=== PATIENT | female | born 1935 | race Caucasian/White ===

== ENCOUNTER → 2016-07-20 | Outpatient (CLI) | payer MEDICARE, OTHER ==
[~2016-07-20] MED LIST: ALLO100T PO; AMLO10 PO; CARV12.52 PO; CARV25TA PO; CHOL100028 PO; CYAN100016 PO; GLYB2.5T3 PO; HYDR-3516 PO; ISOS30TA15; LEVO200T4 PO; LEXA10TA PO; NEPHRO PO; OXYGEN; PRIL20CA9 PO; VITA100064 PO; Z.0.OXYGENDME NC
[2016-07-20 13:35] LABS: ALKALINE PHOSPHATASE 142 U/L (45-117); ALT (GPT) 17 U/L (10-53); ANION GAP 7 MEQ/L (5-15); AST (GOT) 15 U/L (15-37); BICARBONATE 27.6 MEQ/L (21.0-32.0); BLOOD UREA NITROGEN 64 MG/DL (7-18); CHLORIDE 103 MEQ/L (98-107); FREE T4 1.21 NG/DL (0.76-1.46); GLOMERULAR FILTRATION RATE 9 ML/MIN (>89); GLUCOSE,FASTING 141 MG/DL (74-99); HDL CHOLESTEROL 39.9 MG/DL (40.0-60.0); LDL CHOLESTEROL 49 MG/DL (0-99); POTASSIUM 5.3 MEQ/L (3.5-5.1); SODIUM (NA) 138 MEQ/L (136-145); TOTAL BILIRUBIN ADULT 0.4 MG/DL (0.2-1.0)
[2016-07-20 13:39] LABS: CREATINE KINASE 28 U/L (26-192)
== END ==
LOC: PLAB 08:33
PROVIDERS: ATTEND Internal Medicine Interventional Cardiology
DX: R94.39 Abnormal result of other cardiovascular function study (principal); I77.9 Disorder of arteries and arterioles, unspecified; I25.10 Atherosclerotic heart disease of native coronary artery without angina pectoris; I10 Essential (primary) hypertension; E78.2 Mixed hyperlipidemia; I31.9 Disease of pericardium, unspecified; I49.3 Ventricular premature depolarization; Z68.27 Body mass index [BMI] 27.0-27.9, adult
CPT/HCPCS: 36415; 80053; 80061; 82550; 83735; 84439; 84443

== ENCOUNTER → 2016-10-10 | Outpatient (CLI) | payer MEDICARE, OTHER ==
[2016-10-10 12:56] LABS: HEMATOCRIT 32.3 % (35.0-46.0); MEAN CELL VOLUME 105.6 FL (80.0-100.0); MEAN CORPUSCULAR HEMOGLOBIN 35.7 PG (27.0-34.0); MEAN CORPUSCULAR HGB CONC 33.9 % (32.0-36.0); PLATELET COUNT 196 TH/MM3 (150-450); RED BLOOD COUNT 3.06 MIL/MM3 (4.00-5.30); RED CELL DISTRIBUTION WIDTH 12.9 % (11.6-17.2); REVIEW FLAG FINAL; WHITE BLOOD COUNT 8.6 TH/MM3 (4.0-11.0)
[2016-10-10 13:20] LABS: WESTERGREN SEDIMENTATION RATE 48 mm/hr (0-30)
[2016-10-10 13:23] LABS: ANION GAP 12 MEQ/L (5-15); AST (GOT) 9 U/L (15-37); BICARBONATE 25.5 MEQ/L (21.0-32.0); BLOOD UREA NITROGEN 73 MG/DL (7-18); CHLORIDE 100 MEQ/L (98-107); GLOMERULAR FILTRATION RATE 9 ML/MIN (>89); POTASSIUM 4.4 MEQ/L (3.5-5.1); SODIUM (NA) 137 MEQ/L (136-145)
[2016-10-10 13:36] LABS: ALKALINE PHOSPHATASE 131 U/L (45-117); ALT (GPT) 15 U/L (10-53); TOTAL BILIRUBIN ADULT 0.4 MG/DL (0.2-1.0)
== END ==
LOC: PLAB 11:02
PROVIDERS: ATTEND Internal Medicine Rheumatology
DX: M06.09 Rheumatoid arthritis without rheumatoid factor, multiple sites (principal)
CPT/HCPCS: 36415; 80053; 85027; 85652; 86140; 86200; 86430

== ENCOUNTER → 2016-12-19 | Day surgery (SDC) | payer MEDICARE, OTHER ==
[~2016-12-19] MED LIST changes: +ASPI-110 PO; +BUPIVACAINE/EPINEPHRINE 0.25% 50 ML VIAL ONE; +MIDAZOLAM HCL 2 MG/2 ML VIAL ONE; +ONDANSETRON HCL 4 MG/2 ML VIAL IV PUSH ONE; +PRAV10TA PO; +PRIL10PO PO; +PROPOFOL 200 MG/20 ML AMP IV ONE; +RENATAB6 PO; +SODIUM CHLOR 0.9% 1000 ML BAG IV ONE; +VITA10002 PO; +VITA100036 PO; +ceFAZolin 2 GM PREMIX 50 ML ONE
--- NOTE | 2016-12-19 15:48 | TN ---
cc: TARIK MCGARRY M.D. DATE OF SURGERY: 12/19/2016 PREOPERATIVE DIAGNOSIS Right breast ductal carcinoma in situ. POSTOPERATIVE DIAGNOSIS Right breast ductal carcinoma in situ, acquired breast deformity right breast with asymmetry. PROCEDURE Right breast needle-localized lumpectomy, attempted intraoperative radiation therapy aborted due to machine malfunction, right breast Biozorb implantation with right breast reconstruction with local tissue flaps. SURGEON Dr. Tarik Mcgarry. LEGAL EXECUTIVE ASSISTANT CELSA Escalante SECOND LEGAL EXECUTIVE ASSISTANT Bella Horan, MS III ANESTHESIA General. INDICATIONS This is a very pleasant 81-year-old woman who is identified to have microcalcifications on the right breast. She underwent stereotactic biopsy and ductal carcinoma in situ was diagnosed. She was seen preoperatively by Dr. Dunne of radiation oncology. She is felt to be a candidate for lumpectomy with intraoperative radiation therapy. She has multiple medical comorbidities and plans were made to forego sentinel lymph node biopsy. INTRAOPERATIVE FINDINGS Successful removal of area of concern as seen on specimen mammography per Dr. Mayberry. Specimen was sent with short stitch superior anterior and a long stitch lateral posterior. A second specimen was removed, the posterior margin marked with a new suture in the new posterior margin. Estimated blood loss was minimal. The intraoperative radiation therapy machine was unable to be used due to error signal and therefore, intraoperative radiation therapy could not be performed. A size 3 x 3 Biozorb implant was placed in the lumpectomy cavity. DESCRIPTION OF PROCEDURE IN DETAIL The patient was identified as Deedee Faust, taken to the operating room and placed in the supine position, following needle localization of the right breast. Sequential compression devices were placed on bilateral lower extremities. Following induction of adequate general anesthesia with a laryngeal mask the right breast was prepped and draped in usual sterile fashion with Betadine. Time-out procedure was performed. Following completion of time-out procedure to everyone's satisfaction within the room, proposed periareolar incision lateral right nipple-areolar complex was made with a marking pen. It was infiltrated with local anesthetic and the incision carried out in the skin with a scalpel. Electrocautery was used for hemostasis and dissection down to the localization needle within the breast tissue about a centimeter from the skin edge. The localization needle was divided at the level of the skin, brought into the surgical wound and a generous portion of breast tissue was from surrounding tissues including localization needle tip and specimen was removed. It was marked with suture as stated above and sent to imaging with the above-mentioned findings. Palpation within the wound demonstrated some residual thickened tissue in the posterior lateral portion of the wound and this corresponded with the localization needle being closest to the posterior aspect of the original specimen. The posterior margin was then taken using electrocautery and marked with a suture on the new posterior margin. The palpation within the wound demonstrated no residual abnormal tissue. Small bleeding points were controlled with electrocautery. Dr. Dunne of Radiation Oncology then scrubbed in and it was determined we would attempt a 4 centimeter diameter application for the intraoperative radiation therapy. It was brought onto the surgical field and placed within the wound and appeared to conform and fit to the lumpectomy cavity very nicely. Superficial to this a 0 Prolene suture was used to place a pursestring suture in the superficial breast tissue and to the lumpectomy cavity. Ultrasound intraoperatively was used to identify the margins from the intraoperative radiation therapy applicator to the skin. The closest margin was 8.6 mm. The patient was felt to be an excellent candidate to proceed with intraoperative radiation therapy. Unfortunately, the intraoperative radiation therapy machine could not be used due to a machine malfunction. The applicator was removed from the lumpectomy cavity as was the pursestring suture. A 3 x 3 cm Biozorb marker was determined to be most suitable for implantation. The cavity was hemostatic. The 3-0 PDS stay sutures were placed into the margins of the surgical lumpectomy cavity and held into place and the tissue flaps used to reconstruct the defect created by the lumpectomy were then created and sutures were placed medially and laterally, superiorly and inferiorly. The implant being secured into the lumpectomy cavity with 3-0 PDS was completely covered with more superficial breast tissue. The device was completely covered with overlying breast tissue. Complex layered closure was then performed using interrupted 3-0 PDS and 4-0 Monocryl in the subcuticular space. Dressings were applied with Mastisol, half inch brown Steri-Strips, gauze and Tegaderm. The cosmetic result appeared excellent. The patient tolerated the procedure without apparent complication. Sponge, needle and instrument counts were correct at the end of the case. ADDENDUM This operation was assisted by my nurse practitioner. The skill set of an RESIN SHAVER was medically necessary to provide improvement in safety and efficiency in the operation as well as appropriate visualization of the area of concern. The surgical assistant certified was at the back table providing appropriate instrumentation while the nurse practitioner was directly assisting me through the entirety of the procedure. MD YENNIFER Ramachandran/YULISSA /3:09 PM /11:30 AM
--- NOTE | 2017-01-05 15:00 | HHI.HP ---
HPI Service General Surgery Primary Care Physician No Primary Care Physician Admission Diagnosis Right intraductal carcinoma in situ of breast Chief Complaint: 81-year-old female with right breast cancer intraductal carcinoma in situ History of Present Illness Patient seen in the office by Dr. Stafford and will plan for outpatient needle localized lumpectomy and intraoperative radiation. Review of Systems Constitutional: DENIES: Change in appetite Endocrine: DENIES: Polydipsia, Polyuria, Polyphagia Eyes: DENIES: Diplopia Ears, nose, mouth, throat: DENIES: Hearing loss Respiratory: DENIES: Cough Cardiovascular: DENIES: Chest pain Gastrointestinal: DENIES: Abdominal pain, Constipation, Diarrhea, Nausea, Vomiting Genitourinary: DENIES: Urinary frequency Musculoskeletal: DENIES: Joint pain Integumentary: DENIES: Abnormal pigmentation Hematologic/lymphatic: DENIES: Bruising Immunologic/allergic: DENIES: Eczema Neurologic: DENIES: Abnormal gait, Headache Psychiatric: DENIES: Mood changes, Depression, Hallucinations Past Family Social History Past Medical History Hypothyroidism Diabetes type 2 End-stage renal disease on dialysis Intraductal carcinoma in situ of right breast Past Surgical History Left upper extremity AV fistula Cholecystectomy Reported Medications Allopurinol Amlodipine Coreg escitalopram folic acid Lortab Isosorbide Synthroid Meclizine Pravastatin Prednisone Methotrexate Allergies: Coded Allergies: *MDRO Multi-Drug Resistant Organism (Verified Adverse Reaction, Unknown, ) 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 reported) MRSA PCR negative 12/09/2014 and 12/11/2014 Cleared per infection Control for MRSA VRE screen negative 12/09/2014 and 12/11/14. Cleared per Infection Control for VRE. Family History Mother with breast cancer--diagnosed in her 40s Social History Former smoker Denies EtOH use Denies illicit drug use Physical Exam Physical Exam GENERAL: Pleasant 81-year-old female in no acute distress. SKIN: Warm and dry. HEAD: Atraumatic. Normocephalic. EYES: Pupils equal and round. No scleral icterus. No injection or drainage. ENT: No nasal bleeding or discharge. Mucous membranes pink and moist. BREAST: RIGHT---post-biopsy bruising, redness and tenderness NECK: Trachea midline. CARDIOVASCULAR: Regular rate and rhythm. RESPIRATORY: No accessory muscle use. Clear to auscultation. Breath sounds equal bilaterally. GASTROINTESTINAL: Abdomen soft, non-tender, nondistended. Open cholecystectomy scar well-healed. MUSCULOSKELETAL: Extremities without clubbing, cyanosis, or edema. No obvious deformities. NEUROLOGICAL: Awake and alert. No obvious cranial nerve deficits. Motor grossly within normal limits. Five out of 5 muscle strength in the arms and legs. Normal speech. PSYCHIATRIC: Appropriate mood and affect; insight and judgment normal. Caprini VTE Risk Assessment Caprini VTE Risk Assessment: No/Low Risk (score <= 1) Caprini Risk Assessment Model Point Value = 1 Point Value = 2 Point Value = 3 Point Value = 5 Age 41-60 Minor surgery BMI > 25 kg/m2 Swollen legs Varicose veins or History of unexplained or recurrent spontaneous Oral contraceptives or hormone replacement Sepsis (< 1 month) Serious lung disease, including pneumonia (< 1 month) Abnormal pulmonary function Acute myocardial infarction Congestive heart failure (< 1 month) History of inflammatory bowel disease Medical patient at bed rest Age 61-74 Arthroscopic surgery Major open surgery (> 45 min) Laparoscopic surgery (> 45 min) Malignancy Confined to bed (> 72 hours) Immobilizing plaster cast Central venous access Age >= 75 History of VTE Family history of VTE Factor V Leiden Prothrombin [id number] Lupus anticoagulant Anticardiolipin antibodies Elevated serum homocysteine Heparin-induced thrombocytopenia Other congenital or acquired thrombophilia Stroke (< 1 month) Elective arthroplasty Hip, pelvis, or leg fracture Acute spinal cord injury (< 1 month) Prophylaxis Regimen Total Risk Factor Score Risk Level Prophylaxis Regimen 0-1 Low Early ambulation 2 Moderate Order ONE of the following: *Sequential Compression Device (SCD) *Heparin 5000 units SQ BID 3-4 Higher Order ONE of the following medications: *Heparin 5000 units SQ TID *Enoxaparin/Lovenox 40 mg SQ daily (WT < 150 kg, CrCl > 30 mL/min) *Enoxaparin/Lovenox 30 mg SQ daily (WT < 150 kg, CrCl > 10-29 mL/min) *Enoxaparin/Lovenox 30 mg SQ BID (WT < 150 kg, CrCl > 30 mL/min) AND/OR *Sequential Compression Device (SCD) 5 or more Highest Order ONE of the following medications: *Heparin 5000 units SQ TID (Preferred with Epidurals) *Enoxaparin/Lovenox 40 mg SQ daily (WT < 150 kg, CrCl > 30 mL/min) *Enoxaparin/Lovenox 30 mg SQ daily (WT < 150 kg, CrCl > 10-29 mL/min) *Enoxaparin/Lovenox 30 mg SQ BID (WT < 150 kg, CrCl > 30 mL/min) AND *Sequential Compression Device (SCD) Assessment and Plan Assessment and Plan 81-year-old female with right breast and ductal carcinoma in situ -Plan for outpatient needle localized lumpectomy without sentinel lymph node biopsy; plan for intraoperative radiation -Obtain consents -Patient surgery scheduled at [facility] [place] Azucena Castrejon Jan 05, 2017 15:00
== END | disposition home or self-care (01) ==
LOC: ESDC 10:03
PROVIDERS: ATTEND Surgery Trauma Surgery
DX: D05.11 Intraductal carcinoma in situ of right breast (principal); N64.89 Other specified disorders of breast
CPT/HCPCS: 00400; 19125; 19298; 88307; A4648; J0690; J2250; J2405; J3010; J7030; 88361

== ENCOUNTER → 2017-02-24 | Outpatient (CLI) | payer MEDICARE, OTHER ==
[~2017-02-24] MED LIST changes: -ASPI-110 PO; +ASPI1TAB57 PO; -BUPIVACAINE/EPINEPHRINE 0.25% 50 ML VIAL ONE; -CHOL100028 PO; +CHOL10008 PO; -GLYB2.5T3 PO; -HYDR-3516 PO; -ISOS30TA15; +ISOS30TA17; -MIDAZOLAM HCL 2 MG/2 ML VIAL ONE; +OMEP10SU PO; -ONDANSETRON HCL 4 MG/2 ML VIAL IV PUSH ONE; -PRIL10PO PO; -PRIL20CA9 PO; -PROPOFOL 200 MG/20 ML AMP IV ONE; -SODIUM CHLOR 0.9% 1000 ML BAG IV ONE; -VITA100036 PO; -VITA100064 PO; -Z.0.OXYGENDME NC; -ceFAZolin 2 GM PREMIX 50 ML ONE
[2017-02-24 13:53] LABS: AUTOMATED NEUTROPHIL # 6.8 TH/MM3 (1.8-7.7); BASOPHIL # 0.1 TH/MM3 (0-0.2); BASOPHIL % 1.1 % (0.0-2.0); EOSINOPHIL # 0.3 TH/MM3 (0-0.4); EOSINOPHIL % 3.3 % (0.0-4.0); HEMATOCRIT 29.6 % (35.0-46.0); HEMO FLAGS DIFF FINAL; LYMPH % 15.8 % (9.0-44.0); LYMPHOCYTE # 1.4 TH/MM3 (1.0-4.8); MEAN CELL VOLUME 109.5 FL (80.0-100.0); MEAN CORPUSCULAR HGB CONC 33.8 % (32.0-36.0); MONO % 1.6 % (0.0-8.0); NEUT % 78.2 % (16.0-70.0); PLATELET COUNT 189 TH/MM3 (150-450); RED CELL DISTRIBUTION WIDTH 17.5 % (11.6-17.2); WHITE BLOOD COUNT 8.6 TH/MM3 (4.0-11.0)
[2017-02-24 14:12] LABS: ANION GAP 8 MEQ/L (5-15); AST (GOT) 13 U/L (15-37); BICARBONATE 28.2 MEQ/L (21.0-32.0); BLOOD UREA NITROGEN 36 MG/DL (7-18); CHLORIDE 103 MEQ/L (98-107); GLOMERULAR FILTRATION RATE 12 ML/MIN (>89); GLUCOSE,FASTING 162 MG/DL (74-99); POTASSIUM 4.8 MEQ/L (3.5-5.1); SODIUM (NA) 139 MEQ/L (136-145)
[2017-02-24 14:24] LABS: ALKALINE PHOSPHATASE 110 U/L (45-117); ALT (GPT) 14 U/L (10-53); HDL CHOLESTEROL 48.4 MG/DL (40.0-60.0); LDL CHOLESTEROL 35 MG/DL (0-99); TOTAL BILIRUBIN ADULT 0.7 MG/DL (0.2-1.0)
[2017-02-24 14:53] LABS: HEMOGLOBIN A1a 1.7 %; HEMOGLOBIN A1b 0.9 %; HEMOGLOBIN Ao 80.8 %; HEMOGLOBIN F 2.7 %; HEMOGLOBIN LA1C 2.8 %; HEMOGLOBIN P3 5.7 %
== END ==
LOC: PLAB 08:46
PROVIDERS: ATTEND Family Medicine
DX: I25.10 Atherosclerotic heart disease of native coronary artery without angina pectoris (principal); N18.5 Chronic kidney disease, stage 5; E11.22 Type 2 diabetes mellitus with diabetic chronic kidney disease; E04.1 Nontoxic single thyroid nodule; E03.8 Other specified hypothyroidism; I77.9 Disorder of arteries and arterioles, unspecified; E78.2 Mixed hyperlipidemia
CPT/HCPCS: 36415; 80053; 80061; 83036; 84443; 85025

== ENCOUNTER 2017-05-11 12:04 | Observation (INO) | payer MEDICARE, OTHER ==
[~2017-05-11] VITALS: Ht 171.4 cm; Wt 82.0 kg
[2017-05-11] VITALS (10 sets, daily range): BP systolic 119–146; BP diastolic 47–75; PULSE 80–86; RESP 17–20; TEMP 97.9–98.8; O2SAT 96–99
--- NOTE | 2017-05-11 12:28 | PD ---
HPI Chief Complaint: General Weakness Time Seen by Provider: 12:27 Travel History International Travel<30 days: No Contact w/Intl Traveler<30days: No Traveled to known affect area: No History of Present Illness HPI 82-year-old female came to the emergency room for generalized weakness. Patient says she's been feeling like this for past 1 week. She is end-stage renal disease and hemodialysis dependent. Her burn crew member is Dr. Bautista. She was supposed to go for dialysis today but because of her symptoms she called her burn crew member last to come to the emergency room. Vital signs are stable. Her friend is here with her who is giving additional history. Patient is also complaining of left sided abdominal pain. No history of fever or chills. She says for past 2 days she has been having some vomiting and diarrhea. This morning she took some Imodium because she was tired of going to the bathroom. The left-sided abdominal pain is nonradiating. No aggravating or relieving factors identified. [facility] Past Medical History Narrative Medical List of her past medical, surgical, social and family history is reviewed from the nursing note. Arthritis: Yes Asthma: No Autoimmune Disease: No Blood Disorders: No Anxiety: Yes Depression: Yes Heart Rhythm Problems: No Cancer: Yes (BREAST) Cardiovascular Problems: Yes High Cholesterol: No Chemotherapy: No Chest Pain: No Congestive Heart Failure: No COPD: No Cerebrovascular Accident: No Diabetes: Yes Diminished Hearing: No Endocrine: Yes Gastrointestinal Disorders: Yes GERD: No Glaucoma: No Genitourinary: Yes (HEMODIALYSIS) Headaches: No Hepatitis: No Hiatal Hernia: No Hypertension: Yes Immune Disorder: No Kidney Stones: No Musculoskeletal: No Neurologic: No Psychiatric: No Reproductive: No Respiratory: Yes Migraines: No Myocardial Infarction: No Radiation Therapy: No Renal Failure: Yes Seizures: No Sickle Cell Disease: No Sleep Apnea: No Thyroid Disease: Yes Ulcer: No Menopausal: Yes Past Surgical History Abdominal Surgery: Yes (GALLBLADDER) AICD: No Appendectomy: No Arteriovenous Shunt: Yes Cardiac Surgery: Yes (angiogram) Cholecystectomy: Yes (AGE 52) Ear Surgery: No Endocrine Surgery: No Eye Surgery: Yes (right cataract) Genitourinary Surgery: No Gynecologic Surgery: No Insulin Pump: No Joint Replacement: No Oral Surgery: No Pacemaker: No Thoracic Surgery: No Tonsillectomy: Yes Other Surgery: Yes Social History Alcohol Use: No Tobacco Use: No (QUIT 15 YEARS AGO) Substance Use: No Allergies-Medications (Allergen,Severity, Reaction): Coded Allergies: *MDRO Multi-Drug Resistant Organism (Verified Adverse Reaction, Unknown, 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 reported) MRSA PCR negative 12/09/2014 and 12/11/2014 Cleared per infection Control for MRSA VRE screen negative 12/09/2014 and 12/11/14. Cleared per Infection Control for VRE. Comments List of her allergies reviewed from the nursing note. Reported Meds & Prescriptions Reported Meds & Active Scripts Active Reported Folic Acid 0.8 Mg Tab 1,000 Mcg PO DAILY Escitalopram (Escitalopram Oxalate) 10 Mg Tab 10 Mg PO DAILY Methotrexate 2.5 Mg Tab 10 Mg PO Q7D Pita-[facility]osal[facility] Rx (B-Complex W/ C & Folic Acid) 1 Tab 1 Tab PO DAILY Pravastatin 10 Mg Tab 10 Mg PO DAILY Aspirin 81 (Aspirin) 81 Mg Tabdr 81 Mg PO DAILY Prilosec (Omeprazole Magnesium) 10 Mg Pow 1 Tab PO MON-SAT Vitamin B-12 (Cyanocobalamin) 1,000 Mcg Tab 1,000 Mcg PO DAILY Vitamin D3 (Cholecalciferol) 1,000 Unit Cap 1,000 Units PO DAILY [Oxygen] Allopurinol 100 Mg Tab 100 Mg PO DAILY Norvasc (Amlodipine Besylate) 10 Mg Tab 10 Mg PO DAILY Carvedilol 12.5 Mg Tab 12.5 Mg PO HS Carvedilol 25 Mg Tab 25 Mg PO DAILY Isosorbide Dinitrate 30 Mg Tab Levothyroxine (Levothyroxine Sodium) 200 Mcg Tab 200 Mcg PO DAILY Nephro-Rosalinda Rx (Vitamin B Cmplx/Vit C/Folic AC) 1 Tab 1 Tab PO Narrative Medication List of her home medications reviewed from the nursing note. Review of Systems Except as stated in HPI: all other systems reviewed are Neg Gastrointestinal: Positive: Abdominal Pain Physical Exam Narrative GENERAL: Awake, alert, moderate distress SKIN: Focused skin assessment warm/dry. HEAD: Atraumatic. Normocephalic. EYES: Pupils equal and round. No scleral icterus. No injection or drainage. ENT: No nasal bleeding or discharge. Mucous membranes pink and moist. NECK: Trachea midline. No JVD. CARDIOVASCULAR: Regular rate and rhythm. No murmur appreciated. RESPIRATORY: No accessory muscle use. Clear to auscultation. Breath sounds equal bilaterally. GASTROINTESTINAL: Abdomen soft, left-sided abdominal tenderness on palpation, nondistended. Hepatic and splenic margins not palpable. MUSCULOSKELETAL: No obvious deformities. No clubbing. No cyanosis. No edema. NEUROLOGICAL: Awake and alert. No obvious cranial nerve deficits. Motor grossly within normal limits. Normal speech. PSYCHIATRIC: Appropriate mood and affect; insight and judgment normal. Data Data Last Documented VS Vital Signs Date Time Temp Pulse Resp B/P (MAP) Pulse Ox O2 Delivery O2 Flow Rate FiO2 05/11/17 13:50 83 17 142/47 (78) 96 Nasal Cannula 2.00 05/11/17 12:14 98.8 Orders Orders Complete Blood Count With Diff (05/11/17 12:34) Comprehensive Metabolic Panel (05/11/17 12:34) Lactic Acid (05/11/17 12:34) Urinalysis - C+S If Indicated (05/11/17 12:34) Ct Abd/Pel W/O Iv Contrast (05/11/17 12:34) Iv Access Insert/Monitor (05/11/17 12:34) Ecg Monitoring (05/11/17 12:34) Oximetry (05/11/17 12:34) Sodium Chloride 0.9% Flush (Ns Flush) (05/11/17 12:45) Chest, Single Ap (05/11/17 ) Troponin I (05/11/17 12:34) Electrocardiogram (05/11/17 ) Consult Nephrology (05/11/17 ) C Diff Toxin Pcr (05/11/17 14:37) Place In Observation (05/11/17 ) Vital Signs (Adult) SHAY.Q4H (05/11/17 14:37) Activity Oob With Assistance (05/11/17 14:37) Early Childhood Coordinator / Telemetry SHAY.Q8H (05/11/17 14:37) Complete Blood Count With Diff (05/12/17 06:00) Basic Metabolic Panel (Bmp) (05/12/17 06:00) Admit Order (Ed Use Only) (05/11/17 14:39) Labs Laboratory Tests Test 05/11/17 12:50 05/11/17 13:20 White Blood Count 6.2 TH/MM3 Red Blood Count 2.51 MIL/MM3 Hemoglobin 8.8 GM/DL Hematocrit 27.4 % Mean Corpuscular Volume 109.1 FL Mean Corpuscular Hemoglobin 35.2 PG Mean Corpuscular Hemoglobin Concent 32.3 % Red Cell Distribution Width 14.2 % Platelet Count 316 TH/MM3 Mean Platelet Volume 7.4 FL Neutrophils (%) (Auto) 84.4 % Lymphocytes (%) (Auto) 11.7 % Monocytes (%) (Auto) 0.5 % Eosinophils (%) (Auto) 2.1 % Basophils (%) (Auto) 1.3 % Neutrophils # (Auto) 5.3 TH/MM3 Lymphocytes # (Auto) 0.7 TH/MM3 Monocytes # (Auto) 0.0 TH/MM3 Eosinophils # (Auto) 0.1 TH/MM3 Basophils # (Auto) 0.1 TH/MM3 CBC Comment DIFF FINAL Differential Comment Blood Urea Nitrogen 63 MG/DL Creatinine 5.00 MG/DL Random Glucose 199 MG/DL Total Protein 7.1 GM/DL Albumin 3.1 GM/DL Calcium Level 8.3 MG/DL Alkaline Phosphatase 89 U/L Aspartate Amino Transf (AST/SGOT) 22 U/L Alanine Aminotransferase (ALT/SGPT) 26 U/L Total Bilirubin 0.5 MG/DL Sodium Level 135 MEQ/L Potassium Level 4.2 MEQ/L Chloride Level 101 MEQ/L Carbon Dioxide Level 25.5 MEQ/L Anion Gap 9 MEQ/L Estimat Glomerular Filtration Rate 8 ML/MIN Troponin I LESS THAN 0.02 NG/ML Lactic Acid Level 0.6 mmol/L MDM Medical Decision Making Medical Screen Exam Complete: Yes Emergency Medical Condition: Yes Medical Record Reviewed: Yes Differential Diagnosis Electrolyte abnormalities, dehydration, diverticulitis Narrative Course 1:56 PM blood test results are back and overall does not appear to be significantly different from her past. Waiting for the CT scan of her abdomen and pelvis to be reported. I'll call her burn crew member and discussed the case with him after that. 2:24 PM blood test results were discussed with her burn crew member along with the CAT scan result. At this point the joint decision is to admit her to the hospital. Seems like patient has been unable to get up or walk and given her condition she may not be able to make it to the dialysis unit tomorrow. Dr. Bautista will dialyze her while she is in the hospital may be tomorrow. He recommended a 23 hour observation admission. Awaiting for the hospitalist to call back. Procedures EKG Prior to Arrival: No Physician Communication Physician Communication Dr. Bautista Diagnosis Primary Impression: Generalized weakness Additional Impressions: Colitis Dehydration End stage renal disease Dependent on hemodialysis Admitting Information Admitting Physician Requests: Observation Scripts Metronidazole (Metronidazole) 500 Mg Tab 500 MG PO TID for Infection, #15 TAB 0 Refills Prov: Lindsay Dhillon MD 05/13/17 Ciprofloxacin (Cipro) 500 Mg Tab 500 MG PO BID for Infection, #10 TAB 0 Refills Prov: Lindsay Dhillon MD 05/13/17 Ashish Patel MD May 11, 2017 12:28
[2017-05-11] MEDS ORDERED: SODIUM CHLORIDE 0.9% FLUSH 10 ML FLUSH IV FLUSH PRN ×3 (12:45→17:15)
--- NOTE | 2017-05-11 12:58 | RADRPT ---
EXAM DATE/TIME: 05/11/2017 12:40 [facility] COMPARISON: CHEST SINGLE AP, October 16, 2014, 17:01. INDICATIONS : Short of breath and cough for 3 days. MEDICAL HISTORY : Hypertension. Carcinoma, breast. Hypothyroidism. Diabetes. Dialysis. Renal failure. SURGICAL HISTORY : Cholecystectomy. Left breast lumpectomy. ENCOUNTER: Initial ACUITY: 3 days PAIN SCORE: 0/10 LOCATION: Bilateral chest FINDINGS: Portable AP view of the chest demonstrates a normal-sized cardiac silhouette. Patient is slightly rot ated and EKG lines overlie the patient. No effusion, consolidation, or pneumothorax is identified. Th e bones and soft tissues demonstrate no acute finding. CONCLUSION: No acute cardiopulmonary abnormality is identified. Paul Donato MD on May 11, 2017 at 12:54 Board Certified Radiologist. This report was verified electronically.
[2017-05-11 13:00] LABS: AUTOMATED NEUTROPHIL # 5.3 TH/MM3 (1.8-7.7); BASOPHIL # 0.1 TH/MM3 (0-0.2); BASOPHIL % 1.3 % (0.0-2.0); EOSINOPHIL # 0.1 TH/MM3 (0-0.4); EOSINOPHIL % 2.1 % (0.0-4.0); HEMATOCRIT 27.4 % (35.0-46.0); HEMOGLOBIN 8.8 GM/DL (11.6-15.3); LYMPH % 11.7 % (9.0-44.0); LYMPHOCYTE # 0.7 TH/MM3 (1.0-4.8); MEAN CELL VOLUME 109.1 FL (80.0-100.0); MEAN CORPUSCULAR HEMOGLOBIN 35.2 PG (27.0-34.0); MEAN CORPUSCULAR HGB CONC 32.3 % (32.0-36.0); MEAN PLATELET VOLUME 7.4 FL (7.0-11.0); MONO % 0.5 % (0.0-8.0); NEUT % 84.4 % (16.0-70.0); PLATELET COUNT 316 TH/MM3 (150-450); RED BLOOD COUNT 2.51 MIL/MM3 (4.00-5.30); RED CELL DISTRIBUTION WIDTH 14.2 % (11.6-17.2); WHITE BLOOD COUNT 6.2 TH/MM3 (4.0-11.0)
[2017-05-11 13:08] LABS: CHLORIDE 101 MEQ/L (98-107); SODIUM (NA) 135 MEQ/L (136-145)
[2017-05-11 13:11] LABS: ALBUMIN 3.1 GM/DL (3.4-5.0); BICARBONATE 25.5 MEQ/L (21.0-32.0); CALCIUM 8.3 MG/DL (8.5-10.1); GLUCOSE,RANDOM 199 MG/DL (74-106)
[2017-05-11 13:12] LABS: BLOOD UREA NITROGEN 63 MG/DL (7-18)
[2017-05-11 13:14] LABS: ALT (GPT) 26 U/L (10-53); AST (GOT) 22 U/L (15-37)
[2017-05-11 13:15] LABS: GLOMERULAR FILTRATION RATE 8 ML/MIN (>89)
[2017-05-11 13:16] LABS: TOTAL BILIRUBIN ADULT 0.5 MG/DL (0.2-1.0); TOTAL PROTEIN 7.1 GM/DL (6.4-8.2)
[2017-05-11 13:17] LABS: ALKALINE PHOSPHATASE 89 U/L (45-117)
[2017-05-11 13:19] LABS: TROPONIN I LESS THAN 0.02 NG/ML (0.02-0.05)
[2017-05-11] MEDS ORDERED: RENATAB6 PO (13:42)
--- NOTE | 2017-05-11 14:06 | RADRPT ---
EXAM DATE/TIME: 05/11/2017 13:07 [facility] COMPARISON: No previous studies available for comparison. INDICATIONS : Left abdominal pain. ORAL CONTRAST: No oral contrast ingested. RADIATION DOSE: 22.63 CTDIvol (mGy) MEDICAL HISTORY : Carcinoma, breast. Renal failure, chronic. Cardiovascular diseaseDiabetes. SURGICAL HISTORY : Cholecystectomy. AV shunt. ENCOUNTER: Initial ACUITY: 1 week PAIN SCALE: 8/10 LOCATION: Left abdomen. TECHNIQUE: Volumetric scanning of the abdomen and pelvis was performed. Using automated exposure control and ad justment of the mA and/or kV according to patient size, radiation dose was kept as low as reasonably achievable to obtain optimal diagnostic quality images. DICOM format image data is available electro nically for review and comparison. FINDINGS: LOWER LUNGS: The visualized lower lungs are clear. LIVER: Homogeneous density without lesion. There is no dilation of the biliary tree. No calcified gallston es. SPLEEN: Normal size without lesion. PANCREAS: Within normal limits. KIDNEYS: Small with generalized cortical thinning. A 2.2 cm cyst is noted off the lower pole of the right kidn ey. ADRENAL GLANDS: Within normal limits. VASCULAR: There is no aortic aneurysm. BOWEL/MESENTERY: Significant pericolonic stranding and inflammation is seen along the distal transverse colon extendin g into the splenic flexure and proximal descending colon. Small scattered diverticula present through out the descending and sigmoid colon. Small intestinal tract is unremarkable. There are no abnormal f luid collections or evidence of free air. ABDOMINAL WALL: Within normal limits. RETROPERITONEUM: There is no lymphadenopathy. BLADDER: No wall thickening or mass. REPRODUCTIVE: Within normal limits. INGUINAL: There is no lymphadenopathy or hernia. MUSCULOSKELETAL: Within normal limits for patient age. CONCLUSION: 1. Segmental inflammation of the distal transverse and proximal descending colon characteristic of co litis. There are several adjacent diverticula however there no significant diverticular findings desirae g the inflamed segment. 2. Bilateral renal cortical atrophy. 3. Status post cholecystectomy. 4. Colonic diverticulosis. Raudel Zamora MD on May 11, 2017 at 13:55 Board Certified Radiologist. This report was verified electronically.
[2017-05-11] MEDS ORDERED: METH2.5T PO (14:30)
[2017-05-11] MEDS ORDERED: ESCI10TA PO (14:30)
[2017-05-11] MEDS ORDERED: FOLI800T PO (14:32)
--- NOTE | 2017-05-11 16:36 | HHI.HP ---
[facility] Cleo Shannon MD Admission Diagnosis denies weakness, dehydration, end-stage renal disease, hemodialysis Diagnoses: (1) Colitis Diagnosis: Principal (2) Gastroenteritis Diagnosis: Principal (3) Diarrhea in adult patient Diagnosis: Principal (4) Generalized weakness Diagnosis: Principal Chief Complaint: Nausea, vomiting, diarrhea, abdominal pain Travel History International Travel<30 Days: No Contact w/Intl Traveler <30 Da: No Traveled to Known Affected Are: No History of Present Illness 82-year-old female with known history of end-stage renal disease on dialysis, diabetes, hypothyroidism, breast cancer, hypertension, hyperlipidemia , rheumatoid arthritis, who presented to hospital because of abdominal pain, nausea, vomiting, diarrhea, generalized weakness. Patient states that she was in normal state of health until after Monday night. She went out and had chicken pot pie from [employer] fried chicken and then the next morning she started developing a pain in her left lower abdomen which was colicky in nature and then started developing nausea with vomiting. Patient does not eat much over the next couple days, because every time she ate she would vomit. Then this morning she had severe diarrhea in which was soft consistency. There was no watery diarrhea. She states that she would get off the toilet and walk out to the kitchen/living room and after turn around and go back to the restroom again. She did take some Imodium. She is scheduled for dialysis today and she called Dr. Bautista and notified him that she was very weak and had diarrhea and he notified her to go to the emergency department. Patient had workup done emergency department and CT scan does show findings consistent with colitis. It was recommended by the ER physician the patient be observed in the hospital for further recommendations and management. Patient denies any melena, hematochezia, hematemesis, fever, chills. Review of Systems Constitutional: COMPLAINS OF: Fatigue Gastrointestinal: COMPLAINS OF: Abdominal pain, Diarrhea, Nausea, Vomiting Except as stated in HPI: all other systems reviewed are Neg Past Family Social History Past Medical History Hypertension Hyperlipidemia Diabetes End-stage renal disease on dialysis Hypothyroidism Gouty arthritis Rheumatoid arthritis Past Surgical History Cholecystectomy Tonsillectomy AV fistula Pericardial fluid drainage Cataract surgery Carpal tunnel surgery Reported Medications Reported Meds & Active Scripts Active Reported Folic Acid 0.8 Mg Tab 1,000 Mcg PO DAILY Escitalopram (Escitalopram Oxalate) 10 Mg Tab 10 Mg PO DAILY Methotrexate 2.5 Mg Tab 10 Mg PO Q7D Pita-Rosalinda Rx (B-Complex W/ C & Folic Acid) 1 Tab 1 Tab PO DAILY Pravastatin 10 Mg Tab 10 Mg PO DAILY Aspirin 81 (Aspirin) 81 Mg Tabdr 81 Mg PO DAILY Prilosec (Omeprazole Magnesium) 10 Mg Pow 1 Tab PO MON-SAT Vitamin B-12 (Cyanocobalamin) 1,000 Mcg Tab 1,000 Mcg PO DAILY Vitamin D3 (Cholecalciferol) 1,000 Unit Cap 1,000 Units PO DAILY [Oxygen] Allopurinol 100 Mg Tab 100 Mg PO DAILY Norvasc (Amlodipine Besylate) 10 Mg Tab 10 Mg PO DAILY Carvedilol 12.5 Mg Tab 12.5 Mg PO HS Carvedilol 25 Mg Tab 25 Mg PO DAILY Isosorbide Dinitrate 30 Mg Tab Levothyroxine (Levothyroxine Sodium) 200 Mcg Tab 200 Mcg PO DAILY Nephro-Rosalinda Rx (Vitamin B Cmplx/Vit C/Folic AC) 1 Tab 1 Tab PO Allergies: Coded Allergies: *MDRO Multi-Drug Resistant Organism (Verified Adverse Reaction, Unknown, 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 reported) MRSA PCR negative 12/09/2014 and 12/11/2014 Cleared per infection Control for MRSA VRE screen negative 12/09/2014 and 12/11/14. Cleared per Infection Control for VRE. Family History Reviewed is significant for mother having breast cancer with recurrence Social History Patient quit smoking 18 years ago, prior to that she smoked a pack a cigarettes a day since she was 20 years old. Denies any alcohol or illicit drugs Physical Exam Vital Signs Vital Signs Date Time Temp Pulse Resp B/P (MAP) Pulse Ox O2 Delivery O2 Flow Rate FiO2 05/11/17 15:45 80 18 136/59 (84) 95 Nasal Cannula 2.00 05/11/17 15:00 80 18 138/75 (96) 96 Nasal Cannula 2.00 05/11/17 13:50 83 17 142/47 (78) 96 Nasal Cannula 2.00 05/11/17 12:53 96 Room Air 05/11/17 12:31 Room Air 05/11/17 12:14 98.8 86 17 119/56 (77) 96 Physical Exam GENERAL: Well-developed, well-nourished, in no acute distress. alert and orientated HEENT: Head is normocephalic without any lesions or masses noted. Facial features are symmetric. Eyes: Pupils equal round reactive to light. Extraocular muscles are intact. Conjunctivae were clear. Oropharyngeal: Pharynx without any erythema edema. Tongue is midline without deviation. Buccal mucosa is moist without any masses or lesions NECK: Supple without any masses. Trachea midline no deviation. No JVD, no bruits are appreciated CARDIAC: Regular rhythm, regular rate. S1/S2 are heard. No murmurs gallops or rubs. LUNGS: Clear to auscultation bilaterally. No wheeze, rhonchi or rales. No use of accessory muscles on inspiration or expiration. ABDOMEN: Soft, mild tenderness noted in the left lower quadrant. Nondistended. Bowel sounds heard in all 4 quadrants. No organomegaly or masses. Negative rebound, negative guarding EXTREMITIES: No edema, pulses are equal bilaterally. No cyanosis or clubbing NEUROLOGY: Mood and affect appear appropriate. Cranial nerves II through XII grossly intact. Muscle strength 5/5 in upper and lower extremities bilaterally. Deep tendon reflexes are 2+ in upper and lower extremities bilaterally. Laboratory Laboratory Tests Test 05/11/17 12:50 05/11/17 13:20 White Blood Count 6.2 Red Blood Count 2.51 Hemoglobin 8.8 Hematocrit 27.4 Mean Corpuscular Volume 109.1 Mean Corpuscular Hemoglobin 35.2 Mean Corpuscular Hemoglobin Concent 32.3 Red Cell Distribution Width 14.2 Platelet Count 316 Mean Platelet Volume 7.4 Neutrophils (%) (Auto) 84.4 Lymphocytes (%) (Auto) 11.7 Monocytes (%) (Auto) 0.5 Eosinophils (%) (Auto) 2.1 Basophils (%) (Auto) 1.3 Neutrophils # (Auto) 5.3 Lymphocytes # (Auto) 0.7 Monocytes # (Auto) 0.0 Eosinophils # (Auto) 0.1 Basophils # (Auto) 0.1 CBC Comment DIFF FINAL Differential Comment Blood Urea Nitrogen 63 Creatinine 5.00 Random Glucose 199 Total Protein 7.1 Albumin 3.1 Calcium Level 8.3 Alkaline Phosphatase 89 Aspartate Amino Transf (AST/SGOT) 22 Alanine Aminotransferase (ALT/SGPT) 26 Total Bilirubin 0.5 Sodium Level 135 Potassium Level 4.2 Chloride Level 101 Carbon Dioxide Level 25.5 Anion Gap 9 Estimat Glomerular Filtration Rate 8 Troponin I LESS THAN 0.02 Lactic Acid Level 0.6 Result Diagram: 05/11/17 1250 05/11/17 1250 Imaging Last Impressions Abdomen/Pelvis CT 05/11/17 1234 Signed Impressions: Service Date/Time: April 13:07 - CONCLUSION: 1. Segmental inflammation of the distal transverse and proximal descending colon characteristic of colitis. There are several adjacent diverticula however there no significant diverticular findings along the inflamed segment. 2. Bilateral renal cortical atrophy. 3. Status post cholecystectomy. 4. Colonic diverticulosis. Raudel Zamora MD Chest X-Ray 05/11/17 0000 Signed Impressions: Service Date/Time: April 12:40 - CONCLUSION: No acute cardiopulmonary abnormality is identified. Paul Donato MD Capmelchori VTE Risk Assessment Caprini VTE Risk Assessment: Mod/High Risk (score >= 2) Caprini Risk Assessment Model Point Value = 1 Point Value = 2 Point Value = 3 Point Value = 5 Age 41-60 Minor surgery BMI > 25 kg/m2 Swollen legs Varicose veins or History of unexplained or recurrent spontaneous Oral contraceptives or hormone replacement Sepsis (< 1 month) Serious lung disease, including pneumonia (< 1 month) Abnormal pulmonary function Acute myocardial infarction Congestive heart failure (< 1 month) History of inflammatory bowel disease Medical patient at bed rest Age 61-74 Arthroscopic surgery Major open surgery (> 45 min) Laparoscopic surgery (> 45 min) Malignancy Confined to bed (> 72 hours) Immobilizing plaster cast Central venous access Age >= 75 History of VTE Family history of VTE Factor V Leiden Prothrombin [id number] Lupus anticoagulant Anticardiolipin antibodies Elevated serum homocysteine Heparin-induced thrombocytopenia Other congenital or acquired thrombophilia Stroke (< 1 month) Elective arthroplasty Hip, pelvis, or leg fracture Acute spinal cord injury (< 1 month) Prophylaxis Regimen Total Risk Factor Score Risk Level Prophylaxis Regimen 0-1 Low Early ambulation 2 Moderate Order ONE of the following: *Sequential Compression Device (SCD) *Heparin 5000 units SQ BID 3-4 Higher Order ONE of the following medications: *Heparin 5000 units SQ TID *Enoxaparin/Lovenox 40 mg SQ daily (WT < 150 kg, CrCl > 30 mL/min) *Enoxaparin/Lovenox 30 mg SQ daily (WT < 150 kg, CrCl > 10-29 mL/min) *Enoxaparin/Lovenox 30 mg SQ BID (WT < 150 kg, CrCl > 30 mL/min) AND/OR *Sequential Compression Device (SCD) 5 or more Highest Order ONE of the following medications: *Heparin 5000 units SQ TID (Preferred with Epidurals) *Enoxaparin/Lovenox 40 mg SQ daily (WT < 150 kg, CrCl > 30 mL/min) *Enoxaparin/Lovenox 30 mg SQ daily (WT < 150 kg, CrCl > 10-29 mL/min) *Enoxaparin/Lovenox 30 mg SQ BID (WT < 150 kg, CrCl > 30 mL/min) AND *Sequential Compression Device (SCD) Assessment and Plan Assessment and Plan 82-year-old female who presented to hospital with three-day history of nausea, vomiting and eventually diarrhea Colitis CT scan does indicate distal transverse and proximal descending colon characteristics of colitis. No findings of diverticulitis Stool studies have been requested C. difficile, rotavirus, enteric pathogen We'll start Cipro and Flagyl End-stage renal disease on dialysis Assistant Media Buyer has been consulted Patient does get dialysis on Tuesdays, , Saturdays Diabetes Accu-Cheks with sliding scale insulin Hypertension, hyperlipidemia, hypothyroidism continue home medications DVT prevention Sequential compression devices Sean Rodriguez May 11, 2017 16:36
[2017-05-11] MEDS ORDERED: DEXTROSE 50% IN WATER 50 ML VIAL(D50) IV PUSH PRN (16:45)
[2017-05-11] MEDS ORDERED: ONDANSETRON HCL 4 MG/2 ML VIAL IV PUSH PRN ×2 (16:45→17:15)
[2017-05-11] MEDS ORDERED: GLUCAGON 1 MG/ML VIAL OTHER PRN (16:45)
[2017-05-11] MEDS ORDERED: ACETAMINOPHEN/HYDROcodone 325 MG/7.5 MG TAB PO PRN (17:00)
[2017-05-11] MEDS ORDERED: ACETAMINOPHEN/HYDROcodone 325 MG/5 MG TAB PO PRN (17:00)
[2017-05-11] MEDS: INSULIN ASPART SUPPLEMENTAL SCALE SQ SCH ×3 (17:00→21:54)
[2017-05-11] MEDS ORDERED: ACETAMINOPHEN 325 MG TAB PO PRN ×2 (17:00→17:15)
[2017-05-11] MEDS ORDERED: SODIUM CHLOR 0.9% 1000 ML INJ 1,000 ML OTHER PRN ×2 (17:14)
[2017-05-11] MEDS ORDERED: diphenhydrAMINE HCL 25 MG CAP PO PRN (17:15)
[2017-05-11] MEDS ORDERED: cloNIDine HCL 0.1 MG TAB PO PRN (17:15)
[2017-05-11] MEDS ORDERED: NITROGLYCERIN 0.4 MG SL 25 TABS/BTL SL PRN (17:15)
[2017-05-11] MEDS ORDERED: ALBUMIN 25% INJ 100 ML IV PRN (17:15)
[2017-05-11] MEDS ORDERED: HEPARIN SODIUM - IV 10,000 UNITS/10 ML VIAL PRN (17:15)
[2017-05-11] MEDS ORDERED: GELATIN 12 MM/7 MM FOAM TOP PRN (17:15)
[2017-05-11] MEDS ORDERED: HEPARIN SODIUM - IV 10,000 UNITS/10 ML VIAL IV FLUSH PRN (17:15)
[2017-05-11] MEDS ORDERED: EPOETIN ALFA 10,000 UNITS/ML VIAL IV PUSH PRN (17:15)
[2017-05-11] MEDS ORDERED: GENTAMICIN SULFATE 20 MG/2 ML VIAL OTHER PRN (17:15)
[2017-05-11] MEDS ORDERED: MANNITOL 12.5 GM/50 ML VIAL IV PRN (17:15)
--- NOTE | 2017-05-11 17:33 | PD.CONS ---
[facility] Service Nephrology Consult Requested By Dr. Brito Reason for Consult ESRD on HD Primary Care Physician Cleo Shannon MD History of Present Illness Patient is a 82-year-old female with known history of end-stage renal disease on dialysis, diabetes, hypothyroidism, breast cancer, hypertension, hyperlipidemia, and rheumatoid arthritis. Presented to ER with abdominal pain, nausea, vomiting, diarrhea, generalized weakness since Monday. Patient is ESRD on HD on /Mon at [facility]. Her last dialysis was on Monday. Patient had CT scan does show findings consistent with colitis. Has been started on Flagyl and ciprofloxacin. 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 reported) MRSA PCR negative 12/09/2014 and 12/11/2014 Cleared per infection Control for MRSA VRE screen negative 12/09/2014 and 12/11/14. Cleared per Infection Control for VRE. Past Medical History Hypertension Hyperlipidemia Diabetes End-stage renal disease on dialysis Hypothyroidism Gouty arthritis Rheumatoid arthritis Past Surgical History Cholecystectomy Tonsillectomy AV fistula Pericardial fluid drainage Cataract surgery Carpal tunnel surgery Active Ordered Medications Current Medications Medications (Trade) Dose Ordered Sig/Woodrow Route Start Time Stop Time Status Last Admin (NS Flush) 2 ml UNSCH PRN IV FLUSH 05/11/17 12:45 (NS Flush) 2 ml UNSCH PRN IV FLUSH 05/11/17 16:45 (NS Flush) 2 ml BID IV FLUSH 05/11/17 21:00 Ciprofloxacin/ Dextrose 200 ml @ 200 mls/hr Q12H IV 05/11/17 16:45 UNV Metronidazole 100 ml @ 100 mls/hr Q8H IV 05/11/17 16:45 UNV (Tylenol) 650 mg Q4H PRN PO 05/11/17 17:00 (Solano 5-325 Mg) 1 tab Q6HR PRN PO 05/11/17 17:00 (Zofran Inj) 4 mg Q6H PRN IV PUSH 05/11/17 16:45 (Solano 7.5-325 Mg) 1 tab Q6H PRN PO 05/11/17 17:00 (Zyloprim) 100 mg DAILY PO 05/12/17 09:00 (Norvasc) 10 mg DAILY PO 05/12/17 09:00 (Ecotrin Ec) 81 mg DAILY PO 05/12/17 09:00 (Coreg) 12.5 mg HS PO 05/11/17 21:00 (Coreg) 25 mg DAILY PO 05/12/17 09:00 (Lexapro) 10 mg DAILY PO 05/12/17 09:00 (Synthroid) 200 mcg DAILY@0600 PO 05/12/17 06:00 (Pravachol) 10 mg DAILY PO 05/12/17 09:00 Non-Formulary Medication 1 tab MON-SAT PO 05/11/17 16:45 UNV (D50w (Vial) Inj) 50 ml UNSCH PRN IV PUSH 05/11/17 16:45 (Glucagon Inj) 1 mg UNSCH PRN OTHER 05/11/17 16:45 (NovoLOG SUPPLEMENTAL SCALE) 1 ACHS SLIDING SCALE SQ 05/11/17 17:00 UNV Family History Mother with history of breast cancer Social History Denies any ETOH or smoking Lives alone (Cassidy Becker) Physical Exam Vital Signs Vital Signs Date Time Temp Pulse Resp B/P (MAP) Pulse Ox O2 Delivery O2 Flow Rate FiO2 05/11/17 16:00 97.9 83 18 146/63 (90) 99 05/11/17 15:45 80 18 136/59 (84) 95 Nasal Cannula 2.00 05/11/17 15:00 80 18 138/75 (96) 96 Nasal Cannula 2.00 05/11/17 13:50 83 17 142/47 (78) 96 Nasal Cannula 2.00 05/11/17 12:53 96 Room Air 05/11/17 12:31 Room Air 05/11/17 12:14 98.8 86 17 119/56 (77) 96 Physical Exam GENERAL: Alert and oriented SKIN: Warm and dry. HEAD: Normocephalic. EYES: No scleral icterus. No injection or drainage. NECK: Supple, trachea midline. No JVD or lymphadenopathy. CARDIOVASCULAR: Regular rate and rhythm without murmurs, gallops, or rubs. RESPIRATORY: Breath sounds equal bilaterally. No accessory muscle use. GASTROINTESTINAL: Abdomen soft and nondistended. Tenderness noted on left upper abdomen MUSCULOSKELETAL: No cyanosis, or edema. BACK: Nontender without obvious deformity. No CVA tenderness. Laboratory Laboratory Tests Test 05/11/17 12:50 05/11/17 13:20 White Blood Count 6.2 Red Blood Count 2.51 Hemoglobin 8.8 Hematocrit 27.4 Mean Corpuscular Volume 109.1 Mean Corpuscular Hemoglobin 35.2 Mean Corpuscular Hemoglobin Concent 32.3 Red Cell Distribution Width 14.2 Platelet Count 316 Mean Platelet Volume 7.4 Neutrophils (%) (Auto) 84.4 Lymphocytes (%) (Auto) 11.7 Monocytes (%) (Auto) 0.5 Eosinophils (%) (Auto) 2.1 Basophils (%) (Auto) 1.3 Neutrophils # (Auto) 5.3 Lymphocytes # (Auto) 0.7 Monocytes # (Auto) 0.0 Eosinophils # (Auto) 0.1 Basophils # (Auto) 0.1 CBC Comment DIFF FINAL Differential Comment Blood Urea Nitrogen 63 Creatinine 5.00 Random Glucose 199 Total Protein 7.1 Albumin 3.1 Calcium Level 8.3 Alkaline Phosphatase 89 Aspartate Amino Transf (AST/SGOT) 22 Alanine Aminotransferase (ALT/SGPT) 26 Total Bilirubin 0.5 Sodium Level 135 Potassium Level 4.2 Chloride Level 101 Carbon Dioxide Level 25.5 Anion Gap 9 Estimat Glomerular Filtration Rate 8 Troponin I LESS THAN 0.02 Lactic Acid Level 0.6 (Cassidy Becker) Result Diagram: 05/11/17 1250 05/11/17 1250 Imaging Last Impressions Abdomen/Pelvis CT 05/11/17 1234 Signed Impressions: Service Date/Time: April 13:07 - CONCLUSION: 1. Segmental inflammation of the distal transverse and proximal descending colon characteristic of colitis. There are several adjacent diverticula however there no significant diverticular findings along the inflamed segment. 2. Bilateral renal cortical atrophy. 3. Status post cholecystectomy. 4. Colonic diverticulosis. Raudel Zamora MD Chest X-Ray 05/11/17 0000 Signed Impressions: Service Date/Time: April 12:40 - CONCLUSION: No acute cardiopulmonary abnormality is identified. Paul Donato MD (Cassidy Becker) Assessment and Plan Problem List: (1) ESRD (end stage renal disease) on dialysis ICD Codes: N18.6 - End stage renal disease; Z99.2 - Dependence on renal dialysis Plan: Dialysis T/TH/Sat last dialysis on Monday Potassium WNL Anemia with HGB of 8.8 will receive Epogen with dialysis Plan for HD today Colitis - continue antibiotics (2) HTN (hypertension) ICD Codes: I10 - Essential (primary) hypertension Plan: Continue home meds (3) Colitis ICD Codes: K52.9 - Noninfective gastroenteritis and colitis, unspecified Status: Acute (4) Generalized weakness ICD Codes: R53.1 - Weakness Status: Acute (5) Diarrhea in adult patient ICD Codes: R19.7 - Diarrhea, unspecified Plan: Cultures are pending (Cassidy Becker) Problem List: (1) ESRD (end stage renal disease) on dialysis ICD Codes: N18.6 - End stage renal disease; Z99.2 - Dependence on renal dialysis Plan: Dialysis T/TH/Sat last dialysis on Monday Potassium WNL Anemia with HGB of 8.8 will receive Epogen with dialysis Plan for HD today Colitis - continue antibiotics. Patient seen and examined, possibly has colitis. HD will be in AM and then Sat. To continue TTS. (2) HTN (hypertension) ICD Codes: I10 - Essential (primary) hypertension Plan: Continue home meds (3) Colitis ICD Codes: K52.9 - Noninfective gastroenteritis and colitis, unspecified Status: Acute (4) Generalized weakness ICD Codes: R53.1 - Weakness Status: Acute (5) Diarrhea in adult patient ICD Codes: R19.7 - Diarrhea, unspecified Plan: Cultures are pending (Priti Bautista MD) Problem Qualifiers (1) HTN (hypertension): Qualified Codes: I10 - Essential (primary) hypertension Cassidy Becker May 11, 2017 17:33 Priti Bautista MD May 12, 2017 16:03
[2017-05-11] MEDS: CIPROFLOXACIN 400 MG PREMIX 200 ML IV SCH (17:50)
[2017-05-11] MEDS ORDERED: SODIUM CHLOR 0.9% 1000 ML INJ 1,000 ML IV PRN (18:00)
[2017-05-11] MEDS: SODIUM CHLORIDE 0.9% FLUSH 10 ML FLUSH IV FLUSH SCH (21:49)
[2017-05-11] MEDS: CARVEDILOL 12.5 MG TAB PO SCH (21:49)
[2017-05-11] MEDS: metroNIDAZOLE 500 MG INJ 100 ML IV SCH (21:49)
[2017-05-12] VITALS (8 sets, daily range): BP systolic 111–129; BP diastolic 49–66; PULSE 76–90; RESP 14–20; TEMP 97–98.6; O2SAT 86–100
[2017-05-12] MEDS: metroNIDAZOLE 500 MG INJ 100 ML IV SCH ×3 (04:45→22:26)
[2017-05-12 05:18] LABS: BILIRUBIN, URINE NEG (NEG); BLOOD, URINE NEG (NEG); GLUCOSE,URINE NEG (NEG); KETONE, URINE NEG (NEG); NITRITE,URINE NEG (NEG); PH, URINE 5.5 (5.0-8.5); URINE LEUKOCYTE ESTERASE NEG (NEG)
[2017-05-12 05:45] LABS: URINE COLOR YELLOW (YELLW/STRAW)
[2017-05-12 05:46] LABS: AMORPHOUS SEDIMENT, URINE FEW; BACTERIA, URINE RARE /hpf; RBC, URINE 0-2 /hpf (0-3); SQUAMOUS EPITHELIAL CELL URINE > 8 /hpf (0-5)
[2017-05-12] MEDS: CIPROFLOXACIN 400 MG PREMIX 200 ML IV SCH (05:49)
[2017-05-12] MEDS: LEVOTHYROXINE SODIUM 200 MCG TAB PO SCH (05:49)
[2017-05-12 06:34] LABS: AUTOMATED NEUTROPHIL # 4.7 TH/MM3 (1.8-7.7); BASOPHIL % 0.3 % (0.0-2.0); EOSINOPHIL # 0.1 TH/MM3 (0-0.4); EOSINOPHIL % 2.4 % (0.0-4.0); HEMATOCRIT 26.1 % (35.0-46.0); HEMOGLOBIN 8.3 GM/DL (11.6-15.3); LYMPH % 13.9 % (9.0-44.0); LYMPHOCYTE # 0.8 TH/MM3 (1.0-4.8); MEAN CORPUSCULAR HEMOGLOBIN 34.5 PG (27.0-34.0); MEAN CORPUSCULAR HGB CONC 31.6 % (32.0-36.0); MEAN PLATELET VOLUME 7.5 FL (7.0-11.0); MONO % 0.8 % (0.0-8.0); NEUT % 82.6 % (16.0-70.0); PLATELET COUNT 297 TH/MM3 (150-450); RED CELL DISTRIBUTION WIDTH 14.6 % (11.6-17.2); WHITE BLOOD COUNT 5.6 TH/MM3 (4.0-11.0)
[2017-05-12 06:44] LABS: CALCIUM 8.4 MG/DL (8.5-10.1)
[2017-05-12 06:45] LABS: BICARBONATE 23.9 MEQ/L (21.0-32.0)
[2017-05-12 06:48] LABS: CREATININE 5.2 MG/DL (0.50-1.00)
[2017-05-12] MEDS ORDERED: PANTOPRAZOLE SOD 20 MG DELAYED RELEASE TAB PO SCH (09:00)
[2017-05-12] MEDS: INSULIN ASPART SUPPLEMENTAL SCALE SQ SCH ×4 (09:00→22:32)
[2017-05-12] MEDS: PRAVASTATIN SOD 10 MG TAB PO SCH (12:58)
[2017-05-12] MEDS: CARVEDILOL 12.5 MG TAB PO SCH ×2 (13:00→22:26)
[2017-05-12] MEDS: SODIUM CHLORIDE 0.9% FLUSH 10 ML FLUSH IV FLUSH SCH ×2 (13:01→22:26)
[2017-05-12] MEDS: ALLOPURINOL 100 MG TAB PO SCH (13:01)
[2017-05-12] MEDS: ESCITALOPRAM OXALATE 10 MG TAB PO SCH (13:02)
[2017-05-12] MEDS: ASPIRIN EC 81 MG TABEC PO SCH (13:04)
--- NOTE | 2017-05-12 14:34 | HHI.PR ---
Subjective Remarks Patient seen in follow up for weakness and dehydration In hemodialysis today. Objective Vitals Vital Signs Date Time Temp Pulse Resp B/P (MAP) Pulse Ox O2 Delivery O2 Flow Rate FiO2 05/12/17 12:00 97.0 90 14 119/51 (73) 99 05/12/17 04:00 97.2 80 20 129/61 (83) 97 05/12/17 00:00 97.4 85 20 118/66 (83) 98 05/11/17 21:00 80 05/11/17 20:07 99 Nasal Cannula 2.00 05/11/17 20:00 98.6 83 20 126/58 (80) 97 05/11/17 17:20 96 Nasal Cannula 2.00 05/11/17 16:00 97.9 83 18 146/63 (90) 99 05/11/17 15:45 80 18 136/59 (84) 95 Nasal Cannula 2.00 05/11/17 15:00 80 18 138/75 (96) 96 Nasal Cannula 2.00 I/O 05/11/17 05/11/17 05/11/17 05/12/17 05/12/17 05/12/17 07:00 15:00 23:00 07:00 15:00 23:00 Intake Total 300 ml 220 ml 200 ml Output Total 100 ml 2500 ml Balance 300 ml 120 ml -2300 ml Intake Oral 120 ml IV Total 300 ml 100 ml 200 ml Output Urine Total 100 ml Hemodialysis 2500 ml # Bowel Movements 1 Result Diagram: 05/12/17 0525 05/12/17 0525 Imaging Last Impressions Abdomen/Pelvis CT 05/11/17 1234 Signed Impressions: Service Date/Time: April 13:07 - CONCLUSION: 1. Segmental inflammation of the distal transverse and proximal descending colon characteristic of colitis. There are several adjacent diverticula however there no significant diverticular findings along the inflamed segment. 2. Bilateral renal cortical atrophy. 3. Status post cholecystectomy. 4. Colonic diverticulosis. Raudel Zamora MD Chest X-Ray 05/11/17 0000 Signed Impressions: Service Date/Time: April 12:40 - CONCLUSION: No acute cardiopulmonary abnormality is identified. Paul Donato MD Objective Remarks GENERAL: This is a well-nourished, well-developed patient, in no apparent distress. CARDIOVASCULAR: Regular rate and rhythm without murmurs, gallops, or rubs. RESPIRATORY: Clear to auscultation. Breath sounds equal bilaterally. No wheezes , rales, or rhonchi. GASTROINTESTINAL: Abdomen soft, non-tender, nondistended. Normal active bowel sounds MUSCULOSKELETAL: Extremities without clubbing, cyanosis, or edema. NEURO: Alert & Oriented x4 to person, place, time, situation. Moves all ext x4 A/P Problem List: (1) Colitis ICD Code: K52.9 - Noninfective gastroenteritis and colitis, unspecified Status: Acute Plan: Continue empiric Cipro and flagyl Cdiff neg (2) ESRD (end stage renal disease) on dialysis ICD Code: N18.6 - End stage renal disease; Z99.2 - Dependence on renal dialysis Plan: HD per renal (3) DM2 (diabetes mellitus, type 2) ICD Code: E11.9 - Type 2 diabetes mellitus without complications Plan: controlled on current regimen Lindsay Dhillon MD May 12, 2017 14:34
--- NOTE | 2017-05-12 16:05 | HHI.NPPN ---
Subjective Additional Remarks Patient is alert, has mild lower abd. pain and generalized weakness, seen after the HD. Review of Systems General Constitutional: Fatigue Cardiovascular Cardiac: ANDRADE Gastrointestinal Gastrointestinal: Abdominal Pain Objective Data Data 05/12/17 05/13/17 19:00 07:00 Intake Total 200 ml Output Total 2500 ml Balance -2300 ml IV Total 200 ml Hemodialysis 2500 ml Vital Signs Date Time Temp Pulse Resp B/P (MAP) Pulse Ox O2 Delivery O2 Flow Rate FiO2 05/12/17 15:16 94 Nasal Cannula 2.00 05/12/17 15:16 86 21 05/12/17 12:00 97.0 90 14 119/51 (73) 99 05/12/17 04:00 97.2 80 20 129/61 (83) 97 05/12/17 00:00 97.4 85 20 118/66 (83) 98 05/11/17 21:00 80 05/11/17 20:07 99 Nasal Cannula 2.00 05/11/17 20:00 98.6 83 20 126/58 (80) 97 05/11/17 17:20 96 Nasal Cannula 2.00 -: 05/12/17 0525 05/12/17 0525 Microbiology 05/11/17 Influenza Types A,B Antigen (TOBY) - Final, Complete NEGATIVE FOR FLU A AND B ANTIGEN.... Physical Exam General Appearance: No Acute Distress, Comfortable Eyes Eye Exam: Pupils Equal Throat Throat Exam: Oral Mucosa Bear & Moist Pulmonary Resp Exam: Breath Sounds Equal, No Distress, Rhonchi, Decreased Bases Cardiology CV Exam: Regular, Normal Sinus Rhythm Gastrointestinal/Abdomen GI Exam: Soft, Bowel Sounds Present (mild left lower abd. tenderness.), Non- Distended Extremeties Extremities Exam: Trace Edema Neurologic Neuro Exam: Alert, Awake, Oriented Psychiatric Psych Exam: Appropriate Responses Assessment/Plan Problem List: (1) ESRD (end stage renal disease) on dialysis ICD Codes: N18.6 - End stage renal disease; Z99.2 - Dependence on renal dialysis Plan: Dialysis T//Mon last dialysis on Monday Potassium WNL Anemia with HGB of 8.8 will receive Epogen with dialysis Plan for HD today Colitis - continue antibiotics. Patient seen and examined, possibly has colitis. HD done and 2.5 liters removed. Continue Cipro and Metronidazole. BP is stable, and afebrile. WBC normal, has anemia, on Epogen. Check Stool OB. (2) HTN (hypertension) ICD Codes: I10 - Essential (primary) hypertension Plan: Continue home meds (3) Colitis ICD Codes: K52.9 - Noninfective gastroenteritis and colitis, unspecified Status: Acute (4) Generalized weakness ICD Codes: R53.1 - Weakness Status: Acute (5) Diarrhea in adult patient ICD Codes: R19.7 - Diarrhea, unspecified Plan: Cultures are pending Problem Qualifiers (1) HTN (hypertension): Qualified Codes: I10 - Essential (primary) hypertension Priti Bautista MD May 12, 2017 16:05
[2017-05-13] VITALS: BP 110/54; PULSE 80; RESP 18; TEMP 97.4; O2SAT 98
--- NOTE | 2017-05-13 01:38 | EKG ---
Date Performed: 05/11/2017 Time Performed: 12:52:32 PTAGE: 82 years EKG: Sinus rhythm NORMAL ECG PREVIOUS TRACING : 04/14/2015 17.58 Since the prior tracing, there has been no significant marmolejo padmini DOCTOR: Juanita Parnell Interpretating Date/Time 05/13/2017 01:37:20
[2017-05-13] MEDS: metroNIDAZOLE 500 MG INJ 100 ML IV SCH ×3 (05:20→22:09)
[2017-05-13] MEDS: LEVOTHYROXINE SODIUM 200 MCG TAB PO SCH (05:20)
--- NOTE | 2017-05-13 07:32 | HHI.FF ---
Face to Face Verification Diagnosis: (1) Colitis (2) Generalized weakness (3) End stage renal disease Physical Therapy Order: Evaluate and Treat, Improve ambulation, Strength and gait training Home Health Nursing Order: Medical education Signs/symptoms of disease process Nursing assessment with vital signs I have seen patient Deedee Faust on 05/13/17. My clinical findings support the need for the requested home health care services because: Deconditioned w/ increased weakness I certify that my clinical findings support that this patient is homebound because: Unsteady gait/balance Unsafe to leave home unassisted Sean Rodriguez May 13, 2017 07:32
[2017-05-13 08:00] VITALS: O2SAT 97
[2017-05-13] MEDS: INSULIN ASPART SUPPLEMENTAL SCALE SQ SCH ×4 (08:00→21:00)
[2017-05-13 08:56] VITALS: BP 145/63; PULSE 83; RESP 16; TEMP 97.6; O2SAT 98
[2017-05-13] MEDS ORDERED: METR1TAB76 PO (11:12)
[2017-05-13] MEDS ORDERED: CIPR-9 PO (11:12)
--- NOTE | 2017-05-13 11:15 | HHI.DS ---
Discharge Summary Admission Date May 11, 2017 at 14:40 Discharge Date: May 13, 2017 Admitting Diagnosis denies weakness, dehydration, end-stage renal disease, hemodialysis (1) Colitis ICD Code: K52.9 - Noninfective gastroenteritis and colitis, unspecified Status: Acute (2) ESRD (end stage renal disease) on dialysis ICD Code: N18.6 - End stage renal disease; Z99.2 - Dependence on renal dialysis (3) DM2 (diabetes mellitus, type 2) ICD Code: E11.9 - Type 2 diabetes mellitus without complications Procedures HD Brief History - From Admission 82-year-old female with known history of end-stage renal disease on dialysis, diabetes, hypothyroidism, breast cancer, hypertension, hyperlipidemia , rheumatoid arthritis, who presented to hospital because of abdominal pain, nausea, vomiting, diarrhea, generalized weakness. Patient states that she was in normal state of health until after Monday night. She went out and had chicken pot pie from [employer] and then the next morning she started developing a pain in her left lower abdomen which was colicky in nature and then started developing nausea with vomiting. Patient does not eat much over the next couple days, because every time she ate she would vomit. Then this morning she had severe diarrhea in which was soft consistency. There was no watery diarrhea. She states that she would get off the toilet and walk out to the kitchen/living room and after turn around and go back to the restroom again. She did take some Imodium. She is scheduled for dialysis today and she called Dr. Bautista and notified him that she was very weak and had diarrhea and he notified her to go to the emergency department. Patient had workup done emergency department and CT scan does show findings consistent with colitis. It was recommended by the ER physician the patient be observed in the hospital for further recommendations and management. Patient denies any melena, hematochezia, hematemesis, fever, chills. CBC/BMP: 05/12/17 0525 05/12/17 0525 Significant Findings Laboratory Tests Test 05/11/17 12:50 05/11/17 13:20 05/11/17 21:16 05/12/17 05:05 Red Blood Count 2.51 MIL/MM3 (4.00-5.30) Hemoglobin 8.8 GM/DL (11.6-15.3) Hematocrit 27.4 % (35.0-46.0) Mean Corpuscular Volume 109.1 FL (80.0-100.0) Mean Corpuscular Hemoglobin 35.2 PG (27.0-34.0) Neutrophils (%) (Auto) 84.4 % (16.0-70.0) Lymphocytes # (Auto) 0.7 TH/MM3 (1.0-4.8) Blood Urea Nitrogen 63 MG/DL (7-18) Creatinine 5.00 MG/DL (0.50-1.00) Random Glucose 199 MG/DL (74-106) Albumin 3.1 GM/DL (3.4-5.0) Calcium Level 8.3 MG/DL (8.5-10.1) Sodium Level 135 MEQ/L (136-145) Estimat Glomerular Filtration Rate 8 ML/MIN (>89) Troponin I LESS THAN 0.02 NG/ML Urine Protein 30 mg/dL (NEG-TRACE) Urine Squamous Epithelial Cells > 8 /hpf (0-5) Urine Bacteria RARE /hpf (NONE) Test 05/12/17 05:25 Red Blood Count 2.40 MIL/MM3 (4.00-5.30) Hemoglobin 8.3 GM/DL (11.6-15.3) Hematocrit 26.1 % (35.0-46.0) Mean Corpuscular Volume 109.0 FL (80.0-100.0) Mean Corpuscular Hemoglobin 34.5 PG (27.0-34.0) Mean Corpuscular Hemoglobin Concent 31.6 % (32.0-36.0) Neutrophils (%) (Auto) 82.6 % (16.0-70.0) Lymphocytes # (Auto) 0.8 TH/MM3 (1.0-4.8) Blood Urea Nitrogen 69 MG/DL (7-18) Creatinine 5.20 MG/DL (0.50-1.00) Random Glucose 147 MG/DL (74-106) Calcium Level 8.4 MG/DL (8.5-10.1) Estimat Glomerular Filtration Rate 8 ML/MIN (>89) Imaging Last Impressions Abdomen/Pelvis CT 05/11/17 1234 Signed Impressions: Service Date/Time: April 13:07 - CONCLUSION: 1. Segmental inflammation of the distal transverse and proximal descending colon characteristic of colitis. There are several adjacent diverticula however there no significant diverticular findings along the inflamed segment. 2. Bilateral renal cortical atrophy. 3. Status post cholecystectomy. 4. Colonic diverticulosis. Raudel Zamora MD Chest X-Ray 05/11/17 0000 Signed Impressions: Service Date/Time: April 12:40 - CONCLUSION: No acute cardiopulmonary abnormality is identified. Paul Donato MD PE at Discharge GENERAL: This is a well-nourished, well-developed patient, in no apparent distress. CARDIOVASCULAR: Regular rate and rhythm without murmurs, gallops, or rubs. RESPIRATORY: Clear to auscultation. Breath sounds equal bilaterally. No wheezes , rales, or rhonchi. GASTROINTESTINAL: Abdomen soft, non-tender, nondistended. Normal active bowel sounds MUSCULOSKELETAL: Extremities without clubbing, cyanosis, or edema. NEURO: Alert & Oriented x4 to person, place, time, situation. Moves all ext x4 Pt update on day of discharge Recent seen today in hemodialysis. No new events. Diarrhea is improved. Patient would like to go home Hospital Course This patient is an 82-year-old female came in with some diarrhea which appeared to be due to colitis. She was quite weak. She required some hydration along with her hemodialysis management. Diabetes was controlled and the patient was discharged home with empiric antibiotics. She would like follow-up as an outpatient with her gastroenterology team Pt Condition on Discharge: Good Discharge Disposition: Disch w/ Home Health Serv Discharge Time: > 30 minutes Discharge Instructions Follow up Referrals: PCP Follow-up - 1 Week with [facility] New Medications: Ciprofloxacin (Cipro) 500 Mg Tab 500 MG PO BID for Infection, #10 TAB 0 Refills Metronidazole (Metronidazole) 500 Mg Tab 500 MG PO TID for Infection, #15 TAB 0 Refills Continued Medications: Allopurinol (Allopurinol) 100 Mg Tab 100 MG PO DAILY for Gout, #30 TAB 0 Refills Amlodipine (Norvasc) 10 Mg Tab 10 MG PO DAILY for Blood Pressure Management, #30 TAB [address] (Aspirin 81) 81 Mg Tabdr 81 MG PO DAILY, TAB 0 Refills B-Complex W/ C & Folic Acid (Pita-Rosalinda Rx) 1 Tab 1 TAB PO DAILY for Nutritional Supplement, #30 TAB 0 Refills Carvedilol (Carvedilol) 25 Mg Tab 25 MG PO DAILY, #60 TAB 0 Refills Carvedilol (Carvedilol) 12.5 Mg Tab 12.5 MG PO HS, #60 TAB 0 Refills Cholecalciferol (Vitamin D3) 1,000 Unit Cap 1000 UNITS PO DAILY for Nutritional Supplement, #1 BOTTLE 0 Refills Cyanocobalamin (Vitamin B-12) 1,000 Mcg Tab 1000 MCG PO DAILY for Nutritional Supplement, #1 BOTTLE 0 Refills Escitalopram (Escitalopram) 10 Mg Tab 10 MG PO DAILY, #30 TAB 0 Refills Folic Acid (Folic Acid) 0.8 Mg Tab 1000 MCG PO DAILY for Nutritional Supplement, TAB 0 Refills Isosorbide Dinitrate (Isosorbide Dinitrate) 30 Mg Tab Levothyroxine (Levothyroxine) 200 Mcg Tab 200 MCG PO DAILY for Thyroid, #30 TAB 0 Refills Methotrexate (Methotrexate) 2.5 Mg Tab 10 MG PO Q7D, TAB 0 Refills Omeprazole Magnesium (Prilosec) 10 Mg Pow 1 TAB PO MON-SAT Pravastatin (Pravastatin) 10 Mg Tab 10 MG PO DAILY for Cholesterol Management, #30 TAB 0 Refills Vitamin B Cmplx/Vit C/Folic AC (Nephro-Rosalinda Rx) 1 Tab 1 TAB PO, TAB [Oxygen] () Lindsay Dhillon MD May 13, 2017 11:15
[2017-05-13] MEDS: PRAVASTATIN SOD 10 MG TAB PO SCH (13:13)
[2017-05-13] MEDS: ALLOPURINOL 100 MG TAB PO SCH (13:14)
[2017-05-13] MEDS: CARVEDILOL 12.5 MG TAB PO SCH ×2 (13:14→21:00)
[2017-05-13] MEDS: ESCITALOPRAM OXALATE 10 MG TAB PO SCH (13:14)
[2017-05-13] MEDS: ASPIRIN EC 81 MG TABEC PO SCH (13:15)
[2017-05-13] MEDS: SODIUM CHLORIDE 0.9% FLUSH 10 ML FLUSH IV FLUSH SCH ×2 (13:18→22:09)
[2017-05-13] MEDS ORDERED: CIPROFLOXACIN 400 MG PREMIX 200 ML IV SCH (18:00)
[2017-05-13 18:52] VITALS: BP 104/50; PULSE 75; RESP 16; TEMP 98.2; O2SAT 99
[2017-05-13 20:00] VITALS: BP 103/52; PULSE 78; RESP 18; TEMP 97.5; O2SAT 98
[2017-05-13 20:08] VITALS: O2SAT 97
[2017-05-14] VITALS: BP 107/51; PULSE 78; RESP 16; TEMP 98.1; O2SAT 98
[2017-05-14] MEDS: metroNIDAZOLE 500 MG INJ 100 ML IV SCH (04:00)
[2017-05-14] MEDS: LEVOTHYROXINE SODIUM 200 MCG TAB PO SCH (06:00)
[2017-05-14 08:00] VITALS: BP 116/56; PULSE 79; RESP 14; TEMP 97.8; O2SAT 93; O2SAT 94
[2017-05-14] MEDS: SODIUM CHLORIDE 0.9% FLUSH 10 ML FLUSH IV FLUSH SCH (08:03)
[2017-05-14] MEDS: PRAVASTATIN SOD 10 MG TAB PO SCH (08:04)
[2017-05-14] MEDS: ESCITALOPRAM OXALATE 10 MG TAB PO SCH (08:04)
[2017-05-14] MEDS: ALLOPURINOL 100 MG TAB PO SCH (08:04)
[2017-05-14] MEDS: CARVEDILOL 12.5 MG TAB PO SCH (08:04)
[2017-05-14] MEDS: INSULIN ASPART SUPPLEMENTAL SCALE SQ SCH (08:05)
[2017-05-14] MEDS: ASPIRIN EC 81 MG TABEC PO SCH (08:05)
--- NOTE | 2017-05-14 09:08 | HHI.PR ---
Subjective Remarks Seen and evaluated today again for continued discharge planning. Overall improved Diarrhea improved No new issues overnight Objective Vitals Vital Signs Date Time Temp Pulse Resp B/P (MAP) Pulse Ox O2 Delivery O2 Flow Rate FiO2 05/14/17 00:00 98.1 78 16 107/51 (69) 98 05/13/17 20:08 97 Nasal Cannula 2.00 05/13/17 20:00 97.5 78 18 103/52 (69) 98 05/13/17 18:52 98.2 75 16 104/50 (68) 99 I/O 05/13/17 05/13/17 05/13/17 05/14/17 05/14/17 05/14/17 07:00 15:00 23:00 07:00 15:00 23:00 Intake Total 520 ml 100 ml 900 ml 380 ml Output Total 2500 ml Balance 520 ml -2400 ml 900 ml 380 ml Intake Oral 120 ml 900 ml 380 ml IV Total 400 ml 100 ml Hemodialysis 2500 ml # Voids 1 1 1 # Bowel Movements 0 Result Diagram: 05/12/17 0525 05/12/17 0525 Objective Remarks GENERAL: This is a well-nourished, well-developed patient, in no apparent distress. CARDIOVASCULAR: Regular rate and rhythm without murmurs, gallops, or rubs. RESPIRATORY: Clear to auscultation. Breath sounds equal bilaterally. No wheezes , rales, or rhonchi. GASTROINTESTINAL: Abdomen soft, non-tender, nondistended. Normal active bowel sounds MUSCULOSKELETAL: Extremities without clubbing, cyanosis, or edema. NEURO: Alert & Oriented x4 to person, place, time, situation. Moves all ext x4 Procedures HD A/P Problem List: (1) Colitis ICD Code: K52.9 - Noninfective gastroenteritis and colitis, unspecified Status: Acute Plan: Continue empiric Cipro and flagyl Cdiff neg (2) ESRD (end stage renal disease) on dialysis ICD Code: N18.6 - End stage renal disease; Z99.2 - Dependence on renal dialysis Plan: HD per renal (3) DM2 (diabetes mellitus, type 2) ICD Code: E11.9 - Type 2 diabetes mellitus without complications Plan: controlled on current regimen Discharge Planning discharge home today with home healthcare Lindsay Dhillon MD May 14, 2017 09:08
[2017-05-14 09:52] VITALS: O2SAT 98
== END 2017-05-14 10:31 | disposition home health service (06) ==
LOC: PHED 12:04 → PHEDA 14:40 → PH3A 15:40
PROVIDERS: ADMIT Hospitalist; ATTEND Hospitalist
DX: K52.9 Noninfective gastroenteritis and colitis, unspecified (principal); I12.0 Hypertensive chronic kidney disease with stage 5 chronic kidney disease or end stage renal disease; E11.22 Type 2 diabetes mellitus with diabetic chronic kidney disease; N18.6 End stage renal disease; R06.02 Shortness of breath; D63.1 Anemia in chronic kidney disease; E86.0 Dehydration; E78.5 Hyperlipidemia, unspecified; E03.9 Hypothyroidism, unspecified; K57.90 Diverticulosis of intestine, part unspecified, without perforation or abscess without bleeding; M06.9 Rheumatoid arthritis, unspecified; F41.9 Anxiety disorder, unspecified; F32.9 Major depressive disorder, single episode, unspecified; M19.90 Unspecified osteoarthritis, unspecified site; Z99.2 Dependence on renal dialysis; Z79.899 Other long term (current) drug therapy; Z79.82 Long term (current) use of aspirin; Z87.891 Personal history of nicotine dependence; Z90.49 Acquired absence of other specified parts of digestive tract; Z85.3 Personal history of malignant neoplasm of breast
CPT/HCPCS: 71045; 74176; 80048; 80053; 81001; 82948; 83605; 84484; 85025; 87493; 87804; 93005; 96365; 96366; 96372; 97163; 99285; G0257; G0378; G8987; G8988; J0744; J1815; Q4081; 90935

== ENCOUNTER 2017-05-24 09:32 | Inpatient (IN) | payer MEDICARE, OTHER ==
[~2017-05-24] VITALS: Ht 171.4 cm; Wt 87.5 kg
[~2017-05-24 09:32] MED LIST changes: +CIPR-9 PO; -CYAN100016 PO; +ESCI10TA PO; +FOLI800T PO; -ISOS30TA17; +ISOS30TA17 PO; -LEXA10TA PO; +METH2.5T PO; +METR1TAB76 PO
[2017-05-24 09:42] VITALS: BP 133/54; PULSE 86; RESP 16; TEMP 98.4; O2SAT 99
--- NOTE | 2017-05-24 10:01 | PD ---
HPI Chief Complaint: Musculoskeletal Complaint Time Seen by Provider: 09:45 Travel History International Travel<30 days: No Contact w/Intl Traveler<30days: No Traveled to known affect area: No History of Present Illness HPI This 82-year-old female is complaining of swelling and pain in her face. She says this started Monday. It involves both cheeks. It is been a little asymmetrical at times. She has noted swelling and tenderness. It is painful for her to chew she was taken off the Cipro a couple of days ago. she has been on dialysis for 2-1/2 years. She is not sure what the cause of her renal failure is. She does have a history of diabetes which is diet controlled. She was recently admitted to the hospital with colitis and was on Cipro and Flagyl. She has not been able to eat because of the pain in her face. PFSH Past Medical History Arthritis: Yes Asthma: No Autoimmune Disease: No Blood Disorders: No Anxiety: Yes Depression: Yes Heart Rhythm Problems: No Cancer: Yes (BREAST) Cardiovascular Problems: Yes High Cholesterol: Yes Chemotherapy: No Chest Pain: No Congestive Heart Failure: No COPD: No Cerebrovascular Accident: No Diabetes: Yes Dialysis: Yes (on mon, , mon) Diminished Hearing: No Endocrine: Yes Gastrointestinal Disorders: No GERD: Yes Glaucoma: No Genitourinary: Yes (HEMODIALYSIS) Headaches: No Hepatitis: No Hiatal Hernia: No Hypertension: Yes Immune Disorder: No Implanted Vascular Access Dvce: Yes Kidney Stones: No Medical other: No Musculoskeletal: No Neurologic: No Psychiatric: No Reproductive: No Respiratory: Yes (oxygen use at home) Migraines: No Myocardial Infarction: No Radiation Therapy: No Renal Failure: Yes Seizures: No Sickle Cell Disease: No Sleep Apnea: No Thyroid Disease: Yes Ulcer: No Tetanus Vaccination: Unknown Influenza Vaccination: Yes ?: Not Menopausal: Yes Past Surgical History Abdominal Surgery: Yes (GALLBLADDER) AICD: No Appendectomy: No Arteriovenous Shunt: Yes Cardiac Surgery: Yes (angiogram) Cholecystectomy: Yes (AGE 52) Ear Surgery: No Endocrine Surgery: No Eye Surgery: Yes (right cataract) Genitourinary Surgery: No Gynecologic Surgery: No Insulin Pump: No Joint Replacement: No Oral Surgery: No Pacemaker: No Thoracic Surgery: No Tonsillectomy: Yes Other Surgery: Yes Social History Alcohol Use: No Tobacco Use: No (QUIT 15 YEARS AGO) Substance Use: No Allergies-Medications (Allergen,Severity, Reaction): Coded Allergies: *MDRO Multi-Drug Resistant Organism (Verified Adverse Reaction, Unknown, 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 reported) MRSA PCR negative 12/09/2014 and 12/11/2014 Cleared per infection Control for MRSA VRE screen negative 12/09/2014 and 12/11/14. Cleared per Infection Control for VRE. Reported Meds & Prescriptions Reported Meds & Active Scripts Active Reported Folic Acid 0.8 Mg Tab 1,000 Mcg PO DAILY Escitalopram (Escitalopram Oxalate) 10 Mg Tab 10 Mg PO DAILY Methotrexate 2.5 Mg Tab 10 Mg PO Q7D Pita-Rosalinda Rx (B-Complex W/ C & Folic Acid) 1 Tab 1 Tab PO DAILY Pravastatin 10 Mg Tab 10 Mg PO DAILY Aspirin 81 (Aspirin) 81 Mg Tabdr 81 Mg PO DAILY Prilosec (Omeprazole Magnesium) 10 Mg Pow 1 Tab PO MON-SAT Vitamin B-12 (Cyanocobalamin) 1,000 Mcg Tab 1,000 Mcg PO DAILY Vitamin D3 (Cholecalciferol) 1,000 Unit Cap 1,000 Units PO DAILY [Oxygen] Allopurinol 100 Mg Tab 100 Mg PO DAILY Norvasc (Amlodipine Besylate) 10 Mg Tab 10 Mg PO DAILY Carvedilol 12.5 Mg Tab 12.5 Mg PO HS Carvedilol 25 Mg Tab 25 Mg PO DAILY Isosorbide Dinitrate 30 Mg Tab Levothyroxine (Levothyroxine Sodium) 200 Mcg Tab 200 Mcg PO DAILY Nephro-Rosalinda Rx (Vitamin B Cmplx/Vit C/Folic AC) 1 Tab 1 Tab PO Review of Systems General / Constitutional: No: Fever, Chills Eyes: No: Diploplia, Blurred Vision HENT: No: Headaches, Sore Throat Cardiovascular: No: Chest Pain or Discomfort, Palpitations Respiratory: No: Cough, Shortness of Breath Gastrointestinal: No: Vomiting, Diarrhea Genitourinary: No: Urgency, Frequency Musculoskeletal: No: Myalgias, Arthralgias Skin: Positive Lumps, No Rash Neurologic: No: Weakness, Dizziness Hematologic/Lymphatic: No: Easy Bruising Physical Exam Narrative GENERAL: Chronically ill-appearing female SKIN: Focused skin assessment warm/dry. There is an area of erythema on the right wrist on the volar radial aspect apparently from an IV while hospitalized. There is no fluctuance. There is also an excuse area of excoriation with some drainage in the groin area HEAD: Atraumatic. Normocephalic. EYES: Pupils equal and round. No scleral icterus. No injection or drainage. ENT: No nasal bleeding or discharge. Mucous membranes pink and moist. There is swelling of the right cheek which is quite tender. The left side is also somewhat tender but the swelling is not noted on the side NECK: Trachea midline. No JVD. CARDIOVASCULAR: Regular rate and rhythm. No murmur appreciated. RESPIRATORY: No accessory muscle use. Clear to auscultation. Breath sounds equal bilaterally. GASTROINTESTINAL: Abdomen soft, non-tender, nondistended. Hepatic and splenic margins not palpable. MUSCULOSKELETAL: No obvious deformities. No clubbing. No cyanosis. No edema. NEUROLOGICAL: Awake and alert. No obvious cranial nerve deficits. Motor grossly within normal limits. Normal speech. PSYCHIATRIC: Appropriate mood and affect; insight and judgment normal. Data Data Last Documented VS Vital Signs Date Time Temp Pulse Resp B/P (MAP) Pulse Ox O2 Delivery O2 Flow Rate FiO2 05/24/17 09:46 83 16 05/24/17 09:42 98.4 133/54 (80) 99 Orders Orders Complete Blood Count With Diff (05/24/17 09:57) Basic Metabolic Panel (Bmp) (05/24/17 09:57) Ct Soft Tiss Neck W Iv Cont (05/24/17 10:03) Blood Culture (05/24/17 10:13) Ondansetron Inj (Zofran Inj) (05/24/17 10:45) Morphine Inj (Morphine Inj) (05/24/17 10:45) Iohexol 350 Inj (Omnipaque 350 Inj) (05/24/17 10:53) Piperacil-Tazo 2.25 Gm Premix (Zosyn 2.2 (05/24/17 11:30) Vancomycin Inj (Vancomycin Inj) (05/24/17 11:30) Admit To Inpatient (05/24/17 ) Vital Signs (Adult) SHAY.Q4H (05/24/17 11:34) Activity Oob With Assistance (05/24/17 11:34) Inpatient Certification (05/24/17 ) Admit Order (Ed Use Only) (05/24/17 11:34) Labs Laboratory Tests Test 05/24/17 10:15 White Blood Count 4.7 TH/MM3 Red Blood Count 2.05 MIL/MM3 Hemoglobin 7.7 GM/DL Hematocrit 22.3 % Mean Corpuscular Volume 108.5 FL Mean Corpuscular Hemoglobin 37.3 PG Mean Corpuscular Hemoglobin Concent 34.4 % Red Cell Distribution Width 14.8 % Platelet Count 110 TH/MM3 Mean Platelet Volume 6.9 FL Neutrophils (%) (Auto) 81.6 % Lymphocytes (%) (Auto) 11.2 % Monocytes (%) (Auto) 0.8 % Eosinophils (%) (Auto) 6.3 % Basophils (%) (Auto) 0.1 % Neutrophils # (Auto) 3.9 TH/MM3 Lymphocytes # (Auto) 0.5 TH/MM3 Monocytes # (Auto) 0.0 TH/MM3 Eosinophils # (Auto) 0.3 TH/MM3 Basophils # (Auto) 0.0 TH/MM3 CBC Comment DIFF FINAL Differential Comment Blood Urea Nitrogen 63 MG/DL Creatinine 4.90 MG/DL Random Glucose 137 MG/DL Calcium Level 8.3 MG/DL Sodium Level 137 MEQ/L Potassium Level 5.4 MEQ/L Chloride Level 102 MEQ/L Carbon Dioxide Level 26.1 MEQ/L Anion Gap 9 MEQ/L Estimat Glomerular Filtration Rate 9 ML/MIN [facility] Medical Decision Making Medical Screen Exam Complete: Yes Emergency Medical Condition: Yes Medical Record Reviewed: Yes Differential Diagnosis Differential includes abscess, soft tissue infection Narrative Course He is negative for abscess. There is induration at the site. Patient says she is not able to eat due to the pain. She will be started on intravenous antibiotics Diagnosis Primary Impression: Soft tissue infection Admitting Information Admitting Physician Requests: it Florentino Sanchez MD May 24, 2017 10:01
[2017-05-24 10:27] LABS: AUTOMATED NEUTROPHIL # 3.9 TH/MM3 (1.8-7.7); BASOPHIL % 0.1 % (0.0-2.0); EOSINOPHIL # 0.3 TH/MM3 (0-0.4); EOSINOPHIL % 6.3 % (0.0-4.0); HEMATOCRIT 22.3 % (35.0-46.0); HEMOGLOBIN 7.7 GM/DL (11.6-15.3); LYMPH % 11.2 % (9.0-44.0); LYMPHOCYTE # 0.5 TH/MM3 (1.0-4.8); MEAN CELL VOLUME 108.5 FL (80.0-100.0); MEAN CORPUSCULAR HEMOGLOBIN 37.3 PG (27.0-34.0); MEAN CORPUSCULAR HGB CONC 34.4 % (32.0-36.0); MEAN PLATELET VOLUME 6.9 FL (7.0-11.0); MONO % 0.8 % (0.0-8.0); NEUT % 81.6 % (16.0-70.0); PLATELET COUNT 110 TH/MM3 (150-450); RED BLOOD COUNT 2.05 MIL/MM3 (4.00-5.30); RED CELL DISTRIBUTION WIDTH 14.8 % (11.6-17.2); WHITE BLOOD COUNT 4.7 TH/MM3 (4.0-11.0)
[2017-05-24 10:41] LABS: BICARBONATE 26.1 MEQ/L (21.0-32.0); CALCIUM 8.3 MG/DL (8.5-10.1)
[2017-05-24 10:45] LABS: CREATININE 4.9 MG/DL (0.50-1.00)
[2017-05-24] MEDS ORDERED: ONDANSETRON HCL 4 MG/2 ML VIAL IV PUSH ONE (10:45)
[2017-05-24] MEDS ORDERED: MORPHINE SULFATE 4 MG/ML INJ IV PUSH ONE (10:45)
[2017-05-24] MEDS ORDERED: IOHEXOL 350 MG/ML 10 ML VIAL (for RAD DIAG) IVCONTRAST ONE (10:53)
--- NOTE | 2017-05-24 11:03 | RADRPT ---
EXAM DATE/TIME: 05/24/2017 10:39 CORRECTION Corrected on: May 24, 2017; [facility] COMPARISON: No previous studies available for comparison. INDICATIONS : Swelling and pain both cheeks and into neck. IV CONTRAST: 60 cc Omnipaque 350 (iohexol) IV RADIATION DOSE: 13.23 CTDIvol (mGy) MEDICAL HISTORY : Renal failure, chronic. Carcinoma, breast. Gastroesophageal reflux disease.Diabetes. Hypertension. SURGICAL HISTORY : Cholecystectomy. AV shunt. ENCOUNTER: Initial ACUITY: 2 days PAIN SCALE: 10/10 LOCATION: Bilateral facial TECHNIQUE: Volumetric scanning of the neck was performed. Using automated exposure control and adjustment of th e mA and/or kV according to patient size, radiation dose was kept as low as reasonably achievable to obtain optimal diagnostic quality images. DICOM format image data is available electronically for r eview and comparison. FINDINGS: Generalized subcutaneous edema worse on the right than the left without mass or adenopathy. Nasopharynx oropharynx unremarkable The submandibular glands appear normal The left jugular vein is widely patent. The right jugular vein is not visualized. Large inhomogeneous thyroid suspicious on border the substernal component The superior vena cava appears patent. Minimal incidental maxillary sinus disease is present worse on the left than the right. Mild degenerative changes in the cervical spine. CONCLUSION: . 1. Nonvisualization right jugular vein with edema worse on the right side of face than the left. 2. Patent left jugular vein and superior vena cava 3. Large inhomogeneous thyroid suggesting goiter 4. Degenerative changes cervical spine. 5. Inflammatory process cannot be entirely excluded. I do not centered in space abscess 6. Patient is edentulous Edvin Wang MD FACR on May 24, 2017 at 10:57 Board Certified Radiologist. This report was verified electronically. Edvin Wang MD FACR on May 24, 2017 at 11:29 Board Certified Radiologist. This report was verified electronically.
[2017-05-24] MEDS ORDERED: PIPERACIL-TAZO 2.25 GM PREMIX 50 ML IV ONE (11:30)
[2017-05-24] MEDS ORDERED: VANCOMYCIN INJ 1,250 MG in SODIUM CHLOR 0.9% 250 ML INJ 250 ML IV ONE (11:30)
[2017-05-24] MEDS ORDERED: SODIUM CHLORID 0.9% 500 ML INJ 500 ML IV ONE (12:15)
[2017-05-24 12:52] VITALS: BP 105/40; PULSE 83; RESP 16; O2SAT 100
[2017-05-24] MEDS ORDERED: MISCELLANEOUS PHARMACY INFORMATION OTHER ONE (14:15)
--- NOTE | 2017-05-24 14:22 | HHI.HP ---
[facility] Cleo Shannon MD Admission Diagnosis SOFT TISSUE INFECTION OF FACE Diagnoses: Chief Complaint: Severe cheek pain Travel History International Travel<30 Days: No Contact w/Intl Traveler <30 Da: No Traveled to Known Affected Are: No History of Present Illness 82-year-old white female being admitted for suspected buccal cellulitis. Patient was in her usual state of health until about 2 nights ago when she began experiencing some gradual onset of bilateral facial edema and pain. She says the pain was initially fluctuating but last night it hit a 10 thus prompting her to come to emergency department. She says the pain is so strong that she does not feel like eating but she denies any jada painful chewing; thus has had decreased p.o. intake. She reports having some nausea and dry heaving. Denies any diarrhea. She denies any fevers or chills. She denies feeling any worsening shortness of breath or any choking sensation. Reports having a headache, sister reports that she has had a stuffy nose. Patient took some Tylenol at home with minimal relief. Says that the morphine given to her in the ER has provided better relief. Patient does report having a little drooling. Patient reports having had dental work done well over a year ago, namely dentures but no ENT or facial surgery or trial reconstruction otherwise. Review of Systems Except as stated in HPI: all other systems reviewed are Neg Past Family Social History Past Medical History Past Medical History RAA Cancer: Yes (BREAST) Cardiovascular Problems: Yes High Cholesterol: Diabetes: Dialysis: (on mon, , mon) GERD: Hypertension Implanted Vascular Access Dvce: Yes Respiratory: Yes (oxygen use at home) Renal Failure: Yes Past Surgical History Past Surgical History Abdominal Surgery: Yes (GALLBLADDER) AICD: No Appendectomy: No Arteriovenous Shunt: Yes Cardiac Surgery: Yes (angiogram) Cholecystectomy: Yes (AGE 52) Ear Surgery: No Endocrine Surgery: No Eye Surgery: Yes (right cataract) Genitourinary Surgery: No Gynecologic Surgery: No Insulin Pump: No Joint Replacement: No Oral Surgery: No Pacemaker: No Thoracic Surgery: No Tonsillectomy: Yes Other Surgery: Yes Allergies: Coded Allergies: *MDRO Multi-Drug Resistant Organism (Verified Adverse Reaction, Unknown, 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 reported) MRSA PCR negative 12/09/2014 and 12/11/2014 Cleared per infection Control for MRSA VRE screen negative 12/09/2014 and 12/11/14. Cleared per Infection Control for VRE. Family History htn Social History smoking up until 15 yrs ago Physical Exam Vital Signs Vital Signs Date Time Temp Pulse Resp B/P (MAP) Pulse Ox O2 Delivery O2 Flow Rate FiO2 05/24/17 12:52 83 16 105/40 (61) 100 Nasal Cannula 2.00 05/24/17 09:46 83 16 05/24/17 09:42 98.4 86 16 133/54 (80) 99 Physical Exam VS: afebrile GENERAL: Lying in bed, in mild distress secondary to pain SKIN: Warm and dry. EYES: No scleral icterus. No injection or drainage. Extraocular motion intact ENT: Substantial cerumen occlusion bilateral ear canals. Has exquisite tenderness to palpation over the right masseter muscle, hard to pinpoint the right mandibular joint. Less tenderness over the left counterparts. No mastoid tenderness to palpation bilaterally. No submental tenderness. Has obvious buccal edema, more on the right than the left, may have what appears to be whitish lesions may be suggestive of some mild noni at best. No jada trismus CARDIOVASCULAR: Regular rate and rhythm. no murmurs RESPIRATORY: No accessory muscle use. Clear to auscultation. Breath sounds equal bilaterally. GASTROINTESTINAL: Abdomen soft, non-tender, nondistended. Extremities: No clubbing, cyanosis, or edema. No obvious deformities. MUSCULOSKELETAL: adequate muscle bulk and tone for age and habitus NEUROLOGICAL: Awake and alert. No obvious cranial nerve deficits. No facial droop nor slurred speech noted. PSYCHIATRIC: Appropriate mood and affect; insight and judgment normal. Laboratory Laboratory Tests Test 05/24/17 10:15 White Blood Count 4.7 Red Blood Count 2.05 Hemoglobin 7.7 Hematocrit 22.3 Mean Corpuscular Volume 108.5 Mean Corpuscular Hemoglobin 37.3 Mean Corpuscular Hemoglobin Concent 34.4 Red Cell Distribution Width 14.8 Platelet Count 110 Mean Platelet Volume 6.9 Neutrophils (%) (Auto) 81.6 Lymphocytes (%) (Auto) 11.2 Monocytes (%) (Auto) 0.8 Eosinophils (%) (Auto) 6.3 Basophils (%) (Auto) 0.1 Neutrophils # (Auto) 3.9 Lymphocytes # (Auto) 0.5 Monocytes # (Auto) 0.0 Eosinophils # (Auto) 0.3 Basophils # (Auto) 0.0 CBC Comment DIFF FINAL Differential Comment Blood Urea Nitrogen 63 Creatinine 4.90 Random Glucose 137 Calcium Level 8.3 Sodium Level 137 Potassium Level 5.4 Chloride Level 102 Carbon Dioxide Level 26.1 Anion Gap 9 Estimat Glomerular Filtration Rate 9 Date/Time Source Procedure Growth Status 05/24/17 10:20 Blood Peripheral Aerobic Blood Culture Pending Received 05/24/17 10:20 Blood Peripheral Anaerobic Blood Culture Pending Received Result Diagram: 05/24/17 1015 05/24/17 1015 Imaging Last Impressions Neck CT 05/24/17 1003 Signed Impressions: Service Date/Time: Wednesday, May 24, 2017 10:39 - CONCLUSION: . 1. Nonvisualization right jugular vein with edema worse on the right side of face than the left. 2. Patent left jugular vein and superior vena cava 3. Large inhomogeneous thyroid suggesting goiter 4. Degenerative changes cervical spine. 5. Inflammatory process cannot be entirely excluded. I do not centered in space abscess 6. Patient is edentulous Edvin Wang MD FACR Capmelchori VTE Risk Assessment Caprini VTE Risk Assessment: Mod/High Risk (score >= 2) Caprini Risk Assessment Model Point Value = 1 Point Value = 2 Point Value = 3 Point Value = 5 Age 41-60 Minor surgery BMI > 25 kg/m2 Swollen legs Varicose veins or History of unexplained or recurrent spontaneous Oral contraceptives or hormone replacement Sepsis (< 1 month) Serious lung disease, including pneumonia (< 1 month) Abnormal pulmonary function Acute myocardial infarction Congestive heart failure (< 1 month) History of inflammatory bowel disease Medical patient at bed rest Age 61-74 Arthroscopic surgery Major open surgery (> 45 min) Laparoscopic surgery (> 45 min) Malignancy Confined to bed (> 72 hours) Immobilizing plaster cast Central venous access Age >= 75 History of VTE Family history of VTE Factor V Leiden Prothrombin [id number] Lupus anticoagulant Anticardiolipin antibodies Elevated serum homocysteine Heparin-induced thrombocytopenia Other congenital or acquired thrombophilia Stroke (< 1 month) Elective arthroplasty Hip, pelvis, or leg fracture Acute spinal cord injury (< 1 month) Prophylaxis Regimen Total Risk Factor Score Risk Level Prophylaxis Regimen 0-1 Low Early ambulation 2 Moderate Order ONE of the following: *Sequential Compression Device (SCD) *Heparin 5000 units SQ BID 3-4 Higher Order ONE of the following medications: *Heparin 5000 units SQ TID *Enoxaparin/Lovenox 40 mg SQ daily (WT < 150 kg, CrCl > 30 mL/min) *Enoxaparin/Lovenox 30 mg SQ daily (WT < 150 kg, CrCl > 10-29 mL/min) *Enoxaparin/Lovenox 30 mg SQ BID (WT < 150 kg, CrCl > 30 mL/min) AND/OR *Sequential Compression Device (SCD) 5 or more Highest Order ONE of the following medications: *Heparin 5000 units SQ TID (Preferred with Epidurals) *Enoxaparin/Lovenox 40 mg SQ daily (WT < 150 kg, CrCl > 30 mL/min) *Enoxaparin/Lovenox 30 mg SQ daily (WT < 150 kg, CrCl > 10-29 mL/min) *Enoxaparin/Lovenox 30 mg SQ BID (WT < 150 kg, CrCl > 30 mL/min) AND *Sequential Compression Device (SCD) Assessment and Plan Assessment and Plan buccal edema/cellulitis -right worse than left - Given vancomycin and Zosyn in ED, will continue adjust Zosyn for now - Consult ENT. Independently reviewed the CT scan and see no jada airway compromise. f/u blood cultures. - Bedside nursing swallow and speech evaluation for safe p.o. intake - minimal IVFs given dialysis patient if any ESRD - consulting nephro; dialysis patient - continue home anti-HTNs RA - hold home mtx for now Continue home Synthroid and pravastatin Physician Certification 2 Midnight Certification Type: Admission for Inpatient Services Order for Inpatient Services The services are ordered in accordance with Medicare regulations or non- Medicare payer requirements, as applicable. In the case of services not specified as inpatient-only, they are appropriately provided as inpatient services in accordance with the 2-midnight benchmark. Estimated LOS (days): 2 2 days is the estimated time the patient will need to remain in the hospital, assuming treatment plan goals are met and no additional complications. Post-Hospital Plan: Not yet determined Celestine Lemus MD May 24, 2017 14:22
[2017-05-24] MEDS: PANTOPRAZOLE SOD 20 MG DELAYED RELEASE TAB PO SCH ×2 (14:45→16:45)
[2017-05-24] MEDS: ASPIRIN EC 81 MG TABEC PO SCH (15:00)
[2017-05-24] MEDS: FOLIC ACID 1 MG TAB PO SCH ×2 (15:00→16:45)
[2017-05-24 15:30] VITALS: BP 118/53; PULSE 81; RESP 20; TEMP 97.8; O2SAT 99
[2017-05-24] MEDS ORDERED: SODIUM CHLOR 0.9% 1000 ML INJ 1,000 ML IV PRN (15:53)
[2017-05-24] MEDS ORDERED: SODIUM CHLOR 0.9% 1000 ML INJ 1,000 ML OTHER PRN ×2 (15:53)
[2017-05-24] MEDS ORDERED: GENTAMICIN SULFATE 20 MG/2 ML VIAL OTHER PRN (16:00)
[2017-05-24] MEDS ORDERED: MANNITOL 12.5 GM/50 ML VIAL IV PRN (16:00)
[2017-05-24] MEDS ORDERED: NITROGLYCERIN 0.4 MG SL 25 TABS/BTL SL PRN (16:00)
[2017-05-24] MEDS ORDERED: diphenhydrAMINE HCL 25 MG CAP PO PRN (16:00)
[2017-05-24] MEDS ORDERED: HEPARIN SODIUM - IV 10,000 UNITS/10 ML VIAL PRN (16:00)
[2017-05-24] MEDS ORDERED: HEPARIN SODIUM - IV 10,000 UNITS/10 ML VIAL IV FLUSH PRN (16:00)
[2017-05-24] MEDS ORDERED: cloNIDine HCL 0.1 MG TAB PO PRN (16:00)
[2017-05-24] MEDS ORDERED: ONDANSETRON HCL 4 MG/2 ML VIAL IV PUSH PRN (16:00)
--- NOTE | 2017-05-24 16:10 | PD.CONS ---
HPI Service Nephrology Consult Requested By Dr. Fernandez Reason for Consult ESRD on HD Primary Care Physician Cleo Shannon MD History of Present Illness Patient is a 82-year-old female with known history of end-stage renal disease on dialysis, diabetes, hypothyroidism, breast cancer, hypertension, hyperlipidemia, and rheumatoid arthritis.Patient presented to ED for suspected buccal cellulitis. Patient was in her usual state of health until about Monday nights when she began experiencing some gradual onset of bilateral facial edema and pain. She says the pain was initially fluctuating but last night it hit a 10 thus prompting her to come to emergency department. She says the pain is so strong that she does not feel like eating but she denies any jada painful chewing; thus has had decreased p.o. intake. She reports having some nausea and dry heaving. Denies any diarrhea. She denies any fevers or chills. She denies feeling any worsening shortness of breath or any choking sensation. 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 reported) MRSA PCR negative 12/09/2014 and 12/11/2014 Cleared per infection Control for MRSA VRE screen negative 12/09/2014 and 12/11/14. Cleared per Infection Control for VRE. Past Medical History Hypertension Hyperlipidemia Diabetes End-stage renal disease on dialysis Hypothyroidism Gouty arthritis Rheumatoid arthritis Past Surgical History Cholecystectomy Tonsillectomy AV fistula Pericardial fluid drainage Cataract surgery Carpal tunnel surgery Active Ordered Medications Current Medications Medications (Trade) Dose Ordered Sig/Woodrow Route Start Time Stop Time Status Last Admin Sodium Chloride 500 ml @ 100 mls/hr Q5H ONCE IV 05/24/17 12:15 05/24/17 17:14 05/24/17 12:14 (Zyloprim) 100 mg DAILY PO 05/24/17 16:00 (Norvasc) 10 mg DAILY PO 05/24/17 16:00 (Ecotrin Ec) 81 mg DAILY PO 05/24/17 15:00 (Coreg) 12.5 mg HS PO 05/24/17 21:00 (Coreg) 25 mg DAILY PO 05/25/17 09:00 (Vitamin B12) 1,000 mcg DAILY PO 05/24/17 16:00 (Lexapro) 10 mg DAILY PO 05/24/17 16:00 (Folate) 1 mg DAILY PO 05/24/17 15:00 (Synthroid) 200 mcg DAILY@0600 PO 05/25/17 06:00 (Pravachol) 10 mg DAILY PO 05/24/17 16:00 (Protonix) 20 mg MoTuWeThFr PO 05/24/17 14:45 (Mycostatin Liq) 5 ml QID SWISH-SWAL 05/24/17 18:00 Piperacillin Sod/ Tazobactam Sod 50 ml @ 100 mls/hr Q8H IV 05/24/17 20:00 Family History Mother with history of breast cancer Social History Denies any ETOH or smoking Lives alone (Cassidy Becker) Physical Exam Vital Signs Vital Signs Date Time Temp Pulse Resp B/P (MAP) Pulse Ox O2 Delivery O2 Flow Rate FiO2 05/24/17 14:35 05/24/17 12:52 83 16 105/40 (61) 100 Nasal Cannula 2.00 05/24/17 09:46 83 16 05/24/17 09:42 98.4 86 16 133/54 (80) 99 Physical Exam GENERAL: alert and oriented SKIN: Warm and dry. Redness on right arm. HEAD/ENT: Normocephalic. Buccal edema noted EYES: No scleral icterus. No injection or drainage. NECK: Supple, trachea midline. No JVD or lymphadenopathy. CARDIOVASCULAR: Regular rate and rhythm without murmurs, gallops, or rubs. RESPIRATORY: Breath sounds equal bilaterally. No accessory muscle use. GASTROINTESTINAL: Abdomen soft and nondistended. Abdominal tenderness noted on palpation MUSCULOSKELETAL: No cyanosis, or edema. BACK: Nontender without obvious deformity. No CVA tenderness. Laboratory Laboratory Tests Test 05/24/17 10:15 White Blood Count 4.7 Red Blood Count 2.05 Hemoglobin 7.7 Hematocrit 22.3 Mean Corpuscular Volume 108.5 Mean Corpuscular Hemoglobin 37.3 Mean Corpuscular Hemoglobin Concent 34.4 Red Cell Distribution Width 14.8 Platelet Count 110 Mean Platelet Volume 6.9 Neutrophils (%) (Auto) 81.6 Lymphocytes (%) (Auto) 11.2 Monocytes (%) (Auto) 0.8 Eosinophils (%) (Auto) 6.3 Basophils (%) (Auto) 0.1 Neutrophils # (Auto) 3.9 Lymphocytes # (Auto) 0.5 Monocytes # (Auto) 0.0 Eosinophils # (Auto) 0.3 Basophils # (Auto) 0.0 CBC Comment DIFF FINAL Differential Comment Blood Urea Nitrogen 63 Creatinine 4.90 Random Glucose 137 Calcium Level 8.3 Sodium Level 137 Potassium Level 5.4 Chloride Level 102 Carbon Dioxide Level 26.1 Anion Gap 9 Estimat Glomerular Filtration Rate 9 Date/Time Source Procedure Growth Status 05/24/17 10:20 Blood Peripheral Aerobic Blood Culture Pending Received 05/24/17 10:20 Blood Peripheral Anaerobic Blood Culture Pending Received (Cassidy Becker) Result Diagram: 05/24/17 1015 05/24/17 1015 Imaging Last Impressions Neck CT 05/24/17 1003 Signed Impressions: Service Date/Time: Wednesday, May 24, 2017 10:39 - CONCLUSION: . 1. Nonvisualization right jugular vein with edema worse on the right side of face than the left. 2. Patent left jugular vein and superior vena cava 3. Large inhomogeneous thyroid suggesting goiter 4. Degenerative changes cervical spine. 5. Inflammatory process cannot be entirely excluded. I do not centered in space abscess 6. Patient is edentulous Edvin Wang MD FACR (Cassidy Becker) Assessment and Plan Problem List: (1) ESRD (end stage renal disease) on dialysis ICD Codes: N18.6 - End stage renal disease; Z99.2 - Dependence on renal dialysis Plan: ESRD with HD on Last dialysis done on Monday. Anemia of chronic disease Epogen with dialysis CT of neck noted Dialysis planned for tomorrow. (2) HTN (hypertension) ICD Codes: I10 - Essential (primary) hypertension Plan: Home medications continued (3) Soft tissue infection ICD Codes: L08.9 - Local infection of the skin and subcutaneous tissue, unspecified Status: Acute Plan: Continue antibiotics Renal dosing (Cassidy Becker) Problem List: (1) ESRD (end stage renal disease) on dialysis ICD Codes: N18.6 - End stage renal disease; Z99.2 - Dependence on renal dialysis Plan: ESRD with HD on Last dialysis done on Monday. Anemia of chronic disease Epogen with dialysis CT of neck noted Dialysis planned for tomorrow. Patient seen and examined, agree with above. Continue antibiotics, remain afebrile. (2) HTN (hypertension) ICD Codes: I10 - Essential (primary) hypertension Plan: Home medications continued (3) Soft tissue infection ICD Codes: L08.9 - Local infection of the skin and subcutaneous tissue, unspecified Status: Acute Plan: Continue antibiotics Renal dosing (Priti Bautista MD) Cassidy Becker May 24, 2017 16:10 Priti Bautista MD May 24, 2017 19:31
[2017-05-24] MEDS: CYANOCOBALAMIN 1,000 MCG TAB PO SCH (16:44)
[2017-05-24] MEDS: ALLOPURINOL 100 MG TAB PO SCH (16:45)
[2017-05-24] MEDS: PRAVASTATIN SOD 10 MG TAB PO SCH (16:45)
[2017-05-24] MEDS: NYSTATIN SUSP 500,000 U/5 ML CUP SWISH-SWAL SCH ×2 (16:45→22:32)
[2017-05-24] MEDS: ESCITALOPRAM OXALATE 10 MG TAB PO SCH (16:45)
[2017-05-24 20:00] VITALS: BP 130/60; PULSE 88; RESP 20; TEMP 97.3; O2SAT 98
[2017-05-24] MEDS ORDERED: PIPERACIL-TAZO 2.25 GM PREMIX 50 ML IV SCH (20:00)
[2017-05-24] MEDS: CARVEDILOL 12.5 MG TAB PO SCH (22:33)
[2017-05-24] MEDS: ACETAMINOPHEN 325 MG TAB PO PRN (22:43)
[2017-05-24] MEDS: PIPERACIL-TAZO 2.25 GM PREMIX 50 ML IV SCH (23:48)
[2017-05-24] MEDS: SODIUM CHLORIDE 0.9% FLUSH 10 ML FLUSH IV FLUSH PRN (23:50)
[2017-05-24] MEDS: NYSTATIN 100,000 U/GM PWD 15 GM BTL TOPICAL SCH (23:51)
[2017-05-25] VITALS (9 sets, daily range): BP systolic 90–141; BP diastolic 26–62; PULSE 73–85; RESP 17–22; TEMP 96.6–98.6; O2SAT 86–99
[2017-05-25] MEDS ORDERED: ACETAMINOPHEN/HYDROcodone 325 MG/5 MG TAB PO ONE (01:30)
[2017-05-25] MEDS: LEVOTHYROXINE SODIUM 200 MCG TAB PO SCH (05:46)
[2017-05-25 06:11] LABS: AUTOMATED NEUTROPHIL # 2.3 TH/MM3 (1.8-7.7); BASOPHIL % 0.2 % (0.0-2.0); EOSINOPHIL # 0.1 TH/MM3 (0-0.4); EOSINOPHIL % 4.3 % (0.0-4.0); LYMPHOCYTE # 0.6 TH/MM3 (1.0-4.8); MEAN CELL VOLUME 109.5 FL (80.0-100.0); MEAN CORPUSCULAR HEMOGLOBIN 38.2 PG (27.0-34.0); MEAN CORPUSCULAR HGB CONC 34.9 % (32.0-36.0); MEAN PLATELET VOLUME 7.4 FL (7.0-11.0); MONO % 0.7 % (0.0-8.0); NEUT % 74.8 % (16.0-70.0); PLATELET COUNT 78 TH/MM3 (150-450); RED CELL DISTRIBUTION WIDTH 15.5 % (11.6-17.2)
[2017-05-25 06:13] LABS: CALCIUM 8.1 MG/DL (8.5-10.1)
[2017-05-25 06:25] LABS: HEMATOCRIT 19.7 % (35.0-46.0); HEMOGLOBIN 6.9 GM/DL (11.6-15.3)
[2017-05-25 06:32] LABS: CREATININE 5.9 MG/DL (0.50-1.00); PHOSPHORUS 8.8 MG/DL (2.5-4.9)
[2017-05-25] MEDS: FOLIC ACID 1 MG TAB PO SCH (08:24)
[2017-05-25] MEDS: PRAVASTATIN SOD 10 MG TAB PO SCH (08:24)
[2017-05-25] MEDS: ALLOPURINOL 100 MG TAB PO SCH (08:24)
[2017-05-25] MEDS: ASPIRIN EC 81 MG TABEC PO SCH (08:24)
[2017-05-25] MEDS: NYSTATIN SUSP 500,000 U/5 ML CUP SWISH-SWAL SCH ×4 (08:24→21:21)
[2017-05-25] MEDS: ESCITALOPRAM OXALATE 10 MG TAB PO SCH (08:24)
[2017-05-25] MEDS: CYANOCOBALAMIN 1,000 MCG TAB PO SCH (08:24)
[2017-05-25] MEDS: PIPERACIL-TAZO 2.25 GM PREMIX 50 ML IV SCH ×2 (08:26→17:45)
--- NOTE | 2017-05-25 08:56 | MB ---
cc: Alfred Augustin MD DATE OF CONSULT: 05/25/2017 CHIEF COMPLAINT: Facial pain. HISTORY OF PRESENT ILLNESS: This is an 82-year-old female with end-stage renal disease, maintained on dialysis. The patient came in Monday night to the Emergency Room complaining of some facial pain and buccal pain. It originally started on Monday night and then she felt like it started increasing to a 10/10 pain and any kind of kind of chewing really hurt, as well as any palpation. The patient reports it continues to hurt. She has not noticed that it is any more painful when is eating or has food in her mouth, it just hurts all of the time now. PAST MEDICAL HISTORY: Reviewed in the chart as end-stage renal disease, diabetes, hypothyroidism, breast cancer, hypertension, hyperlipidemia and rheumatoid arthritis. PAST SURGICAL HISTORY: Significant for tonsillectomy, AV fistula, cholecystectomy, as well as cataract and carpal tunnel surgeries. CURRENT MEDICATIONS: Please see the MAR, all reviewed. SOCIAL HISTORY: She denies ethanol or alcohol. PHYSICAL EXAMINATION: GENERAL: The patient is alert and oriented x 3, in no acute distress. She is afebrile, vital signs are stable. The patient was resting comfortably in bed. HEAD AND NECK: On exam, it is difficult to tell whether she has edema of the face or it is just her normal jowl line and mandibular and buccal area. However, there is some definite wincing in pain on palpation of the buccinator muscle specifically and the cheeks specifically. The parotid gland itself into the preauricular area is not tender; however, onto the neck it is tender with more wincing. On exam of the oral cavity, there is no purulence draining from the parotid gland and there is normal appearing saliva. Flexible laryngoscopy at beside shows a normal looking oral cavity. The oropharynx is without masses or lesions and the endolarynx seemed to be without masses or lesions. Neck exam reveals no palpable adenopathy. HEART: Regular rate and rhythm. LUNGS: Clear to auscultation. DIAGNOSTIC STUDIES: CT scan reviewed did not show any significant edema of the buccinator muscle or the parotid glands and no obvious masses and no abscesses noted. ASSESSMENT AND PLAN: This is a patient that could possibly have a very mild parotitis; however, her exam is a little more concerning for inflammation of the buccinator muscle more consistent with bruxism. At this time would recommend treating it as such, unless she begins to develop some more jada parotid parotitis symptoms. Recommendations currently would be warm compresses, as well as whatever antiinflammatory medication she can tolerate with her end-stage renal disease. Buccinator inflammation is generally related to bruxism related to teeth grinding or poor fitting dentures. The patient may benefit from an evaluation by oral maxillofacial surgery as well. At this time recommend warm compresses, as well as antiinflammatories. Thank you for the consultation. Alfred Augustin MD ATT/DELORES , 08:29 AM , 08:54 AM
[2017-05-25] MEDS ORDERED: SODIUM CHLOR 0.9% 250 ML INJ 250 ML IV ONE ×2 (09:00)
[2017-05-25] MEDS ORDERED: MISCELLANEOUS PHARMACY INFORMATION OTHER ONE (10:15)
--- NOTE | 2017-05-25 10:24 | HHI.PR ---
Subjective Remarks RN reports a drop in the patient's hemoglobin down to 6.9 this morning. Patient thinks that the swelling is slightly improved with slightly improved pain. Has not had any further nausea from her intense pain like she did yesterday. Objective Vital Signs Date Time Temp Pulse Resp B/P (MAP) Pulse Ox O2 Delivery O2 Flow Rate FiO2 05/25/17 08:35 86 21 05/25/17 08:19 99 Nasal Cannula 2.00 05/25/17 07:50 98.6 84 20 105/50 (68) 99 05/25/17 01:15 Nasal Cannula 2.00 05/25/17 00:00 96.6 73 20 90/42 (58) 99 05/24/17 20:00 97.3 88 20 130/60 (83) 98 05/24/17 15:30 97.8 81 20 118/53 (74) 99 05/24/17 14:35 05/24/17 12:52 83 16 105/40 (61) 100 Nasal Cannula 2.00 I/O 05/24/17 05/24/17 05/24/17 05/25/17 05/25/17 05/25/17 07:00 15:00 23:00 07:00 15:00 23:00 Intake Total 310 ml 500 ml 290 ml Balance 310 ml 500 ml 290 ml Intake Oral 240 ml IV Total 310 ml 500 ml 50 ml # Voids 2 # Bowel Movements 0 Result Diagram: 05/25/17 0425 05/25/17 0425 Objective Remarks minimally improved pain over BL buccinator region w/ slightly improved swelling appears to be in less pain today A/P Assessment and Plan buccal edema/cellulitis - right worse than left - mildly improved since yesterday - continue adjust Zosyn for now, f/u blood cultures - Appreciate ENT consult inputs, suspect buccinator edema from possible bruxism , will start scheduled NSAIDs with coordination from pharmacy and dialysis - ST cleared for mechanical soft for now, proceed w/ ST - minimal IVFs given dialysis patient if any ESRD - consulting nephro; dialysis patient - continue home anti-HTNs Anemia -Likely of chronic disease origin, ordering 2 transfusing units per nephro, obtaining stool Hemoccult RA - hold home mtx for now Continue home Synthroid and pravastatin Celestine Lemus MD May 25, 2017 10:24
[2017-05-25] MEDS: NYSTATIN 100,000 U/GM PWD 15 GM BTL TOPICAL SCH ×2 (12:01→21:00)
[2017-05-25] MEDS: NAPROXEN 500 MG TAB PO SCH ×2 (12:02→21:22)
[2017-05-25] MEDS: CARVEDILOL 12.5 MG TAB PO SCH ×2 (12:14→21:21)
--- NOTE | 2017-05-25 12:16 | HHI.NPPN ---
Subjective History of Present Illness 82-year-old female with known history of end-stage renal disease on dialysis, diabetes, hypothyroidism, breast cancer, hypertension, hyperlipidemia , and rheumatoid arthritis.Patient presented to ED for suspected buccal cellulitis. Patient was in her usual state of health until about Monday nights when she began experiencing some gradual onset of bilateral facial edema and pain. Patient found to have anemia and Hgb. drop further. Additional Remarks Patient is alert, no SOB, has pain in cheek and jaw area. Review of Systems General Constitutional: Fatigue Ears, Nose, & Throat Ears, Nose & Throat: Sore Throat Respiratory Lungs: SOB, Cough Cardiovascular Cardiac: ANDRADE Objective Data Data Vital Signs Date Time Temp Pulse Resp B/P (MAP) Pulse Ox O2 Delivery O2 Flow Rate FiO2 05/25/17 08:35 86 21 05/25/17 08:19 99 Nasal Cannula 2.00 05/25/17 07:50 98.6 84 20 105/50 (68) 99 05/25/17 01:15 Nasal Cannula 2.00 05/25/17 00:00 96.6 73 20 90/42 (58) 99 05/24/17 20:00 97.3 88 20 130/60 (83) 98 05/24/17 15:30 97.8 81 20 118/53 (74) 99 05/24/17 14:35 05/24/17 12:52 83 16 105/40 (61) 100 Nasal Cannula 2.00 -: 05/25/17 0425 05/25/17 0425 Physical Exam General Appearance: No Acute Distress, Comfortable Eyes Eye Exam: Pupils Equal Throat Throat Remarks Painful opening of mouth, with tenderness over TM joint and some swelling. Neck Neck Exam: Neck Supple Pulmonary Resp Exam: Breath Sounds Equal, No Distress, Decreased Bases Cardiology CV Exam: Regular, Normal Sinus Rhythm Gastrointestinal/Abdomen GI Exam: Soft, Non-Tender, Bowel Sounds Present Extremeties Extremities Exam: Trace Edema Neurologic Neuro Exam: Alert, Awake, Oriented Psychiatric Psych Exam: Appropriate Responses Assessment/Plan Problem List: (1) ESRD (end stage renal disease) on dialysis ICD Codes: N18.6 - End stage renal disease; Z99.2 - Dependence on renal dialysis Plan: ESRD with HD on /MON Last dialysis done on Monday. Anemia of chronic disease Epogen with dialysis CT of neck noted Continue antibiotics, remain afebrile. Hgb. dropped for transfusion. Denies apparent bleeding. HD today. (2) HTN (hypertension) ICD Codes: I10 - Essential (primary) hypertension Plan: Home medications continued (3) Soft tissue infection ICD Codes: L08.9 - Local infection of the skin and subcutaneous tissue, unspecified Status: Acute Plan: Continue antibiotics Renal dosing Priti Bautista MD May 25, 2017 12:16
[2017-05-25] MEDS: EPOETIN ALFA 10,000 UNITS/ML VIAL IV PUSH PRN (14:58)
[2017-05-26] VITALS (8 sets, daily range): BP systolic 89–116; BP diastolic 43–59; PULSE 71–93; RESP 16–22; TEMP 96.5–98.4; O2SAT 90–99
[2017-05-26] MEDS: PIPERACIL-TAZO 2.25 GM PREMIX 50 ML IV SCH ×2 (02:01→08:38)
[2017-05-26] MEDS: LEVOTHYROXINE SODIUM 200 MCG TAB PO SCH (05:34)
[2017-05-26] MEDS: ACETAMINOPHEN 325 MG TAB PO PRN (08:38)
[2017-05-26] MEDS: ESCITALOPRAM OXALATE 10 MG TAB PO SCH (08:42)
[2017-05-26] MEDS: ALLOPURINOL 100 MG TAB PO SCH (08:42)
[2017-05-26] MEDS: CYANOCOBALAMIN 1,000 MCG TAB PO SCH (08:42)
[2017-05-26] MEDS: FOLIC ACID 1 MG TAB PO SCH (08:42)
[2017-05-26] MEDS: PRAVASTATIN SOD 10 MG TAB PO SCH (08:43)
[2017-05-26] MEDS: NYSTATIN SUSP 500,000 U/5 ML CUP SWISH-SWAL SCH (08:43)
[2017-05-26] MEDS: CARVEDILOL 12.5 MG TAB PO SCH ×2 (08:43→20:44)
[2017-05-26] MEDS: ASPIRIN EC 81 MG TABEC PO SCH (09:00)
--- NOTE | 2017-05-26 10:02 | RADRPT ---
EXAM DATE/TIME: 05/26/2017 09:51 [facility] COMPARISON: CHEST SINGLE AP, May 11, 2017, 12:40. INDICATIONS : Short of breath, Dyspnea MEDICAL HISTORY : Hypertension. Renal failure, chronic. Carcinoma, breast. Gastroesophageal reflux SURGICAL HISTORY : Cholecystectomy. AV shunt. ENCOUNTER: Subsequent ACUITY: 1 day PAIN SCORE: 0/10 LOCATION: Bilateral chest FINDINGS: Cardiomegaly and mild diffuse interstitial prominence identified. There is linear scarring in no cons olidation or effusion is calcification. Degenerative changes of the spine are noted. CONCLUSION: Linear scarring at the right base. Interstitial prominence stable. Deepak Bui MD on May 26, 2017 at 10:00 Board Certified Radiologist. This report was verified electronically.
[2017-05-26 10:55] LABS: HEMATOCRIT 24.9 % (35.0-46.0); HEMOGLOBIN 8.6 GM/DL (11.6-15.3); MEAN CELL VOLUME 103.7 FL (80.0-100.0); MEAN CORPUSCULAR HEMOGLOBIN 35.7 PG (27.0-34.0); MEAN CORPUSCULAR HGB CONC 34.4 % (32.0-36.0); MEAN PLATELET VOLUME 7.3 FL (7.0-11.0); PLATELET COUNT 44 TH/MM3 (150-450); RED CELL DISTRIBUTION WIDTH 19.5 % (11.6-17.2)
[2017-05-26 11:06] LABS: INTERNATIONAL NORMALIZED RATIO 1.1 RATIO; PROTHROMBIN TIME - PATIENT 10.8 SEC (9.8-11.6)
[2017-05-26 11:31] LABS: LYMPHOCYTES 25 % (9-44); NEUTROPHIL # MANUAL DIFF 0.7 TH/MM3 (1.8-7.7); POLYS (SEG NEUTROPHILS) 73 % (16-70); ROULEAUX PRESENT (NORMAL)
--- NOTE | 2017-05-26 11:48 | HHI.NPPN ---
Subjective History of Present Illness 82-year-old female with known history of end-stage renal disease on dialysis, diabetes, hypothyroidism, breast cancer, hypertension, hyperlipidemia , and rheumatoid arthritis.Patient presented to ED for suspected buccal cellulitis. Patient was in her usual state of health until about Monday nights when she began experiencing some gradual onset of bilateral facial edema and pain. Patient found to have anemia and Hgb. drop further. Additional Remarks Patient is alert, no SOB, pain in cheek and jaw area is better and swelling decreasing. Review of Systems General Constitutional: Fatigue Ears, Nose, & Throat Ears, Nose & Throat: Sore Throat Respiratory Lungs: SOB, Cough Cardiovascular Cardiac: ANDRADE Objective Data Data 05/26/17 05/27/17 19:00 07:00 Intake Total 180 ml Balance 180 ml Intake Oral 180 ml Vital Signs Date Time Temp Pulse Resp B/P (MAP) Pulse Ox O2 Delivery O2 Flow Rate FiO2 05/26/17 09:38 17 05/26/17 08:00 96.5 86 16 114/51 (72) 91 05/26/17 00:00 98.4 93 22 112/53 (72) 90 05/25/17 21:00 93 Nasal Cannula 3.00 05/25/17 20:00 98.2 85 22 141/62 (88) 93 05/25/17 18:49 80 18 112/53 (72) 96 05/25/17 15:15 98.0 74 17 91/26 05/25/17 11:50 98.2 81 20 129/58 (81) 98 -: 05/26/17 1015 05/25/17 0425 Microbiology 05/26/17 Stool Occult Blood (TOBY), Received Pending Physical Exam General Appearance: No Acute Distress, Comfortable Eyes Eye Exam: Pupils Equal Throat Throat Remarks Painful opening of mouth, with tenderness over TM joint and some swelling. Neck Neck Exam: Neck Supple Pulmonary Resp Exam: Breath Sounds Equal, No Distress, Decreased Bases Cardiology CV Exam: Regular, Normal Sinus Rhythm Gastrointestinal/Abdomen GI Exam: Soft, Non-Tender, Bowel Sounds Present Extremeties Extremities Exam: Trace Edema Neurologic Neuro Exam: Alert, Awake, Oriented Psychiatric Psych Exam: Appropriate Responses Assessment/Plan Problem List: (1) ESRD (end stage renal disease) on dialysis ICD Codes: N18.6 - End stage renal disease; Z99.2 - Dependence on renal dialysis Plan: ESRD with HD on Last dialysis done on Monday. Anemia of chronic disease Epogen with dialysis CT of neck noted Continue antibiotics, remain afebrile. Hgb. dropped and transfused 05/25/17 with HD. Denies apparent bleeding. Continue antibiotics, HD will be in AM. (2) HTN (hypertension) ICD Codes: I10 - Essential (primary) hypertension Plan: Home medications continued (3) Soft tissue infection ICD Codes: L08.9 - Local infection of the skin and subcutaneous tissue, unspecified Status: Acute Plan: Continue antibiotics Renal dosing Priti Bautista MD May 26, 2017 11:48
[2017-05-26] MEDS: NAPROXEN 500 MG TAB PO SCH (12:15)
[2017-05-26] MEDS: NYSTATIN 100,000 U/GM OINT 15 GM TUBE TOPICAL SCH ×2 (12:15→20:44)
[2017-05-26] MEDS: NYSTATIN 100,000 U/GM PWD 15 GM BTL TOPICAL SCH ×2 (12:15→20:44)
--- NOTE | 2017-05-26 12:15 | HHI.PR ---
Subjective Remarks Patient seen and evaluated today in follow-up for difficulty with swallowing secondary to facial pain which appears to be some sort of inflammatory process versus infectious in nature. ENT consult appreciated. Hemoglobin, white cell count and platelet count continued to drop and the patient has had some hypotension. She also is complaining of vague pain in her left abdomen which is at the site of a large ulcerated lesion as well as her right forearm and left elbow. Patient was recently in the hospital for treatment for diarrhea which has resolved. Patient's blood pressure is marginal. She has poor oral intake due to her oral pain and has developed new lip ulcerations Objective Vitals Vital Signs Date Time Temp Pulse Resp B/P (MAP) Pulse Ox O2 Delivery O2 Flow Rate FiO2 05/26/17 09:38 17 05/26/17 08:00 96.5 86 16 114/51 (72) 91 05/26/17 00:00 98.4 93 22 112/53 (72) 90 05/25/17 21:00 93 Nasal Cannula 3.00 05/25/17 20:00 98.2 85 22 141/62 (88) 93 05/25/17 18:49 80 18 112/53 (72) 96 05/25/17 15:15 98.0 74 17 91/26 I/O 05/25/17 05/25/17 05/25/17 05/26/17 05/26/17 05/26/17 06:59 14:59 22:59 06:59 14:59 22:59 Intake Total 290 ml 700 ml 180 ml Output Total 1500 ml Balance 290 ml -800 ml 180 ml Intake Oral 240 ml 240 ml 180 ml IV Total 50 ml 50 ml Packed Cells 400 ml Blood Product IV Normal Saline Flush 10 ml Output Hemodialysis 1500 ml # Voids 2 2 # Bowel Movements 0 0 Result Diagram: 05/26/17 1015 05/25/17 0425 Imaging Last Impressions Chest X-Ray 05/26/17 0000 Signed Impressions: Service Date/Time: Friday, May 26, 2017 09:51 - CONCLUSION: Linear scarring at the right base. Interstitial prominence stable. Deepak Bui MD Neck CT 05/24/17 1003 Signed Impressions: Service Date/Time: Wednesday, May 24, 2017 10:39 - CONCLUSION: . 1. Nonvisualization right jugular vein with edema worse on the right side of face than the left. 2. Patent left jugular vein and superior vena cava 3. Large inhomogeneous thyroid suggesting goiter 4. Degenerative changes cervical spine. 5. Inflammatory process cannot be entirely excluded. I do not centered in space abscess 6. Patient is edentulous Edvin Wang MD FACR Objective Remarks Left pannicular large ulcerated lesion concerning for systemic process versus yeast infection (atypical), left elbow sloughing, right forearm erythema and tenderness, and oral ulcerations GENERAL: This is a well-nourished, well-developed patient, who appears ill with shortness of breath CARDIOVASCULAR: Regular rate and rhythm without murmurs, gallops, or rubs. RESPIRATORY: Clear to auscultation. Breath sounds equal bilaterally. No wheezes , rales, or rhonchi. GASTROINTESTINAL: Abdomen soft, non-tender, nondistended. Normal active bowel sounds MUSCULOSKELETAL: Extremities without clubbing, cyanosis, or edema. NEURO: Alert & Oriented x4 to person, place, time, situation. Moves all ext x4 A/P Problem List: (1) Pancytopenia ICD Code: D61.818 - Other pancytopenia Plan: Etiology unclear but concerning in this patient with rheumatoid arthritis on methotrexate with infection concomitant May be drug eruption, will repeat blood cultures ID and hematology to follow up ENT has recommended orofacial to follow due to oral buccinator and or parotid infection We will DC penicillin and use Rocephin and clindamycin Treat skin infections We will check serotonin release assay, HI T antibodies (2) ESRD (end stage renal disease) on dialysis ICD Code: N18.6 - End stage renal disease; Z99.2 - Dependence on renal dialysis Plan: Continue hemodialysis, Monday, and Monday Nephrology following Avoid nephrotoxins as much as possible (3) HTN (hypertension) ICD Code: I10 - Essential (primary) hypertension Plan: Currently controlled on current regimen (4) DM2 (diabetes mellitus, type 2) ICD Code: E11.9 - Type 2 diabetes mellitus without complications Plan: Continue current regimen, currently controlled (5) Soft tissue infection ICD Code: L08.9 - Local infection of the skin and subcutaneous tissue, unspecified Status: Acute Plan: Concerning for an autoimmune process versus infection Continue with IV Rocephin and clindamycin, and ENT consult appreciated Oral facial surgery consult recommended and we will follow-up on this Follow with ID Patient has new left elbow, right forearm and oral labial ulcerations, also with left pannicular ulceration Wound care consult pending, continue with nystatin and follow closely Lindsay Dhillon MD May 26, 2017 12:15
[2017-05-26] MEDS: RESP: ALBUTEROL 2.5 MG/IPRATROPIUM 0.5 MG NEB (SCH) NEB ×2 (13:37→19:59)
[2017-05-26] MEDS: cefTRIAXone INJ 1,000 MG in SODIUM CHLORIDE 0.9% INJ 100 ML IV SCH (14:48)
[2017-05-26] MEDS: PANTOPRAZOLE SOD 20 MG DELAYED RELEASE TAB PO SCH (15:31)
[2017-05-26] MEDS: CLINDAMYCIN 300 MG/NS PREMIX 50 ML IV SCH ×2 (15:31→21:33)
--- NOTE | 2017-05-26 18:08 | PD.WCN.NOT ---
Wound Consult Description: wound consult ordered by for multiple wounds Communicated with: Shawnee HINES 3rd floor [facility], Recommendation: 1) Encourage patient to reposition in bed every 2 hours for comfort and offloading. 2) Cleanse Left groin inner thigh with warm soap and water rinse and pat dry do not wipe. 3) Apply Nystatin powder to open area on Groin and inner thigh BID 4) Versatel is to remain on Right wrist and Left elbow x7 days 5) Please Change secondary dressing to R wrist and L elbow if strike threw visible. Additional Information: Patient was seen today on 3rd floor [facility] by life insurance underwriter and Shawnee HINES.Patient alert and oriented x3 in bed upon writers arrival.Skin assessment findings patient has 2 unroofed bulla (blisters) to Right wrist proximal bulla measures ~2cm x 1cm x <1.0cm distal measures 3.0cm x 2.0cm x <1.0cm erythema noted to both periwound no odor or drainage noted.Cool to touch Patient states injuries were caused by infiltrated IV.Left elbow has superficial partial skin tear with erythema noted to periwound.No drainage or odor noted.Wounds cleansed with normal saline pat dry skin prep applied to periwound Versatel contact layer applied to R wrist and L elbow secured with rolled gauze and tape.signed and dated.Left groin and L inner thigh have mixed etiology of moisture/fungal/ friction denuded skin.L groin measures ~4cm x ~12cm wound base is beefy red non granulated tissue wound edges that are well defined and even with wound base.Patient states very tender to touch.Instructed patient to thoroughly dry skin folds apply soft pillow case folded in skin fold to reduce moisture and friction.Groin cleansed with normal saline pat dry nystatin powder order wash clothe left in skin fold till nystatin available for Verenice HINES to apply BID Hemlaatha Collins [facility] May 26, 2017 18:08
[2017-05-26] MEDS ORDERED: FOLIC ACID 1 MG/0.2 ML INJ IV SCH (19:45)
[2017-05-26] MEDS: WATER IV SCH ×2 (20:44)
[2017-05-26] MEDS: DEXTROSE 5% IV SCH ×2 (20:44)
[2017-05-26] MEDS: FOLIC ACID IV SCH ×2 (20:44)
[2017-05-27] VITALS (8 sets, daily range): BP systolic 105–133; BP diastolic 55–61; PULSE 72–98; RESP 16–20; TEMP 97.7–99.4; O2SAT 94–96
[2017-05-27] MEDS: NAPROXEN 500 MG TAB PO SCH (00:03)
--- NOTE | 2017-05-27 00:59 | MB ---
cc: Kai Campos MD,Cleo Melendez,Lex Garcia MD DATE OF CONSULT: 05/26/2017 TIME OF CONSULTATION: 7:00 p.m. CONSULT REQUESTED BY: The hospitalist service. PRIMARY CARE PHYSICIAN: Dr. Cleo Shannon. REASON FOR CONSULTATION: Pancytopenia. CHIEF COMPLAINT: Ms. Faust reports swelling of the face, pain along her cheeks bilaterally, and progressive weakness. HISTORY OF PRESENT ILLNESS: Ms. Faust is an 82-year-old female with multiple medical comorbid conditions including end-stage renal failure, rheumatoid arthritis for which she has been on 10 mg methotrexate once a week; she has a history of diabetes, hypertension and hyperlipidemia. Ms. Faust's sister was at bedside; her sister assisted in this interview. Ms. Faust reports having been on hemodialysis for about 2 year. She had, prior that, been on systemic therapy for management of her rheumatoid arthritis with methotrexate. She came off of methotrexate for about a year and a half and was restarted on methotrexate about 3, maybe 4 months ago by her rn clinical appeals. She was started back on this medication for management of progressive symptoms of joint pain and tightness. Ms. Faust reports being told of her hemoglobin continuously declining over the past several months. The patient had been feeling increasingly weak and tired with minimal exertion. In the week prior to this hospitalization, she reports her face began to swell up "like a chipmunk." It became increasingly hard for her to chew and swallow her food. She felt feverish and was brought into the Emergency Department. Upon presentation she was noted to be cytopenic, but has, over the course of this hospitalization, developed increasing pancytopenia. Earlier today her WBC count was 1, her absolute neutrophil count was 0.7, and her hemoglobin, hematocrit, and platelet counts have all been down-trending. She does have macrocytosis. The Hematology service has been asked to see her for further workup and management of the pancytopenia. PAST MEDICAL HISTORY: 1. End-stage renal failure. 2. Diabetes. 3. Rheumatoid arthritis. 4. History of a breast lesion which was resected in 12/2016. 5. Hypertension. 6. Hyperlipidemia. PAST SURGICAL HISTORY: 1. Cholecystectomy. 2. AV graft formation in left arm. 3. Lumpectomy of the right breast. FAMILY HISTORY: Mother of breast cancer, father in a motor vehicle collision, son in a motor vehicle collision. SOCIAL HISTORY: The patient is . She lives at home alone. She has a sister and 2 brothers that live close by. The patient reports having been a smoker; she quit smoking about 18 years ago and smoked for about 45 years before that. She smoked between a pack and 1-1/2 packs a day. 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 ALLERGIES: NO KNOWN DRUG ALLERGIES. GYNECOLOGIC HISTORY: 4, para 4. CURRENT INPATIENT MEDICATIONS: 1. Folic acid 0.8 mg IV once daily, folic acid 1 mg p.o. daily. 2. Oral multivitamin daily. 3. Oral vitamin B12 at 1000 mcg once daily. 4. Ceftriaxone 1000 mg IV q. 24 hours. 5. Clindamycin 300 mg IV q. 8 hours. 6. Normal saline with dialysis. 7. Allopurinol 100 mg p.o. daily. 8. Amlodipine 10 mg once a day (this has been stopped due to hypotension). 9. Diphenhydramine 25 mg p.o. as needed for hives and itching. 10. Epogen with dialysis. 11. Lexapro 100 mg p.o. daily. 12. Levothyroxine 200 mcg p.o. daily. 13. Zofran 4 mg IV with dialysis. 14. Pantoprazole 20 mg p.o. 15. Pravastatin 10 mg p.o. daily. REVIEW OF SYSTEMS: A 13-point review of systems is obtained. The patient reports the following pertinent positives and negatives: CONSTITUTIONAL: She reports weakness, fatigue, loss of appetite, feverish feeling, generalized weakness. HEENT: Denies headaches, blurry vision, difficulty swallowing, soreness in the throat. RESPIRATORY: Reports difficulty breathing with minimal exertion. Denies cough or hemoptysis. Denies pleuritic chest pain. CARDIOVASCULAR: Denies angina-like chest pain, PND, orthopnea. GENITOURINARY: Denies dysuria, hematuria, or urinary incontinence. She does report decreased urine output. GASTROINTESTINAL: Reports nausea, reports diarrhea, reports abdominal distention. CENTRAL NERVOUS SYSTEM: Reports generally feeling weak and tired but denies any focal sensorimotor deficits. PHYSICAL EXAMINATION: VITAL SIGNS: Temperature 97 degrees Fahrenheit, heart rate 72 beats per minute, blood pressure is 100/46, O2 sats are 99% on 3 liters nasal cannula. GENERAL APPEARANCE: Ms. Faust is an elderly lady. She appears to be pale, tired, and ill. She is lying in bed. She does not appear comfortable. HEENT: Head is atraumatic and normocephalic. Conjunctivae are pale, sclerae anicteric. EOMI, PERRLA. Oral exam: The patient is unable to open her mouth fully. Her tongue does not appear to be swollen; her tongue does not have blisters on it. NECK: No cervical lymphadenopathy. She has tenderness along her neck and along her cheeks. RESPIRATORY: Poor inspiratory effort, decreased bibasilar breath sounds. CARDIOVASCULAR: Regular rate and rhythm, S1 and S2, no obvious murmurs, rubs or gallops. ABDOMEN: Protuberant belly, tender to light palpation, tympanic to percussion. No definite organ enlargement noted. LOWER EXTREMITIES: No pretibial edema, no calf tenderness. CENTRAL NERVOUS SYSTEM: No focal sensory or motor deficits, but she is generally weak. MUSCULOSKELETAL: She has generally atrophic muscle mass. LABORATORY FINDINGS: Blood work dated 05/26/2017: WBC count 1, hemoglobin 8.6 g/dL, hematocrit 24.9%, MCV 103.7, platelet count 44,000. Chemistries: Sodium 135, potassium 5.3, chloride 101, bicarb 25, BUN 76, creatinine 5.9, eGFR 7, calcium 8.1, phosphorus 8.8. Heparin-induced platelet antibodies are pending. Review of peripheral smear (independent review from blood drawn on 05/26/2017): 1. RBCs: Normocytic, normochromic. No fragmentation of the RBCs noted. There is rouleaux formation noted, but I suspect this is likely related to artifact. 2. Platelets: Decreased in number, no clumping. 3. WBCs: Rare lymphocytes noted with normal morphology. These appear to be mature. 4. Neutrophils: Most of the WBCs noted are neutrophils; these are mostly with significant toxic granulation, indicating inflammatory response. Nuclear segmentation appears to be appropriate. IMAGING STUDIES: CT of the neck dated 05/24/2017 indicates no visualization of the right jugular vein secondary to edema on the right side of the face. Patent left jugular vein and superior vena cava. Large inhomogeneous thyroid goiter. Degenerative changes in the cervical spine. Inflammatory process cannot be entirely excluded. The patient is edentulous. ASSESSMENT: Ms. Faust is an 82-year-old female with a history of end-stage renal failure, type 2 diabetes, rheumatoid arthritis. She has been on therapy for rheumatoid arthritis with 10 mg of methotrexate once a week. Per the patient's sister, she was previously on 15 mg once a week but had this cut down some years ago by Dr. Melendez, her rn clinical appeals. At any rate, per the patient's sister, the patient has been noted to be increasingly anemic over the past several months on blood work done at dialysis. Over the past week and a half, the patient has been increasingly fatigued to the point where walking across the room was tedious and difficult for her. The patient also began to notice swelling of her face; she likens her appearance to a chipmunk. This was associated with pain and tenderness along her cheeks and difficulty swallowing. The patient had felt feverish leading up to her hospitalization on 05/24/2017. Upon presentation to the hospital for management of the above-noted issues, she was noted to be pancytopenic, critically anemic, and was found to have soft tissue swelling along her face. She was assessed to have inflammation of her buccinator muscles. RECOMMENDATIONS: 1. Pancytopenia: At this point, I would primarily suspect this individual has methotrexate-toxicity associated myelosuppression. Methotrexate is poorly cleared in individuals with end-stage renal failure. I would recommend treating her with folic acid and vitamin B12. I have changed her folic acid to IV. 2. Supportive transfusions have been recommended. 3. Await heparin/platelet factor IV antibodies. 4. After reviewing her peripheral smear, I did not find evidence of any dysmorphic or dysplastic cells to indicate a primary bone marrow disorder such as acute leukemia or myelodysplasia. I would like to mention that there was a significant element of toxic granulation of her neutrophils, indicating a severe systemic response to inflammation. I agree with her being on broad-spectrum antibiotics and would recommend monitoring her blood cultures very closely for some sort of infectious etiology. MD CARMEN Deshpande/NEHA , 07:58 PM , 12:57 AM MITRA
[2017-05-27 02:53] LABS: FOLATE GREATER THAN 20.0 NG/ML (3.1-17.5)
[2017-05-27] MEDS: ACETAMINOPHEN 325 MG TAB PO PRN (03:29)
[2017-05-27] MEDS: CLINDAMYCIN 300 MG/NS PREMIX 50 ML IV SCH ×3 (06:15→22:46)
[2017-05-27] MEDS: LEVOTHYROXINE SODIUM 200 MCG TAB PO SCH (06:22)
[2017-05-27] MEDS: RESP: ALBUTEROL 2.5 MG/IPRATROPIUM 0.5 MG NEB (SCH) NEB ×3 (07:31→21:08)
[2017-05-27 07:32] LABS: HEMATOCRIT 23.1 % (35.0-46.0); MEAN CELL VOLUME 103.7 FL (80.0-100.0); MEAN CORPUSCULAR HEMOGLOBIN 35.8 PG (27.0-34.0); MEAN CORPUSCULAR HGB CONC 34.6 % (32.0-36.0); MEAN PLATELET VOLUME 7.3 FL (7.0-11.0); PLATELET COUNT 28 TH/MM3 (150-450); RED BLOOD COUNT 2.23 MIL/MM3 (4.00-5.30); RED CELL DISTRIBUTION WIDTH 18.6 % (11.6-17.2); WHITE BLOOD COUNT 1.1 TH/MM3 (4.0-11.0)
[2017-05-27 07:57] LABS: CHLORIDE 100 MEQ/L (98-107); SODIUM (NA) 137 MEQ/L (136-145)
[2017-05-27 08:03] LABS: ALBUMIN 2.2 GM/DL (3.4-5.0); BICARBONATE 27.3 MEQ/L (21.0-32.0); CALCIUM 8.3 MG/DL (8.5-10.1); GLUCOSE,RANDOM 202 MG/DL (74-106)
[2017-05-27 08:12] LABS: ALKALINE PHOSPHATASE 87 U/L (45-117); ALT (GPT) 46 U/L (10-53); AST (GOT) 32 U/L (15-37); BLOOD UREA NITROGEN 59 MG/DL (7-18); GLOMERULAR FILTRATION RATE 8 ML/MIN (>89); TOTAL BILIRUBIN ADULT 0.7 MG/DL (0.2-1.0)
[2017-05-27 08:51] LABS: BANDS 4 % (0-6); BASOPHILS 2 % (0-2); LYMPHOCYTES 38 % (9-44); NEUTROPHIL # MANUAL DIFF 0.5 TH/MM3 (1.8-7.7); POLYS (SEG NEUTROPHILS) 44 % (16-70)
[2017-05-27 08:52] LABS: OVALOCYTES 1+ (NORMAL)
[2017-05-27] MEDS: ALBUMIN 25% INJ 100 ML IV PRN (09:18)
[2017-05-27] MEDS: EPOETIN ALFA 10,000 UNITS/ML VIAL IV PUSH PRN (11:08)
--- NOTE | 2017-05-27 11:20 | HHI.PR ---
Subjective Remarks Patient seen and evaluated today in hemodialysis. A little better. Hematology consult is appreciated. Objective Vitals Vital Signs Date Time Temp Pulse Resp B/P (MAP) Pulse Ox O2 Delivery O2 Flow Rate FiO2 05/27/17 08:00 97.8 91 20 116/58 (77) 96 05/27/17 07:30 95 Nasal Cannula 3.00 05/27/17 03:57 98.4 91 20 133/61 (85) 95 05/27/17 00:03 98.0 72 16 105/58 (74) 96 05/26/17 19:59 97 Nasal Cannula 3.00 05/26/17 19:08 100/46 (64) 05/26/17 17:24 72 92/43 (59) 05/26/17 16:00 96.9 71 16 89/50 (63) 99 05/26/17 13:37 96 Nasal Cannula 3.00 05/26/17 13:15 17 05/26/17 12:00 96.6 78 16 104/51 (68) 91 I/O 05/26/17 05/26/17 05/26/17 05/27/17 05/27/17 05/27/17 07:00 15:00 23:00 07:00 15:00 23:00 Intake Total 290 ml 200 ml 50 ml Output Total 1500 ml Balance 290 ml 200 ml 50 ml -1500 ml Intake Oral 240 ml IV Total 50 ml 200 ml 50 ml Hemodialysis 1500 ml # Voids 4 2 # Bowel Movements 5 0 Result Diagram: 05/27/17 0545 05/27/17 0545 Imaging Last Impressions Chest X-Ray 05/26/17 0000 Signed Impressions: Service Date/Time: Friday, May 26, 2017 09:51 - CONCLUSION: Linear scarring at the right base. Interstitial prominence stable. Deepak Bui MD Neck CT 05/24/17 1003 Signed Impressions: Service Date/Time: Wednesday, May 24, 2017 10:39 - CONCLUSION: . 1. Nonvisualization right jugular vein with edema worse on the right side of face than the left. 2. Patent left jugular vein and superior vena cava 3. Large inhomogeneous thyroid suggesting goiter 4. Degenerative changes cervical spine. 5. Inflammatory process cannot be entirely excluded. I do not centered in space abscess 6. Patient is edentulous Edvin Wang MD FACR Objective Remarks Left pannicular large ulcerated lesion concerning for systemic process versus yeast infection (atypical), left elbow sloughing, right forearm erythema and tenderness, and oral ulcerations GENERAL: This is a well-nourished, well-developed patient, who appears ill with shortness of breath CARDIOVASCULAR: Regular rate and rhythm without murmurs, gallops, or rubs. RESPIRATORY: Clear to auscultation. Breath sounds equal bilaterally. No wheezes , rales, or rhonchi. GASTROINTESTINAL: Abdomen soft, non-tender, nondistended. Normal active bowel sounds MUSCULOSKELETAL: Extremities without clubbing, cyanosis, or edema. NEURO: Alert & Oriented x4 to person, place, time, situation. Moves all ext x4 A/P Problem List: (1) Pancytopenia ICD Code: D61.818 - Other pancytopenia Plan: Etiology unclear but concerning in this patient with rheumatoid arthritis on methotrexate with infection concomitantly May be drug eruption, will repeat blood cultures hematology consult appreciated ENT consult appreciated, gluconate or edema is improved today, omf recommends follow-up as an outpatient Continue Rocephin and clindamycin Treat skin lesions with wound care We will check serotonin release assay, HI T antibodies (2) ESRD (end stage renal disease) on dialysis ICD Code: N18.6 - End stage renal disease; Z99.2 - Dependence on renal dialysis Plan: Continue hemodialysis, Monday, and Monday Nephrology following Avoid nephrotoxins as much as possible (3) HTN (hypertension) ICD Code: I10 - Essential (primary) hypertension Plan: Currently controlled on current regimen (4) DM2 (diabetes mellitus, type 2) ICD Code: E11.9 - Type 2 diabetes mellitus without complications Plan: Continue current regimen, currently controlled (5) Soft tissue infection ICD Code: L08.9 - Local infection of the skin and subcutaneous tissue, unspecified Status: Acute Plan: Concerning for an autoimmune process versus infection Continue with IV Rocephin and clindamycin, and ENT consult appreciated Oral facial surgery consult recommended and recommended outpatient follow-up Patient has new left elbow, right forearm and oral labial ulcerations, also with left pannicular ulceration Wound care consult pending, continue with nystatin and follow closely Lindsay Dhillon MD May 27, 2017 11:20
[2017-05-27 13:50] LABS: HEPARIN INDUCED PLATELET AB NEGATIVE (NEGATIVE)
--- NOTE | 2017-05-27 13:52 | HHI.NPPN ---
Subjective History of Present Illness 82-year-old female with known history of end-stage renal disease on dialysis, diabetes, hypothyroidism, breast cancer, hypertension, hyperlipidemia , and rheumatoid arthritis.Patient presented to ED for suspected buccal cellulitis. Patient was in her usual state of health until about Monday nights when she began experiencing some gradual onset of bilateral facial edema and pain. Patient found to have anemia and Hgb. drop further. Additional Remarks She was seen during dialysis. UF is about 1800 ml. BP dropped during dialysis. On 3K. AVF is cannulated. Review of Systems General Constitutional: Fatigue Ears, Nose, & Throat Ears, Nose & Throat: Sore Throat Respiratory Lungs: SOB, Cough Cardiovascular Cardiac: ANDRADE Objective Data Data 05/27/17 05/28/17 19:00 07:00 Output Total 1500 ml Balance -1500 ml Hemodialysis 1500 ml Vital Signs Date Time Temp Pulse Resp B/P (MAP) Pulse Ox O2 Delivery O2 Flow Rate FiO2 05/27/17 12:00 98.5 98 20 125/60 (81) 94 05/27/17 08:00 97.8 91 20 116/58 (77) 96 05/27/17 07:30 95 Nasal Cannula 3.00 05/27/17 03:57 98.4 91 20 133/61 (85) 95 05/27/17 00:03 98.0 72 16 105/58 (74) 96 05/26/17 19:59 97 Nasal Cannula 3.00 05/26/17 19:08 100/46 (64) 05/26/17 17:24 72 92/43 (59) 05/26/17 16:00 96.9 71 16 89/50 (63) 99 -: 05/27/17 0545 05/27/17 0545 Microbiology 05/26/17 Aerobic Blood Culture - Preliminary, Resulted NO GROWTH IN 1 DAY 05/26/17 Anaerobic Blood Culture - Preliminary, Resulted NO GROWTH IN 1 DAY 05/26/17 Aerobic Blood Culture - Preliminary, Resulted NO GROWTH IN 1 DAY 05/26/17 Anaerobic Blood Culture - Preliminary, Resulted NO GROWTH IN 1 DAY Physical Exam General Appearance: No Acute Distress, Comfortable Eyes Eye Exam: Pupils Equal Neck Neck Exam: Neck Supple Pulmonary Resp Exam: Breath Sounds Equal, No Distress, Decreased Bases Cardiology CV Exam: Regular, Normal Sinus Rhythm Gastrointestinal/Abdomen GI Exam: Soft, Non-Tender, Bowel Sounds Present Extremeties Extremities Exam: Trace Edema Neurologic Neuro Exam: Alert, Awake, Oriented Psychiatric Psych Exam: Appropriate Responses Assessment/Plan Problem List: (1) ESRD (end stage renal disease) on dialysis ICD Codes: N18.6 - End stage renal disease; Z99.2 - Dependence on renal dialysis Plan: HD TTS, seen during dialysis today. Anemia of chronic disease Epogen with dialysis Continue antibiotics, remain afebrile. Hgb. dropped and transfused 05/25/17 with HD. Denies apparent bleeding. (2) HTN (hypertension) ICD Codes: I10 - Essential (primary) hypertension Plan: Home medications continued (3) Soft tissue infection ICD Codes: L08.9 - Local infection of the skin and subcutaneous tissue, unspecified Status: Acute Plan: Continue antibiotics Renal dosing Roberto Sarmiento MD May 27, 2017 13:52
[2017-05-27] MEDS: CARVEDILOL 12.5 MG TAB PO SCH ×2 (14:53→23:53)
[2017-05-27] MEDS: MULTIVITAMIN TAB PO SCH (14:54)
[2017-05-27] MEDS: CYANOCOBALAMIN 1,000 MCG TAB PO SCH (14:54)
[2017-05-27] MEDS: PRAVASTATIN SOD 10 MG TAB PO SCH (14:54)
[2017-05-27] MEDS: FOLIC ACID 1 MG TAB PO SCH (14:54)
[2017-05-27] MEDS: ESCITALOPRAM OXALATE 10 MG TAB PO SCH (14:55)
[2017-05-27] MEDS: ASPIRIN EC 81 MG TABEC PO SCH (14:55)
[2017-05-27] MEDS: ALLOPURINOL 100 MG TAB PO SCH (14:56)
[2017-05-27] MEDS: NYSTATIN 100,000 U/GM OINT 15 GM TUBE TOPICAL SCH ×2 (14:58→22:15)
[2017-05-27] MEDS: NYSTATIN 100,000 U/GM PWD 15 GM BTL TOPICAL SCH ×2 (14:58→22:15)
[2017-05-27] MEDS: cefTRIAXone INJ 1,000 MG in SODIUM CHLORIDE 0.9% INJ 100 ML IV SCH (15:16)
[2017-05-27] MEDS: FOLIC ACID IV SCH ×2 (21:39)
[2017-05-27] MEDS: DEXTROSE 5% IV SCH ×2 (21:39)
[2017-05-27] MEDS: WATER IV SCH ×2 (21:39)
[2017-05-28] VITALS (18 sets, daily range): BP systolic 108–141; BP diastolic 50–74; PULSE 80–100; RESP 14–27; TEMP 98.1–99; O2SAT 88–96
[2017-05-28] MEDS: LEVOTHYROXINE SODIUM 100 MCG TAB PO SCH (05:20)
[2017-05-28] MEDS: CLINDAMYCIN 300 MG/NS PREMIX 50 ML IV SCH ×3 (05:20→23:28)
[2017-05-28] MEDS: RESP: ALBUTEROL 2.5 MG/IPRATROPIUM 0.5 MG NEB (SCH) NEB ×3 (07:21→20:38)
[2017-05-28 07:39] LABS: HEMATOCRIT 23.3 % (35.0-46.0); MEAN CORPUSCULAR HEMOGLOBIN 35.4 PG (27.0-34.0); MEAN CORPUSCULAR HGB CONC 34.4 % (32.0-36.0); MEAN PLATELET VOLUME 6.6 FL (7.0-11.0); RED BLOOD COUNT 2.27 MIL/MM3 (4.00-5.30); RED CELL DISTRIBUTION WIDTH 17.6 % (11.6-17.2); WHITE BLOOD COUNT 0.8 TH/MM3 (4.0-11.0)
[2017-05-28 07:48] LABS: PLATELET COUNT 18 TH/MM3 (150-450)
--- NOTE | 2017-05-28 08:12 | HHI.PR ---
Subjective Remarks Patient seen in follow up for pancytopenia and SOB. Epistaxis this am, and patient more SOB with phlegm. Discussed with RN and RT Patient will not tolerate mask platelets dropped to 18 Objective Vitals Vital Signs Date Time Temp Pulse Resp B/P (MAP) Pulse Ox O2 Delivery O2 Flow Rate FiO2 05/28/17 06:05 22 93 05/28/17 00:00 98.9 92 18 110/56 (74) 94 05/27/17 21:11 94 Nasal Cannula 3.00 05/27/17 20:00 99.4 95 18 116/55 (75) 94 05/27/17 16:00 97.7 78 20 116/58 (77) 94 05/27/17 12:00 98.5 98 20 125/60 (81) 94 I/O 05/27/17 05/27/17 05/27/17 05/28/17 05/28/17 05/28/17 07:00 15:00 23:00 07:00 15:00 23:00 Intake Total 50 ml 427 ml 150 ml 980 ml Output Total 1500 ml Balance 50 ml -1073 ml 150 ml 980 ml Intake Oral 425 ml 280 ml IV Total 50 ml 2 ml 150 ml 700 ml Hemodialysis 1500 ml # Voids 2 1 0 # Bowel Movements 0 1 1 3 Result Diagram: 05/28/17 0733 05/27/17 0545 Imaging Last Impressions Chest X-Ray 05/26/17 0000 Signed Impressions: Service Date/Time: Friday, May 26, 2017 09:51 - CONCLUSION: Linear scarring at the right base. Interstitial prominence stable. Deepak Bui MD Neck CT 05/24/17 1003 Signed Impressions: Service Date/Time: Wednesday, May 24, 2017 10:39 - CONCLUSION: . 1. Nonvisualization right jugular vein with edema worse on the right side of face than the left. 2. Patent left jugular vein and superior vena cava 3. Large inhomogeneous thyroid suggesting goiter 4. Degenerative changes cervical spine. 5. Inflammatory process cannot be entirely excluded. I do not centered in space abscess 6. Patient is edentulous Edvin Wang MD FACR Objective Remarks left ear scab, Left pannicular large ulcerated lesion concerning for systemic process versus yeast infection (atypical), left elbow sloughing, right forearm erythema and tenderness, and oral ulcerations GENERAL: This is a well-nourished, well-developed patient, who appears ill with shortness of breath CARDIOVASCULAR: Regular rate and rhythm without murmurs, gallops, or rubs. RESPIRATORY: Clear to auscultation. Breath sounds equal bilaterally. No wheezes , rales, or rhonchi. GASTROINTESTINAL: Abdomen soft, non-tender, nondistended. Normal active bowel sounds MUSCULOSKELETAL: Extremities without clubbing, cyanosis, or edema. NEURO: Alert & Oriented x4 to person, place, time, situation. Moves all ext x4 A/P Problem List: (1) Pancytopenia ICD Code: D61.818 - Other pancytopenia Plan: Etiology unclear but concerning in this patient with rheumatoid arthritis on methotrexate with infection concomitantly May be drug eruption, will repeat blood cultures hematology consult appreciated ENT consult appreciated, gluconate or edema is improved today, omf recommends follow-up as an outpatient Continue Rocephin and clindamycin Treat skin lesions with wound care We will check serotonin release assay pending, HIT antibodies negative dc aspirin (2) ESRD (end stage renal disease) on dialysis ICD Code: N18.6 - End stage renal disease; Z99.2 - Dependence on renal dialysis Plan: Continue hemodialysis, Monday, and Monday Nephrology following Avoid nephrotoxins as much as possible (3) HTN (hypertension) ICD Code: I10 - Essential (primary) hypertension Plan: Currently controlled on current regimen (4) DM2 (diabetes mellitus, type 2) ICD Code: E11.9 - Type 2 diabetes mellitus without complications Plan: Continue current regimen, currently controlled (5) Soft tissue infection ICD Code: L08.9 - Local infection of the skin and subcutaneous tissue, unspecified Status: Acute Plan: Concerning for an autoimmune process versus infection Continue with IV Rocephin and clindamycin, and ENT consult appreciated Patient has new left elbow, right forearm and oral labial ulcerations, also with left pannicular ulceration Wound care consult appreciated, continue with nystatin and follow closely repeat ct Assessment and Plan transfer to [facility] care due to sob, epistaxis and worse counts Lindsay Dhillon MD May 28, 2017 08:12
[2017-05-28 08:52] LABS: LYMPHOCYTES 38 % (9-44); MONOCYTES 3 % (0-8); NEUTROPHIL # MANUAL DIFF 0.4 TH/MM3 (1.8-7.7); POLYS (SEG NEUTROPHILS) 46 % (16-70)
[2017-05-28] MEDS: NYSTATIN 100,000 U/GM OINT 15 GM TUBE TOPICAL SCH ×2 (09:34→20:31)
[2017-05-28] MEDS: NYSTATIN 100,000 U/GM PWD 15 GM BTL TOPICAL SCH ×2 (09:34→20:31)
[2017-05-28] MEDS: FOLIC ACID 1 MG TAB PO SCH (09:35)
[2017-05-28] MEDS: MULTIVITAMIN TAB PO SCH (09:35)
[2017-05-28] MEDS: ESCITALOPRAM OXALATE 10 MG TAB PO SCH (09:35)
[2017-05-28] MEDS: ALLOPURINOL 100 MG TAB PO SCH (09:35)
[2017-05-28] MEDS: PRAVASTATIN SOD 10 MG TAB PO SCH (09:35)
[2017-05-28] MEDS: CYANOCOBALAMIN 1,000 MCG TAB PO SCH (09:35)
[2017-05-28] MEDS: CARVEDILOL 12.5 MG TAB PO SCH ×2 (09:36→21:50)
--- NOTE | 2017-05-28 12:53 | RADRPT ---
EXAM DATE/TIME: 05/28/2017 12:04 [place] COMPARISON: No previous studies available for comparison. INDICATIONS : Swelling and congestion with headache. RADIATION DOSE: 25.63 CTDIvol (mGy) MEDICAL HISTORY : Hypertension. Renal failure. SURGICAL HISTORY : AV shunt. Dialysis. ENCOUNTER: Initial ACUITY: 1 day PAIN SCORE: 4/10 LOCATION: facial TECHNIQUE: Volumetric scanning of the paranasal sinuses was performed. Using automated exposure control and adj ustment of the mA and/or kV according to patient size, radiation dose was kept as low as reasonably a chievable to obtain optimal diagnostic quality images. DICOM format image data is available electro nically for review and comparison. FINDINGS: MAXILLARY SINUSES: Minimal mucoperiosteal thickening air-fluid levels. ETHMOID SINUSES: Moderate mucoperiosteal thickening extending into the left sphenoid SPHENOID SINUSES: Minimal mucoperiosteal thickening FRONTAL SINUSES: Minimal mucoperiosteal thickening NASAL FOSSA: S shaped nasal septal deviation with prominent turbinates. Bony spur projected towards the right. Chan llar air cells encroach upon maxillary ostia bilaterally. OTHER: Normal. Limited views of the skull base and orbits are unremarkable. CONCLUSION: Evidence for chronic sinus disease with minimal anatomic obstruction as above. Edvin Wang MD FACR on May 28, 2017 at 12:49 Board Certified Radiologist. This report was verified electronically.
--- NOTE | 2017-05-28 13:01 | PD.ONC.PN ---
Subjective Subjective Remarks The patient was examined, vital signs, labs, medications and furniture sales consultant notes reviewed. She was transferred to the ICU yesterday for closer observation and we will defer platelet count decline. Subjectively; the patient reports feeling very weak and tired, she tells me she did not sleep at night at all and is therefore sleepy this morning. She denies overt bleeding, she continues to report pain in her mouth, she is unable to chew and by mouth intake has been minimal. Objective Data Date Time Temp Pulse Resp B/P (MAP) Pulse Ox O2 Delivery O2 Flow Rate FiO2 05/28/17 12:00 80 05/28/17 12:00 98.5 80 14 111/54 (73) 94 05/28/17 09:00 97 05/28/17 08:00 98.1 97 22 136/65 (88) 91 05/28/17 07:30 92 Nasal Cannula 2.00 05/28/17 06:05 22 93 05/28/17 00:00 98.9 92 18 110/56 (74) 94 05/27/17 21:11 94 Nasal Cannula 3.00 05/27/17 20:00 99.4 95 18 116/55 (75) 94 05/27/17 16:00 97.7 78 20 116/58 (77) 94 05/28/17 05/28/17 05/28/17 07:00 15:00 23:00 Intake Total 980 ml Balance 980 ml Result Diagram: 05/28/17 0733 05/27/17 0545 Laboratory Results Laboratory Tests Test 05/28/17 07:33 White Blood Count 0.8 TH/MM3 Red Blood Count 2.27 MIL/MM3 Hemoglobin 8.0 GM/DL Hematocrit 23.3 % Mean Corpuscular Volume 103.0 FL Mean Corpuscular Hemoglobin 35.4 PG Mean Corpuscular Hemoglobin Concent 34.4 % Red Cell Distribution Width 17.6 % Platelet Count 18 TH/MM3 Mean Platelet Volume 6.6 FL CBC Comment AUTO DIFF Differential Total Cells Counted 100 Neutrophils % (Manual) 46 % Lymphocytes % 38 % Monocytes % 3 % Eosinophils % 13 % Neutrophils # (Manual) 0.4 TH/MM3 Differential Comment FINAL DIFF MANUAL Platelet Estimate RARE Platelet Morphology Comment NORMAL Red Cell Morphology Comment NORMAL Culture Results Microbiology Date/Time Source Procedure Growth Status 05/26/17 17:02 Blood Peripheral Aerobic Blood Culture - Preliminary NO GROWTH IN 2 DAYS Resulted 05/26/17 17:02 Blood Peripheral Anaerobic Blood Culture - Preliminary NO GROWTH IN 2 DAYS Resulted 05/26/17 16:55 Blood Peripheral Aerobic Blood Culture - Preliminary NO GROWTH IN 2 DAYS Resulted 05/26/17 16:55 Blood Peripheral Anaerobic Blood Culture - Preliminary NO GROWTH IN 2 DAYS Resulted 05/26/17 09:03 Stool Stool Stool Occult Blood (TOBY) - Final HEMOCCULT NEGATIVE Complete Administered Medications Medications (Trade) Dose Ordered Sig/[place] Route PRN Reason Start Time Stop Time Status Last Admin Dose Admin Allopurinol (Zyloprim) 100 mg DAILY PO 05/24/17 16:00 05/28/17 09:35 Carvedilol (Coreg) 12.5 mg HS PO 05/24/17 21:00 05/27/17 23:53 Carvedilol (Coreg) 25 mg DAILY PO 05/25/17 09:00 05/28/17 09:36 Cyanocobalamin (Vitamin B12) 1,000 mcg DAILY PO 05/24/17 16:00 05/28/17 09:35 Escitalopram Oxalate (Lexapro) 10 mg DAILY PO 05/24/17 16:00 05/28/17 09:35 Folic Acid (Folate) 1 mg DAILY PO 05/24/17 15:00 05/28/17 09:35 Pravastatin Sodium (Pravachol) 10 mg DAILY PO 05/24/17 16:00 05/28/17 09:35 Pantoprazole Sodium (Protonix) 20 mg MoTuWeThFr PO 05/24/17 14:45 05/26/17 15:31 Albumin Human 100 ml @ 60 mls/hr UNSCH PRN IV WITH DIALYSIS 05/24/17 16:00 05/27/17 09:18 Ondansetron HCl (Zofran Inj) 4 mg UNSCH PRN IV PUSH WITH DIALYSIS 05/24/17 16:00 05/28/17 06:09 Acetaminophen (Tylenol) 650 mg UNSCH PRN PO for headach, pain, temp > 101F 05/24/17 16:00 05/27/17 03:29 Diphenhydramine HCl (Benadryl) 25 mg UNSCH PRN PO for hives/itching/anaphylaxis 05/24/17 16:00 05/27/17 23:53 Epoetin Cesar (Epogen Inj) 10,000 units UNSCH PRN IV PUSH WITH DIALYSIS 05/24/17 16:00 05/27/17 11:08 Nystatin (Mycostatin Powder) 1 applic Q12HR TOPICAL 05/24/17 21:00 05/28/17 09:34 Albuterol/ Ipratropium (Duoneb Neb) 1 ampule Q6HR WHILE AWAKE NEB NEB 05/26/17 14:00 05/28/17 07:21 Nystatin (Mycostatin Oint) 1 applic Q12HR TOPICAL 05/26/17 11:00 05/28/17 09:34 Ceftriaxone Sodium 1000 mg/ Sodium Chloride 100 ml @ 200 mls/hr Q24H IV 05/26/17 13:00 05/27/17 15:16 Clindamycin/ Sodium Chloride 50 ml @ 100 mls/hr Q8H IV 05/26/17 14:00 05/28/17 05:20 Multivitamins (Theragran) 1 tab DAILY PO 05/27/17 09:00 05/28/17 09:35 Folic Acid 0.8 mg/ Dextrose 50.16 ml @ 100 mls/hr Q24H IV 05/26/17 21:00 05/27/17 21:39 Levothyroxine Sodium (Synthroid) 200 mcg DAILY@0600 PO 05/28/17 06:00 05/28/17 05:20 Objective Remarks GENERAL APPEARANCE: Ms. Faust is an elderly lady. She appears to be pale, tired, and ill. She is lying in bed. She does not appear comfortable. HEENT: Head is atraumatic and normocephalic. Conjunctivae are pale, sclerae anicteric. EOMI, PERRLA. Oral exam: The patient is unable to open her mouth fully. Her tongue does not appear to be swollen; her tongue does not have blisters on it. Buccal mucosa with what appears to be mucositis. I've asked her to remove her dentures and to keep them out. NECK: No cervical lymphadenopathy. She has tenderness along her neck and along her cheeks. RESPIRATORY: Poor inspiratory effort, decreased bibasilar breath sounds. CARDIOVASCULAR: Regular rate and rhythm, S1 and S2, no obvious murmurs, rubs or gallops. ABDOMEN: Protuberant belly, tender to light palpation, tympanic to percussion. No definite organ enlargement noted. LOWER EXTREMITIES: No pretibial edema, no calf tenderness. CENTRAL NERVOUS SYSTEM: No focal sensory or motor deficits, but she is generally weak. MUSCULOSKELETAL: She has generally atrophic muscle mass. Assessment/Plan Assessment Ms. Faust is an 82-year-old female with a history of end-stage renal failure, type 2 diabetes, rheumatoid arthritis. She has been on therapy for rheumatoid arthritis with 10 mg of methotrexate once a week. Per the patient's sister, she was previously on 15 mg once a week but had this cut down some years ago by Dr. Melendez, her case managers. At any rate, per the patient's sister, the patient has been noted to be increasingly anemic over the past several months on blood work done at dialysis. Over the past week and a half, the patient has been increasingly fatigued to the point where walking across the room was tedious and difficult for her. The patient also began to notice swelling of her face; she likens her appearance to a chipmunk. This was associated with pain and tenderness along her cheeks and difficulty swallowing. The patient had felt feverish leading up to her hospitalization on 05/24/2017. Upon presentation to the hospital for management of the above-noted issues, she was noted to be pancytopenic, critically anemic, and was found to have soft tissue swelling along her face. She was assessed to have inflammation of her buccinator muscles. Plan 1. Pancytopenia: Initially suspected methotrexate toxicity, she had been on methotrexate for management of rheumatoid arthritis. She is on hemodialysis therefore methotrexate clearance is diminished and risk of myelosuppression and toxicity such as mucositis and diarrhea are increased. Her Folic acid and vitamin B12 levels are within normal limits, which makes methotrexate related myelosuppression little more unlikely. I therefore would recommend obtaining a bone marrow biopsy to rule out a primary bone marrow disorder such as myelodysplastic syndrome or acute myeloid leukemia. 2. Transfuse platelets today. 3. Request IR guided bone marrow biopsy and aspiration. Kai Campos MD May 28, 2017 13:01
[2017-05-28] MEDS ORDERED: diphenhydrAMINE HCL 25 MG CAP PO PRN (13:15)
[2017-05-28] MEDS ORDERED: SODIUM CHLOR 0.9% 250 ML INJ 250 ML IV ONE (13:15)
[2017-05-28] MEDS ORDERED: ACETAMINOPHEN 325 MG TAB PO PRN (13:15)
[2017-05-28] MEDS: cefTRIAXone INJ 1,000 MG in SODIUM CHLORIDE 0.9% INJ 100 ML IV SCH (20:30)
[2017-05-28] MEDS: DEXTROSE 5% IV SCH ×2 (21:51)
[2017-05-28] MEDS: FOLIC ACID IV SCH ×2 (21:51)
[2017-05-28] MEDS: WATER IV SCH ×2 (21:51)
[2017-05-29] VITALS (24 sets, daily range): BP systolic 109–146; BP diastolic 49–67; PULSE 72–98; RESP 15–24; TEMP 98.1–100.8; O2SAT 86–99
[2017-05-29] MEDS: LEVOTHYROXINE SODIUM 100 MCG TAB PO SCH (05:18)
[2017-05-29] MEDS: CLINDAMYCIN 300 MG/NS PREMIX 50 ML IV SCH ×3 (05:18→21:06)
[2017-05-29] MEDS: RESP: ALBUTEROL 2.5 MG/IPRATROPIUM 0.5 MG NEB (SCH) NEB ×3 (07:11→20:28)
[2017-05-29] MEDS: NYSTATIN 100,000 U/GM PWD 15 GM BTL TOPICAL SCH ×2 (09:00→19:45)
[2017-05-29] MEDS: CYANOCOBALAMIN 1,000 MCG TAB PO SCH (09:00)
[2017-05-29] MEDS: NYSTATIN 100,000 U/GM OINT 15 GM TUBE TOPICAL SCH ×2 (09:00→21:10)
[2017-05-29] MEDS: ESCITALOPRAM OXALATE 10 MG TAB PO SCH (10:26)
[2017-05-29] MEDS: CARVEDILOL 12.5 MG TAB PO SCH ×2 (10:27→19:44)
[2017-05-29] MEDS: FOLIC ACID 1 MG TAB PO SCH (10:27)
[2017-05-29] MEDS: MULTIVITAMIN TAB PO SCH (10:27)
[2017-05-29] MEDS: PRAVASTATIN SOD 10 MG TAB PO SCH (10:27)
[2017-05-29] MEDS: ALLOPURINOL 100 MG TAB PO SCH (10:27)
[2017-05-29 11:20] LABS: BASOPHIL % 0.6 % (0.0-2.0); EOSINOPHIL # 0.1 TH/MM3 (0-0.4); HEMATOCRIT 23.1 % (35.0-46.0); HEMOGLOBIN 7.5 GM/DL (11.6-15.3); LYMPHOCYTE # 0.2 TH/MM3 (1.0-4.8); MEAN CELL VOLUME 102.5 FL (80.0-100.0); MEAN CORPUSCULAR HEMOGLOBIN 33.3 PG (27.0-34.0); MEAN CORPUSCULAR HGB CONC 32.5 % (32.0-36.0); MEAN PLATELET VOLUME 6.7 FL (7.0-11.0); MONO % 1.9 % (0.0-8.0); NEUT % 12.5 % (16.0-70.0); PLATELET COUNT 25 TH/MM3 (150-450); RED BLOOD COUNT 2.26 MIL/MM3 (4.00-5.30); RED CELL DISTRIBUTION WIDTH 16.3 % (11.6-17.2); WHITE BLOOD COUNT 0.4 TH/MM3 (4.0-11.0)
--- NOTE | 2017-05-29 11:33 | HHI.PR ---
Subjective Remarks Patient seen in follow up for pancytopenia and hypoxemia. Platelets given in transfusion yesterday per hematology. Patient still with some epistaxis today. Objective Vitals Vital Signs Date Time Temp Pulse Resp B/P (MAP) Pulse Ox O2 Delivery O2 Flow Rate FiO2 05/29/17 08:01 96 19 124/62 (82) 94 05/29/17 08:00 81 05/29/17 07:13 94 Venturi Mask 6.00 50 05/29/17 07:00 Venturi Mask 50 05/29/17 04:01 90 05/29/17 04:01 99.5 90 17 125/57 (79) 91 05/29/17 02:30 94 Venturi Mask 50 05/29/17 02:00 91 Venturi Mask 50 05/29/17 02:00 91 Venturi Mask 50 05/29/17 01:59 87 Venturi Mask 05/29/17 00:00 88 05/29/17 00:00 98.5 88 20 133/59 (83) 93 05/28/17 23:30 95 Venturi Mask 6.00 50 05/28/17 23:00 95 Venturi Mask 50 05/28/17 22:45 87 Room Air 4.50 Humidified 05/28/17 22:00 100 05/28/17 22:00 100 27 140/74 (96) 88 05/28/17 21:00 92 05/28/17 21:00 92 19 125/58 (80) 93 05/28/17 20:45 90 05/28/17 20:45 90 21 131/59 (83) 93 05/28/17 20:39 94 Nasal Cannula 3.50 05/28/17 20:30 90 05/28/17 20:30 90 27 108/62 (77) 95 05/28/17 20:15 90 21 139/56 (83) 05/28/17 20:15 90 05/28/17 20:14 98.3 88 23 128/51 96 05/28/17 20:00 98.7 90 23 141/56 (84) 05/28/17 20:00 90 05/28/17 20:00 95 Room Air 4.00 Humidified 05/28/17 19:35 98.3 86 22 117/54 92 05/28/17 16:00 99.0 86 17 112/50 (70) 95 05/28/17 16:00 86 05/28/17 14:49 94 Nasal Cannula 3.00 05/28/17 12:00 80 05/28/17 12:00 98.5 80 14 111/54 (73) 94 I/O 05/28/17 05/28/17 05/28/17 05/29/17 05/29/17 05/29/17 07:00 15:00 23:00 07:00 15:00 23:00 Intake Total 980 ml 2966.16 ml 290 ml Output Total 350 ml Balance 980 ml 2966.16 ml -60 ml Intake Oral 280 ml 520 ml 240 ml IV Total 700 ml 2165.16 ml 50 ml FFP 281 ml Output Urine Total 350 ml # Voids 0 1 # Bowel Movements 3 3 0 Result Diagram: 05/28/17 0733 05/27/17 0545 Objective Remarks Bleeding left ear scab, Left pannicular large ulcerated lesion concerning for systemic process versus yeast infection (atypical), left elbow sloughing, right forearm erythema and tenderness, and oral ulcerations GENERAL: This is a well-nourished, well-developed patient, who appears ill with shortness of breath CARDIOVASCULAR: Regular rate and rhythm without murmurs, gallops, or rubs. RESPIRATORY: Clear to auscultation. Breath sounds equal bilaterally. No wheezes , rales, or rhonchi. GASTROINTESTINAL: Abdomen soft, non-tender, nondistended. Normal active bowel sounds MUSCULOSKELETAL: Extremities without clubbing, cyanosis, or edema. NEURO: Alert & Oriented x4 to person, place, time, situation. Moves all ext x4 A/P Problem List: (1) Pancytopenia ICD Code: D61.818 - Other pancytopenia Plan: Etiology unclear but concerning in this patient for possible bone marrow failure Bone marrow biopsy pending per hematology hematology consult appreciated ENT consult appreciated, gluconate or edema is improved today, omf recommends follow-up as an outpatient Continue Rocephin and clindamycin Treat skin lesions with wound care Continue to hold aspirin (2) ESRD (end stage renal disease) on dialysis ICD Code: N18.6 - End stage renal disease; Z99.2 - Dependence on renal dialysis Plan: Continue hemodialysis, Monday, and Monday Nephrology following Avoid nephrotoxins as much as possible (3) HTN (hypertension) ICD Code: I10 - Essential (primary) hypertension Plan: Currently controlled on current regimen (4) DM2 (diabetes mellitus, type 2) ICD Code: E11.9 - Type 2 diabetes mellitus without complications Plan: Continue current regimen, currently controlled (5) Soft tissue infection ICD Code: L08.9 - Local infection of the skin and subcutaneous tissue, unspecified Status: Acute Plan: Concerning for an autoimmune process versus infection Continue with IV Rocephin and clindamycin, and ENT consult appreciated Patient has new left elbow, right forearm and oral labial ulcerations, also with left pannicular ulceration Wound care consult appreciated, continue with nystatin and follow closely repeat ct of sinuses shows chronic sinus inflammation Lindsay Dhillon MD May 29, 2017 11:33
[2017-05-29 11:41] LABS: BICARBONATE 27.2 MEQ/L (21.0-32.0); CALCIUM 8.8 MG/DL (8.5-10.1)
[2017-05-29 11:45] LABS: CREATININE 5.8 MG/DL (0.50-1.00)
[2017-05-29 12:07] LABS: AUTOMATED NEUTROPHIL # 0.1 TH/MM3 (1.8-7.7)
[2017-05-29 12:56] LABS: BASOPHILS 4 % (0-2); LYMPHOCYTES 54 % (9-44); NEUTROPHIL # MANUAL DIFF 0.1 TH/MM3 (1.8-7.7); POLYS (SEG NEUTROPHILS) 16 % (16-70)
[2017-05-29 12:57] LABS: ROULEAUX PRESENT (NORMAL)
[2017-05-29] MEDS: PANTOPRAZOLE SOD 20 MG DELAYED RELEASE TAB PO SCH (14:59)
--- NOTE | 2017-05-29 19:42 | PD.ONC.PN ---
Subjective Subjective Remarks Patient seen and examined, vital signs, labs and medications reviewed. Subjectively; she reports soreness in the mouth, worsening swelling of the lips , nose bleeds, inability to swallow and worsening difficulty breathing. The patient's son and sister at bedside. The patient has significant blood crusted over her nose, she is unable to tolerate nasal cannula due to the bleeding, the nasal cannula is in her mouth. She is maintaining O2 sats of over 90% with the nasal cannula in the mouth. Without the nasal cannula her O2 saturations fall to below 85%. Objective Data Date Time Temp Pulse Resp B/P (MAP) Pulse Ox O2 Delivery O2 Flow Rate FiO2 05/29/17 17:01 90 15 146/57 (86) 97 05/29/17 16:01 99.1 92 17 137/50 (79) 97 05/29/17 16:00 83 05/29/17 15:01 96 24 122/59 (80) 86 05/29/17 13:42 94 Nasal Cannula 6.00 05/29/17 12:01 94 18 129/53 (78) 97 05/29/17 12:00 72 05/29/17 11:01 94 17 136/51 (79) 96 05/29/17 10:01 96 19 138/67 (90) 94 05/29/17 09:01 98 24 138/62 (87) 90 05/29/17 08:01 96 19 124/62 (82) 94 05/29/17 08:00 81 05/29/17 07:13 94 Venturi Mask 6.00 50 05/29/17 07:00 Venturi Mask 50 05/29/17 04:01 90 05/29/17 04:01 99.5 90 17 125/57 (79) 91 05/29/17 02:30 94 Venturi Mask 50 05/29/17 02:00 91 Venturi Mask 50 05/29/17 02:00 91 Venturi Mask 50 05/29/17 01:59 87 Venturi Mask 05/29/17 00:00 88 05/29/17 00:00 98.5 88 20 133/59 (83) 93 05/28/17 23:30 95 Venturi Mask 6.00 50 05/28/17 23:00 95 Venturi Mask 50 05/28/17 22:45 87 Room Air 4.50 Humidified 05/28/17 22:00 100 05/28/17 22:00 100 27 140/74 (96) 88 05/28/17 21:00 92 05/28/17 21:00 92 19 125/58 (80) 93 05/28/17 20:45 90 05/28/17 20:45 90 21 131/59 (83) 93 05/28/17 20:39 94 Nasal Cannula 3.50 05/28/17 20:30 90 05/28/17 20:30 90 27 108/62 (77) 95 05/28/17 20:15 90 21 139/56 (83) 05/28/17 20:15 90 05/28/17 20:14 98.3 88 23 128/51 96 05/28/17 20:00 98.7 90 23 141/56 (84) 05/28/17 20:00 90 05/28/17 20:00 95 Room Air 4.00 Humidified 05/28/17 19:35 98.3 86 22 117/54 92 05/29/17 05/29/17 05/29/17 07:00 15:00 23:00 Intake Total 290 ml Output Total 350 ml Balance -60 ml Result Diagram: 05/29/17 1050 05/29/17 1050 Laboratory Results Laboratory Tests Test 05/29/17 10:50 White Blood Count 0.4 TH/MM3 Red Blood Count 2.26 MIL/MM3 Hemoglobin 7.5 GM/DL Hematocrit 23.1 % Mean Corpuscular Volume 102.5 FL Mean Corpuscular Hemoglobin 33.3 PG Mean Corpuscular Hemoglobin Concent 32.5 % Red Cell Distribution Width 16.3 % Platelet Count 25 TH/MM3 Mean Platelet Volume 6.7 FL Neutrophils (%) (Auto) 12.5 % Lymphocytes (%) (Auto) 51.0 % Monocytes (%) (Auto) 1.9 % Eosinophils (%) (Auto) 34.0 % Basophils (%) (Auto) 0.6 % Neutrophils # (Auto) 0.1 TH/MM3 Lymphocytes # (Auto) 0.2 TH/MM3 Monocytes # (Auto) 0.0 TH/MM3 Eosinophils # (Auto) 0.1 TH/MM3 Basophils # (Auto) 0.0 TH/MM3 CBC Comment AUTO DIFF Differential Total Cells Counted 50 Neutrophils % (Manual) 16 % Lymphocytes % 54 % Eosinophils % 26 % Basophils % 4 % Neutrophils # (Manual) 0.1 TH/MM3 Differential Comment FINAL DIFF MANUAL Platelet Estimate LOW Platelet Morphology Comment NORMAL Rouleau PRESENT Blood Urea Nitrogen 57 MG/DL Creatinine 5.80 MG/DL Random Glucose 169 MG/DL Calcium Level 8.8 MG/DL Sodium Level 140 MEQ/L Potassium Level 3.9 MEQ/L Chloride Level 101 MEQ/L Carbon Dioxide Level 27.2 MEQ/L Anion Gap 12 MEQ/L Estimat Glomerular Filtration Rate 7 ML/MIN Administered Medications Medications (Trade) Dose Ordered Sig/Woodrow Route PRN Reason Start Time Stop Time Status Last Admin Dose Admin Carvedilol (Coreg) 12.5 mg HS PO 05/24/17 21:00 05/28/17 21:50 Carvedilol (Coreg) 25 mg DAILY PO 05/25/17 09:00 05/29/17 10:27 Cyanocobalamin (Vitamin B12) 1,000 mcg DAILY PO 05/24/17 16:00 05/29/17 09:00 Folic Acid (Folate) 1 mg DAILY PO 05/24/17 15:00 05/29/17 10:27 Pravastatin Sodium (Pravachol) 10 mg DAILY PO 05/24/17 16:00 05/29/17 10:27 Pantoprazole Sodium (Protonix) 20 mg MoTuWeThFr PO 05/24/17 14:45 05/29/17 14:59 Albumin Human 100 ml @ 60 mls/hr UNSCH PRN IV WITH DIALYSIS 05/24/17 16:00 05/27/17 09:18 Ondansetron HCl (Zofran Inj) 4 mg UNSCH PRN IV PUSH WITH DIALYSIS 05/24/17 16:00 05/28/17 06:09 Acetaminophen (Tylenol) 650 mg UNSCH PRN PO for headach, pain, temp > 101F 05/24/17 16:00 05/27/17 03:29 Diphenhydramine HCl (Benadryl) 25 mg UNSCH PRN PO for hives/itching/anaphylaxis 05/24/17 16:00 05/27/17 23:53 Epoetin Cesar (Epogen Inj) 10,000 units UNSCH PRN IV PUSH WITH DIALYSIS 05/24/17 16:00 05/27/17 11:08 Nystatin (Mycostatin Powder) 1 applic Q12HR TOPICAL 05/24/17 21:00 05/29/17 09:00 Albuterol/ Ipratropium (Duoneb Neb) 1 ampule Q6HR WHILE AWAKE NEB NEB 05/26/17 14:00 05/29/17 13:41 Nystatin (Mycostatin Oint) 1 applic Q12HR TOPICAL 05/26/17 11:00 05/29/17 09:00 Clindamycin/ Sodium Chloride 50 ml @ 100 mls/hr Q8H IV 05/26/17 14:00 05/29/17 14:59 Multivitamins (Theragran) 1 tab DAILY PO 05/27/17 09:00 05/29/17 10:27 Folic Acid 0.8 mg/ Dextrose 50.16 ml @ 100 mls/hr Q24H IV 05/26/17 21:00 05/28/17 21:51 Levothyroxine Sodium (Synthroid) 200 mcg DAILY@0600 PO 05/28/17 06:00 05/29/17 05:18 Ceftriaxone Sodium 1000 mg/ Sodium Chloride 100 ml @ 200 mls/hr Q24H IV 05/28/17 20:00 05/28/17 20:30 Objective Remarks GENERAL APPEARANCE: Ms. Faust is an elderly lady. She appears acutely ill. She is laying in bed, bilateral nares are crusted and dried blood. Her lips are swollen, there is crusted blood on her lips. Her cheeks appear swollen. HEENT: Head is atraumatic and normocephalic. Conjunctivae are pale, sclerae anicteric. EOMI, PERRLA. Oral exam: The patient is unable to open her mouth fully. Her lips are swollen, they're crusted, cracked, her buccal mucosa appears to be inflamed with mucositis. The tongue is dried and crusted. Buccal mucosa with what appears to be mucositis. I've asked her to remove her dentures and to keep them out. NECK: No cervical lymphadenopathy. She has tenderness along her neck and along her cheeks. RESPIRATORY: Poor inspiratory effort, decreased bibasilar breath sounds. CARDIOVASCULAR: Regular rate and rhythm, S1 and S2, no obvious murmurs, rubs or gallops. ABDOMEN: Protuberant belly, tender to light palpation, tympanic to percussion. No definite organ enlargement noted. LOWER EXTREMITIES: No pretibial edema, no calf tenderness. CENTRAL NERVOUS SYSTEM: No focal sensory or motor deficits, but she is generally weak. MUSCULOSKELETAL: She has generally atrophic muscle mass. Assessment/Plan Assessment Ms. Faust is an 82-year-old female with a history of end-stage renal failure, type 2 diabetes, rheumatoid arthritis. She has been on therapy for rheumatoid arthritis with 10 mg of methotrexate once a week. Per the patient's sister, she was previously on 15 mg once a week but had this cut down some years ago by Dr. Melendez, her digital analyst. At any rate, per the patient's sister, the patient has been noted to be increasingly anemic over the past several months on blood work done at dialysis. Over the past week and a half, the patient has been increasingly fatigued to the point where walking across the room was tedious and difficult for her. The patient also began to notice swelling of her face; she likens her appearance to a chipmunk. This was associated with pain and tenderness along her cheeks and difficulty swallowing. The patient had felt feverish leading up to her hospitalization on 05/24/2017. Upon presentation to the hospital for management of the above-noted issues, she was noted to be pancytopenic, critically anemic, and was found to have soft tissue swelling along her face. She was assessed to have inflammation of her buccinator muscles. Plan 1. Pancytopenia: Initially suspected methotrexate toxicity, she had been on methotrexate for management of rheumatoid arthritis. She is on hemodialysis therefore methotrexate clearance is diminished and risk of myelosuppression and toxicity such as mucositis and diarrhea are increased. Her Folic acid and vitamin B12 levels are within normal limits. She has significant mucositis with crusting and bleeding of the oral mucosa. Consider bone marrow biopsy. I have discontinued allopurinol because this also has a potential myelosuppression effect. ENT consultation noted. Platelet transfusion should help with the nasal bleeding. I suspect the mucosa the nasal passages is effective in the same way as her oral mucosa is affected by suspected methotrexate toxicity. 2. Transfuse platelets today. Continue supportive care. Prognosis extremely guarded. Consider transferring her to [facility]. Kai Campos MD May 29, 2017 19:42
[2017-05-29] MEDS ORDERED: SODIUM CHLOR 0.9% 250 ML INJ 250 ML IV ONE (19:45)
[2017-05-29] MEDS: cefTRIAXone INJ 1,000 MG in SODIUM CHLORIDE 0.9% INJ 100 ML IV SCH (19:45)
[2017-05-29] MEDS ORDERED: ACETAMINOPHEN 325 MG TAB PO PRN (19:45)
[2017-05-29] MEDS ORDERED: NEOMYCIN/POLYMYXIN/BACITRACIN OINT 15 GM TUBE TOPICAL ONE (20:15)
[2017-05-29] MEDS ORDERED: MUPIROCIN 2% OINT 22 GM TUBE TOPICAL ONE (20:15)
[2017-05-29] MEDS: DEXTROSE 5% IV SCH ×2 (20:23)
[2017-05-29] MEDS: FOLIC ACID IV SCH ×2 (20:23)
[2017-05-29] MEDS: WATER IV SCH ×2 (20:23)
--- NOTE | 2017-05-29 20:46 | HHI.NPPN ---
Subjective History of Present Illness 82-year-old female with known history of end-stage renal disease on dialysis, diabetes, hypothyroidism, breast cancer, hypertension, hyperlipidemia , and rheumatoid arthritis.Patient presented to ED for suspected buccal cellulitis. Patient was in her usual state of health until about Monday nights when she began experiencing some gradual onset of bilateral facial edema and pain. Patient found to have anemia and Hgb. drop further. Additional Remarks Patient seen in AM, feeling weak and tired, has mild SOB. Review of Systems General Constitutional: Fatigue Ears, Nose, & Throat Ears, Nose & Throat: Sore Throat Respiratory Lungs: SOB, Cough Cardiovascular Cardiac: ANDRADE Objective Data Data Vital Signs Date Time Temp Pulse Resp B/P (MAP) Pulse Ox O2 Delivery O2 Flow Rate FiO2 05/29/17 20:28 99 Nasal Cannula 6.00 05/29/17 17:01 90 15 146/57 (86) 97 05/29/17 16:01 99.1 92 17 137/50 (79) 97 05/29/17 16:00 83 05/29/17 15:01 96 24 122/59 (80) 86 05/29/17 13:42 94 Nasal Cannula 6.00 05/29/17 12:01 94 18 129/53 (78) 97 05/29/17 12:00 72 05/29/17 11:01 94 17 136/51 (79) 96 05/29/17 10:01 96 19 138/67 (90) 94 05/29/17 09:01 98 24 138/62 (87) 90 05/29/17 08:01 96 19 124/62 (82) 94 05/29/17 08:00 81 05/29/17 07:13 94 Venturi Mask 6.00 50 05/29/17 07:00 Venturi Mask 50 05/29/17 04:01 90 05/29/17 04:01 99.5 90 17 125/57 (79) 91 05/29/17 02:30 94 Venturi Mask 50 05/29/17 02:00 91 Venturi Mask 50 05/29/17 02:00 91 Venturi Mask 50 05/29/17 01:59 87 Venturi Mask 05/29/17 00:00 88 05/29/17 00:00 98.5 88 20 133/59 (83) 93 3/4/18 23:30 95 Venturi Mask 6.00 50 05/28/17 23:00 95 Venturi Mask 50 05/28/17 22:45 87 Room Air 4.50 Humidified 05/28/17 22:00 100 05/28/17 22:00 100 27 140/74 (96) 88 05/28/17 21:00 92 05/28/17 21:00 92 19 125/58 (80) 93 05/28/17 20:45 90 05/28/17 20:45 90 21 131/59 (83) 93 -: 05/29/17 1050 05/29/17 1050 Physical Exam General Appearance: No Acute Distress, Comfortable Eyes Eye Exam: Pupils Equal Throat Throat Remarks Painful opening of mouth, with tenderness over TM joint and some swelling. Neck Neck Exam: Neck Supple Pulmonary Resp Exam: Breath Sounds Equal, No Distress, Decreased Bases Cardiology CV Exam: Regular, Normal Sinus Rhythm Gastrointestinal/Abdomen GI Exam: Soft, Non-Tender, Bowel Sounds Present Extremeties Extremities Exam: Trace Edema Neurologic Neuro Exam: Alert, Awake, Oriented Psychiatric Psych Exam: Appropriate Responses Assessment/Plan Problem List: (1) ESRD (end stage renal disease) on dialysis ICD Codes: N18.6 - End stage renal disease; Z99.2 - Dependence on renal dialysis Plan: HD TTS, 3 times a week. Anemia of chronic disease Epogen with dialysis Continue antibiotics, remain afebrile. Patient develop Pancytopenia. Seen by Hematology. Work up noted. For BM Biopsy. HD will be in AM. (2) HTN (hypertension) ICD Codes: I10 - Essential (primary) hypertension Plan: Home medications continued (3) Soft tissue infection ICD Codes: L08.9 - Local infection of the skin and subcutaneous tissue, unspecified Status: Acute Plan: Continue antibiotics Renal dosing Priti Bautista MD May 29, 2017 20:46
[2017-05-29] MEDS: diphenhydrAMINE HCL 25 MG CAP PO PRN (22:09)
[2017-05-30] VITALS (16 sets, daily range): BP systolic 90–144; BP diastolic 48–65; PULSE 80–98; RESP 15–23; TEMP 97.6–99.2; O2SAT 90–100
[2017-05-30] MEDS: LEVOTHYROXINE SODIUM 100 MCG TAB PO SCH (05:58)
[2017-05-30] MEDS: CLINDAMYCIN 300 MG/NS PREMIX 50 ML IV SCH (05:58)
[2017-05-30] MEDS: RESP: ALBUTEROL 2.5 MG/IPRATROPIUM 0.5 MG NEB (SCH) NEB ×3 (08:24→23:16)
[2017-05-30] MEDS: CYANOCOBALAMIN 1,000 MCG TAB PO SCH (09:00)
[2017-05-30] MEDS: CARVEDILOL 12.5 MG TAB PO SCH (09:08)
[2017-05-30] MEDS: FOLIC ACID 1 MG TAB PO SCH (09:08)
[2017-05-30] MEDS: PRAVASTATIN SOD 10 MG TAB PO SCH (09:08)
[2017-05-30] MEDS: MULTIVITAMIN TAB PO SCH (09:08)
[2017-05-30] MEDS: NYSTATIN 100,000 U/GM PWD 15 GM BTL TOPICAL SCH ×2 (09:10→20:38)
[2017-05-30] MEDS: NYSTATIN 100,000 U/GM OINT 15 GM TUBE TOPICAL SCH ×2 (09:10→20:37)
[2017-05-30] MEDS: MUPIROCIN 2% OINT 22 GM TUBE TOPICAL SCH ×2 (09:10→20:37)
--- NOTE | 2017-05-30 09:21 | MB ---
cc: Heber Douglas MD DATE OF CONSULT: 05/29/2017 CHIEF COMPLAINT: Epistaxis. HISTORY: The patient is a pleasant 82-year-old female seen last week by Dr. Augustin for swelling and tenderness in the masseter area who now presents with nosebleeds. She has end-stage renal disease and likely myelosuppression from methotrexate, as per records and discussion with patient's oncologist/primary therapist. Her platelets were only 18 yesterday and increased to only 25 today after transfusion of one unit of platelets. She is to get further platelets this evening. She has no active bleeding currently. She is noted to have blood crusted over her nose. She is unable to tolerate nasal cannula due to the bleeding and nasal crusting. Nasal cannula is in her mouth. Of note, she does maintain oxygen sats over 90% with nasal cannula in the mouth, however, does desaturate when it is not present at all. She is on many medications as per her chart and the other medical history is as noted. I do note, she is well-developed, very responsive and acutely ill. She is lying in bed with her nose crusted over with blood. She does have some swelling over her face as well. She has mucositis throughout her mouth and likely her nose as well. Flexible fiberoptic examination of her mouth, with the scope retroflexing superiorly, shows no active bleeding currently and there is no fresh blood in the back of her throat currently as well. ASSESSMENT: This patient is an 82-year-old female with end-stage renal disease and numerous other causes of her immunosuppression. She is on methotrexate which is likely the cause of her mucositis and irritation in her mouth, as well as in her nose. She is noted to have pancytopenia and she is critically anemic. Upon discussion with Dr. Campos, the primary therapist, I was asked to not pack her nose with any hemostatic agents as it may cause a nidus of infection because of her severe suppression of her white count currently, as well as all her immune response being severely depressed. I did get clearance to use Mupirocin antibiotic ointment, which I coated heavily in the nose bilaterally. There is crusting anteriorly bilaterally and I did not want to disrupt this because of her low platelet counts and her lack of any nasal bleeding currently. I discussed with nursing heavy antibiotic ointment to the nose of the Mupirocin twice a day. I recommend not using triple antibiotic because of the increased chance of increased mucositis with the triple antibiotic as compared to the Mupirocin. Thus, mupirocin three times a day heavily to the nasal cavity. I also discussed that patient can wear a nasal mask over the oral cannula to maintain humidification if the patient tolerates it; however, the patient does have claustrophobia as per nursing so this may not be practical. Patient again is getting further transfusions overnight. Thank you for this consultation. Heber Douglas MD PCC/DL/ , 08:33 PM , 07:48 AM
[2017-05-30 09:40] LABS: HEMATOCRIT 21.7 % (35.0-46.0); HEMOGLOBIN 7.3 GM/DL (11.6-15.3); MEAN CELL VOLUME 101.8 FL (80.0-100.0); MEAN CORPUSCULAR HEMOGLOBIN 34.4 PG (27.0-34.0); MEAN CORPUSCULAR HGB CONC 33.8 % (32.0-36.0); MEAN PLATELET VOLUME 7.9 FL (7.0-11.0); PLATELET COUNT 40 TH/MM3 (150-450); RED BLOOD COUNT 2.13 MIL/MM3 (4.00-5.30); RED CELL DISTRIBUTION WIDTH 16.3 % (11.6-17.2); WHITE BLOOD COUNT 0.4 TH/MM3 (4.0-11.0)
[2017-05-30 10:18] LABS: LYMPHOCYTES 48 % (9-44); MONOCYTES 2 % (0-8); OVALOCYTES 1+ (NORMAL); POLYS (SEG NEUTROPHILS) 18 % (16-70); ROULEAUX PRESENT (NORMAL)
[2017-05-30 10:23] LABS: NEUTROPHIL # MANUAL DIFF 0.1 TH/MM3 (1.8-7.7)
--- NOTE | 2017-05-30 12:51 | HHI.PR ---
Subjective Remarks This patient is seen today in follow-up for acute pancytopenia likely medication induced versus primary bone marrow related. Patient's count are still low. ENT evaluation appreciated. Care plan discussed with the hematology team recommend follow-up for bone marrow biopsy when patient more stable and continue intensive care monitoring. He would like the patient to be at the main facility to facilitate these things in this critically ill patient. Objective Vitals Vital Signs Date Time Temp Pulse Resp B/P (MAP) Pulse Ox O2 Delivery O2 Flow Rate FiO2 05/30/17 12:00 86 05/30/17 08:25 97 Nasal Cannula 4.00 05/30/17 08:00 98.7 90 19 116/55 (75) 97 05/30/17 08:00 86 05/30/17 07:00 98 Nasal Cannula 4.00 05/30/17 04:00 97.6 88 23 119/54 (75) 95 05/30/17 04:00 88 05/30/17 02:00 84 05/30/17 00:23 98.1 86 20 117/49 97 05/30/17 00:00 80 05/30/17 00:00 98.8 80 15 114/53 (73) 97 05/30/17 00:00 97 Nasal Cannula 4.00 Humidified 05/29/17 23:00 88 20 127/57 (80) 97 05/29/17 22:45 78 15 116/54 (74) 98 05/29/17 22:30 80 16 115/49 (71) 98 05/29/17 22:07 98.1 90 18 125/58 97 05/29/17 22:01 88 05/29/17 22:01 88 21 125/58 (80) 97 05/29/17 22:00 88 20 122/51 (74) 98 05/29/17 21:01 98.8 84 15 109/51 (70) 97 05/29/17 20:28 99 Nasal Cannula 6.00 05/29/17 20:01 100.8 92 19 133/56 (81) 98 05/29/17 20:01 93 05/29/17 19:00 99 Nasal Cannula 6.00 Humidified 05/29/17 17:01 90 15 146/57 (86) 97 05/29/17 16:01 99.1 92 17 137/50 (79) 97 05/29/17 16:00 83 3/5/18 15:01 96 24 122/59 (80) 86 05/29/17 13:42 94 Nasal Cannula 6.00 I/O 05/29/17 05/29/17 05/29/17 05/30/17 05/30/17 05/30/17 07:00 15:00 23:00 07:00 15:00 23:00 Intake Total 290 ml 300.16 ml 610 ml Output Total 350 ml 300 ml Balance -60 ml 300.16 ml 310 ml Intake Oral 240 ml 120 ml IV Total 50 ml 300.16 ml 100 ml Platelets 370 ml Blood Product IV Normal Saline Flush 20 ml Output Urine Total 350 ml 300 ml # Voids 2 # Bowel Movements 0 1 Result Diagram: 05/30/17 0830 05/29/17 1050 Imaging Last Impressions Sinuses CT 05/28/17 0000 Signed Impressions: Service Date/Time: Sunday, May 28, 2017 12:04 - CONCLUSION: Evidence for chronic sinus disease with minimal anatomic obstruction as above. Edvin Wang MD FACR Chest X-Ray 05/26/17 0000 Signed Impressions: Service Date/Time: Friday, May 26, 2017 09:51 - CONCLUSION: Linear scarring at the right base. Interstitial prominence stable. Deepak Bui MD Neck CT 05/24/17 1003 Signed Impressions: Service Date/Time: Wednesday, May 24, 2017 10:39 - CONCLUSION: . 1. Nonvisualization right jugular vein with edema worse on the right side of face than the left. 2. Patent left jugular vein and superior vena cava 3. Large inhomogeneous thyroid suggesting goiter 4. Degenerative changes cervical spine. 5. Inflammatory process cannot be entirely excluded. I do not centered in space abscess 6. Patient is edentulous Edvin Wang MD FACR Objective Remarks Bleeding left ear scab, Left pannicular large ulcerated lesion concerning for systemic process versus yeast infection (atypical), left elbow sloughing, right forearm erythema and tenderness, and oral ulcerations GENERAL: This is a well-nourished, well-developed patient, who appears ill with shortness of breath CARDIOVASCULAR: Regular rate and rhythm without murmurs, gallops, or rubs. RESPIRATORY: Clear to auscultation. Breath sounds equal bilaterally. No wheezes , rales, or rhonchi. GASTROINTESTINAL: Abdomen soft, non-tender, nondistended. Normal active bowel sounds MUSCULOSKELETAL: Extremities without clubbing, cyanosis, or edema. NEURO: Alert & Oriented x4 to person, place, time, situation. Moves all ext x4 A/P Problem List: (1) Pancytopenia ICD Code: D61.818 - Other pancytopenia Plan: Etiology unclear but concerning in this patient for possible bone marrow failure v MTX related Bone marrow biopsy pending per hematology hematology consult appreciated ENT consult appreciated, facial edema is improved however there is quite a bit of epistaxis and dried blood Continue empiric Rocephin and clindamycin Treat skin lesions with wound care Continue to hold aspirin (2) ESRD (end stage renal disease) on dialysis ICD Code: N18.6 - End stage renal disease; Z99.2 - Dependence on renal dialysis Plan: Continue hemodialysis, Monday, and Monday Nephrology following Avoid nephrotoxins as much as possible (3) HTN (hypertension) ICD Code: I10 - Essential (primary) hypertension Plan: Currently controlled on current regimen (4) DM2 (diabetes mellitus, type 2) ICD Code: E11.9 - Type 2 diabetes mellitus without complications Plan: Continue current regimen, currently controlled (5) Soft tissue infection ICD Code: L08.9 - Local infection of the skin and subcutaneous tissue, unspecified Status: Acute Plan: Concerning for an autoimmune process versus infection Continue with IV Rocephin and clindamycin, and ENT consult appreciated Patient has new left elbow, right forearm and oral labial ulcerations, also with left pannicular ulceration and sacral ulceration Wound care consult appreciated, continue with nystatin and follow closely repeat ct of sinuses shows chronic sinus inflammation Discharge Planning [place] [facility] [place] discussed with patient and son at bedside as well as ZIPPER CUTTERFLORA Dhillon,Lindsay Jarvis MD May 30, 2017 12:51
--- NOTE | 2017-05-30 13:44 | RADRPT ---
EXAM DATE/TIME: 05/30/2017 13:28 [facility] COMPARISON: CHEST SINGLE AP, May 26, 2017, 9:51. INDICATIONS : Dyspnea. MEDICAL HISTORY : Gastroesophageal reflux disease. Hypertension. Renal failure, chronic. Carcinoma, breast. SURGICAL HISTORY : Cholecystectomy. AV shunt. ENCOUNTER: Subsequent ACUITY: 4 - 6 days PAIN SCORE: 0/10 LOCATION: Bilateral chest FINDINGS: A single view of the chest demonstrates new parenchymal changes in the right lung base. The left lung base remains grossly clear. Heart size is enlarged but stable. There is some pulmonary venous conges tion. The bony structures are stable.. No evidence of pneumothorax. CONCLUSION: 1. There are new parenchymal changes in the right lung base. 2. Pulmonary venous congestion. Mina Gerard MD on May 30, 2017 at 13:41 Board Certified Radiologist. This report was verified electronically.
--- NOTE | 2017-05-30 14:17 | HHI.NPPN ---
Subjective History of Present Illness 82-year-old female with known history of end-stage renal disease on dialysis, diabetes, hypothyroidism, breast cancer, hypertension, hyperlipidemia , and rheumatoid arthritis.Patient presented to ED for suspected buccal cellulitis. Patient was in her usual state of health until about Monday nights when she began experiencing some gradual onset of bilateral facial edema and pain. Patient found to have anemia and Hgb. drop further. Additional Remarks Patient is alert, no SOB, pain in mouth and neck is better. Review of Systems General Constitutional: Fatigue Ears, Nose, & Throat Ears, Nose & Throat: Sore Throat Respiratory Lungs: SOB, Cough Cardiovascular Cardiac: ANDRADE Objective Data Data Vital Signs Date Time Temp Pulse Resp B/P (MAP) Pulse Ox O2 Delivery O2 Flow Rate FiO2 05/30/17 12:00 98.2 86 23 132/57 (82) 92 05/30/17 12:00 86 05/30/17 08:25 97 Nasal Cannula 4.00 05/30/17 08:00 98.7 90 19 116/55 (75) 97 05/30/17 08:00 86 05/30/17 07:00 98 Nasal Cannula 4.00 05/30/17 04:00 97.6 88 23 119/54 (75) 95 05/30/17 04:00 88 05/30/17 02:00 84 05/30/17 00:23 98.1 86 20 117/49 97 05/30/17 00:00 80 05/30/17 00:00 98.8 80 15 114/53 (73) 97 05/30/17 00:00 97 Nasal Cannula 4.00 Humidified 05/29/17 23:00 88 20 127/57 (80) 97 05/29/17 22:45 78 15 116/54 (74) 98 05/29/17 22:30 80 16 115/49 (71) 98 05/29/17 22:07 98.1 90 18 125/58 97 05/29/17 22:01 88 05/29/17 22:01 88 21 125/58 (80) 97 05/29/17 22:00 88 20 122/51 (74) 98 05/29/17 21:01 98.8 84 15 109/51 (70) 97 05/29/17 20:28 99 Nasal Cannula 6.00 05/29/17 20:01 100.8 92 19 133/56 (81) 98 05/29/17 20:01 93 05/29/17 19:00 99 Nasal Cannula 6.00 Humidified 05/29/17 17:01 90 15 146/57 (86) 97 05/29/17 16:01 99.1 92 17 137/50 (79) 97 05/29/17 16:00 83 05/29/17 15:01 96 24 122/59 (80) 86 -: 05/30/17 0830 05/29/17 1050 Physical Exam General Appearance: No Acute Distress, Comfortable Eyes Eye Exam: Pupils Equal Throat Throat Remarks Painful opening of mouth, with tenderness over TM joint and some swelling. Neck Neck Exam: Neck Supple Pulmonary Resp Exam: Breath Sounds Equal, No Distress, Decreased Bases Cardiology CV Exam: Regular, Normal Sinus Rhythm Gastrointestinal/Abdomen GI Exam: Soft, Non-Tender, Bowel Sounds Present Extremeties Extremities Exam: Trace Edema Neurologic Neuro Exam: Alert, Awake, Oriented Psychiatric Psych Exam: Appropriate Responses Assessment/Plan Problem List: (1) ESRD (end stage renal disease) on dialysis ICD Codes: N18.6 - End stage renal disease; Z99.2 - Dependence on renal dialysis Plan: HD TTS, 3 times a week. Anemia of chronic disease Epogen with dialysis Continue antibiotics, remain afebrile. Patient develop Pancytopenia. Seen by Hematology. Work up noted. For BM Biopsy. HD will be now. Not getting Heparin during HD. For transfer to main Hospital. (2) HTN (hypertension) ICD Codes: I10 - Essential (primary) hypertension Plan: Home medications continued (3) Soft tissue infection ICD Codes: L08.9 - Local infection of the skin and subcutaneous tissue, unspecified Status: Acute Plan: Continue antibiotics Renal dosing Priti Bautista MD May 30, 2017 14:17
[2017-05-30] MEDS ORDERED: RESP: ALBUTEROL 2.5 MG/IPRATROPIUM 0.5 MG NEB (PRN) NEB (17:00)
[2017-05-30] MEDS: EPOETIN ALFA 10,000 UNITS/ML VIAL IV PUSH PRN (17:12)
[2017-05-30] MEDS ORDERED: GLUCAGON 1 MG/ML VIAL OTHER PRN (17:15)
[2017-05-30] MEDS ORDERED: DEXTROSE 50% IN WATER 50 ML VIAL(D50) IV PUSH PRN (17:15)
[2017-05-30] MEDS ORDERED: OXYMETAZOLINE HCL 0.05% 15 ML NASAL SPRAY NASAL PRN (17:30)
--- NOTE | 2017-05-30 17:37 | PD.ONC.PN ---
Subjective Subjective Remarks Shakes and nods her head in understanding. Seen during dialysis. Objective Data Date Time Temp Pulse Resp B/P (MAP) Pulse Ox O2 Delivery O2 Flow Rate FiO2 05/30/17 12:00 98.2 86 23 132/57 (82) 92 05/30/17 12:00 86 05/30/17 08:25 97 Nasal Cannula 4.00 05/30/17 08:00 98.7 90 19 116/55 (75) 97 05/30/17 08:00 86 05/30/17 07:00 98 Nasal Cannula 4.00 05/30/17 04:00 97.6 88 23 119/54 (75) 95 05/30/17 04:00 88 05/30/17 02:00 84 05/30/17 00:23 98.1 86 20 117/49 97 05/30/17 00:00 80 05/30/17 00:00 98.8 80 15 114/53 (73) 97 05/30/17 00:00 97 Nasal Cannula 4.00 Humidified 05/29/17 23:00 88 20 127/57 (80) 97 05/29/17 22:45 78 15 116/54 (74) 98 05/29/17 22:30 80 16 115/49 (71) 98 05/29/17 22:07 98.1 90 18 125/58 97 05/29/17 22:01 88 05/29/17 22:01 88 21 125/58 (80) 97 05/29/17 22:00 88 20 122/51 (74) 98 05/29/17 21:01 98.8 84 15 109/51 (70) 97 05/29/17 20:28 99 Nasal Cannula 6.00 05/29/17 20:01 100.8 92 19 133/56 (81) 98 05/29/17 20:01 93 05/29/17 19:00 99 Nasal Cannula 6.00 Humidified 05/30/17 05/30/17 05/30/17 07:00 15:00 23:00 Intake Total 610 ml Output Total 300 ml 2500 ml Balance 310 ml -2500 ml Result Diagram: 05/30/17 0830 05/29/17 1050 Laboratory Results Laboratory Tests Test 05/30/17 08:30 White Blood Count 0.4 TH/MM3 Red Blood Count 2.13 MIL/MM3 Hemoglobin 7.3 GM/DL Hematocrit 21.7 % Mean Corpuscular Volume 101.8 FL Mean Corpuscular Hemoglobin 34.4 PG Mean Corpuscular Hemoglobin Concent 33.8 % Red Cell Distribution Width 16.3 % Platelet Count 40 TH/MM3 Mean Platelet Volume 7.9 FL CBC Comment AUTO DIFF Differential Total Cells Counted 50 Neutrophils % (Manual) 18 % Lymphocytes % 48 % Monocytes % 2 % Eosinophils % 32 % Neutrophils # (Manual) 0.1 TH/MM3 Differential Comment FINAL DIFF MANUAL Platelet Estimate LOW Platelet Morphology Comment NORMAL Ovalocytes 1+ Rouleau PRESENT Imaging Studies Last 24 hours Impressions Chest X-Ray 05/30/17 0000 Signed Impressions: Service Date/Time: Tuesday, May 30, 2017 13:28 - CONCLUSION: 1. There are new parenchymal changes in the right lung base. 2. Pulmonary venous congestion. Mina Gerard MD Administered Medications Medications (Trade) Dose Ordered Sig/Woodrow Route PRN Reason Start Time Stop Time Status Last Admin Dose Admin Cyanocobalamin (Vitamin B12) 1,000 mcg DAILY PO 05/24/17 16:00 05/30/17 09:00 Folic Acid (Folate) 1 mg DAILY PO 05/24/17 15:00 05/30/17 09:08 Pravastatin Sodium (Pravachol) 10 mg DAILY PO 05/24/17 16:00 05/30/17 09:08 Albumin Human 100 ml @ 60 mls/hr UNSCH PRN IV WITH DIALYSIS 05/24/17 16:00 05/27/17 09:18 Ondansetron HCl (Zofran Inj) 4 mg UNSCH PRN IV PUSH WITH DIALYSIS 05/24/17 16:00 05/28/17 06:09 Acetaminophen (Tylenol) 650 mg UNSCH PRN PO for headach, pain, temp > 101F 05/24/17 16:00 05/27/17 03:29 Diphenhydramine HCl (Benadryl) 25 mg UNSCH PRN PO for hives/itching/anaphylaxis 05/24/17 16:00 05/27/17 23:53 Epoetin Cesar (Epogen Inj) 10,000 units UNSCH PRN IV PUSH WITH DIALYSIS 05/24/17 16:00 05/30/17 17:12 Nystatin (Mycostatin Powder) 1 applic Q12HR TOPICAL 05/24/17 21:00 05/30/17 09:10 Nystatin (Mycostatin Oint) 1 applic Q12HR TOPICAL 05/26/17 11:00 05/30/17 09:10 Clindamycin/ Sodium Chloride 50 ml @ 100 mls/hr Q8H IV 05/26/17 14:00 05/30/17 05:58 Multivitamins (Theragran) 1 tab DAILY PO 05/27/17 09:00 05/30/17 09:08 Folic Acid 0.8 mg/ Dextrose 50.16 ml @ 100 mls/hr Q24H IV 05/26/17 21:00 05/29/17 20:23 Levothyroxine Sodium (Synthroid) 200 mcg DAILY@0600 PO 05/28/17 06:00 05/30/17 05:58 Ceftriaxone Sodium 1000 mg/ Sodium Chloride 100 ml @ 200 mls/hr Q24H IV 05/28/17 20:00 05/29/17 19:45 Diphenhydramine HCl (Benadryl) 25 mg Q4H PRN PO SEE LABEL COMMENTS 05/29/17 19:45 05/29/17 22:09 Mupirocin (Bactroban 2% Oint) 1 applic BID TOPICAL 05/30/17 09:00 05/30/17 09:10 Objective Remarks GENERAL: Well-nourished, well-developed patient. SKIN: Warm and dry. HEAD: Normocephalic. Dry crust on both nostril. Mouth with mucositis and trace bleed. EYES: No scleral icterus. No injection or drainage. NECK: Supple, trachea midline. No JVD or lymphadenopathy. LYMPHATIC: No adenopathy. CARDIOVASCULAR: Regular rate and rhythm without murmurs. RESPIRATORY: Breath sounds equal bilaterally. No accessory muscle use. GASTROINTESTINAL: Abdomen soft, non-tender, nondistended. EXTREMITIES: No cyanosis, or edema. MUSCULOSKELETAL: Adequate muscle tone. NEUROLOGICAL: No obvious focal deficit. Awake, alert, and oriented x3. Assessment/Plan Assessment Ms. Faust is an 82-year-old female with a history of end-stage renal failure, type 2 diabetes, rheumatoid arthritis. She has been on therapy for rheumatoid arthritis with 10 mg of methotrexate once a week. Per the patient's sister, she was previously on 15 mg once a week but had this cut down some years ago by Dr. Melendez, her electric detector operator. At any rate, per the patient's sister, the patient has been noted to be increasingly anemic over the past several months on blood work done at dialysis. Over the past week and a half, the patient has been increasingly fatigued to the point where walking across the room was tedious and difficult for her. The patient also began to notice swelling of her face; she likens her appearance to a chipmunk. This was associated with pain and tenderness along her cheeks and difficulty swallowing. The patient had felt feverish leading up to her hospitalization on 05/24/2017. Upon presentation to the hospital for management of the above-noted issues, she was noted to be pancytopenic, critically anemic, and was found to have soft tissue swelling along her face. She was assessed to have inflammation of her buccinator muscles. Plan 1. Pancytopenia: MTX toxicity, check levels. Start GCSF tomorrow, s/p dialysis today. Continue transfusion support, keep platelet >20K in light of mucosal bleed/ nose bleed. Her Folic acid and vitamin B12 supplement continue. 2. Nose bleeds: Trial of afrin to stop acute bleed. Continue nose care to keep crust moist. Amicar swish and spit for gum bleeding. 3. No transfuse platelets today. 4. Defer transfer as discussed w/ Dr. Elaine. Monitor in ICU, transfer if condition worsen. 5. CT to r/o interstitial pneumonitis. Continue supportive care. Prognosis extremely guarded. Mandie Hernandez MD May 30, 2017 17:37
[2017-05-30] MEDS: INSULIN NovoLIN REGULAR SUPPLEMENTAL SCALE SQ SCH ×2 (18:00→23:44)
[2017-05-30] MEDS ORDERED: VANCOMYCIN INJ 1,000 MG in SODIUM CHLOR 0.9% 250 ML INJ 250 ML IV PRN (18:30)
--- NOTE | 2017-05-30 18:30 | PD.CONS ---
History of Present Illness Service Infectious Disease Consult Requested By Dr Lindsay Dhillon Reason for Consult Neutropenic fever Primary Care Physician Cleo Shannon MD Diagnoses: (1) Neutropenic fever (2) ESRD (end stage renal disease) on dialysis (3) Soft tissue infection History of Present Illness Patient is a 82-year-old female with known history of end-stage renal disease on dialysis, diabetes, hypothyroidism, breast cancer, hypertension, hyperlipidemia, and rheumatoid arthritis.Patient presented to ED for suspected buccal cellulitis. Patient was in her usual state of health until about Monday nights when she began experiencing some gradual onset of bilateral facial edema and pain. She says the pain was initially fluctuating but last night it hit a 10 thus prompting her to come to emergency department. She says the pain is so strong that she does not feel like eating but she denies any jada painful chewing; thus has had decreased p.o. intake. She reports having some nausea and dry heaving. Found to be pancytopenic due to Methotrexate toxicity. Had a low grade fever yesterday and so consulted for Neutropenic fever Review of Systems Constitutional: COMPLAINS OF: Fatigue, Fever Eyes: DENIES: Eye inflammation, Eye pain Ears, nose, mouth, throat: COMPLAINS OF: Nasal discharge, Oral lesions, Throat pain Respiratory: COMPLAINS OF: Shortness of breath Cardiovascular: DENIES: Dyspnea on Exertion Gastrointestinal: COMPLAINS OF: Difficulty Swallowing, DENIES: Bloody stools, Nausea, Vomiting Genitourinary: COMPLAINS OF: Urinary incontinence Musculoskeletal: DENIES: Muscle aches Integumentary: COMPLAINS OF: Abnormal pigmentation Neurologic: DENIES: Headache Past Family Social History Allergies: Coded Allergies: No Known Allergies (Unverified , 05/28/17) Past Medical History Past Medical History Hypertension Hyperlipidemia Diabetes End-stage renal disease on dialysis Hypothyroidism Gouty arthritis Rheumatoid arthritis Past Surgical History Cholecystectomy Tonsillectomy AV fistula Pericardial fluid drainage Cataract surgery Carpal tunnel surgery Physical Exam Vital Signs Vital Signs Date Time Temp Pulse Resp B/P (MAP) Pulse Ox O2 Delivery O2 Flow Rate FiO2 05/30/17 17:00 88 20 90/48 (62) 100 05/30/17 16:00 98.2 84 18 106/54 (71) 97 05/30/17 16:00 84 05/30/17 12:00 98.2 86 23 132/57 (82) 92 05/30/17 12:00 86 05/30/17 08:25 97 Nasal Cannula 4.00 05/30/17 08:00 98.7 90 19 116/55 (75) 97 05/30/17 08:00 86 05/30/17 07:00 98 Nasal Cannula 4.00 05/30/17 04:00 97.6 88 23 119/54 (75) 95 05/30/17 04:00 88 05/30/17 02:00 84 05/30/17 00:23 98.1 86 20 117/49 97 05/30/17 00:00 80 05/30/17 00:00 98.8 80 15 114/53 (73) 97 05/30/17 00:00 97 Nasal Cannula 4.00 Humidified 05/29/17 23:00 88 20 127/57 (80) 97 05/29/17 22:45 78 15 116/54 (74) 98 05/29/17 22:30 80 16 115/49 (71) 98 05/29/17 22:07 98.1 90 18 125/58 97 05/29/17 22:01 88 05/29/17 22:01 88 21 125/58 (80) 97 05/29/17 22:00 88 20 122/51 (74) 98 05/29/17 21:01 98.8 84 15 109/51 (70) 97 05/29/17 20:28 99 Nasal Cannula 6.00 05/29/17 20:01 100.8 92 19 133/56 (81) 98 05/29/17 20:01 93 05/29/17 19:00 99 Nasal Cannula 6.00 Humidified Physical Exam GENERAL: This is a chronically ill patient with bleeding from nose and mouth SKIN: Candidiasis in groin and under breasts. HEAD: Atraumatic. Normocephalic. No temporal or scalp tenderness. EYES: Pupils equal round and reactive. Extraocular motions intact. No scleral icterus. No injection or drainage. ENT: Nose with bleeding, no purulent drainage or septal hematoma. Throat with erythema & bleeding, tonsillar hypertrophy or exudate. Uvula midline. Airway patent. NECK: Trachea midline. No JVD or lymphadenopathy. Supple, nontender, no meningeal signs. CARDIOVASCULAR: Regular rate and rhythm without murmurs, gallops, or rubs. RESPIRATORY: Clear to auscultation. Breath sounds equal bilaterally. No wheezes , rales, or rhonchi. GASTROINTESTINAL: Abdomen soft, non-tender, nondistended. No hepato-splenomegaly , or palpable masses. No guarding. MUSCULOSKELETAL: Extremities without clubbing, cyanosis, or edema. No joint tenderness, effusion, or edema noted. No calf tenderness. Negative Homans sign bilaterally. NEUROLOGICAL: Awake and alert. Cranial nerves II through XII intact. Motor and sensory grossly within normal limits. Five out of 5 muscle strength in all muscle groups. Normal speech. Laboratory Laboratory Tests Test 05/30/17 08:30 White Blood Count 0.4 Red Blood Count 2.13 Hemoglobin 7.3 Hematocrit 21.7 Mean Corpuscular Volume 101.8 Mean Corpuscular Hemoglobin 34.4 Mean Corpuscular Hemoglobin Concent 33.8 Red Cell Distribution Width 16.3 Platelet Count 40 Mean Platelet Volume 7.9 CBC Comment AUTO DIFF Differential Total Cells Counted 50 Neutrophils % (Manual) 18 Lymphocytes % 48 Monocytes % 2 Eosinophils % 32 Neutrophils # (Manual) 0.1 Differential Comment FINAL DIFF MANUAL Platelet Estimate LOW Platelet Morphology Comment NORMAL Ovalocytes 1+ Rouleau PRESENT Date/Time Source Procedure Growth Status 05/26/17 17:02 Blood Peripheral Aerobic Blood Culture - Preliminary NO GROWTH IN 4 DAYS Resulted 05/26/17 17:02 Blood Peripheral Anaerobic Blood Culture - Preliminary NO GROWTH IN 4 DAYS Resulted 05/26/17 09:03 Stool Stool Stool Occult Blood (TOBY) - Final HEMOCCULT NEGATIVE Complete Result Diagram: 05/30/17 0830 05/29/17 1050 Assessment and Plan Problem List: (1) Neutropenic fever ICD Codes: D70.9 - Neutropenia, unspecified; R50.81 - Fever presenting with conditions classified elsewhere Plan: Follow blood cultures As patient is neutropenic- will change the Ceftriaxone to Ceftazidime - 1 g IV daily Will stop the Clindamycin (2) ESRD (end stage renal disease) on dialysis ICD Codes: N18.6 - End stage renal disease; Z99.2 - Dependence on renal dialysis (3) Soft tissue infection ICD Codes: L08.9 - Local infection of the skin and subcutaneous tissue, unspecified Status: Acute Plan: Ceftazidime 1 g IV daily Vancomycin Post dialysis 1 g Fluconazole 100 mg IV daily Sumi Brown MD May 30, 2017 18:30
[2017-05-30] MEDS: methylPREDNISolone SOD SUCC 40 MG/1 ML VIAL IV PUSH SCH (18:43)
[2017-05-30] MEDS: PANTOPRAZOLE SODIUM 40 MG VIAL IV PUSH SCH (18:43)
--- NOTE | 2017-05-30 18:47 | MB ---
cc: Peyton Baez MD DATE OF CONSULT: 05/30/2017 CRITICAL CARE CONSULTATION Patient is an 82-year-old female with past medical history of end-stage renal disease on hemodialysis, rheumatoid arthritis on methotrexate, diabetes mellitus, hypertension, hyperlipidemia. She was admitted under hospitalist service on May 24 for right-sided buccal cellulitis and pancytopenia, which was thought related to methotrexate toxicity. During her hospital course, patient developed epistaxis and was seen by ENT. Chest x-ray was performed on May 26, which showed interstitial prominence and linear scarring at the right base. She also had CT scan of the sinuses which showed evidence for chronic sinus disease. Repeat chest x-ray was performed this afternoon, which showed new parenchymal changes in the right lung base and pulmonary venous congestion. She was placed on broad-spectrum antibiotics. Patient received platelet transfusion on May 28 for a platelet count of 18,000. Patient is being considered for a bone marrow biopsy. Also she was noted to have significant mucositis with crusting and bleeding of the oral mucosa. Critical Care Medicine was consulted for critical care management. When seen, she is currently receiving hemodialysis and is on 4 L oxygen with saturation of 97%, blood pressure 132/57 with a pulse of 86. Patient is afebrile. Her previous blood cultures from May 26 are negative. Patient denies any shortness of breath, chest pain or any constitutional symptoms. In addition, she denies any GI symptoms. PAST MEDICAL HISTORY: Significant for hypertension, diabetes mellitus, hyperlipidemia, hypothyroidism, end-stage renal failure, rheumatoid arthritis on methotrexate, history of a breast lesion which was resected in December 2016. PAST SURGICAL HISTORY: Previous cholecystectomy, previous lumpectomy of the right breast, previous AV graft formation in the left upper extremity. FAMILY HISTORY: Mother of breast cancer. SOCIAL HISTORY: The patient lives at home alone. Ex-smoker. She used to smoke 1 to 1-1/2 pack of cigarettes a day and smoked for about 45 years. ALLERGIES: NO KNOWN ALLERGIES. MEDICATIONS: Include ceftriaxone, Synthroid, multivitamins, folic acid, Coreg, clindamycin, pravastatin, Protonix. REVIEW OF SYSTEMS: As per HPI. Rest of review of systems is unremarkable. PHYSICAL EXAMINATION: GENERAL: An 82-year-old female lying in bed in no acute distress. VITAL SIGNS: Afebrile with temperature 98.2, pulse 86, respiratory rate 23, blood pressure 132/57, saturation 97% on 4 L of oxygen. HEENT: Atraumatic, normocephalic. Pupils equal, round, reactive to light and accommodation. Extraocular muscles intact. Conjunctivae pink. Nonicteric sclerae. Lips are swollen and crusted and her buccal mucosa appears to be inflamed with mucositis. The patient is unable to open her mouth fully. NECK: Supple. No JVD, adenopathy or thyromegaly. Trachea in the midline. CARDIOVASCULAR: Regular rate and rhythm. Normal S1, S2. No murmurs, rubs or gallops noted. PULMONARY: Bilateral equal air entry with a few coarse breath sounds, diminished at the bases. ABDOMEN: Soft. Nontender. No distention. Positive bowel sounds. EXTREMITIES: No cyanosis, clubbing or edema. NEUROLOGIC: No focal sensory deficit. LABORATORY DATA: WBC of 0.4, hemoglobin 7.3, hematocrit 21, platelet count 40,000. Sodium 140, potassium 3.9, chloride 101, CO2 of 27, BUN of 57, creatinine 5.8, glucose 169. RADIOGRAPHIC STUDIES: Chest x-ray showed new parenchymal changes in the right lung base, pulmonary elena congestion. IMPRESSION: 1. Respiratory insufficiency. 2. Epistaxis. 3. Pancytopenia thought related to methotrexate toxicity. 4. History of rheumatoid arthritis, previously on methotrexate. 5. End-stage renal disease. 6. Hypertension. 7. Hyperlipidemia. 8. Diabetes mellitus. RECOMMENDATIONS: 1. Monitor neuro status closely and avoid any sedatives. 2. Continue with oxygen to maintain saturations above 92%. 3. Bronchodilators in the form of DuoNeb every 4 plus every 2 p.r.n. for shortness of breath. In addition, will place on a short course of IV steroids, Solu-Medrol 40 mg IV every 8. 4. Will obtain CT scan of the chest without contrast for further evaluation of pulmonary parenchyma and rule out chronic lung disease secondary to methotrexate. 5. Monitor heart rate and blood pressure closely and maintain MAP greater than 65 mmHg. 6. Monitor renal function, I's and O's, and avoid nephrotoxins. Patient is currently receiving hemodialysis and she is on dialysis Monday, , Monday. Dr. Bautista from nephrology is following. 7. Will consult speech therapy and diet per speech. Continue with Protonix for GI prophylaxis. 8. Continue with broad-spectrum antibiotics. She is currently on clindamycin and Rocephin. Monitor for signs of infection, which include fever and WBC. Blood cultures from May 26 show no growth to date. 9. Monitor CBC 10. Further platelet infusion per hematology. Case discussed with Dr. Campos. 11. In addition, ENT is following for epistaxis. 12. Place on sliding scale insulin with Accu-Cheks for glycemic control. 13. Continue with Synthroid 200 mcg daily. Check a baseline TSH level. 14. GI prophylaxis with Protonix 40 mg daily and DVT prophylaxis with SCDs. Chemical anticoagulation prophylaxis is contraindicated in the setting of severe thrombocytopenia. Further recommendations will be based on hospital course. Case discussed with Dr. Campos from hematology and Dr. Dhillon from hospitalist service. MD ASHLEY Stovall/JERMAINE/joseph , 05:14 PM , 06:04 PM MITRA
[2017-05-30] MEDS ORDERED: AMINOCAPROIC ACID SOLN 250 MG/ML PO PRN (19:00)
[2017-05-30] MEDS: FLUCONAZOLE 100 MG PREMIX BAG 50 ML IV SCH (20:37)
[2017-05-30] MEDS: cefTAZidime INJ 1,000 MG in SODIUM CHLORIDE 0.9% INJ 100 ML IV SCH (21:11)
[2017-05-30] MEDS: FOLIC ACID IV SCH ×2 (22:23)
[2017-05-30] MEDS: DEXTROSE 5% IV SCH ×2 (22:23)
[2017-05-30] MEDS: WATER IV SCH ×2 (22:23)
--- NOTE | 2017-05-30 23:31 | RADRPT ---
EXAM DATE/TIME: 05/30/2017 22:03 [facility] COMPARISON: CHEST SINGLE AP, May 30, 2017, 13:28. CT THORAX W/O CONTRAST, December 16, 2014, 19:17. INDICATIONS : Infiltrates. RADIATION DOSE: 14.25 CTDIvol (mGy) MEDICAL HISTORY : Gastroesophageal reflux disease. Renal failure, chronic. Hypertension. SURGICAL HISTORY : Cholecystectomy. Ateriovenous shunt. ENCOUNTER: Initial ACUITY: 3 days PAIN SCALE: 0/10 LOCATION: Bilateral chest TECHNIQUE: Volumetric scanning of the chest was performed. Using automated exposure control and adjustment of t he mA and/or kV according to patient size, radiation dose was kept as low as reasonably achievable to obtain optimal diagnostic quality images. DICOM format image data is available electronically for r eview and comparison. Follow-up recommendations for detected pulmonary nodules are based at a minimum on nodule size and pa tient risk factors according to Fleischner Society Guidelines. FINDINGS: LUNGS: Subsegmental consolidation in the left lower lung with some peripheral air bronchograms. Atelectasis of the inferior right lower lung adjacent to the pleural effusion. PLEURAE: There is a moderate size pleural effusion on the right side which measures 2.8 cm. There is a smalle r left pleural effusion measuring 1.2 cm. MEDIASTINUM: The heart and great vessels demonstrate no acute abnormality. There is no mediastinal or hilar lymph adenopathy. Coronary artery calcifications. AXILLAE: Multiple hemoclips in the right axilla with a low density mass lateral to the hemoclips, partially in cluded in the [id number], measuring in excess of 6.5 cm and had a mean CT density of 13 Hounsfield units. MUSCULOSKELETAL: Within normal limits for patient age. 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 CONCLUSION: 1. Bilateral pleural effusions, right greater than left. Associated atelectasis on the right side an d patchy infiltrates in the left lung. 2. Evidence of prior surgery to the right axilla with low density mass lateral to multiple hemoclips measuring in excess of 6 cm. 3. 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 Lai Lovell MD on May 30, 2017 at 23:24 Board Certified Radiologist. This report was verified electronically.
[2017-05-31] VITALS (30 sets, daily range): BP systolic 132–161; BP diastolic 50–70; PULSE 69–112; RESP 12–33; TEMP 98.6–99.6; O2SAT 87–99
[2017-05-31] MEDS: methylPREDNISolone SOD SUCC 40 MG/1 ML VIAL IV PUSH SCH ×3 (01:43→21:55)
[2017-05-31] MEDS: SODIUM CHLORIDE 0.9% FLUSH 10 ML FLUSH IV FLUSH PRN (01:43)
[2017-05-31] MEDS: RESP: ALBUTEROL 2.5 MG/IPRATROPIUM 0.5 MG NEB (SCH) NEB ×6 (03:33→23:06)
[2017-05-31 05:42] LABS: CHLORIDE 99 MEQ/L (98-107); SODIUM (NA) 139 MEQ/L (136-145)
[2017-05-31] MEDS: LEVOTHYROXINE SODIUM 100 MCG TAB PO SCH (05:45)
[2017-05-31 05:46] LABS: ALBUMIN 2.4 GM/DL (3.4-5.0); BICARBONATE 26.3 MEQ/L (21.0-32.0); CALCIUM 8.9 MG/DL (8.5-10.1); GLUCOSE,RANDOM 208 MG/DL (74-106)
[2017-05-31 05:47] LABS: HEMATOCRIT 21.5 % (35.0-46.0); HEMOGLOBIN 7.3 GM/DL (11.6-15.3); MEAN CELL VOLUME 101.5 FL (80.0-100.0); MEAN CORPUSCULAR HEMOGLOBIN 34.5 PG (27.0-34.0); MEAN PLATELET VOLUME 8.1 FL (7.0-11.0); PLATELET COUNT 27 TH/MM3 (150-450); RED BLOOD COUNT 2.12 MIL/MM3 (4.00-5.30); RED CELL DISTRIBUTION WIDTH 16.4 % (11.6-17.2); WHITE BLOOD COUNT 0.2 TH/MM3 (4.0-11.0)
[2017-05-31] MEDS ORDERED: SODIUM CHLOR 0.9% 250 ML INJ 250 ML IV ONE (06:00)
[2017-05-31] MEDS ORDERED: diphenhydrAMINE HCL 25 MG CAP PO PRN (06:00)
[2017-05-31] MEDS ORDERED: ACETAMINOPHEN 325 MG TAB PO PRN (06:00)
[2017-05-31 06:45] LABS: INTERNATIONAL NORMALIZED RATIO 1.2 RATIO
[2017-05-31 06:48] LABS: ALKALINE PHOSPHATASE 99 U/L (45-117); ALT (GPT) 73 U/L (10-53); AST (GOT) 38 U/L (15-37); BLOOD UREA NITROGEN 46 MG/DL (7-18); GLOMERULAR FILTRATION RATE 10 ML/MIN (>89); PHOSPHORUS 6.1 MG/DL (2.5-4.9); TOTAL BILIRUBIN ADULT 0.6 MG/DL (0.2-1.0); TOTAL PROTEIN 6.9 GM/DL (6.4-8.2)
[2017-05-31] MEDS: INSULIN NovoLIN REGULAR SUPPLEMENTAL SCALE SQ SCH ×4 (06:50→23:36)
[2017-05-31] MEDS: FOLIC ACID 1 MG TAB PO SCH (08:23)
[2017-05-31] MEDS: CYANOCOBALAMIN 1,000 MCG TAB PO SCH (08:23)
[2017-05-31] MEDS: PRAVASTATIN SOD 10 MG TAB PO SCH (08:23)
[2017-05-31] MEDS: NYSTATIN 100,000 U/GM OINT 15 GM TUBE TOPICAL SCH ×2 (08:24→21:00)
[2017-05-31] MEDS: MUPIROCIN 2% OINT 22 GM TUBE TOPICAL SCH ×2 (08:24→21:00)
[2017-05-31 08:25] LABS: CORRECTED NUCLEATED RBC 4 /100 WBC (0-0); LYMPHOCYTES 92 % (9-44); NUCLEATED RED BLOOD CELL 2 (0-0); POLYS (SEG NEUTROPHILS) 4 % (16-70)
[2017-05-31] MEDS: NYSTATIN 100,000 U/GM PWD 15 GM BTL TOPICAL SCH ×2 (08:25→21:00)
[2017-05-31] MEDS: MULTIVITAMIN TAB PO SCH (09:03)
[2017-05-31] MEDS: FILGRASTIM 300 MCG/ML VIAL SQ SCH (10:27)
[2017-05-31 13:02] LABS: RETIC # 9.9 MIL/L (20.0-150.0); RETIC % 0.5 % (0.4-3.0)
--- NOTE | 2017-05-31 16:29 | HHI.CCPN ---
Subjective Remarks/Hospital Course Patient is an 82-year-old female with past medical history of end-stage renal disease on hemodialysis, rheumatoid arthritis on methotrexate, diabetes mellitus, hypertension, hyperlipidemia. She was admitted under hospitalist service on May 24 for right-sided buccal cellulitis and pancytopenia, which was thought related to methotrexate toxicity. During her hospital course , patient developed epistaxis and was seen by ENT. Chest x-ray was performed on May 26, which showed interstitial prominence and linear scarring at the right base. She also had CT scan of the sinuses which showed evidence for chronic sinus disease. Repeat chest x-ray was performed this afternoon, which showed new parenchymal changes in the right lung base and pulmonary venous congestion. She was placed on broad-spectrum antibiotics. Patient received platelet transfusion on May 28 for a platelet count of 18,000. Patient is being considered for a bone marrow biopsy. Also she was noted to have significant mucositis with crusting and bleeding of the oral mucosa. Critical Care Medicine was consulted for critical care management. When seen, she is currently receiving hemodialysis and is on 4 L oxygen with saturation of 97%, blood pressure 132/ 57 with a pulse of 86. Patient is afebrile. Her previous blood cultures from May 26 are negative. Patient denies any shortness of breath, chest pain or any constitutional symptoms. In addition, she denies any GI symptoms. 05/31 No events overnight Patient is on 2L oxygen. Feeling better and her epistaxis is overall better. s/p HD yesterday with removal 2.5L. Afebrile. Objective Vital Signs Date Time Temp Pulse Resp B/P (MAP) Pulse Ox O2 Delivery O2 Flow Rate FiO2 05/31/17 15:00 98 20 140/60 (86) 93 05/31/17 12:00 99.1 05/31/17 08:15 Nasal Cannula 2.00 05/29/17 07:13 50 Intake and Output 05/31/17 05/31/17 06/01/17 08:00 16:00 00:00 Intake Total 540 ml Balance 540 ml Result Diagram: 05/31/17 0456 05/31/17 0456 Other Results Laboratory Tests Test 05/31/17 04:56 05/31/17 10:20 White Blood Count 0.2 TH/MM3 Red Blood Count 2.12 MIL/MM3 Hemoglobin 7.3 GM/DL Hematocrit 21.5 % Mean Corpuscular Volume 101.5 FL Mean Corpuscular Hemoglobin 34.5 PG Mean Corpuscular Hemoglobin Concent 34.0 % Red Cell Distribution Width 16.4 % Platelet Count 27 TH/MM3 Mean Platelet Volume 8.1 FL CBC Comment AUTO DIFF Differential Total Cells Counted 50 Neutrophils % (Manual) 4 % Lymphocytes % 92 % Eosinophils % 4 % Neutrophils # (Manual) 0.0 TH/MM3 Nucleated Red Blood Cells 4 /100 WBC Differential Comment FINAL DIFF MANUAL Platelet Estimate LOW Platelet Morphology Comment NORMAL Prothrombin Time 12.0 SEC Prothromb Time International Ratio 1.2 RATIO Blood Urea Nitrogen 46 MG/DL Creatinine 4.40 MG/DL Random Glucose 208 MG/DL Total Protein 6.9 GM/DL Albumin 2.4 GM/DL Calcium Level 8.9 MG/DL Phosphorus Level 6.1 MG/DL Magnesium Level 2.0 MG/DL Alkaline Phosphatase 99 U/L Aspartate Amino Transf (AST/SGOT) 38 U/L Alanine Aminotransferase (ALT/SGPT) 73 U/L Total Bilirubin 0.6 MG/DL Sodium Level 139 MEQ/L Potassium Level 4.0 MEQ/L Chloride Level 99 MEQ/L Carbon Dioxide Level 26.3 MEQ/L Anion Gap 14 MEQ/L Estimat Glomerular Filtration Rate 10 ML/MIN Thyroid Stimulating Hormone 3rd Gen 1.440 uIU/ML Methotrexate Level 0.04 UMOL/L Reticulocyte Count 0.5 % Absolute Reticulocyte Count 9.9 MIL/L Imaging Last Impressions Chest X-Ray 05/30/17 0000 Signed Impressions: Service Date/Time: Tuesday, May 30, 2017 13:28 - CONCLUSION: 1. There are new parenchymal changes in the right lung base. 2. Pulmonary venous congestion. Mina Gerard MD Chest CT 05/30/17 0000 Signed Impressions: Service Date/Time: Tuesday, May 30, 2017 22:03 - CONCLUSION: 1. Bilateral pleural effusions, right greater than left. Associated atelectasis on the right side and patchy infiltrates in the left lung. 2. Evidence of prior surgery to the right axilla with low density mass lateral to multiple hemoclips measuring in excess of 6 cm. 3. 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 Lai Lovell MD Sinuses CT 05/28/17 0000 Signed Impressions: Service Date/Time: Sunday, May 28, 2017 12:04 - CONCLUSION: Evidence for chronic sinus disease with minimal anatomic obstruction as above. Edvin Wang MD FACR Neck CT 05/24/17 1003 Signed Impressions: Service Date/Time: Wednesday, May 24, 2017 10:39 - CONCLUSION: . 1. Nonvisualization right jugular vein with edema worse on the right side of face than the left. 2. Patent left jugular vein and superior vena cava 3. Large inhomogeneous thyroid suggesting goiter 4. Degenerative changes cervical spine. 5. Inflammatory process cannot be entirely excluded. I do not centered in space abscess 6. Patient is edentulous Edvin Wang MD FACR Objective Remarks GENERAL: Patient is 82 yo lying in bed in NAD SKIN: Warm and dry. HEAD: Normocephalic. Dry crust on both nostril. EYES: No scleral icterus. No injection or drainage. NECK: Supple, trachea midline. No JVD or lymphadenopathy. CARDIOVASCULAR: Regular rate and rhythm without murmurs, gallops, or rubs. RESPIRATORY: Breath sounds equal bilaterally. No accessory muscle use. GASTROINTESTINAL: Abdomen soft, non-tender, nondistended. MUSCULOSKELETAL: No cyanosis, or edema. Neuro: awake and alert A/P Assessment and Plan 1. Respiratory insufficiency. 2. Epistaxis. 3. Pancytopenia related to methotrexate toxicity. 4. History of rheumatoid arthritis, previously on methotrexate. 5. End-stage renal disease. 6. Hypertension. 7. Hyperlipidemia. 8. Diabetes mellitus. Plan Neuro: Monitor neuro status closely and avoid any sedatives. Pulm: Continue with oxygen and maintain sats >92%. Bronchodilators, decrease Solu-Medrol [address] chest: atelectasis on the right side and patchy infiltrates in the left lung. 2. Evidence of prior surgery to the right axilla with low density mass lateral to multiple hemoclips measuring in excess of 6 cm. 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 CV: Monitor HR and BP and maintain MAP> 65 mmHg. : Monitor renal function, I's and O's, and avoid nephrotoxins. Renal-Dr. Bautista On HD T,H, S- s/p HD yesterday with removal 2.5L GI: On Pureed diet per speech. On Protonix for GI prophylaxis. ID: Abx per ID ( Ceftazidime, Diflucan, Vanco with HD ) Monitor for signs of infections( fever and WBC) BC 3/2: NGTD. Heme: Monitor CBC - platelet infusion per Heme. On Neupogen 300mcg daily On Epogen with HD, Folic acid 1mg daily ENT is following for epistaxis. Endo: Change SSI medium scale for glycemic control Continue with Synthroid 200 mcg daily. TSH: 1.44 Check US thyroid, CT chest showed inhomogeneous goiter ? GI prophylaxis with Protonix 40 mg daily and DVT prophylaxis with SCDs. Chemical anticoagulation prophylaxis is contraindicated in the setting of severe thrombocytopenia. Level 2 Peyton Baez MD May 31, 2017 16:29
[2017-05-31] MEDS ORDERED: GLUCAGON 1 MG/ML VIAL OTHER PRN (16:45)
[2017-05-31] MEDS ORDERED: DEXTROSE 50% IN WATER 50 ML VIAL(D50) IV PUSH PRN (16:45)
[2017-05-31] MEDS: PANTOPRAZOLE SODIUM 40 MG VIAL IV PUSH SCH (17:45)
[2017-05-31] MEDS: FLUCONAZOLE 100 MG PREMIX BAG 50 ML IV SCH (19:39)
[2017-05-31] MEDS: FOLIC ACID IV SCH ×2 (20:43)
[2017-05-31] MEDS: WATER IV SCH ×2 (20:43)
[2017-05-31] MEDS: DEXTROSE 5% IV SCH ×2 (20:43)
[2017-05-31] MEDS: cefTAZidime INJ 1,000 MG in SODIUM CHLORIDE 0.9% INJ 100 ML IV SCH (20:45)
--- NOTE | 2017-05-31 21:37 | HHI.NPPN ---
Subjective History of Present Illness 82-year-old female with known history of end-stage renal disease on dialysis, diabetes, hypothyroidism, breast cancer, hypertension, hyperlipidemia , and rheumatoid arthritis.Patient presented to ED for suspected buccal cellulitis. Patient was in her usual state of health until about Monday nights when she began experiencing some gradual onset of bilateral facial edema and pain. Patient found to have anemia and Hgb. drop further. Additional Remarks Patient is alert, no SOB, pain in mouth and neck is better, clinically same. Review of Systems General Constitutional: Fatigue Ears, Nose, & Throat Ears, Nose & Throat: Sore Throat Respiratory Lungs: SOB, Cough Cardiovascular Cardiac: ANDRADE Objective Data Data 05/31/17 06/01/17 19:00 07:00 Intake Total 240 ml Output Total 50 ml Balance 190 ml Intake Oral 240 ml Output Urine Total 50 ml # Voids 1 # Bowel Movements 4 Vital Signs Date Time Temp Pulse Resp B/P (MAP) Pulse Ox O2 Delivery O2 Flow Rate FiO2 05/31/17 18:00 106 05/31/17 18:00 106 25 152/64 (93) 89 05/31/17 17:00 104 25 158/55 (89) 93 05/31/17 16:00 98.6 100 21 139/55 (83) 87 05/31/17 16:00 100 05/31/17 15:00 98 20 140/60 (86) 93 05/31/17 14:00 100 05/31/17 14:00 100 24 144/53 (83) 92 05/31/17 13:00 100 26 151/70 (97) 94 05/31/17 12:00 98 05/31/17 12:00 99.1 100 19 149/64 (92) 94 05/31/17 11:00 100 33 151/67 (95) 92 05/31/17 10:00 98 05/31/17 10:00 98 20 139/65 (89) 89 05/31/17 09:00 100 18 133/60 (84) 95 05/31/17 08:15 96 Nasal Cannula 2.00 05/31/17 08:00 96 05/31/17 08:00 98.6 96 16 140/57 (84) 99 05/31/17 08:00 98 Nasal Cannula 2.00 05/31/17 07:40 97 3.00 05/31/17 07:40 98 Nasal Cannula 3.00 05/31/17 07:00 98 21 142/50 (80) 97 05/31/17 07:00 94 Nasal Cannula 4.00 05/31/17 06:00 96 05/31/17 05:02 102 21 133/57 (82) 96 05/31/17 04:02 98.6 94 12 133/56 (81) 97 05/31/17 04:00 94 05/31/17 03:02 96 12 145/58 (87) 97 05/31/17 02:02 96 14 134/57 (82) 97 05/31/17 01:02 98 12 133/55 (81) 97 05/31/17 00:02 99.6 96 14 132/56 (81) 98 05/31/17 00:00 96 05/30/17 23:02 98 19 137/65 (89) 97 05/30/17 22:01 96 20 141/60 (87) 98 -: 05/31/17 0456 05/31/17 0456 Physical Exam General Appearance: No Acute Distress, Comfortable Eyes Eye Exam: Pupils Equal Throat Throat Remarks Painful opening of mouth, with tenderness over TM joint and some swelling. Neck Neck Exam: Neck Supple Pulmonary Resp Exam: Breath Sounds Equal, No Distress, Decreased Bases Cardiology CV Exam: Regular, Normal Sinus Rhythm Gastrointestinal/Abdomen GI Exam: Soft, Non-Tender, Bowel Sounds Present Extremeties Extremities Exam: Trace Edema Neurologic Neuro Exam: Alert, Awake, Oriented Psychiatric Psych Exam: Appropriate Responses Assessment/Plan Problem List: (1) ESRD (end stage renal disease) on dialysis ICD Codes: N18.6 - End stage renal disease; Z99.2 - Dependence on renal dialysis Plan: HD TTS, 3 times a week. Anemia of chronic disease Epogen with dialysis Continue antibiotics, remain afebrile. Patient develop Pancytopenia. Seen by Hematology. Work up noted. For BM Biopsy. HD done yesterday. Hematology follow up noted. (2) HTN (hypertension) ICD Codes: I10 - Essential (primary) hypertension Plan: Home medications continued (3) Soft tissue infection ICD Codes: L08.9 - Local infection of the skin and subcutaneous tissue, unspecified Status: Acute Plan: Continue antibiotics Renal dosing Priti Bautista MD May 31, 2017 21:37
--- NOTE | 2017-05-31 23:20 | PD.ONC.PN ---
Subjective Subjective Remarks seen earlier in the evening awake and alert has oral mucositis able to talk and answer questions multiple family members in room Objective Data Date Time Temp Pulse Resp B/P (MAP) Pulse Ox O2 Delivery O2 Flow Rate FiO2 05/31/17 22:00 108 17 160/70 (100) 92 05/31/17 22:00 69 05/31/17 21:00 99.3 106 17 149/60 (89) 98 05/31/17 20:00 104 05/31/17 19:11 100 22 145/66 (92) 95 05/31/17 19:00 98 Nasal Cannula 2.00 05/31/17 19:00 102 19 141/70 (93) 95 05/31/17 18:00 106 05/31/17 18:00 106 25 152/64 (93) 89 05/31/17 17:00 104 25 158/55 (89) 93 05/31/17 16:00 98.6 100 21 139/55 (83) 87 05/31/17 16:00 100 05/31/17 15:00 98 20 140/60 (86) 93 05/31/17 14:00 100 05/31/17 14:00 100 24 144/53 (83) 92 05/31/17 13:00 100 26 151/70 (97) 94 05/31/17 12:00 98 05/31/17 12:00 99.1 100 19 149/64 (92) 94 05/31/17 11:00 100 33 151/67 (95) 92 05/31/17 10:00 98 05/31/17 10:00 98 20 139/65 (89) 89 05/31/17 09:00 100 18 133/60 (84) 95 05/31/17 08:15 96 Nasal Cannula 2.00 05/31/17 08:00 96 05/31/17 08:00 98.6 96 16 140/57 (84) 99 05/31/17 08:00 98 Nasal Cannula 2.00 05/31/17 07:40 97 3.00 05/31/17 07:40 98 Nasal Cannula 3.00 05/31/17 07:00 98 21 142/50 (80) 97 05/31/17 07:00 94 Nasal Cannula 4.00 05/31/17 06:00 96 05/31/17 05:02 102 21 133/57 (82) 96 05/31/17 04:02 98.6 94 12 133/56 (81) 97 05/31/17 04:00 94 05/31/17 03:02 96 12 145/58 (87) 97 05/31/17 02:02 96 14 134/57 (82) 97 05/31/17 01:02 98 12 133/55 (81) 97 05/31/17 00:02 99.6 96 14 132/56 (81) 98 05/31/17 00:00 96 Result Diagram: 05/31/17 0456 05/31/17 0456 Laboratory Results Laboratory Tests Test 05/31/17 04:56 05/31/17 10:20 White Blood Count 0.2 TH/MM3 Red Blood Count 2.12 MIL/MM3 Hemoglobin 7.3 GM/DL Hematocrit 21.5 % Mean Corpuscular Volume 101.5 FL Mean Corpuscular Hemoglobin 34.5 PG Mean Corpuscular Hemoglobin Concent 34.0 % Red Cell Distribution Width 16.4 % Platelet Count 27 TH/MM3 Mean Platelet Volume 8.1 FL CBC Comment AUTO DIFF Differential Total Cells Counted 50 Neutrophils % (Manual) 4 % Lymphocytes % 92 % Eosinophils % 4 % Neutrophils # (Manual) 0.0 TH/MM3 Nucleated Red Blood Cells 4 /100 WBC Differential Comment FINAL DIFF MANUAL Platelet Estimate LOW Platelet Morphology Comment NORMAL Prothrombin Time 12.0 SEC Prothromb Time International Ratio 1.2 RATIO Blood Urea Nitrogen 46 MG/DL Creatinine 4.40 MG/DL Random Glucose 208 MG/DL Total Protein 6.9 GM/DL Albumin 2.4 GM/DL Calcium Level 8.9 MG/DL Phosphorus Level 6.1 MG/DL Magnesium Level 2.0 MG/DL Alkaline Phosphatase 99 U/L Aspartate Amino Transf (AST/SGOT) 38 U/L Alanine Aminotransferase (ALT/SGPT) 73 U/L Total Bilirubin 0.6 MG/DL Sodium Level 139 MEQ/L Potassium Level 4.0 MEQ/L Chloride Level 99 MEQ/L Carbon Dioxide Level 26.3 MEQ/L Anion Gap 14 MEQ/L Estimat Glomerular Filtration Rate 10 ML/MIN Thyroid Stimulating Hormone 3rd Gen 1.440 uIU/ML Methotrexate Level 0.04 UMOL/L Reticulocyte Count 0.5 % Absolute Reticulocyte Count 9.9 MIL/L Administered Medications Medications (Trade) Dose Ordered Sig/[place] Route PRN Reason Start Time Stop Time Status Last Admin Dose Admin Cyanocobalamin (Vitamin B12) 1,000 mcg DAILY PO 05/24/17 16:00 05/31/17 08:23 Folic Acid (Folate) 1 mg DAILY PO 05/24/17 15:00 05/31/17 08:23 Pravastatin Sodium (Pravachol) 10 mg DAILY PO 05/24/17 16:00 05/31/17 08:23 Albumin Human 100 ml @ 60 mls/hr UNSCH PRN IV WITH DIALYSIS 05/24/17 16:00 05/27/17 09:18 Sodium Chloride (NS Flush) 5 ml UNSCH PRN IV FLUSH WITH DIALYSIS 05/24/17 16:00 05/31/17 01:43 Ondansetron HCl (Zofran Inj) 4 mg UNSCH PRN IV PUSH WITH DIALYSIS 05/24/17 16:00 05/28/17 06:09 Acetaminophen (Tylenol) 650 mg UNSCH PRN PO for headach, pain, temp > 101F 05/24/17 16:00 05/27/17 03:29 Diphenhydramine HCl (Benadryl) 25 mg UNSCH PRN PO for hives/itching/anaphylaxis 05/24/17 16:00 05/27/17 23:53 Epoetin Cesar (Epogen Inj) 10,000 units UNSCH PRN IV PUSH WITH DIALYSIS 05/24/17 16:00 05/30/17 17:12 Nystatin (Mycostatin Powder) 1 applic Q12HR TOPICAL 05/24/17 21:00 05/31/17 21:00 Nystatin (Mycostatin Oint) 1 applic Q12HR TOPICAL 05/26/17 11:00 05/31/17 21:00 Multivitamins (Theragran) 1 tab DAILY PO 05/27/17 09:00 05/31/17 09:03 Folic Acid 0.8 mg/ Dextrose 50.16 ml @ 100 mls/hr Q24H IV 05/26/17 21:00 05/31/17 20:43 Levothyroxine Sodium (Synthroid) 200 mcg DAILY@0600 PO 05/28/17 06:00 05/31/17 05:45 Diphenhydramine HCl (Benadryl) 25 mg Q4H PRN PO SEE LABEL COMMENTS 05/29/17 19:45 05/29/17 22:09 Mupirocin (Bactroban 2% Oint) 1 applic BID TOPICAL 05/30/17 09:00 05/31/17 21:00 Albuterol/ Ipratropium (Duoneb Neb) 1 ampule Q4HR NEB NEB 05/30/17 20:00 05/31/17 23:06 Pantoprazole Sodium (Protonix Inj) 40 mg Q24H IV PUSH 05/30/17 18:00 05/31/17 17:45 Filgrastim (Neupogen Inj) 300 mcg DAILY@14 SQ 05/31/17 14:00 05/31/17 10:27 Ceftazidime 1000 mg/Sodium Chloride 100 ml @ 200 mls/hr DAILY@2100 IV 05/30/17 21:00 05/31/17 20:45 Fluconazole/ Sodium Chloride 50 ml @ 50 mls/hr Q24H IV 05/30/17 20:00 05/31/17 19:39 Methylprednisolone Sodium Succinate (SoluMEDROL INJ) 40 mg Q12H IV PUSH 05/31/17 22:00 05/31/17 21:55 Insulin Human Regular (NovoLIN R SUPPLEMENTAL SCALE) 1 Q6H SQ 05/31/17 18:00 05/31/17 17:44 Objective Remarks GENERAL: nad, CARDIOVASCULAR: Regular rate and rhythm without murmurs. RESPIRATORY: Breath sounds equal bilaterally. No accessory muscle use. GASTROINTESTINAL: Abdomen soft, non-tender, nondistended. EXTREMITIES: No cyanosis, or edema. Assessment/Plan Assessment 82-year-old female with a history of end-stage renal failure, type 2 diabetes, rheumatoid arthritis. She has been on therapy for rheumatoid arthritis with 10 mg of methotrexate once a week presented with pancytopenia 1. Pancytopenia due to MTX toxicity - continue B12 and Folic acid - prn transfusion to keep Hb> 7.[address] > 20 - continue Neupogen - On Abx - continue supportive care Plan Jack Jimenez MD May 31, 2017 23:20
[2017-06-01] VITALS (22 sets, daily range): BP systolic 135–161; BP diastolic 57–74; PULSE 18–110; RESP 15–25; TEMP 97.3–99.7; O2SAT 84–100
[2017-06-01] MEDS: RESP: ALBUTEROL 2.5 MG/IPRATROPIUM 0.5 MG NEB (SCH) NEB ×6 (03:16→23:44)
[2017-06-01 04:36] LABS: HEMATOCRIT 21.9 % (35.0-46.0); HEMOGLOBIN 7.2 GM/DL (11.6-15.3); MEAN CELL VOLUME 100.9 FL (80.0-100.0); MEAN CORPUSCULAR HEMOGLOBIN 33.2 PG (27.0-34.0); MEAN CORPUSCULAR HGB CONC 32.9 % (32.0-36.0); MEAN PLATELET VOLUME 7.6 FL (7.0-11.0); PLATELET COUNT 21 TH/MM3 (150-450); RED BLOOD COUNT 2.17 MIL/MM3 (4.00-5.30); RED CELL DISTRIBUTION WIDTH 16.1 % (11.6-17.2); WHITE BLOOD COUNT 0.4 TH/MM3 (4.0-11.0)
[2017-06-01 04:49] LABS: CHLORIDE 98 MEQ/L (98-107); SODIUM (NA) 140 MEQ/L (136-145)
[2017-06-01 04:54] LABS: ALBUMIN 2.4 GM/DL (3.4-5.0); BICARBONATE 28.2 MEQ/L (21.0-32.0); CALCIUM 9.1 MG/DL (8.5-10.1); GLUCOSE,RANDOM 283 MG/DL (74-106)
[2017-06-01 04:56] LABS: LYMPHOCYTES 100 % (9-44)
[2017-06-01 04:59] LABS: TEARDROP RBCS 1+ (NORMAL)
[2017-06-01 05:00] LABS: ALT (GPT) 58 U/L (10-53); AST (GOT) 20 U/L (15-37); BLOOD UREA NITROGEN 80 MG/DL (7-18); GLOMERULAR FILTRATION RATE 7 ML/MIN (>89); TOTAL BILIRUBIN ADULT 0.4 MG/DL (0.2-1.0); TOTAL PROTEIN 6.8 GM/DL (6.4-8.2)
[2017-06-01 05:01] LABS: ALKALINE PHOSPHATASE 91 U/L (45-117)
[2017-06-01] MEDS: diphenhydrAMINE HCL 25 MG CAP PO PRN (05:59)
[2017-06-01] MEDS: LEVOTHYROXINE SODIUM 100 MCG TAB PO SCH (05:59)
[2017-06-01] MEDS: INSULIN NovoLIN REGULAR SUPPLEMENTAL SCALE SQ SCH ×4 (06:07→23:00)
--- NOTE | 2017-06-01 09:12 | RADRPT ---
EXAM DATE/TIME: 06/01/2017 07:58 [facility] COMPARISON: No previous studies available for comparison. EXTERNAL COMPARISON : [facility], US THYROID, September 21, 2016 INDICATIONS : Goiter. MEDICAL HISTORY : Hypercholesterolemia. Hypertension. Gastroesophageal reflux disease. Hypothyroidism. Vertigo. Pregnan cy. Renal failure. Dialysis. Incontinence. Diabetes. Depression. Anxiety. Right breast cancer. Measle s. Blood transfusion. SURGICAL HISTORY : Cholecystectomy. Tonsillectomy. Carpal tunnel release. Cardiac catheterization. Right cataract remov al. ENCOUNTER: Subsequent ACUITY: 7 - 11 months PAIN SCORE: 1/10 LOCATION: Bilateral neck MEASUREMENTS: RIGHT LOBE: 3.4 x 2.5 x 6.8 cm LEFT LOBE: 1.6 x 1.6 x 4.5 cm FINDINGS: RIGHT LOBE: diffusely heterogeneous echotexture without nodules or cysts. Vascularity is within normal limits. LEFT LOBE: Diffusely heterogeneous echotexture without nodules or cysts. Vascularity is within normal limits. ISTHMUS: The isthmus is thickened at 1 cm. CONCLUSION: The thyroid gland is diffusely heterogeneous bilaterally. The right lobe is larger than the left. The isthmus is thickened at 1 cm. No discrete nodules are demonstrated. Mina Gerard MD on June 01, 2017 at 9:08 Board Certified Radiologist. This report was verified electronically.
[2017-06-01] MEDS: MULTIVITAMIN TAB PO SCH (09:17)
[2017-06-01] MEDS: FOLIC ACID 1 MG TAB PO SCH (09:17)
[2017-06-01] MEDS: methylPREDNISolone SOD SUCC 40 MG/1 ML VIAL IV PUSH SCH ×2 (09:18→20:26)
[2017-06-01] MEDS: MUPIROCIN 2% OINT 22 GM TUBE TOPICAL SCH ×2 (09:19→20:27)
[2017-06-01] MEDS: NYSTATIN 100,000 U/GM OINT 15 GM TUBE TOPICAL SCH ×2 (09:20→20:28)
[2017-06-01] MEDS: NYSTATIN 100,000 U/GM PWD 15 GM BTL TOPICAL SCH ×2 (09:20→20:27)
[2017-06-01] MEDS: CYANOCOBALAMIN 1,000 MCG TAB PO SCH (12:19)
[2017-06-01] MEDS: PRAVASTATIN SOD 10 MG TAB PO SCH (12:19)
[2017-06-01] MEDS: FILGRASTIM 300 MCG/ML VIAL SQ SCH (14:18)
--- NOTE | 2017-06-01 14:43 | HHI.NPPN ---
Subjective History of Present Illness 82-year-old female with known history of end-stage renal disease on dialysis, diabetes, hypothyroidism, breast cancer, hypertension, hyperlipidemia , and rheumatoid arthritis.Patient presented to ED for suspected buccal cellulitis. Patient was in her usual state of health until about Monday nights when she began experiencing some gradual onset of bilateral facial edema and pain. Patient found to have anemia and Hgb. drop further. Additional Remarks Patient is alert, no SOB, pain in mouth and neck is better, started taking orally, cannot put dentures yet. Review of Systems General Constitutional: Fatigue Ears, Nose, & Throat Ears, Nose & Throat: Sore Throat Respiratory Lungs: SOB, Cough Cardiovascular Cardiac: ANDRADE Objective Data Data 06/01/17 06/02/17 19:00 07:00 Intake Total 300 ml Balance 300 ml Packed Cells 250 ml Blood Product IV Normal Saline Flush 50 ml # Bowel Movements 1 Vital Signs Date Time Temp Pulse Resp B/P (MAP) Pulse Ox O2 Delivery O2 Flow Rate FiO2 06/01/17 13:00 106 18 158/68 (98) 96 06/01/17 12:00 98.4 108 25 154/66 (95) 95 06/01/17 12:00 108 06/01/17 11:00 106 18 150/67 (94) 97 06/01/17 10:00 110 06/01/17 10:00 110 20 153/70 (97) 92 06/01/17 09:00 97.3 103 16 137/63 96 06/01/17 09:00 106 16 137/63 (87) 91 06/01/17 08:00 103 06/01/17 08:00 98.7 104 16 145/59 (87) 97 06/01/17 08:00 98 Nasal Cannula 2.00 06/01/17 07:16 100 Nasal Cannula 2.00 06/01/17 07:00 104 16 148/71 (96) 96 06/01/17 06:00 106 18 140/72 (94) 96 06/01/17 06:00 106 06/01/17 05:36 99.0 18 17 161/74 96 06/01/17 05:00 110 16 161/74 (103) 97 06/01/17 04:00 109 06/01/17 04:00 98.6 108 16 159/69 (99) 97 06/01/17 04:00 108 16 159/69 (99) 97 06/01/17 03:44 106 15 150/67 (94) 100 06/01/17 03:44 106 15 150/67 (94) 100 06/01/17 03:00 106 15 158/71 (100) 87 06/01/17 03:00 106 15 158/71 (100) 87 06/01/17 02:00 108 16 155/60 (91) 85 06/01/17 02:00 74 06/01/17 02:00 108 16 155/60 (91) 90 06/01/17 01:00 110 17 153/61 (91) 98 06/01/17 01:00 110 17 153/61 (91) 84 06/01/17 00:00 110 18 151/63 (92) 93 06/01/17 00:00 99.7 110 18 151/63 (92) 93 06/01/17 00:00 110 05/31/17 23:00 112 17 161/65 (97) 92 05/31/17 22:00 108 17 160/70 (100) 92 05/31/17 22:00 69 05/31/17 21:00 99.3 106 17 149/60 (89) 98 05/31/17 20:00 104 05/31/17 19:35 94 Nasal Cannula 2.00 05/31/17 19:11 100 22 145/66 (92) 95 05/31/17 19:00 98 Nasal Cannula 2.00 05/31/17 19:00 102 19 141/70 (93) 95 05/31/17 18:00 106 05/31/17 18:00 106 25 152/64 (93) 89 05/31/17 17:00 104 25 158/55 (89) 93 05/31/17 16:00 98.6 100 21 139/55 (83) 87 05/31/17 16:00 100 05/31/17 15:00 98 20 140/60 (86) 93 -: 06/01/17 0417 06/01/17 0417 Physical Exam General Appearance: No Acute Distress, Comfortable Eyes Eye Exam: Pupils Equal Throat Throat Remarks Painful opening of mouth, with tenderness over TM joint and some swelling. Neck Neck Exam: Neck Supple Pulmonary Resp Exam: Breath Sounds Equal, No Distress, Decreased Bases Cardiology CV Exam: Regular, Normal Sinus Rhythm Gastrointestinal/Abdomen GI Exam: Soft, Non-Tender, Bowel Sounds Present Extremeties Extremities Exam: Trace Edema Neurologic Neuro Exam: Alert, Awake, Oriented Psychiatric Psych Exam: Appropriate Responses Assessment/Plan Problem List: (1) ESRD (end stage renal disease) on dialysis ICD Codes: N18.6 - End stage renal disease; Z99.2 - Dependence on renal dialysis Plan: HD TTS, 3 times a week. Anemia of chronic disease Epogen with dialysis Continue antibiotics, remain afebrile. Patient develop Pancytopenia. Seen by Hematology. Hematology follow up noted. On Neupogen, WBC still low. HD will be today. (2) HTN (hypertension) ICD Codes: I10 - Essential (primary) hypertension Plan: Home medications continued (3) Soft tissue infection ICD Codes: L08.9 - Local infection of the skin and subcutaneous tissue, unspecified Status: Acute Plan: Continue antibiotics Renal dosing Priti Bautista MD Jun 01, 2017 14:43
--- NOTE | 2017-06-01 15:54 | PD.ONC.PN ---
Subjective Subjective Remarks Getting dialysis. Feeling better. Mucositis improved. Diarrhea improved. No bleeding reported. Objective Data Date Time Temp Pulse Resp B/P (MAP) Pulse Ox O2 Delivery O2 Flow Rate FiO2 06/01/17 15:00 100 22 146/60 (88) 95 06/01/17 14:00 102 25 157/65 (95) 94 06/01/17 14:00 102 06/01/17 13:00 106 18 158/68 (98) 96 06/01/17 12:00 98.4 108 25 154/66 (95) 95 06/01/17 12:00 108 06/01/17 11:00 106 18 150/67 (94) 97 06/01/17 10:00 110 06/01/17 10:00 110 20 153/70 (97) 92 06/01/17 09:00 97.3 103 16 137/63 96 06/01/17 09:00 106 16 137/63 (87) 91 06/01/17 08:00 103 06/01/17 08:00 98.7 104 16 145/59 (87) 97 06/01/17 08:00 98 Nasal Cannula 2.00 06/01/17 07:16 100 Nasal Cannula 2.00 06/01/17 07:00 104 16 148/71 (96) 96 06/01/17 06:00 106 18 140/72 (94) 96 06/01/17 06:00 106 06/01/17 05:36 99.0 18 17 161/74 96 06/01/17 05:00 110 16 161/74 (103) 97 06/01/17 04:00 109 06/01/17 04:00 98.6 108 16 159/69 (99) 97 06/01/17 04:00 108 16 159/69 (99) 97 06/01/17 03:44 106 15 150/67 (94) 100 06/01/17 03:44 106 15 150/67 (94) 100 06/01/17 03:00 106 15 158/71 (100) 87 06/01/17 03:00 106 15 158/71 (100) 87 06/01/17 02:00 108 16 155/60 (91) 85 06/01/17 02:00 74 06/01/17 02:00 108 16 155/60 (91) 90 06/01/17 01:00 110 17 153/61 (91) 98 06/01/17 01:00 110 17 153/61 (91) 84 06/01/17 00:00 110 18 151/63 (92) 93 06/01/17 00:00 99.7 110 18 151/63 (92) 93 06/01/17 00:00 110 05/31/17 23:00 112 17 161/65 (97) 92 05/31/17 22:00 108 17 160/70 (100) 92 05/31/17 22:00 69 05/31/17 21:00 99.3 106 17 149/60 (89) 98 05/31/17 20:00 104 05/31/17 19:35 94 Nasal Cannula 2.00 05/31/17 19:11 100 22 145/66 (92) 95 05/31/17 19:00 98 Nasal Cannula 2.00 05/31/17 19:00 102 19 141/70 (93) 95 05/31/17 18:00 106 05/31/17 18:00 106 25 152/64 (93) 89 05/31/17 17:00 104 25 158/55 (89) 93 05/31/17 16:00 98.6 100 21 139/55 (83) 87 05/31/17 16:00 100 06/01/17 06/01/17 06/01/17 07:00 15:00 23:00 Intake Total 220 ml 300 ml Balance 220 ml 300 ml Result Diagram: 06/01/17 0417 06/01/17 0417 Laboratory Results Laboratory Tests Test 06/01/17 04:17 White Blood Count 0.4 TH/MM3 Red Blood Count 2.17 MIL/MM3 Hemoglobin 7.2 GM/DL Hematocrit 21.9 % Mean Corpuscular Volume 100.9 FL Mean Corpuscular Hemoglobin 33.2 PG Mean Corpuscular Hemoglobin Concent 32.9 % Red Cell Distribution Width 16.1 % Platelet Count 21 TH/MM3 Mean Platelet Volume 7.6 FL CBC Comment AUTO DIFF Differential Total Cells Counted 10 Lymphocytes % 100 % Neutrophils # (Manual) 0.0 TH/MM3 Differential Comment FINAL DIFF MANUAL Platelet Estimate LOW Platelet Morphology Comment NORMAL Tear Drop Cells 1+ Blood Urea Nitrogen 80 MG/DL Creatinine 6.00 MG/DL Random Glucose 283 MG/DL Total Protein 6.8 GM/DL Albumin 2.4 GM/DL Calcium Level 9.1 MG/DL Alkaline Phosphatase 91 U/L Aspartate Amino Transf (AST/SGOT) 20 U/L Alanine Aminotransferase (ALT/SGPT) 58 U/L Total Bilirubin 0.4 MG/DL Sodium Level 140 MEQ/L Potassium Level 4.1 MEQ/L Chloride Level 98 MEQ/L Carbon Dioxide Level 28.2 MEQ/L Anion Gap 14 MEQ/L Estimat Glomerular Filtration Rate 7 ML/MIN Imaging Studies Last 24 hours Impressions Thyroid Ultrasound 06/01/17 0000 Signed Impressions: Service Date/Time: May 07:58 - CONCLUSION: The thyroid gland is diffusely heterogeneous bilaterally. The right lobe is larger than the left. The isthmus is thickened at 1 cm. No discrete nodules are demonstrated. Mina Gerard MD Administered Medications Medications (Trade) Dose Ordered Sig/Woodrow Route PRN Reason Start Time Stop Time Status Last Admin Dose Admin Cyanocobalamin (Vitamin B12) 1,000 mcg DAILY PO 05/24/17 16:00 06/01/17 12:19 Folic Acid (Folate) 1 mg DAILY PO 05/24/17 15:00 06/01/17 09:17 Pravastatin Sodium (Pravachol) 10 mg DAILY PO 05/24/17 16:00 06/01/17 12:19 Albumin Human 100 ml @ 60 mls/hr UNSCH PRN IV WITH DIALYSIS 05/24/17 16:00 05/27/17 09:18 Sodium Chloride (NS Flush) 5 ml UNSCH PRN IV FLUSH WITH DIALYSIS 05/24/17 16:00 05/31/17 01:43 Ondansetron HCl (Zofran Inj) 4 mg UNSCH PRN IV PUSH WITH DIALYSIS 05/24/17 16:00 05/28/17 06:09 Acetaminophen (Tylenol) 650 mg UNSCH PRN PO for headach, pain, temp > 101F 05/24/17 16:00 05/27/17 03:29 Diphenhydramine HCl (Benadryl) 25 mg UNSCH PRN PO for hives/itching/anaphylaxis 05/24/17 16:00 05/27/17 23:53 Epoetin Cesar (Epogen Inj) 10,000 units UNSCH PRN IV PUSH WITH DIALYSIS 05/24/17 16:00 05/30/17 17:12 Nystatin (Mycostatin Powder) 1 applic Q12HR TOPICAL 05/24/17 21:00 06/01/17 09:20 Nystatin (Mycostatin Oint) 1 applic Q12HR TOPICAL 05/26/17 11:00 06/01/17 09:20 Multivitamins (Theragran) 1 tab DAILY PO 05/27/17 09:00 06/01/17 09:17 Folic Acid 0.8 mg/ Dextrose 50.16 ml @ 100 mls/hr Q24H IV 05/26/17 21:00 05/31/17 20:43 Levothyroxine Sodium (Synthroid) 200 mcg DAILY@0600 PO 05/28/17 06:00 06/01/17 05:59 Mupirocin (Bactroban 2% Oint) 1 applic BID TOPICAL 05/30/17 09:00 06/01/17 09:19 Albuterol/ Ipratropium (Duoneb Neb) 1 ampule Q4HR NEB NEB 05/30/17 20:00 06/01/17 15:08 Pantoprazole Sodium (Protonix Inj) 40 mg Q24H IV PUSH 05/30/17 18:00 05/31/17 17:45 Filgrastim (Neupogen Inj) 300 mcg DAILY@14 SQ 05/31/17 14:00 06/01/17 14:18 Ceftazidime 1000 mg/Sodium Chloride 100 ml @ 200 mls/hr DAILY@2100 IV 05/30/17 21:00 05/31/17 20:45 Fluconazole/ Sodium Chloride 50 ml @ 50 mls/hr Q24H IV 05/30/17 20:00 05/31/17 19:39 Methylprednisolone Sodium Succinate (SoluMEDROL INJ) 40 mg Q12H IV PUSH 05/31/17 22:00 06/01/17 09:18 Insulin Human Regular (NovoLIN R SUPPLEMENTAL SCALE) 1 Q6H SQ 05/31/17 18:00 06/01/17 11:31 Objective Remarks GENERAL: Well-nourished, well-developed patient. Weak SKIN: Warm and dry. +mucositis HEAD: Normocephalic. EYES: No scleral icterus. No injection or drainage. NECK: Supple, trachea midline. No JVD or lymphadenopathy. LYMPHATIC: No adenopathy. CARDIOVASCULAR: Regular rate and rhythm without murmurs. RESPIRATORY: Breath sounds equal bilaterally. No accessory muscle use. GASTROINTESTINAL: Abdomen soft, slightly-tender, nondistended. EXTREMITIES: No cyanosis, trace edema. MUSCULOSKELETAL: Adequate muscle tone. NEUROLOGICAL: No obvious focal deficit. Awake, alert, and oriented x3. PSYCHIATRIC: Appropriate mood and affect; insight and judgment normal. Assessment/Plan Assessment 82-year-old female with a history of end-stage renal failure, type 2 diabetes, rheumatoid arthritis. She has been on therapy for rheumatoid arthritis with 10 mg of methotrexate once a week restarted around Nov 2016. She presented with pancytopenia. 1. 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 - continue B12 and Folic acid - prn transfusion to keep Hb> 7.[address] > 20 - continue epogen with dialysis - continue Neupogen but increase dose to 480mcg - On Abx - continue supportive care Plan Ruben Goyal MD Jun 01, 2017 15:54
[2017-06-01] MEDS: GELATIN 12 MM/7 MM FOAM TOP PRN (16:25)
[2017-06-01] MEDS: EPOETIN ALFA 10,000 UNITS/ML VIAL IV PUSH PRN (16:25)
--- NOTE | 2017-06-01 16:35 | HHI.CCPN ---
Subjective Remarks/Hospital Course Patient is an 82-year-old female with past medical history of end-stage renal disease on hemodialysis, rheumatoid arthritis on methotrexate, diabetes mellitus, hypertension, hyperlipidemia. She was admitted under hospitalist service on May 24 for right-sided buccal cellulitis and pancytopenia, which was thought related to methotrexate toxicity. During her hospital course , patient developed epistaxis and was seen by ENT. Chest x-ray was performed on May 26, which showed interstitial prominence and linear scarring at the right base. She also had CT scan of the sinuses which showed evidence for chronic sinus disease. Repeat chest x-ray was performed this afternoon, which showed new parenchymal changes in the right lung base and pulmonary venous congestion. She was placed on broad-spectrum antibiotics. Patient received platelet transfusion on May 28 for a platelet count of 18,000. Patient is being considered for a bone marrow biopsy. Also she was noted to have significant mucositis with crusting and bleeding of the oral mucosa. Critical Care Medicine was consulted for critical care management. When seen, she is currently receiving hemodialysis and is on 4 L oxygen with saturation of 97%, blood pressure 132/ 57 with a pulse of 86. Patient is afebrile. Her previous blood cultures from May 26 are negative. Patient denies any shortness of breath, chest pain or any constitutional symptoms. In addition, she denies any GI symptoms. 05/31 No events overnight Patient is on 2L oxygen. Feeling better and her epistaxis is overall better. s/p HD yesterday with removal 2.5L. Afebrile. 06/01 Patient is lying in bed in NAD. Receiving HD. No recurrent epistaxis. Objective Vital Signs Date Time Temp Pulse Resp B/P (MAP) Pulse Ox O2 Delivery O2 Flow Rate FiO2 06/01/17 16:00 98.5 98 15 155/57 (89) 97 06/01/17 08:00 Nasal Cannula 2.00 05/29/17 07:13 50 Intake and Output 06/01/17 06/01/17 06/02/17 08:00 16:00 00:00 Intake Total 220 ml 300 ml Balance 220 ml 300 ml Result Diagram: 06/01/17 0417 06/01/17 0417 Other Results Laboratory Tests Test 06/01/17 04:17 White Blood Count 0.4 TH/MM3 Red Blood Count 2.17 MIL/MM3 Hemoglobin 7.2 GM/DL Hematocrit 21.9 % Mean Corpuscular Volume 100.9 FL Mean Corpuscular Hemoglobin 33.2 PG Mean Corpuscular Hemoglobin Concent 32.9 % Red Cell Distribution Width 16.1 % Platelet Count 21 TH/MM3 Mean Platelet Volume 7.6 FL CBC Comment AUTO DIFF Differential Total Cells Counted 10 Lymphocytes % 100 % Neutrophils # (Manual) 0.0 TH/MM3 Differential Comment FINAL DIFF MANUAL Platelet Estimate LOW Platelet Morphology Comment NORMAL Tear Drop Cells 1+ Blood Urea Nitrogen 80 MG/DL Creatinine 6.00 MG/DL Random Glucose 283 MG/DL Total Protein 6.8 GM/DL Albumin 2.4 GM/DL Calcium Level 9.1 MG/DL Alkaline Phosphatase 91 U/L Aspartate Amino Transf (AST/SGOT) 20 U/L Alanine Aminotransferase (ALT/SGPT) 58 U/L Total Bilirubin 0.4 MG/DL Sodium Level 140 MEQ/L Potassium Level 4.1 MEQ/L Chloride Level 98 MEQ/L Carbon Dioxide Level 28.2 MEQ/L Anion Gap 14 MEQ/L Estimat Glomerular Filtration Rate 7 ML/MIN Imaging Last Impressions Thyroid Ultrasound 06/01/17 Signed Impressions: Service Date/Time: May 07:58 - CONCLUSION: The thyroid gland is diffusely heterogeneous bilaterally. The right lobe is larger than the left. The isthmus is thickened at 1 cm. No discrete nodules are demonstrated. Mina Gerard MD Chest X-Ray 05/30/17 Signed Impressions: Service Date/Time: Tuesday, May 30, 2017 13:28 - CONCLUSION: 1. There are new parenchymal changes in the right lung base. 2. Pulmonary venous congestion. Mina Gerard MD Chest CT 05/30/17 0000 Signed Impressions: Service Date/Time: Tuesday, May 30, 2017 22:03 - CONCLUSION: 1. Bilateral pleural effusions, right greater than left. Associated atelectasis on the right side and patchy infiltrates in the left lung. 2. Evidence of prior surgery to the right axilla with low density mass lateral to multiple hemoclips measuring in excess of 6 cm. 3. 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 Lai Lovell MD Sinuses CT 05/28/17 Signed Impressions: Service Date/Time: Sunday, May 28, 2017 12:04 - CONCLUSION: Evidence for chronic sinus disease with minimal anatomic obstruction as above. Edvin Wang MD FACR Neck CT 05/24/17 1003 Signed Impressions: Service Date/Time: Wednesday, May 24, 2017 10:39 - CONCLUSION: . 1. Nonvisualization right jugular vein with edema worse on the right side of face than the left. 2. Patent left jugular vein and superior vena cava 3. Large inhomogeneous thyroid suggesting goiter 4. Degenerative changes cervical spine. 5. Inflammatory process cannot be entirely excluded. I do not centered in space abscess 6. Patient is edentulous Edvin Wang MD FACR Objective Remarks GENERAL: Patient is 82 yo lying in bed in NAD SKIN: Warm and dry. HEAD: Normocephalic. Dry crust on both nostril. EYES: No scleral icterus. No injection or drainage. NECK: Supple, trachea midline. No JVD or lymphadenopathy. CARDIOVASCULAR: Regular rate and rhythm without murmurs, gallops, or rubs. RESPIRATORY: Breath sounds equal bilaterally. No accessory muscle use. GASTROINTESTINAL: Abdomen soft, non-tender, nondistended. MUSCULOSKELETAL: No cyanosis, or edema. Neuro: awake and alert A/P Assessment and Plan 1. Respiratory insufficiency. 2. Epistaxis ( improved) 3. Pancytopenia related to methotrexate toxicity. 4. History of rheumatoid arthritis, previously on methotrexate. 5. End-stage renal disease. 6. Hypertension. 7. Hyperlipidemia. 8. Diabetes mellitus. Plan Neuro: Monitor neuro status closely and avoid any sedatives. Pulm: Continue with oxygen and maintain sats >92%. Bronchodilators, Solu-Medrol [address] chest: atelectasis on the right side and patchy infiltrates in the left lung. Evidence of prior surgery to the right axilla with low density mass lateral to multiple hemoclips measuring in excess of 6 cm. 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 General surgery consulted- discussed with Dr. Rivera mathews CT chest findings no surgical intervention given her pancytopenia. CV: Place on Cardizem 30mg Q6- Monitor HR and BP and maintain MAP> 65 mmHg. : Monitor renal function, I's and O's, and avoid nephrotoxins. Renal-Dr. Bautista On HD T,H, S- for HD today GI: On Pureed diet per speech. On Protonix for GI prophylaxis. ID: Abx per ID ( Ceftazidime, Diflucan, Vanco with HD ) Monitor for signs of infections( fever and WBC) BC 3/2: NGTD. Heme: Monitor CBC - platelet infusion per Heme. On [id number] mcg daily On Epogen with HD, Folic acid 1mg daily ENT is following for epistaxis ( improved) Endo: SSI medium scale for glycemic control Continue with Synthroid 200 mcg daily. TSH: 1.44 US thyroid: The thyroid gland is diffusely heterogeneous bilaterally. The right lobe is larger than the left. No discrete nodules are demonstrated GI prophylaxis with Protonix 40 mg daily and DVT prophylaxis with SCDs. Chemical anticoagulation prophylaxis is contraindicated in the setting of severe thrombocytopenia. Level 2 Peyton Baez MD Jun 01, 2017 16:35
--- NOTE | 2017-06-01 17:03 | PD.CONS ---
cc: Saul Stafford MD [facility] Service General Surgery Consult Requested By Dr. Elaine Reason for Consult Thyroid goiter causing trachea deviation Primary Care Physician Cleo Shannon MD History of Present Illness This is an 82 year old female with a past medical history of hypertension, diabetes, dyslipidemia, hypothyroidism, end-stage renal failure, rheumatoid arthritis on methotrexate and a history of breast cancer status post lumpectomy and intraoperative radiation in [address] Stafford. The patient was originally admitted on May 24 due to facial swelling and pain. She was also found to be pancytopenic and a Hematology consultation was requested. Dr. Campos evaluated the patient and contributes the pancytopenia to methotrexate toxicity. She has had epistaxis during this hospitalization. She has received 2 units of platelets during this admission and 1 unit of packed red blood cells. The patient's current labs are a WBC count of 0.4 and a platelet count of 21,000. There was an incidental finding on a CT chest that shows a substernal goiter causing tracheal deviation. The patient has experienced no respiratory distress. The patient is currently on 2 L nasal cannula and breathing comfortably. A General Surgery consultation has been requested. Review of Systems Constitutional: DENIES: Fatigue, Change in appetite Endocrine: DENIES: Polydipsia, Polyuria, Polyphagia Eyes: DENIES: Diplopia, Eye inflammation Ears, nose, mouth, throat: DENIES: Hearing loss Respiratory: DENIES: Cough Cardiovascular: DENIES: Chest pain Gastrointestinal: DENIES: Abdominal pain, Bloody stools, Constipation, Nausea, Vomiting Genitourinary: DENIES: Urgency Musculoskeletal: DENIES: Joint pain, Muscle aches Integumentary: DENIES: Abnormal pigmentation Hematologic/lymphatic: DENIES: Bruising Immunologic/allergic: DENIES: Eczema Neurologic: DENIES: Abnormal gait, Headache Psychiatric: DENIES: Confusion, Mood changes, Depression Past Family Social History Past Medical History Hypertension Diabetes mellitus Dyslipidemia Hypothyroidism End-stage renal failure on hemodialysis Rheumatoid arthritis on methotrexate Right-sided breast cancer Past Surgical History Open cholecystectomy AV fistula placement Lumpectomy of the right breast and intraoperative radiation Reported Medications Methotrexate Pravastatin Isosorbide Coreg Norvasc Aspirin Escitalopram Prilosec Synthroid B vitamin Vitamin B12 Folic acid Vitamin D Allopurinol Allergies: Coded Allergies: No Known Allergies (Unverified , 05/28/17) Active Ordered Medications Current Medications Medications (Trade) Dose Ordered Sig/Woodrow Route Start Time Stop Time Status Last Admin (Vitamin B12) 1,000 mcg DAILY PO 05/24/17 16:00 06/01/17 12:19 (Folate) 1 mg DAILY PO 05/24/17 15:00 06/01/17 09:17 (Pravachol) 10 mg DAILY PO 05/24/17 16:00 06/01/17 12:19 Sodium Chloride 1,000 ml @ 0 mls/hr Q0M PRN OTHER 05/24/17 15:53 (Heparin Inj) 8,000 units UNSCH PRN IV FLUSH 05/24/17 16:00 Sodium Chloride 1,000 ml @ 200 mls/hr Q5H PRN IV 05/24/17 15:53 Sodium Chloride 1,000 ml @ 0 mls/hr Q0M PRN OTHER 05/24/17 15:53 (Mannitol Inj) 12.5 gm UNSCH PRN IV 05/24/17 16:00 Albumin Human 100 ml @ 60 mls/hr UNSCH PRN IV 05/24/17 16:00 05/27/17 09:18 (NS Flush) 5 ml UNSCH PRN IV FLUSH 05/24/17 16:00 05/31/17 01:43 (Heparin Inj) UNSCH PRN .XX 05/24/17 16:00 (Gentamicin Inj) 20 mg UNSCH PRN OTHER 05/24/17 16:00 (Zofran Inj) 4 mg UNSCH PRN IV PUSH 05/24/17 16:00 05/28/17 06:09 (Tylenol) 650 mg UNSCH PRN PO 05/24/17 16:00 05/27/17 03:29 (Benadryl) 25 mg UNSCH PRN PO 05/24/17 16:00 05/27/17 23:53 (Nitrostat Sl) 0.4 mg UNSCH PRN SL 05/24/17 16:00 (Catapres) 0.1 mg UNSCH PRN PO 05/24/17 16:00 (Epogen Inj) 10,000 units UNSCH PRN IV PUSH 05/24/17 16:00 06/01/17 16:25 (Gelfoam 12 Mm/7 Mm Top) 1 foam UNSCH PRN TOP 05/24/17 16:00 06/01/17 16:25 (Mycostatin Powder) 1 applic Q12HR TOPICAL 05/24/17 21:00 06/01/17 09:20 (Mycostatin Oint) 1 applic Q12HR TOPICAL 05/26/17 11:00 06/01/17 09:20 (Theragran) 1 tab DAILY PO 05/27/17 09:00 06/01/17 09:17 Folic Acid 0.8 mg/ Dextrose 50.16 ml @ 100 mls/hr Q24H IV 05/26/17 21:00 05/31/17 20:43 (Synthroid) 200 mcg DAILY@0600 PO 05/28/17 06:00 06/01/17 05:59 (Tylenol) 650 mg Q4H PRN PO 05/29/17 19:45 (Bactroban 2% Oint) 1 applic BID TOPICAL 05/30/17 09:00 06/01/17 09:19 (Duoneb Neb) 1 ampule Q4HR NEB NEB 05/30/17 20:00 06/01/17 15:08 (Duoneb Neb) 1 ampule Q2HR NEB PRN NEB 05/30/17 17:00 (Protonix Inj) 40 mg Q24H IV PUSH 05/30/17 18:00 05/31/17 17:45 (D50w (Vial) Inj) 50 ml UNSCH PRN IV PUSH 05/30/17 17:15 (Glucagon Inj) 1 mg UNSCH PRN OTHER 05/30/17 17:15 (Afrin 0.05% Chavo Gilliam) 1 spray Q6HR PRN NASAL 05/30/17 17:30 (Amicar Liq) 1,000 mg Q6HR PRN PO 05/30/17 19:00 (Tylenol) 650 mg Q4H PRN PO 05/31/17 06:00 (Benadryl) 25 mg Q4H PRN PO 05/31/17 06:00 Ceftazidime 1000 mg/Sodium Chloride 100 ml @ 200 mls/hr DAILY@2100 IV 3/6/18 21:00 05/31/17 20:45 Vancomycin HCl 1000 mg/Sodium Chloride 250 ml @ 250 mls/hr WITH DIALYSIS PRN IV 05/30/17 18:30 06/01/17 16:25 Fluconazole/ Sodium Chloride 50 ml @ 50 mls/hr Q24H IV 05/30/17 20:00 05/31/17 19:39 (SoluMEDROL INJ) 40 mg Q12H IV PUSH 05/31/17 22:00 06/01/17 09:18 (D50w (Vial) Inj) 50 ml UNSCH PRN IV PUSH 05/31/17 16:45 (Glucagon Inj) 1 mg UNSCH PRN OTHER 05/31/17 16:45 (NovoLIN R SUPPLEMENTAL SCALE) 1 Q6H SQ 05/31/17 18:00 06/01/17 11:31 (Neupogen Inj) 480 mcg DAILY@14 SQ 06/02/17 14:00 (Cardizem) 30 mg Q6HR PO 06/01/17 18:00 Family History Noncontributory Social History Denies current tobacco use or EtOH use. Physical Exam Vital Signs Vital Signs Date Time Temp Pulse Resp B/P (MAP) Pulse Ox O2 Delivery O2 Flow Rate FiO2 06/01/17 16:00 98.5 98 15 155/57 (89) 97 06/01/17 16:00 98 06/01/17 15:00 100 22 146/60 (88) 95 06/01/17 14:00 102 25 157/65 (95) 94 06/01/17 14:00 102 06/01/17 13:00 106 18 158/68 (98) 96 06/01/17 12:00 98.4 108 25 154/66 (95) 95 06/01/17 12:00 108 06/01/17 11:00 106 18 150/67 (94) 97 06/01/17 10:00 110 06/01/17 10:00 110 20 153/70 (97) 92 06/01/17 09:00 97.3 103 16 137/63 96 06/01/17 09:00 106 16 137/63 (87) 91 06/01/17 08:00 103 06/01/17 08:00 98.7 104 16 145/59 (87) 97 06/01/17 08:00 98 Nasal Cannula 2.00 06/01/17 07:16 100 Nasal Cannula 2.00 06/01/17 07:00 104 16 148/71 (96) 96 06/01/17 06:00 106 18 140/72 (94) 96 06/01/17 06:00 106 06/01/17 05:36 99.0 18 17 161/74 96 06/01/17 05:00 110 16 161/74 (103) 97 06/01/17 04:00 109 06/01/17 04:00 98.6 108 16 159/69 (99) 97 06/01/17 04:00 108 16 159/69 (99) 97 06/01/17 03:44 106 15 150/67 (94) 100 06/01/17 03:44 106 15 150/67 (94) 100 06/01/17 03:00 106 15 158/71 (100) 87 06/01/17 03:00 106 15 158/71 (100) 87 06/01/17 02:00 108 16 155/60 (91) 85 06/01/17 02:00 74 06/01/17 02:00 108 16 155/60 (91) 90 06/01/17 01:00 110 17 153/61 (91) 98 06/01/17 01:00 110 17 153/61 (91) 84 06/01/17 00:00 110 18 151/63 (92) 93 06/01/17 00:00 99.7 110 18 151/63 (92) 93 06/01/17 00:00 110 05/31/17 23:00 112 17 161/65 (97) 92 05/31/17 22:00 108 17 160/70 (100) 92 05/31/17 22:00 69 05/31/17 21:00 99.3 106 17 149/60 (89) 98 05/31/17 20:00 104 05/31/17 19:35 94 Nasal Cannula 2.00 05/31/17 19:11 100 22 145/66 (92) 95 05/31/17 19:00 98 Nasal Cannula 2.00 05/31/17 19:00 102 19 141/70 (93) 95 05/31/17 18:00 106 05/31/17 18:00 106 25 152/64 (93) 89 Physical Exam GENERAL: Very pleasant 82 year old female resting in bed receiving hemodialysis. SKIN: Multiple areas of ecchymosis on RIGHT upper extremity. HEAD: Atraumatic. Normocephalic. EYES: Pupils equal and round. No scleral icterus. No injection or drainage. ENT: Evidence of dried blood in nares. Mucous membranes pink and moist. NECK: Trachea palpable; no palpable goiter or nodule. CARDIOVASCULAR: Regular rate and rhythm. RESPIRATORY: No accessory muscle use. Clear to auscultation. Breath sounds equal bilaterally. GASTROINTESTINAL: Abdomen soft, non-tender, nondistended. Well healed RUQ incision. MUSCULOSKELETAL: Extremities without clubbing, cyanosis, or edema. No obvious deformities. NEUROLOGICAL: Awake and alert. No obvious cranial nerve deficits. Motor grossly within normal limits. Five out of 5 muscle strength in the arms and legs. Normal speech. PSYCHIATRIC: Appropriate mood and affect; insight and judgment normal. Laboratory Laboratory Tests Test 06/01/17 04:17 White Blood Count 0.4 Red Blood Count 2.17 Hemoglobin 7.2 Hematocrit 21.9 Mean Corpuscular Volume 100.9 Mean Corpuscular Hemoglobin 33.2 Mean Corpuscular Hemoglobin Concent 32.9 Red Cell Distribution Width 16.1 Platelet Count 21 Mean Platelet Volume 7.6 CBC Comment AUTO DIFF Differential Total Cells Counted 10 Lymphocytes % 100 Neutrophils # (Manual) 0.0 Differential Comment FINAL DIFF MANUAL Platelet Estimate LOW Platelet Morphology Comment NORMAL Tear Drop Cells 1+ Blood Urea Nitrogen 80 Creatinine 6.00 Random Glucose 283 Total Protein 6.8 Albumin 2.4 Calcium Level 9.1 Alkaline Phosphatase 91 Aspartate Amino Transf (AST/SGOT) 20 Alanine Aminotransferase (ALT/SGPT) 58 Total Bilirubin 0.4 Sodium Level 140 Potassium Level 4.1 Chloride Level 98 Carbon Dioxide Level 28.2 Anion Gap 14 Estimat Glomerular Filtration Rate 7 Date/Time Source Procedure Growth Status 05/26/17 17:02 Blood Peripheral Aerobic Blood Culture - Final NO GROWTH IN 5 DAYS Complete 05/26/17 17:02 Blood Peripheral Anaerobic Blood Culture - Final NO GROWTH IN 5 DAYS Complete 05/26/17 09:03 Stool Stool Stool Occult Blood (TOBY) - Final HEMOCCULT NEGATIVE Complete Result Diagram: 06/01/17 0417 06/01/17 0417 Imaging Last 48 hours Impressions Thyroid Ultrasound 06/01/17 0000 Signed Impressions: Service Date/Time: May 07:58 - CONCLUSION: The thyroid gland is diffusely heterogeneous bilaterally. The right lobe is larger than the left. The isthmus is thickened at 1 cm. No discrete nodules are demonstrated. Mina Gerard MD Assessment and Plan Assessment and Plan 82 year old female with multiple medical issues; methotrexate toxicity; pancytopenic; incidental finding of thyroid goiter causing slight tracheal deviation -No evidence of acute respiratory distress -Stable on 2L NC -Diet as tolerated -Continue to monitor laboratory work -Not a surgical candidate for incidental thyroid findings -Thank you for this consult Discussed Condition With Dr. Stafford Ms. Faust Attending Statement I am familiar with this patient given her prior history of breast cancer which was treated with lumpectomy followed by reexcision lumpectomy and intraoperative radiation therapy. I was consulted to see the patient regarding incidental finding of thyroid goiter with some mild tracheal deviation. The patient has known enlargement of her thyroid gland and has had no symptoms whatsoever. She denies difficulty with breathing difficulty with swallowing or difficulty with an enlarging mass in her neck. She feels like it is likely unchanged and has been present for many years. Repeat ultrasound of her thyroid gland shows no discrete nodules worrisome for thyroid cancer. The echogenicity of the thyroid gland itself is heterogenous. I cannot palpate any enlarged thyroid tissue on physical exam. There is no cervical or supraclavicular lymphadenopathy. There is no surgical treatment indicated for her enlarged thyroid gland given the lack of symptoms and no discrete nodule. Because of her pancytopenia there is no surgical intervention that would be entertained at this time regardless. I will sign off this case. My impression and recommendations were discussed in detail with the patient and her sister and her 2 sons at the bedside. The exam, history, and the medical decision-making described in the above note were completed with the assistance of the mid-level provider. I reviewed and agree with the findings presented. I attest that I had a [id number] encounter with the patient on the same day, and personally performed and documented my assessment and findings in the medical record. Azucena Castrejon/First Sommer STEEN Jun 01, 2017 17:03 Saul Stafford MD Jun 02, 2017 11:40
[2017-06-01] MEDS: PANTOPRAZOLE SODIUM 40 MG VIAL IV PUSH SCH (17:54)
[2017-06-01] MEDS: DILTIAZEM HCL 30 MG TAB PO SCH ×2 (17:54→23:00)
[2017-06-01] MEDS: cefTAZidime INJ 1,000 MG in SODIUM CHLORIDE 0.9% INJ 100 ML IV SCH (20:26)
[2017-06-01] MEDS: WATER IV SCH ×2 (20:26)
[2017-06-01] MEDS: DEXTROSE 5% IV SCH ×2 (20:26)
[2017-06-01] MEDS: FOLIC ACID IV SCH ×2 (20:26)
[2017-06-01] MEDS: FLUCONAZOLE 100 MG PREMIX BAG 50 ML IV SCH (20:27)
[2017-06-02] VITALS (19 sets, daily range): BP systolic 123–161; BP diastolic 51–90; PULSE 94–108; RESP 15–42; TEMP 97.3–99; O2SAT 72–97
[2017-06-02] MEDS: RESP: ALBUTEROL 2.5 MG/IPRATROPIUM 0.5 MG NEB (SCH) NEB ×6 (03:28→23:25)
[2017-06-02] MEDS: LEVOTHYROXINE SODIUM 100 MCG TAB PO SCH (04:20)
[2017-06-02] MEDS: DILTIAZEM HCL 30 MG TAB PO SCH ×3 (04:21→16:24)
[2017-06-02] MEDS: INSULIN NovoLIN REGULAR SUPPLEMENTAL SCALE SQ SCH ×4 (04:27→19:49)
[2017-06-02 05:28] LABS: HEMATOCRIT 24.9 % (35.0-46.0); HEMOGLOBIN 8.1 GM/DL (11.6-15.3); MEAN CELL VOLUME 100.9 FL (80.0-100.0); MEAN CORPUSCULAR HGB CONC 32.7 % (32.0-36.0); MEAN PLATELET VOLUME 8.1 FL (7.0-11.0); RED BLOOD COUNT 2.47 MIL/MM3 (4.00-5.30); RED CELL DISTRIBUTION WIDTH 15.9 % (11.6-17.2); WHITE BLOOD COUNT 0.5 TH/MM3 (4.0-11.0)
[2017-06-02 05:32] LABS: PLATELET COUNT 13 TH/MM3 (150-450)
[2017-06-02 05:36] LABS: CALCIUM 8.8 MG/DL (8.5-10.1)
[2017-06-02 05:37] LABS: BICARBONATE 29.6 MEQ/L (21.0-32.0)
[2017-06-02 05:48] LABS: LYMPHOCYTES 96 % (9-44); MONOCYTES 4 % (0-8); OVALOCYTES 1+ (NORMAL)
[2017-06-02 05:50] LABS: CREATININE 4.3 MG/DL (0.50-1.00)
[2017-06-02] MEDS: MULTIVITAMIN TAB PO SCH (09:45)
[2017-06-02] MEDS: FOLIC ACID 1 MG TAB PO SCH (09:45)
[2017-06-02] MEDS: methylPREDNISolone SOD SUCC 40 MG/1 ML VIAL IV PUSH SCH (09:45)
[2017-06-02] MEDS: CYANOCOBALAMIN 1,000 MCG TAB PO SCH (09:45)
[2017-06-02] MEDS: PRAVASTATIN SOD 10 MG TAB PO SCH (09:45)
[2017-06-02] MEDS: NYSTATIN 100,000 U/GM PWD 15 GM BTL TOPICAL SCH ×2 (09:51→19:50)
[2017-06-02] MEDS: MUPIROCIN 2% OINT 22 GM TUBE TOPICAL SCH ×2 (09:51→19:50)
[2017-06-02] MEDS: NYSTATIN 100,000 U/GM OINT 15 GM TUBE TOPICAL SCH ×2 (09:51→19:50)
[2017-06-02] MEDS ORDERED: FILGRASTIM 480 MCG/1.6 ML VIAL SQ SCH (14:00)
--- NOTE | 2017-06-02 15:04 | HHI.IDPN ---
Subjective Subjective Remarks Doing better No more fevers Oral ulcers / bleeding healing Allergies: Coded Allergies: No Known Allergies (Unverified , 05/28/17) Review of Systems Constitutional Constitutional Remarks No fevers Objective . Vital Signs Date Time Temp Pulse Resp B/P (MAP) Pulse Ox O2 Delivery O2 Flow Rate FiO2 06/02/17 12:00 97.9 100 27 161/67 (98) 92 06/02/17 12:00 100 06/02/17 11:00 100 24 138/63 (88) 96 06/02/17 10:00 102 19 131/58 (82) 95 06/02/17 10:00 102 06/02/17 09:00 108 42 72 06/02/17 08:00 97.7 100 16 147/60 (89) 93 06/02/17 08:00 100 06/02/17 07:22 96 Nasal Cannula 2.00 06/02/17 07:00 92 Nasal Cannula 2.00 06/02/17 07:00 98 16 144/72 (96) 89 06/02/17 04:00 97.3 94 17 142/51 (81) 97 06/02/17 04:00 94 06/02/17 00:00 99.0 106 32 123/52 (75) 91 06/02/17 00:00 106 06/01/17 20:00 108 06/01/17 20:00 98.6 108 20 135/59 (84) 94 06/01/17 19:25 95 Nasal Cannula 2.00 06/01/17 19:00 Nasal Cannula 2.00 06/01/17 16:00 98.5 98 15 155/57 (89) 97 06/01/17 16:00 98 . Laboratory Tests Test 06/01/17 04:17 06/02/17 04:40 White Blood Count 0.4 TH/MM3 0.5 TH/MM3 Red Blood Count 2.17 MIL/MM3 2.47 MIL/MM3 Hemoglobin 7.2 GM/DL 8.1 GM/DL Hematocrit 21.9 % 24.9 % Mean Corpuscular Volume 100.9 FL 100.9 FL Mean Corpuscular Hemoglobin 33.2 PG 33.0 PG Mean Corpuscular Hemoglobin Concent 32.9 % 32.7 % Red Cell Distribution Width 16.1 % 15.9 % Platelet Count 21 TH/MM3 13 TH/MM3 Mean Platelet Volume 7.6 FL 8.1 FL CBC Comment AUTO DIFF AUTO DIFF Differential Total Cells Counted 10 25 Lymphocytes % 100 % 96 % Neutrophils # (Manual) 0.0 TH/MM3 0.0 TH/MM3 Differential Comment FINAL DIFF MANUAL FINAL DIFF MANUAL Platelet Estimate LOW LOW Platelet Morphology Comment NORMAL NORMAL Tear Drop Cells 1+ Monocytes % 4 % Ovalocytes 1+ Laboratory Tests Test 06/01/17 04:17 06/02/17 04:40 Blood Urea Nitrogen 80 MG/DL 51 MG/DL Creatinine 6.00 MG/DL 4.30 MG/DL Random Glucose 283 MG/DL 352 MG/DL Total Protein 6.8 GM/DL Albumin 2.4 GM/DL Calcium Level 9.1 MG/DL 8.8 MG/DL Alkaline Phosphatase 91 U/L Aspartate Amino Transf (AST/SGOT) 20 U/L Alanine Aminotransferase (ALT/SGPT) 58 U/L Total Bilirubin 0.4 MG/DL Sodium Level 140 MEQ/L 136 MEQ/L Potassium Level 4.1 MEQ/L 3.9 MEQ/L Chloride Level 98 MEQ/L 96 MEQ/L Carbon Dioxide Level 28.2 MEQ/L 29.6 MEQ/L Anion Gap 14 MEQ/L 10 MEQ/L Estimat Glomerular Filtration Rate 7 ML/MIN 10 ML/MIN Physical Exam GENERAL: This is a chronically ill patient who is alert, oriented x 3 SKIN: Candidiasis in groin and under breasts. HEAD: Atraumatic. Normocephalic. No temporal or scalp tenderness. EYES: Pupils equal round and reactive. Extraocular motions intact. No scleral icterus. No injection or drainage. ENT: Nose with bleeding, no purulent drainage or septal hematoma. Throat with erythema & bleeding, tonsillar hypertrophy or exudate. Uvula midline. Airway patent. NECK: Trachea midline. No JVD or lymphadenopathy. Supple, nontender, no meningeal signs. CARDIOVASCULAR: Regular rate and rhythm without murmurs, gallops, or rubs. RESPIRATORY: Clear to auscultation. Breath sounds equal bilaterally. No wheezes , rales, or rhonchi. GASTROINTESTINAL: Abdomen soft, non-tender, nondistended. No hepato-splenomegaly , or palpable masses. No guarding. MUSCULOSKELETAL: Extremities without clubbing, cyanosis, or edema. No joint tenderness, effusion, or edema noted. No calf tenderness. Negative Homans sign bilaterally. NEUROLOGICAL: Awake and alert. Cranial nerves II through XII intact. Motor and sensory grossly within normal limits. Five out of 5 muscle strength in all muscle groups. Normal speech. Assessment & Plan Diagnosis: (1) Neutropenic fever ICD Codes: D70.9 - Neutropenia, unspecified; R50.81 - Fever presenting with conditions classified elsewhere Plan: Blood cultures are negative As patient is neutropenic- will continue Ceftazidime - 1 g IV daily (2) ESRD (end stage renal disease) on dialysis ICD Codes: N18.6 - End stage renal disease; Z99.2 - Dependence on renal dialysis (3) Soft tissue infection ICD Codes: L08.9 - Local infection of the skin and subcutaneous tissue, unspecified Status: Acute Plan: Ceftazidime 1 g IV daily Continue Fluconazole 100 mg IV daily Can stop the IV Vancomycin Sumi Brown MD Jun 02, 2017 15:04
[2017-06-02] MEDS ORDERED: DEXTROSE 50% IN WATER 50 ML VIAL(D50) IV PUSH PRN (15:15)
[2017-06-02] MEDS ORDERED: GLUCAGON 1 MG/ML VIAL OTHER PRN (15:15)
--- NOTE | 2017-06-02 16:13 | HHI.NPPN ---
Subjective History of Present Illness 82-year-old female with known history of end-stage renal disease on dialysis, diabetes, hypothyroidism, breast cancer, hypertension, hyperlipidemia , and rheumatoid arthritis.Patient presented to ED for suspected buccal cellulitis. Patient was in her usual state of health until about Monday nights when she began experiencing some gradual onset of bilateral facial edema and pain. Patient found to have anemia and Hgb. drop further. Additional Remarks Patient is alert, no SOB, pain in mouth and neck is better, started taking orally, cannot put dentures yet. Review of Systems General Constitutional: Fatigue Ears, Nose, & Throat Ears, Nose & Throat: Sore Throat Respiratory Lungs: SOB, Cough Cardiovascular Cardiac: ANDRADE Objective Data Data 06/02/17 06/03/17 19:00 07:00 Intake Total 10 ml Balance 10 ml Blood Product IV Normal Saline Flush 10 ml Vital Signs Date Time Temp Pulse Resp B/P (MAP) Pulse Ox O2 Delivery O2 Flow Rate FiO2 06/02/17 16:09 98.6 103 15 149/90 97 06/02/17 12:00 97.9 100 27 161/67 (98) 92 06/02/17 12:00 100 06/02/17 11:00 100 24 138/63 (88) 96 06/02/17 10:00 102 19 131/58 (82) 95 06/02/17 10:00 102 06/02/17 09:00 108 42 72 06/02/17 08:00 97.7 100 16 147/60 (89) 93 06/02/17 08:00 100 06/02/17 07:22 96 Nasal Cannula 2.00 06/02/17 07:00 92 Nasal Cannula 2.00 06/02/17 07:00 98 16 144/72 (96) 89 06/02/17 04:00 97.3 94 17 142/51 (81) 97 06/02/17 04:00 94 06/02/17 00:00 99.0 106 32 123/52 (75) 91 06/02/17 00:00 106 06/01/17 20:00 108 06/01/17 20:00 98.6 108 20 135/59 (84) 94 06/01/17 19:25 95 Nasal Cannula 2.00 06/01/17 19:00 Nasal Cannula 2.00 -: 06/02/17 0440 06/02/17 0440 Physical Exam General Appearance: No Acute Distress, Comfortable Eyes Eye Exam: Pupils Equal Throat Throat Remarks Painful opening of mouth, with tenderness over TM joint and some swelling. Neck Neck Exam: Neck Supple Pulmonary Resp Exam: Breath Sounds Equal, No Distress, Decreased Bases Cardiology CV Exam: Regular, Normal Sinus Rhythm Gastrointestinal/Abdomen GI Exam: Soft, Non-Tender, Bowel Sounds Present Extremeties Extremities Exam: Trace Edema Neurologic Neuro Exam: Alert, Awake, Oriented Psychiatric Psych Exam: Appropriate Responses Assessment/Plan Problem List: (1) ESRD (end stage renal disease) on dialysis ICD Codes: N18.6 - End stage renal disease; Z99.2 - Dependence on renal dialysis Plan: HD TTS, 3 times a week. Anemia of chronic disease Epogen with dialysis Continue antibiotics, remain afebrile. Patient develop Pancytopenia. Seen by Hematology. Hematology follow up noted. On Neupogen, WBC still low. HD done yesterday. Platelets still low, getting transfusion. Hematology following. HD will be in AM. (2) HTN (hypertension) ICD Codes: I10 - Essential (primary) hypertension Plan: Home medications continued (3) Soft tissue infection ICD Codes: L08.9 - Local infection of the skin and subcutaneous tissue, unspecified Status: Acute Plan: Continue antibiotics Renal dosing Priti Bautista MD Jun 02, 2017 16:13
[2017-06-02] MEDS: PANTOPRAZOLE SODIUM 40 MG VIAL IV PUSH SCH (16:24)
--- NOTE | 2017-06-02 16:41 | HHI.CCPN ---
Subjective Remarks/Hospital Course Patient is an 82-year-old female with past medical history of end-stage renal disease on hemodialysis, rheumatoid arthritis on methotrexate, diabetes mellitus, hypertension, hyperlipidemia. She was admitted under hospitalist service on May 24 for right-sided buccal cellulitis and pancytopenia, which was thought related to methotrexate toxicity. During her hospital course , patient developed epistaxis and was seen by ENT. Chest x-ray was performed on May 26, which showed interstitial prominence and linear scarring at the right base. She also had CT scan of the sinuses which showed evidence for chronic sinus disease. Repeat chest x-ray was performed this afternoon, which showed new parenchymal changes in the right lung base and pulmonary venous congestion. She was placed on broad-spectrum antibiotics. Patient received platelet transfusion on May 28 for a platelet count of 18,000. Patient is being considered for a bone marrow biopsy. Also she was noted to have significant mucositis with crusting and bleeding of the oral mucosa. Critical Care Medicine was consulted for critical care management. When seen, she is currently receiving hemodialysis and is on 4 L oxygen with saturation of 97%, blood pressure 132/ 57 with a pulse of 86. Patient is afebrile. Her previous blood cultures from May 26 are negative. Patient denies any shortness of breath, chest pain or any constitutional symptoms. In addition, she denies any GI symptoms. 05/31 No events overnight Patient is on 2L oxygen. Feeling better and her epistaxis is overall better. s/p HD yesterday with removal 2.5L. Afebrile. 06/01 Patient is lying in bed in NAD. Receiving HD. No recurrent epistaxis. 06/02 Patient is feeling better. PLT count 13 today receiving 1ubnit PLT. s/p HD yesterday with removal 2L. Objective Vital Signs Date Time Temp Pulse Resp B/P (MAP) Pulse Ox O2 Delivery O2 Flow Rate FiO2 06/02/17 16:25 98.6 103 19 149/90 94 06/02/17 07:22 Nasal Cannula 2.00 05/29/17 07:13 50 Intake and Output 06/02/17 06/02/17 06/03/17 08:00 16:00 00:00 Intake Total 10 ml Output Total 0 ml Balance 0 ml 10 ml Result Diagram: 06/02/17 0440 06/02/17 0440 Other Results Laboratory Tests Test 06/02/17 04:40 White Blood Count 0.5 TH/MM3 Red Blood Count 2.47 MIL/MM3 Hemoglobin 8.1 GM/DL Hematocrit 24.9 % Mean Corpuscular Volume 100.9 FL Mean Corpuscular Hemoglobin 33.0 PG Mean Corpuscular Hemoglobin Concent 32.7 % Red Cell Distribution Width 15.9 % Platelet Count 13 TH/MM3 Mean Platelet Volume 8.1 FL CBC Comment AUTO DIFF Differential Total Cells Counted 25 Lymphocytes % 96 % Monocytes % 4 % Neutrophils # (Manual) 0.0 TH/MM3 Differential Comment FINAL DIFF MANUAL Platelet Estimate LOW Platelet Morphology Comment NORMAL Ovalocytes 1+ Blood Urea Nitrogen 51 MG/DL Creatinine 4.30 MG/DL Random Glucose 352 MG/DL Calcium Level 8.8 MG/DL Sodium Level 136 MEQ/L Potassium Level 3.9 MEQ/L Chloride Level 96 MEQ/L Carbon Dioxide Level 29.6 MEQ/L Anion Gap 10 MEQ/L Estimat Glomerular Filtration Rate 10 ML/MIN Imaging Last Impressions Thyroid Ultrasound 06/01/17 0000 Signed Impressions: Service Date/Time: May 07:58 - CONCLUSION: The thyroid gland is diffusely heterogeneous bilaterally. The right lobe is larger than the left. The isthmus is thickened at 1 cm. No discrete nodules are demonstrated. Mina Gerard MD Chest X-Ray 05/30/17 0000 Signed Impressions: Service Date/Time: Tuesday, May 30, 2017 13:28 - CONCLUSION: 1. There are new parenchymal changes in the right lung base. 2. Pulmonary venous congestion. Mina Gerard MD Chest CT 05/30/17 0000 Signed Impressions: Service Date/Time: Tuesday, May 30, 2017 22:03 - CONCLUSION: 1. Bilateral pleural effusions, right greater than left. Associated atelectasis on the right side and patchy infiltrates in the left lung. 2. Evidence of prior surgery to the right axilla with low density mass lateral to multiple hemoclips measuring in excess of 6 cm. 3. 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 Lai Lovell MD Sinuses CT 05/28/17 0000 Signed Impressions: Service Date/Time: Sunday, May 28, 2017 12:04 - CONCLUSION: Evidence for chronic sinus disease with minimal anatomic obstruction as above. Edvin Wang MD FACR Neck CT 05/24/17 1003 Signed Impressions: Service Date/Time: Wednesday, May 24, 2017 10:39 - CONCLUSION: . 1. Nonvisualization right jugular vein with edema worse on the right side of face than the left. 2. Patent left jugular vein and superior vena cava 3. Large inhomogeneous thyroid suggesting goiter 4. Degenerative changes cervical spine. 5. Inflammatory process cannot be entirely excluded. I do not centered in space abscess 6. Patient is edentulous Edvin Wang MD FACR Objective Remarks GENERAL: Patient is 82 yo lying in bed in NAD SKIN: Warm and dry. HEAD: Normocephalic. Dry crust on both nostril. EYES: No scleral icterus. No injection or drainage. NECK: Supple, trachea midline. No JVD or lymphadenopathy. CARDIOVASCULAR: Regular rate and rhythm without murmurs, gallops, or rubs. RESPIRATORY: Breath sounds equal bilaterally. No accessory muscle use. GASTROINTESTINAL: Abdomen soft, non-tender, nondistended. MUSCULOSKELETAL: No cyanosis, or edema. Neuro: awake and alert A/P Assessment and Plan 1. Respiratory insufficiency. 2. Epistaxis ( improved) 3. Pancytopenia related to methotrexate toxicity. 4. History of rheumatoid arthritis, previously on methotrexate. 5. End-stage renal disease. 6. Hypertension. 7. Hyperlipidemia. 8. Diabetes mellitus. Plan Neuro: Monitor neuro status closely and avoid any sedatives. Pulm: Continue with oxygen and maintain sats >92%. Bronchodilators, taper steroids- decrease Solu-Medrol [address] chest: atelectasis on the right side and patchy infiltrates in the left lung. Evidence of prior surgery to the right axilla with low density mass lateral to multiple hemoclips measuring in excess of 6 cm. 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 Seen by surgery- signed off- no surgical intervention given her pancytopenia. CV: Continue Cardizem 30mg Q6- Monitor HR and BP and maintain MAP> 65 mmHg. : Monitor renal function, I's and O's, and avoid nephrotoxins. Renal-Dr. Bautista On HD T,H, S- s/p HD yesterday with removal 2L. GI: On Pureed diet per speech. On Protonix for GI prophylaxis. ID: Abx per ID ( Ceftazidime, Diflucan ) Monitor for signs of infections( fever and WBC) BC 3/2: NGTD. Heme: Monitor CBC - platelet infusion per Heme. For transfusion 1unit PLT for PLT count 13. On [id number] mcg daily On Epogen with HD, Folic acid 1mg daily ENT is following for epistaxis ( improved) Endo: Increase SSI high scale and taper steroids. Continue with Synthroid 200 mcg daily. TSH: 1.44 US thyroid: The thyroid gland is diffusely heterogeneous bilaterally. The right lobe is larger than the left. No discrete nodules are demonstrated GI prophylaxis with Protonix 40 mg daily and DVT prophylaxis with SCDs. Chemical anticoagulation prophylaxis is contraindicated in the setting of severe thrombocytopenia. Level 2 Peyton Baez MD Jun 02, 2017 16:41
[2017-06-02] MEDS ORDERED: ACETAMINOPHEN 325 MG TAB PO PRN (17:30)
[2017-06-02] MEDS ORDERED: SODIUM CHLOR 0.9% 250 ML INJ 250 ML IV ONE (17:30)
[2017-06-02] MEDS ORDERED: diphenhydrAMINE HCL 25 MG CAP PO PRN (17:30)
--- NOTE | 2017-06-02 18:06 | PD.ONC.PN ---
Subjective Subjective Remarks Patient seen and examined, vital signs, labs, medications, microbiology, imaging studies and ada accommodation consultant notes reviewed. Subjectively; patient reports feeling improved compared to 2 days ago. She sitting up in the bed and is eating pudding. Her son who is a professor pathology is visiting from [facility] where he works for [employer]. Objective Data Date Time Temp Pulse Resp B/P (MAP) Pulse Ox O2 Delivery O2 Flow Rate FiO2 06/02/17 16:25 98.6 103 19 149/90 94 06/02/17 16:09 98.6 103 15 149/90 97 06/02/17 16:00 98.6 108 33 149/90 (109) 95 06/02/17 16:00 108 06/02/17 15:00 100 06/02/17 15:00 100 27 144/58 (86) 96 06/02/17 14:00 98 06/02/17 14:00 98 18 139/60 (86) 95 06/02/17 13:00 100 34 130/78 (95) 94 06/02/17 12:00 97.9 100 27 161/67 (98) 92 06/02/17 12:00 100 06/02/17 11:00 100 24 138/63 (88) 96 06/02/17 10:00 102 19 131/58 (82) 95 06/02/17 10:00 102 06/02/17 09:00 108 42 72 06/02/17 08:00 97.7 100 16 147/60 (89) 93 06/02/17 08:00 100 06/02/17 07:22 96 Nasal Cannula 2.00 06/02/17 07:00 92 Nasal Cannula 2.00 06/02/17 07:00 98 16 144/72 (96) 89 06/02/17 04:00 97.3 94 17 142/51 (81) 97 06/02/17 04:00 94 06/02/17 00:00 99.0 106 32 123/52 (75) 91 06/02/17 00:00 106 06/01/17 20:00 108 06/01/17 20:00 98.6 108 20 135/59 (84) 94 06/01/17 19:25 95 Nasal Cannula 2.00 06/01/17 19:00 Nasal Cannula 2.00 306/02/17 06/02/17 07:00 15:00 23:00 Intake Total 206 ml Output Total 0 ml Balance 0 ml 206 ml Result Diagram: 06/02/1743906/02/17439 Laboratory Results Laboratory Tests Test 06/02/17 04:40 White Blood Count 0.5 TH/MM3 Red Blood Count 2.47 MIL/MM3 Hemoglobin 8.1 GM/DL Hematocrit 24.9 % Mean Corpuscular Volume 100.9 FL Mean Corpuscular Hemoglobin 33.0 PG Mean Corpuscular Hemoglobin Concent 32.7 % Red Cell Distribution Width 15.9 % Platelet Count 13 TH/MM3 Mean Platelet Volume 8.1 FL CBC Comment AUTO DIFF Differential Total Cells Counted 25 Lymphocytes % 96 % Monocytes % 4 % Neutrophils # (Manual) 0.0 TH/MM3 Differential Comment FINAL DIFF MANUAL Platelet Estimate LOW Platelet Morphology Comment NORMAL Ovalocytes 1+ Blood Urea Nitrogen 51 MG/DL Creatinine 4.30 MG/DL Random Glucose 352 MG/DL Calcium Level 8.8 MG/DL Sodium Level 136 MEQ/L Potassium Level 3.9 MEQ/L Chloride Level 96 MEQ/L Carbon Dioxide Level 29.6 MEQ/L Anion Gap 10 MEQ/L Estimat Glomerular Filtration Rate 10 ML/MIN Administered Medications Medications (Trade) Dose Ordered Sig/Woodrow Route PRN Reason Start Time Stop Time Status Last Admin Dose Admin Cyanocobalamin (Vitamin B12) 1,000 mcg DAILY PO 05/24/17 16:00 06/02/17 09:45 Folic Acid (Folate) 1 mg DAILY PO 05/24/17 15:00 06/02/17 09:45 Pravastatin Sodium (Pravachol) 10 mg DAILY PO 05/24/17 16:00 06/02/17 09:45 Albumin Human 100 ml @ 60 mls/hr UNSCH PRN IV WITH DIALYSIS 05/24/17 16:00 05/27/17 09:18 Sodium Chloride (NS Flush) 5 ml UNSCH PRN IV FLUSH WITH DIALYSIS 05/24/17 16:00 05/31/17 01:43 Ondansetron HCl (Zofran Inj) 4 mg UNSCH PRN IV PUSH WITH DIALYSIS 05/24/17 16:00 05/28/17 06:09 Acetaminophen (Tylenol) 650 mg UNSCH PRN PO for headach, pain, temp > 101F 05/24/17 16:00 05/27/17 03:29 Diphenhydramine HCl (Benadryl) 25 mg UNSCH PRN PO for hives/itching/anaphylaxis 05/24/17 16:00 05/27/17 23:53 Epoetin Cesar (Epogen Inj) 10,000 units UNSCH PRN IV PUSH WITH DIALYSIS 05/24/17 16:00 06/01/17 16:25 Gelatin (Gelfoam 12 Mm/7 Mm Top) 1 foam UNSCH PRN TOP SEE LABEL COMMENTS 05/24/17 16:00 06/01/17 16:25 Nystatin (Mycostatin Powder) 1 applic Q12HR TOPICAL 05/24/17 21:00 06/02/17 09:51 Nystatin (Mycostatin Oint) 1 applic Q12HR TOPICAL 05/26/17 11:00 06/02/17 09:51 Multivitamins (Theragran) 1 tab DAILY PO 05/27/17 09:00 06/02/17 09:45 Folic Acid 0.8 mg/ Dextrose 50.16 ml @ 100 mls/hr Q24H IV 05/26/17 21:00 06/01/17 20:26 Levothyroxine Sodium (Synthroid) 200 mcg DAILY@0600 PO 05/28/17 06:00 06/02/17 04:20 Mupirocin (Bactroban 2% Oint) 1 applic BID TOPICAL 05/30/17 09:00 06/02/17 09:51 Albuterol/ Ipratropium (Duoneb Neb) 1 ampule Q4HR NEB NEB 05/30/17 20:00 06/02/17 15:02 Pantoprazole Sodium (Protonix Inj) 40 mg Q24H IV PUSH 05/30/17 18:00 06/02/17 16:24 Ceftazidime 1000 mg/Sodium Chloride 100 ml @ 200 mls/hr DAILY@2100 IV 05/30/17 21:00 06/01/17 20:26 Fluconazole/ Sodium Chloride 50 ml @ 50 mls/hr Q24H IV 05/30/17 20:00 06/01/17 20:27 Filgrastim (Neupogen Inj) 480 mcg DAILY@14 SQ 06/02/17 14:00 06/02/17 12:43 Diltiazem HCl (Cardizem) 30 mg Q6HR PO 06/01/17 18:00 06/02/17 16:24 Insulin Human Regular (NovoLIN R SUPPLEMENTAL SCALE) 1 Q4H SQ 06/02/17 16:00 06/02/17 16:00 Objective Remarks GENERAL APPEARANCE: Ms. Faust is an elderly lady. She sitting up in bed, she appears to be comfortable, she is talking in full sentences. HEENT: Head is atraumatic and normocephalic. Conjunctivae are pale, sclerae anicteric. EOMI, PERRLA. Oral exam: Crusting of the lips is improved , buccal mucosa is less ulcerated and erythematous, there is some leukocyte is noted. Buccal mucosa with what appears to be mucositis. NECK: No cervical lymphadenopathy. She has tenderness along her neck and along her cheeks. RESPIRATORY: Poor inspiratory effort, decreased bibasilar breath sounds. CARDIOVASCULAR: Regular rate and rhythm, S1 and S2, no obvious murmurs, rubs or gallops. ABDOMEN: Protuberant belly, tender to light palpation, tympanic to percussion. No definite organ enlargement noted. LOWER EXTREMITIES: No pretibial edema, no calf tenderness. CENTRAL NERVOUS SYSTEM: No focal sensory or motor deficits, but she is generally weak. MUSCULOSKELETAL: She has generally atrophic muscle mass. Assessment/Plan Assessment 82-year-old female with a history of end-stage renal failure, type 2 diabetes, rheumatoid arthritis. She has been on therapy for rheumatoid arthritis with 10 mg of methotrexate once a week restarted around Nov 2016. She presented with pancytopenia. 1. 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 - continue B12 and Folic acid - prn transfusion to keep Hb> 7.[address] > 20 - continue epogen with dialysis - continue Neupogen but increase dose to 480mcg - On Abx - continue supportive care. Also on corticosteroids. 06/02/2017: She continues to improve clinically is now eating. I am concerned about her ANC being 0 persistently. Plan Kai Campos MD Jun 02, 2017 18:06
[2017-06-02] MEDS: DEXTROSE 5% IV SCH ×2 (19:49)
[2017-06-02] MEDS: FOLIC ACID IV SCH ×2 (19:49)
[2017-06-02] MEDS: FLUCONAZOLE 100 MG PREMIX BAG 50 ML IV SCH (19:49)
[2017-06-02] MEDS: WATER IV SCH ×2 (19:49)
[2017-06-02] MEDS: cefTAZidime INJ 1,000 MG in SODIUM CHLORIDE 0.9% INJ 100 ML IV SCH (19:49)
[2017-06-03] VITALS (28 sets, daily range): BP systolic 107–148; BP diastolic 51–81; PULSE 84–108; RESP 12–36; TEMP 97.4–98.3; O2SAT 85–99
[2017-06-03] MEDS ORDERED: HALOPERIDOL LACTATE 5 MG/ML AMP IV ONE (00:45)
[2017-06-03] MEDS: RESP: ALBUTEROL 2.5 MG/IPRATROPIUM 0.5 MG NEB (SCH) NEB ×5 (02:54→19:10)
[2017-06-03] MEDS ORDERED: HALOPERIDOL LACTATE 5 MG/ML AMP IV PUSH PRN (03:00)
[2017-06-03] MEDS: DILTIAZEM HCL 30 MG TAB PO SCH ×4 (05:10→17:26)
[2017-06-03] MEDS: INSULIN NovoLIN REGULAR SUPPLEMENTAL SCALE SQ SCH ×6 (05:10→20:16)
[2017-06-03] MEDS: LEVOTHYROXINE SODIUM 100 MCG TAB PO SCH (05:10)
[2017-06-03 06:43] LABS: HEMATOCRIT 27.7 % (35.0-46.0); MEAN CELL VOLUME 101.1 FL (80.0-100.0); MEAN CORPUSCULAR HEMOGLOBIN 32.7 PG (27.0-34.0); MEAN CORPUSCULAR HGB CONC 32.4 % (32.0-36.0); MEAN PLATELET VOLUME 8.5 FL (7.0-11.0); PLATELET COUNT 62 TH/MM3 (150-450); RED BLOOD COUNT 2.74 MIL/MM3 (4.00-5.30); RED CELL DISTRIBUTION WIDTH 15.7 % (11.6-17.2); WHITE BLOOD COUNT 2.9 TH/MM3 (4.0-11.0)
--- NOTE | 2017-06-03 06:43 | HHI.CCPN ---
Subjective Remarks/Hospital Course Patient is an 82-year-old female with past medical history of end-stage renal disease on hemodialysis, rheumatoid arthritis on methotrexate, diabetes mellitus, hypertension, hyperlipidemia. She was admitted under hospitalist service on May 24 for right-sided buccal cellulitis and pancytopenia, which was thought related to methotrexate toxicity. During her hospital course , patient developed epistaxis and was seen by ENT. Chest x-ray was performed on May 26, which showed interstitial prominence and linear scarring at the right base. She also had CT scan of the sinuses which showed evidence for chronic sinus disease. Repeat chest x-ray was performed this afternoon, which showed new parenchymal changes in the right lung base and pulmonary venous congestion. She was placed on broad-spectrum antibiotics. Patient received platelet transfusion on May 28 for a platelet count of 18,000. Patient is being considered for a bone marrow biopsy. Also she was noted to have significant mucositis with crusting and bleeding of the oral mucosa. Critical Care Medicine was consulted for critical care management. When seen, she is currently receiving hemodialysis and is on 4 L oxygen with saturation of 97%, blood pressure 132/ 57 with a pulse of 86. Patient is afebrile. Her previous blood cultures from May 26 are negative. Patient denies any shortness of breath, chest pain or any constitutional symptoms. In addition, she denies any GI symptoms. 05/31 No events overnight Patient is on 2L oxygen. Feeling better and her epistaxis is overall better. s/p HD yesterday with removal 2.5L. Afebrile. 06/01 Patient is lying in bed in NAD. Receiving HD. No recurrent epistaxis. 06/02 Patient is feeling better. PLT count 13 today receiving 1ubnit PLT. s/p HD yesterday with removal 2L. NPO Subjective: 06/03 Plt count up to 41 yesterday evening after 2 unit platelet transfusion. Labs this morning pending; ANC has persistently been zero. Afebrile. Delirious overnight and was pulling off oxygen and IVs, received Haldol 2.5 mg IV and was then sleeping. Disoriented this morning. Nurse states had similar confusion early in the admission but had improved. Nurses state appetite and po intake has been good. Glucose not well controlled. Objective Vital Signs Date Time Temp Pulse Resp B/P (MAP) Pulse Ox O2 Delivery O2 Flow Rate FiO2 06/03/17 05:00 88 13 137/66 (89) 97 06/03/17 00:08 97.4 06/02/17 19:25 Nasal Cannula 2.00 Intake and Output 06/03/17 06/03/17 06/04/17 08:00 16:00 00:00 Output Total 0 ml Balance 0 ml Result Diagram: 06/02/17 1750 06/02/17 0440 Imaging Last Impressions Thyroid Ultrasound 06/01/17 0000 Signed Impressions: Service Date/Time: May 07:58 - CONCLUSION: The thyroid gland is diffusely heterogeneous bilaterally. The right lobe is larger than the left. The isthmus is thickened at 1 cm. No discrete nodules are demonstrated. Mina Gerard MD Chest X-Ray 05/30/17 0000 Signed Impressions: Service Date/Time: Tuesday, May 30, 2017 13:28 - CONCLUSION: 1. There are new parenchymal changes in the right lung base. 2. Pulmonary venous congestion. Mina Gerard MD Chest CT 05/30/17 0000 Signed Impressions: Service Date/Time: Tuesday, May 30, 2017 22:03 - CONCLUSION: 1. Bilateral pleural effusions, right greater than left. Associated atelectasis on the right side and patchy infiltrates in the left lung. 2. Evidence of prior surgery to the right axilla with low density mass lateral to multiple hemoclips measuring in excess of 6 cm. 3. 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 Lai Lovell MD Sinuses CT 05/28/17 0000 Signed Impressions: Service Date/Time: Sunday, May 28, 2017 12:04 - CONCLUSION: Evidence for chronic sinus disease with minimal anatomic obstruction as above. Edvin Wang MD FACR Neck CT 05/24/17 1003 Signed Impressions: Service Date/Time: Wednesday, May 24, 2017 10:39 - CONCLUSION: . 1. Nonvisualization right jugular vein with edema worse on the right side of face than the left. 2. Patent left jugular vein and superior vena cava 3. Large inhomogeneous thyroid suggesting goiter 4. Degenerative changes cervical spine. 5. Inflammatory process cannot be entirely excluded. I do not centered in space abscess 6. Patient is edentulous Edvin Wang MD FACR Objective Remarks GENERAL: Patient is 82 yo female who is laying in the recumbent position in bed in soft wrist restraints. SKIN: Warm and dry. There is candidal intertriginous rash in left groin. HEAD: Normocephalic. No epistaxis. EYES: Bilateral pupils 5 mm and reactive to 3 mm. No scleral icterus. No injection or drainage. NECK: Supple, trachea midline. No mass appreciated. No JVD or lymphadenopathy. No meningismus CARDIOVASCULAR: Regular rate and rhythm, rate in 90s on monitor. 2/6 systolic murmur LSB. RESPIRATORY: Breath sounds equal bilaterally. Breathing comfortably with no accessory muscle use. on 2 L NC. GASTROINTESTINAL: Abdomen soft, non-tender, nondistended. Scar RUQ well healed MUSCULOSKELETAL: No cyanosis. Trace pedal edema VASC: LUE fistula with +thrill. NEURO: Asleep when I walked in the room but aroused immediately to voice. Confused, oriented to self only. Says she wants to go home. Moving all extremities without focal deficit. A/P Assessment and Plan 1. Respiratory insufficiency. 2. Epistaxis ( improved) 3. Pancytopenia related to methotrexate toxicity. 4. History of rheumatoid arthritis, previously on methotrexate. 5. End-stage renal disease. 6. Hypertension. 7. Hyperlipidemia. 8. Diabetes mellitus. 9. Agitated delirium 10. Skin and soft tissue infection Plan Neuro: Agitated delirium Monitor neuro status. Haldol 2.5 mg IV q4 hours prn. Seroquel 25 qhs. Obtain EKG, monitor Qtc (on diflucan). TSH normal, B12 not low Check ammonia. Check CT brain. Pulm: Continue with oxygen and maintain sats >92%. Bronchodilators, Solu-Medrol tapered yesterday to [address] chest: atelectasis on the right side and patchy infiltrates in the left lung. Evidence of prior surgery to the right axilla with low density mass lateral to multiple hemoclips measuring in excess of 6 cm. 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 Seen by surgery- signed off- no surgical intervention given her pancytopenia. CV: Hyperlipidemia Continue Cardizem 30mg Q6- Monitor HR and BP and maintain MAP> 65 mmHg. Pravastatin 10 mg p.o. nightly : ESRD Renal-Dr. Bautista On HD T,H, S- GI: On Pureed diet, thin liquids per speech. On Protonix for GI prophylaxis. ID: Skin and soft tissue infection (groin/under breast) Neutropenia Immunocompromised state Rheumatoid arthritis - methotrexate on hold due to toxicity/infection Abx per ID ( Ceftazidime 05/30 , Diflucan 05/30) BC 05/26 and 05/24: NGTD. Heme: Monitor CBC - platelet infusion per Heme. Transfused 2unit PLT for PLT count 13 on 06/02 On [id number] mcg daily, discontinued 06/02 by Hematology. On Epogen with HD, Folic acid 1mg daily, B12 1000 mcg p.o. daily ENT evaluated for epistaxis ( improved) Endo: Blood glucose is above target despite tapering of steroids. On high dose sliding scale every 4 hours and received 77 units coverage in last 24 hours. Add detemir 20 units subcut q12. Continue with Synthroid 200 mcg daily. TSH: 1.44 US thyroid: The thyroid gland is diffusely heterogeneous bilaterally. The right lobe is larger than the left. No discrete nodules are demonstrated GI prophylaxis with Protonix 40 mg daily and DVT prophylaxis with SCDs. Chemical anticoagulation prophylaxis is contraindicated in the setting of severe thrombocytopenia. ACCESS: PIV Level 2 Ramila Jaramillo MD Jun 03, 2017 06:43
[2017-06-03 06:52] LABS: CALCIUM 9.6 MG/DL (8.5-10.1)
[2017-06-03 06:53] LABS: BICARBONATE 28.5 MEQ/L (21.0-32.0)
[2017-06-03 07:04] LABS: CREATININE 5.9 MG/DL (0.50-1.00)
[2017-06-03 07:26] LABS: BANDS 7 % (0-6); CORRECTED NUCLEATED RBC 1 /100 WBC (0-0); LYMPHOCYTES 53 % (9-44); MONOCYTES 17 % (0-8); NEUTROPHIL # MANUAL DIFF 0.7 TH/MM3 (1.8-7.7); NUCLEATED RED BLOOD CELL 1 (0-0); POLYS (SEG NEUTROPHILS) 18 % (16-70)
[2017-06-03 07:27] LABS: OVALOCYTES 1+ (NORMAL); ROULEAUX PRESENT (NORMAL)
[2017-06-03] MEDS: methylPREDNISolone SOD SUCC 40 MG/1 ML VIAL IV PUSH SCH (08:22)
[2017-06-03] MEDS: FOLIC ACID 1 MG TAB PO SCH (08:22)
[2017-06-03] MEDS: INSULIN DETEMIR 100 UNITS/ML VIAL SQ SCH ×2 (08:23→20:15)
[2017-06-03] MEDS: CYANOCOBALAMIN 1,000 MCG TAB PO SCH (08:23)
[2017-06-03] MEDS: MUPIROCIN 2% OINT 22 GM TUBE TOPICAL SCH ×2 (09:00→20:19)
--- NOTE | 2017-06-03 09:14 | RADRPT ---
EXAM DATE/TIME: 06/03/2017 08:52 [facility] COMPARISON: No previous studies available for comparison. INDICATIONS : Altered mental status. RADIATION DOSE: 61.08 CTDIvol (mGy) MEDICAL HISTORY : Gastroesophageal reflux disease. Cardiovascular disease Hypertension.Diabetes, hemodialysis.Infection of the face, sinuses SURGICAL HISTORY : Cholecystectomy. Tonsillectomy. ENCOUNTER: Initial ACUITY: 1 day PAIN SCALE: 0/10 LOCATION: cranial TECHNIQUE: Multiple contiguous axial images were obtained of the head. Using automated exposure control and adj ustment of the mA and/or kV according to patient size, radiation dose was kept as low as reasonably a chievable to obtain optimal diagnostic quality images. DICOM format image data is available electro nically for review and comparison. FINDINGS: CEREBRUM: The ventricles are normal for age. No evidence of midline shift, mass lesion, hemorrhage or acute in farction. No extra-axial fluid collections are seen. POSTERIOR FOSSA: The cerebellum and brainstem are intact. The 4th ventricle is midline. The cerebellopontine angle i s unremarkable. EXTRACRANIAL: The visualized portion of the orbits is intact. Small polyps versus retention cysts are identified in the maxillary sinuses. SKULL: The calvaria is intact. No evidence of skull fracture. CONCLUSION: 1. No evidence of acute infarct, hemorrhage, mass or edema. 2. Small polyps versus retention cysts in the maxillary sinuses. Raudel Zamora MD on June 03, 2017 at 9:11 Board Certified Radiologist. This report was verified electronically.
[2017-06-03] MEDS: EPOETIN ALFA 10,000 UNITS/ML VIAL IV PUSH PRN (10:40)
[2017-06-03] MEDS: GELATIN 12 MM/7 MM FOAM TOP PRN (10:40)
[2017-06-03] MEDS: NYSTATIN 100,000 U/GM OINT 15 GM TUBE TOPICAL SCH ×2 (13:02→20:19)
[2017-06-03] MEDS: NYSTATIN 100,000 U/GM PWD 15 GM BTL TOPICAL SCH ×2 (13:02→20:20)
[2017-06-03] MEDS: PRAVASTATIN SOD 10 MG TAB PO SCH (13:09)
[2017-06-03] MEDS: MULTIVITAMIN TAB PO SCH (13:09)
[2017-06-03] MEDS: PANTOPRAZOLE SODIUM 40 MG VIAL IV PUSH SCH (17:26)
[2017-06-03] MEDS: FLUCONAZOLE 100 MG PREMIX BAG 50 ML IV SCH (20:13)
[2017-06-03] MEDS: FOLIC ACID IV SCH ×2 (20:16)
[2017-06-03] MEDS: cefTAZidime INJ 1,000 MG in SODIUM CHLORIDE 0.9% INJ 100 ML IV SCH (20:16)
[2017-06-03] MEDS: WATER IV SCH ×2 (20:16)
[2017-06-03] MEDS: DEXTROSE 5% IV SCH ×2 (20:16)
[2017-06-03] MEDS ORDERED: QUEtiapine FUMARATE 25 MG TAB PO SCH (21:00)
--- NOTE | 2017-06-03 21:52 | EKG ---
Date Performed: 06/03/2017 Time Performed: 16:12:52 PTAGE: 82 years EKG: Sinus rhythm POSSIBLE LEFT ATRIAL ENLARGEMENT BORDERLINE ECG No significant change from prior electrocardiogram. PREVIOUS TRACING : 05/11/2017 12.52 DOCTOR: Jimy Bhat Interpretating Date/Time 06/03/2017 21:52:05
[2017-06-04] VITALS (24 sets, daily range): BP systolic 124–156; BP diastolic 42–68; PULSE 80–98; RESP 13–29; TEMP 97.8–99.5; O2SAT 83–98
[2017-06-04] MEDS: INSULIN NovoLIN REGULAR SUPPLEMENTAL SCALE SQ SCH ×6 (00:44→22:37)
[2017-06-04] MEDS: DILTIAZEM HCL 30 MG TAB PO SCH ×2 (00:45→06:30)
--- NOTE | 2017-06-04 06:26 | HHI.CCPN ---
Subjective Remarks/Hospital Course Patient is an 82-year-old female with past medical history of end-stage renal disease on hemodialysis, rheumatoid arthritis on methotrexate, diabetes mellitus, hypertension, hyperlipidemia. She was admitted under hospitalist service on May 24 for right-sided buccal cellulitis and pancytopenia, which was thought related to methotrexate toxicity. During her hospital course , patient developed epistaxis and was seen by ENT. Chest x-ray was performed on May 26, which showed interstitial prominence and linear scarring at the right base. She also had CT scan of the sinuses which showed evidence for chronic sinus disease. Repeat chest x-ray was performed this afternoon, which showed new parenchymal changes in the right lung base and pulmonary venous congestion. She was placed on broad-spectrum antibiotics. Patient received platelet transfusion on May 28 for a platelet count of 18,000. Patient is being considered for a bone marrow biopsy. Also she was noted to have significant mucositis with crusting and bleeding of the oral mucosa. Critical Care Medicine was consulted for critical care management. When seen, she is currently receiving hemodialysis and is on 4 L oxygen with saturation of 97%, blood pressure 132/ 57 with a pulse of 86. Patient is afebrile. Her previous blood cultures from May 26 are negative. Patient denies any shortness of breath, chest pain or any constitutional symptoms. In addition, she denies any GI symptoms. 05/31 No events overnight Patient is on 2L oxygen. Feeling better and her epistaxis is overall better. s/p HD yesterday with removal 2.5L. Afebrile. 06/01 Patient is lying in bed in NAD. Receiving HD. No recurrent epistaxis. 06/02 Patient is feeling better. PLT count 13 today receiving 1ubnit PLT. s/p HD yesterday with removal 2L. NPO 06/03 Plt count up to 41 yesterday evening after 2 unit platelet transfusion. Labs this morning pending; ANC has persistently been zero. Afebrile. Delirious overnight and was pulling off oxygen and IVs, received Haldol 2.5 mg IV and was then sleeping. Disoriented this morning. Nurse states had similar confusion early in the admission but had improved. Nurses state appetite and po intake has been good. Glucose not well controlled. SUBJECTIVE: 06/04: This morning, difficult to arouse. Received quetiapine 25 mg 1. No haloperidol provided. Stat CT brain pending. Hemodialysis 2500 cc yesterday. Resting comfortably and did not require any as needed antipsychotics. A.m. laboratories currently pending. CT brain yesterday revealed no acute intracranial findings except possibly polyps. Platelet count and white blood cell count slowly increasing. Objective Vital Signs Date Time Temp Pulse Resp B/P (MAP) Pulse Ox O2 Delivery O2 Flow Rate FiO2 06/04/17 06:24 82 06/04/17 05:16 98.6 15 126/50 (75) 98 06/03/17 19:51 Nasal Cannula 2.00 Result Diagram: 06/03/17 0600 06/03/17 06 Other Results Microbiology Date/Time Source Procedure Growth Status 05/26/17 17:02 Blood Peripheral Aerobic Blood Culture - Final NO GROWTH IN 5 DAYS Complete 05/26/17 17:02 Blood Peripheral Anaerobic Blood Culture - Final NO GROWTH IN 5 DAYS Complete 05/26/17 09:03 Stool Stool Stool Occult Blood (TOBY) - Final HEMOCCULT NEGATIVE Complete Imaging Last Impressions Head CT 06/03/17 0000 Signed Impressions: Service Date/Time: Saturday, June 03, 2017 08:52 - CONCLUSION: 1. No evidence of acute infarct, hemorrhage, mass or edema. 2. Small polyps versus retention cysts in the maxillary sinuses. Raudel Zamora MD Thyroid Ultrasound 06/01/17 0000 Signed Impressions: Service Date/Time: May 07:58 - CONCLUSION: The thyroid gland is diffusely heterogeneous bilaterally. The right lobe is larger than the left. The isthmus is thickened at 1 cm. No discrete nodules are demonstrated. Mina Gerard MD Chest X-Ray 05/30/17 0000 Signed Impressions: Service Date/Time: Tuesday, May 30, 2017 13:28 - CONCLUSION: 1. There are new parenchymal changes in the right lung base. 2. Pulmonary venous congestion. Mina Gerard MD Chest CT 05/30/17 0000 Signed Impressions: Service Date/Time: Tuesday, May 30, 2017 22:03 - CONCLUSION: 1. Bilateral pleural effusions, right greater than left. Associated atelectasis on the right side and patchy infiltrates in the left lung. 2. Evidence of prior surgery to the right axilla with low density mass lateral to multiple hemoclips measuring in excess of 6 cm. 3. 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 Lai Lovell MD Sinuses CT 05/28/17 0000 Signed Impressions: Service Date/Time: Sunday, May 28, 2017 12:04 - CONCLUSION: Evidence for chronic sinus disease with minimal anatomic obstruction as above. Edvin Wang MD FACR Neck CT 05/24/17 1003 Signed Impressions: Service Date/Time: Wednesday, May 24, 2017 10:39 - CONCLUSION: . 1. Nonvisualization right jugular vein with edema worse on the right side of face than the left. 2. Patent left jugular vein and superior vena cava 3. Large inhomogeneous thyroid suggesting goiter 4. Degenerative changes cervical spine. 5. Inflammatory process cannot be entirely excluded. I do not centered in space abscess 6. Patient is edentulous Edvin Wang MD FACR Objective Remarks GENERAL: 82-year-old field resting in bed in no acute distress SKIN: Warm and dry. There is left-sided tinea cruris and left wrist bullae healing HEAD: Normocephalic. EYES: He was orotracheally round and react to light 4 mm to 3 mm. No scleral icterus. No injection or drainage. NECK: No significant thyromegaly appreciated. Supple. CARDIOVASCULAR: RRR. S1, S2. No S4. 2/6 systolic murmur lower sternal border RESPIRATORY: Essentially clear to auscultation bilaterally without wheezes rales or rhonchi GASTROINTESTINAL: Abdomen soft, non-tender, nondistended. Old right upper quadrant scar. MUSCULOSKELETAL: No cyanosis. Trace pedal edema VASC: LUE fistula with +thrill. NEURO: Awake and oriented to person place and time. Moves all 4 extremities spontaneously. Normal sensation.. Urinary Catheter: No Assessment to: Continue Vascular Central Line Catheter: No Assessment to: Continue A/P Assessment and Plan Neuro/Psych: Agitated delirium - toxic metabolic encephalopathy secondary to underlying illness/steroids/polypharmacy Depression disorder NOS History of right cataract Discontinue all antipsychotic medications as patient is currently with altered mental status Stat CT brain now Prior to receiving quetiapine patient was awake and oriented to person place and time per RN. Acetaminophen 650 mg by mouth every 6 hours when necessary fever/pain 1-10 CT brain 06/03 revealed no acute intracranial findings. Maxillary retention cyst. Holding home medication escitalopram 10 mg by mouth daily Pulm: Chronic respiratory insufficiency - 2 L nasal cannula Epistaxis - resolved Continue with oxygen and maintain sats >92%. Incentive spirometry while awake Albuterol/ipratropium aerosols every 6 hours with albuterol aerosols every 2 hours. Dyspnea Methylprednisolone succinate 40 milligrams IV every [address] thorax: atelectasis on the right side and patchy infiltrates in the left lung. Evidence of prior surgery to the right axilla with low density mass lateral to multiple hemoclips measuring in excess of 6 cm. Substernal goiter on the right side causing very mild clinically insignificant tracheal deviation. Seen by general surgery- signed off- no surgical intervention given her pancytopenia and no involvement as this likely has been present for "years" and causing no respiratory issues Aminocaproic acid liquid 1000 mg every 6 hours when necessary for bleeding gums Oxymetazoline nasal prn epistaxis ENT evaluated for epistaxis ( improved) CV: Hyperlipidemia Hypertension Grade 1 diastolic dysfunction Mild pulmonary hypertension Currently on Cardizem 30mg Q6- Monitor HR and BP and maintain MAP> 65 mmHg. Switch to home medications carvedilol and amlodipine see orders Pravastatin 10 mg p.o. nightly/home medication for dyslipidemia 2-D echocardiogram revealed grade 1 diastolic dysfunction. Ejection fraction 55%. Mild pulmonary hypertension. Home medications are carvedilol 25 mg in the morning, 12.5 mg at night, isosorbide nitrate 30 mg daily amlodipine 10 mg by mouth daily. Aspirin 81 mg by mouth daily light of epistaxis Renal/: ESRD Renal-Dr. Bautista On HD T,H, S- -2500 cc on Monday GI: Gastroesophageal reflux disease Hypoalbuminemia On Pureed diet, no liquid restrictions per speech. Protonix 40 mg daily for acid reflux disease on omeprazole 20 mg by mouth daily at home Docusate sodium/senna 1 tablet twice a day for bowel regimen ID: Skin and soft tissue infection (groin/under breast) Immunocompromised state Abx per ID ( Ceftazidime 05/30 , fluconazole 05/30) BC 05/26 and 05/24: NGTD. Dr. Brown /infectious disease following Rheum: Rheumatoid arthritis - methotrexate on hold due to toxicity/infection Heme: Pancytopenia - leukopenia, macrocytic anemia and thrombocytopenia History of anemia of chronic kidney disease Monitor CBC - platelet infusion per Heme. Transfused 2unit PLT for PLT count 13 on 06/02 Previously on Neupogen 480 mcg daily, discontinued 06/02 by Hematology. On Epogen 10,000 units when necessary with HD, Folic acid 0.8 mg IV daily, B12 [address] Campos following Endo: Diabetes mellitus type 2 Hypothyroidism Novulin R high dose sliding scale every 4 hours Discontinue scheduled detemir with hypoglycemia at night. We'll switch to Novulin N 30 units in AM, 10 units @ noc 60 units sliding scale insulin past 24 hours Continue with levothyroxine 200 mcg daily. TSH: 1.44 US thyroid: The thyroid gland is diffusely heterogeneous bilaterally. The right lobe is larger than the left. No discrete nodules are demonstrated FEN: Replace electrolytes as clinically indicated MSK: Osteoarthritis/gouty arthritis? PT evaluate and treat PCM allopurinol 100 mg by mouth daily. This is on hold? Access - Utilize peripheral IV. Central line if indicated Prophylaxis - GI - pantoprazole - DVT - SCD/holding pharmacological prophylaxis in light of almost thrombocytopenia and recent epistaxis. Level I follow-up John Paul Mojica MD Jun 04, 2017 06:26
[2017-06-04] MEDS: LEVOTHYROXINE SODIUM 100 MCG TAB PO SCH (06:30)
[2017-06-04] MEDS ORDERED: RESP: ALBUTEROL 2.5 MG/3 ML NEB (PRN) NEB (06:45)
[2017-06-04] MEDS ORDERED: NITROGLYCERIN 2% OINT 1 GM PACKET TOPICAL PRN (07:15)
[2017-06-04] MEDS ORDERED: LABETALOL HCL 100 MG/20 ML VIAL IV PUSH PRN (07:15)
[2017-06-04] MEDS ORDERED: INSULIN HUMAN NPH 1,000 UNITS/10 ML VIAL SQ SCH ×2 (08:00→17:00)
[2017-06-04] MEDS: RESP: ALBUTEROL 2.5 MG/IPRATROPIUM 0.5 MG NEB (SCH) NEB ×3 (09:48→21:02)
--- NOTE | 2017-06-04 09:50 | HHI.IDPN ---
Subjective Subjective Remarks Doing better No more fevers Oral ulcers / bleeding healing but bleeding is resolved she is able to take liquids Allergies: Coded Allergies: No Known Allergies (Unverified , 05/28/17) Objective . Vital Signs Date Time Temp Pulse Resp B/P (MAP) Pulse Ox O2 Delivery O2 Flow Rate FiO2 06/04/17 06:24 82 06/04/17 05:16 98.6 82 15 126/50 (75) 98 06/04/17 04:00 84 06/04/17 03:00 91 06/04/17 01:54 92 13 142/63 (89) 97 06/04/17 00:54 92 13 149/62 (91) 83 06/04/17 00:00 87 06/03/17 23:55 98.1 84 13 146/55 (85) 98 06/03/17 22:55 96 16 141/58 (85) 97 06/03/17 22:00 98 06/03/17 21:56 96 13 141/60 (87) 96 06/03/17 20:35 97.9 104 17 117/71 (86) 95 06/03/17 20:21 103 06/03/17 19:57 102 17 131/63 (85) 97 06/03/17 19:51 96 Nasal Cannula 2.00 06/03/17 19:10 99 Nasal Cannula 4.50 06/03/17 18:00 96 06/03/17 17:00 94 06/03/17 17:00 96 17 133/59 (83) 99 06/03/17 16:00 98.1 98 26 126/59 (81) 96 06/03/17 16:00 98 06/03/17 15:00 106 25 147/56 (86) 93 06/03/17 15:00 102 06/03/17 14:00 98 15 97 06/03/17 14:00 98 06/03/17 13:00 104 36 134/81 (98) 97 06/03/17 13:00 104 06/03/17 12:00 98.3 100 16 126/56 (79) 99 06/03/17 12:00 90 06/03/17 11:00 98 06/03/17 11:00 102 19 107/51 (69) 97 06/03/17 10:00 100 06/03/17 10:00 100 21 119/61 (80) 96 . Laboratory Tests Test 06/02/17 17:50 06/03/17 06:00 Platelet Count 41 TH/MM3 62 TH/MM3 White Blood Count 2.9 TH/MM3 Red Blood Count 2.74 MIL/MM3 Hemoglobin 9.0 GM/DL Hematocrit 27.7 % Mean Corpuscular Volume 101.1 FL Mean Corpuscular Hemoglobin 32.7 PG Mean Corpuscular Hemoglobin Concent 32.4 % Red Cell Distribution Width 15.7 % Mean Platelet Volume 8.5 FL CBC Comment AUTO DIFF Differential Total Cells Counted 100 Neutrophils % (Manual) 18 % Band Neutrophils % 7 % Lymphocytes % 53 % Monocytes % 17 % Eosinophils % 5 % Neutrophils # (Manual) 0.7 TH/MM3 Nucleated Red Blood Cells 1 /100 WBC Differential Comment FINAL DIFF MANUAL Platelet Estimate LOW Platelet Morphology Comment NORMAL Basophilic Stippling FAINT Ovalocytes 1+ Rouleau PRESENT Laboratory Tests Test 06/03/17 06:00 06/03/17 08:35 Blood Urea Nitrogen 74 MG/DL Creatinine 5.90 MG/DL Random Glucose 150 MG/DL Calcium Level 9.6 MG/DL Sodium Level 141 MEQ/L Potassium Level 4.0 MEQ/L Chloride Level 99 MEQ/L Carbon Dioxide Level 28.5 MEQ/L Anion Gap 14 MEQ/L Estimat Glomerular Filtration Rate 7 ML/MIN Ammonia 22 MCMOL/L Physical Exam GENERAL: This is a chronically ill patient who is alert, oriented x 3 SKIN: Candidiasis in groin and under breasts. HEAD: Atraumatic. Normocephalic. No temporal or scalp tenderness. EYES: Pupils equal round and reactive. Extraocular motions intact. No scleral icterus. No injection or drainage. ENT: Nose with bleeding, no purulent drainage or septal hematoma. Throat with erythema & bleeding, tonsillar hypertrophy or exudate. Uvula midline. Airway patent. NECK: Trachea midline. No JVD or lymphadenopathy. Supple, nontender, no meningeal signs. CARDIOVASCULAR: Regular rate and rhythm without murmurs, gallops, or rubs. RESPIRATORY: Clear to auscultation. Breath sounds equal bilaterally. No wheezes , rales, or rhonchi. GASTROINTESTINAL: Abdomen soft, non-tender, nondistended. No hepato-splenomegaly , or palpable masses. No guarding. MUSCULOSKELETAL: Extremities without clubbing, cyanosis, or edema. No joint tenderness, effusion, or edema noted. No calf tenderness. Negative Homans sign bilaterally. NEUROLOGICAL: Awake and alert. Cranial nerves II through XII intact. Motor and sensory grossly within normal limits. Five out of 5 muscle strength in all muscle groups. Normal speech. Assessment & Plan Diagnosis: (1) DM2 (diabetes mellitus, type 2) ICD Codes: E11.9 - Type 2 diabetes mellitus without complications (2) Soft tissue infection ICD Codes: L08.9 - Local infection of the skin and subcutaneous tissue, unspecified Status: Acute (3) Pancytopenia ICD Codes: D61.818 - Other pancytopenia Plan: She is ok to stop isolation wbc 2.9 on Fortaz and fluconazole can change to PO soon will monitor and fu (4) ESRD (end stage renal disease) on dialysis ICD Codes: N18.6 - End stage renal disease; Z99.2 - Dependence on renal dialysis Yvonne Frye Jun 04, 2017 09:50
[2017-06-04 10:46] LABS: AUTOMATED NEUTROPHIL # 9.2 TH/MM3 (1.8-7.7); BASOPHIL % 0.1 % (0.0-2.0); EOSINOPHIL # 0.1 TH/MM3 (0-0.4); EOSINOPHIL % 0.6 % (0.0-4.0); HEMATOCRIT 26.9 % (35.0-46.0); HEMOGLOBIN 9.2 GM/DL (11.6-15.3); LYMPH % 16.7 % (9.0-44.0); LYMPHOCYTE # 2.1 TH/MM3 (1.0-4.8); MEAN CELL VOLUME 101.6 FL (80.0-100.0); MEAN CORPUSCULAR HEMOGLOBIN 34.6 PG (27.0-34.0); MEAN CORPUSCULAR HGB CONC 34.1 % (32.0-36.0); MEAN PLATELET VOLUME 8.1 FL (7.0-11.0); MONOCYTE # 0.9 TH/MM3 (0-0.9); NEUT % 75.6 % (16.0-70.0); PLATELET COUNT 86 TH/MM3 (150-450); RED BLOOD COUNT 2.65 MIL/MM3 (4.00-5.30); RED CELL DISTRIBUTION WIDTH 16.1 % (11.6-17.2); WHITE BLOOD COUNT 12.3 TH/MM3 (4.0-11.0)
[2017-06-04] MEDS: amLODIPine BESYLATE 5 MG TAB PO SCH (10:56)
[2017-06-04] MEDS: CARVEDILOL 6.25 MG TAB PO SCH ×2 (10:56→20:40)
[2017-06-04] MEDS: PANTOPRAZOLE SOD 40 MG DELAYED RELEASE TAB PO SCH (10:56)
[2017-06-04] MEDS: PRAVASTATIN SOD 10 MG TAB PO SCH (10:56)
[2017-06-04] MEDS: CYANOCOBALAMIN 1,000 MCG TAB PO SCH (10:56)
[2017-06-04] MEDS: MULTIVITAMIN TAB PO SCH (10:56)
[2017-06-04] MEDS: methylPREDNISolone SOD SUCC 40 MG/1 ML VIAL IV PUSH SCH (10:56)
[2017-06-04] MEDS: MUPIROCIN 2% OINT 22 GM TUBE TOPICAL SCH ×2 (10:57→20:40)
[2017-06-04] MEDS: NYSTATIN 100,000 U/GM PWD 15 GM BTL TOPICAL SCH ×2 (10:57→20:41)
[2017-06-04 11:31] LABS: BLOOD UREA NITROGEN 56 MG/DL (7-18); GLOMERULAR FILTRATION RATE 9 ML/MIN (>89); GLUCOSE,RANDOM 90 MG/DL (74-106); TOTAL PROTEIN 6.2 GM/DL (6.4-8.2)
[2017-06-04 11:32] LABS: ALBUMIN 2.5 GM/DL (3.4-5.0); ALKALINE PHOSPHATASE 96 U/L (45-117); ALT (GPT) 28 U/L (10-53); AST (GOT) 20 U/L (15-37); BICARBONATE 32.8 MEQ/L (21.0-32.0); CALCIUM 9.1 MG/DL (8.5-10.1); CHLORIDE 99 MEQ/L (98-107); PHOSPHORUS 3.6 MG/DL (2.5-4.9); SODIUM (NA) 141 MEQ/L (136-145); TOTAL BILIRUBIN ADULT 0.4 MG/DL (0.2-1.0)
[2017-06-04 11:57] LABS: BANDS 18 % (0-6); BLASTS 1 % (0-0); CORRECTED NUCLEATED RBC 2 /100 WBC (0-0); LYMPHOCYTES 20 % (9-44); METAMYELOCYTES 4 % (0-1); MONOCYTES 6 % (0-8); MYELOCYTES 4 % (0-0); NEUTROPHIL # MANUAL DIFF 8.7 TH/MM3 (1.8-7.7); NUCLEATED RED BLOOD CELL 2 (0-0); POLYS (SEG NEUTROPHILS) 42 % (16-70); PROMYELOCYTES 3 % (0-0)
[2017-06-04 11:58] LABS: DOHLE BODIES PRESENT (NONE SEEN); OVALOCYTES 1+ (NORMAL); ROULEAUX PRESENT (NORMAL); TOXIC GRANULATION 1+ (NORMAL)
[2017-06-04] MEDS: INSULIN HUMAN NPH 1,000 UNITS/10 ML VIAL SQ SCH (18:11)
--- NOTE | 2017-06-04 19:23 | HHI.NPPN ---
Subjective History of Present Illness 82-year-old female with known history of end-stage renal disease on dialysis, diabetes, hypothyroidism, breast cancer, hypertension, hyperlipidemia , and rheumatoid arthritis.Patient presented to ED for suspected buccal cellulitis. Patient was in her usual state of health until about Monday nights when she began experiencing some gradual onset of bilateral facial edema and pain. Patient found to have anemia and Hgb. drop further. Additional Remarks This is a late entry, the note for 06/03/17. Patient is alert, no SOB, feeling better. Review of Systems General Constitutional: Fatigue Ears, Nose, & Throat Ears, Nose & Throat: Sore Throat Respiratory Lungs: SOB, Cough Cardiovascular Cardiac: ANDRADE Objective Data Data 06/04/17 06/05/17 19:00 07:00 Intake Total 720 ml Balance 720 ml Intake Oral 720 ml # Voids 3 # Bowel Movements 1 Vital Signs Date Time Temp Pulse Resp B/P (MAP) Pulse Ox O2 Delivery O2 Flow Rate FiO2 06/04/17 18:00 92 06/04/17 17:00 94 16 141/57 (85) 97 06/04/17 16:00 98.4 98 25 141/55 (83) 96 06/04/17 16:00 98 06/04/17 14:00 80 06/04/17 12:00 84 06/04/17 12:00 98.2 84 13 141/51 (81) 97 06/04/17 11:00 88 13 130/54 (79) 97 06/04/17 10:00 82 19 131/68 (89) 98 06/04/17 10:00 82 06/04/17 09:00 84 29 124/43 (70) 94 06/04/17 08:00 82 06/04/17 08:00 97.8 92 21 152/42 (78) 90 06/04/17 08:00 97 Nasal Cannula 3.00 06/04/17 07:00 97 Nasal Cannula 2.00 06/04/17 06:24 82 06/04/17 05:16 98.6 82 15 126/50 (75) 98 06/04/17 04:00 84 06/04/17 03:00 91 06/04/17 01:54 92 13 142/63 (89) 97 06/04/17 00:54 92 13 149/62 (91) 83 06/04/17 00:00 87 06/03/17 23:55 98.1 84 13 146/55 (85) 98 06/03/17 22:55 96 16 141/58 (85) 97 06/03/17 22:00 98 06/03/17 21:56 96 13 141/60 (87) 96 06/03/17 20:35 97.9 104 17 117/71 (86) 95 06/03/17 20:21 103 06/03/17 19:57 102 17 131/63 (85) 97 06/03/17 19:51 96 Nasal Cannula 2.00 -: 06/04/17 1027 06/04/17 1027 Physical Exam General Appearance: No Acute Distress, Comfortable Eyes Eye Exam: Pupils Equal Throat Throat Remarks Painful opening of mouth, with tenderness over TM joint and some swelling. Neck Neck Exam: Neck Supple Pulmonary Resp Exam: Breath Sounds Equal, No Distress, Decreased Bases Cardiology CV Exam: Regular, Normal Sinus Rhythm Gastrointestinal/Abdomen GI Exam: Soft, Non-Tender, Bowel Sounds Present Extremeties Extremities Exam: Trace Edema Neurologic Neuro Exam: Alert, Awake, Oriented Psychiatric Psych Exam: Appropriate Responses Assessment/Plan Problem List: (1) ESRD (end stage renal disease) on dialysis ICD Codes: N18.6 - End stage renal disease; Z99.2 - Dependence on renal dialysis Plan: HD TTS, 3 times a week. Anemia of chronic disease Epogen with dialysis Continue antibiotics, remain afebrile. Patient develop Pancytopenia. Seen by Hematology. Hematology follow up noted. On Neupogen, WBC and platelets improving. HD will be today, not using Heparin. Remove fluid as tolerated. (2) HTN (hypertension) ICD Codes: I10 - Essential (primary) hypertension Plan: Home medications continued (3) Soft tissue infection ICD Codes: L08.9 - Local infection of the skin and subcutaneous tissue, unspecified Status: Acute Plan: Continue antibiotics Renal dosing Priti Bautista MD Jun 04, 2017 19:23
--- NOTE | 2017-06-04 19:24 | HHI.NPPN ---
Subjective History of Present Illness 82-year-old female with known history of end-stage renal disease on dialysis, diabetes, hypothyroidism, breast cancer, hypertension, hyperlipidemia , and rheumatoid arthritis.Patient presented to ED for suspected buccal cellulitis. Patient was in her usual state of health until about Monday nights when she began experiencing some gradual onset of bilateral facial edema and pain. Patient found to have anemia and Hgb. drop further. Additional Remarks Patient is alert, no SOB, feeling better, started eating better. Review of Systems General Constitutional: Fatigue Ears, Nose, & Throat Ears, Nose & Throat: Sore Throat Respiratory Lungs: SOB, Cough Cardiovascular Cardiac: ANDRADE Objective Data Data 06/04/17 06/05/17 19:00 07:00 Intake Total 720 ml Balance 720 ml Intake Oral 720 ml # Voids 3 # Bowel Movements 1 Vital Signs Date Time Temp Pulse Resp B/P (MAP) Pulse Ox O2 Delivery O2 Flow Rate FiO2 06/04/17 18:00 92 06/04/17 17:00 94 16 141/57 (85) 97 06/04/17 16:00 98.4 98 25 141/55 (83) 96 06/04/17 16:00 98 06/04/17 14:00 80 06/04/17 12:00 84 06/04/17 12:00 98.2 84 13 141/51 (81) 97 06/04/17 11:00 88 13 130/54 (79) 97 06/04/17 10:00 82 19 131/68 (89) 98 06/04/17 10:00 82 06/04/17 09:00 84 29 124/43 (70) 94 06/04/17 08:00 82 06/04/17 08:00 97.8 92 21 152/42 (78) 90 06/04/17 08:00 97 Nasal Cannula 3.00 06/04/17 07:00 97 Nasal Cannula 2.00 06/04/17 06:24 82 06/04/17 05:16 98.6 82 15 126/50 (75) 98 06/04/17 04:00 84 06/04/17 03:00 91 06/04/17 01:54 92 13 142/63 (89) 97 06/04/17 00:54 92 13 149/62 (91) 83 06/04/17 00:00 87 06/03/17 23:55 98.1 84 13 146/55 (85) 98 06/03/17 22:55 96 16 141/58 (85) 97 06/03/17 22:00 98 06/03/17 21:56 96 13 141/60 (87) 96 06/03/17 20:35 97.9 104 17 117/71 (86) 95 06/03/17 20:21 103 06/03/17 19:57 102 17 131/63 (85) 97 06/03/17 19:51 96 Nasal Cannula 2.00 -: 06/04/17 1027 06/04/17 1027 Physical Exam General Appearance: No Acute Distress, Comfortable Eyes Eye Exam: Pupils Equal Throat Throat Remarks Painful opening of mouth, with tenderness over TM joint and some swelling. Neck Neck Exam: Neck Supple Pulmonary Resp Exam: Breath Sounds Equal, No Distress, Decreased Bases Cardiology CV Exam: Regular, Normal Sinus Rhythm Gastrointestinal/Abdomen GI Exam: Soft, Non-Tender, Bowel Sounds Present Extremeties Extremities Exam: Trace Edema Neurologic Neuro Exam: Alert, Awake, Oriented Psychiatric Psych Exam: Appropriate Responses Assessment/Plan Problem List: (1) ESRD (end stage renal disease) on dialysis ICD Codes: N18.6 - End stage renal disease; Z99.2 - Dependence on renal dialysis Plan: HD TTS, 3 times a week. Anemia of chronic disease Epogen with dialysis Continue antibiotics, remain afebrile. Patient develop Pancytopenia. Seen by Hematology. Hematology follow up noted. On Neupogen, WBC and platelets improving. HD done yesterday and 2.5 liters removed. Tolerated well, BP is stable. (2) HTN (hypertension) ICD Codes: I10 - Essential (primary) hypertension Plan: Home medications continued (3) Soft tissue infection ICD Codes: L08.9 - Local infection of the skin and subcutaneous tissue, unspecified Status: Acute Plan: Continue antibiotics Renal dosing Priti Bautista MD Jun 04, 2017 19:24
--- NOTE | 2017-06-04 20:22 | PD.ONC.PN ---
Subjective Subjective Remarks feels better. Facial swelling has resolved. No Fevers. Objective Data Date Time Temp Pulse Resp B/P (MAP) Pulse Ox O2 Delivery O2 Flow Rate FiO2 06/04/17 18:00 92 06/04/17 17:00 94 16 141/57 (85) 97 06/04/17 16:00 98.4 98 25 141/55 (83) 96 06/04/17 16:00 98 06/04/17 14:00 80 06/04/17 12:00 84 06/04/17 12:00 98.2 84 13 141/51 (81) 97 06/04/17 11:00 88 13 130/54 (79) 97 06/04/17 10:00 82 19 131/68 (89) 98 06/04/17 10:00 82 06/04/17 09:00 84 29 124/43 (70) 94 06/04/17 08:00 82 06/04/17 08:00 97.8 92 21 152/42 (78) 90 06/04/17 08:00 97 Nasal Cannula 3.00 06/04/17 07:00 97 Nasal Cannula 2.00 06/04/17 06:24 82 06/04/17 05:16 98.6 82 15 126/50 (75) 98 06/04/17 04:00 84 06/04/17 03:00 91 06/04/17 01:54 92 13 142/63 (89) 97 06/04/17 00:54 92 13 149/62 (91) 83 06/04/17 00:00 87 06/03/17 23:55 98.1 84 13 146/55 (85) 98 06/03/17 22:55 96 16 141/58 (85) 97 06/03/17 22:00 98 06/03/17 21:56 96 13 141/60 (87) 96 06/03/17 20:35 97.9 104 17 117/71 (86) 95 06/03/17 20:21 103 06/04/17 06/04/17 06/04/17 07:00 15:00 23:00 Intake Total 720 ml Output Total 0 ml Balance 0 ml 720 ml Result Diagram: 06/04/17 1027 06/04/17 1027 Laboratory Results Laboratory Tests Test 06/04/17 10:27 White Blood Count 12.3 TH/MM3 Red Blood Count 2.65 MIL/MM3 Hemoglobin 9.2 GM/DL Hematocrit 26.9 % Mean Corpuscular Volume 101.6 FL Mean Corpuscular Hemoglobin 34.6 PG Mean Corpuscular Hemoglobin Concent 34.1 % Red Cell Distribution Width 16.1 % Platelet Count 86 TH/MM3 Mean Platelet Volume 8.1 FL Neutrophils (%) (Auto) 75.6 % Lymphocytes (%) (Auto) 16.7 % Monocytes (%) (Auto) 7.0 % Eosinophils (%) (Auto) 0.6 % Basophils (%) (Auto) 0.1 % Neutrophils # (Auto) 9.2 TH/MM3 Lymphocytes # (Auto) 2.1 TH/MM3 Monocytes # (Auto) 0.9 TH/MM3 Eosinophils # (Auto) 0.1 TH/MM3 Basophils # (Auto) 0.0 TH/MM3 CBC Comment AUTO DIFF Differential Total Cells Counted 100 Neutrophils % (Manual) 42 % Band Neutrophils % 18 % Lymphocytes % 20 % Monocytes % 6 % Eosinophils % 2 % Neutrophils # (Manual) 8.7 TH/MM3 Metamyelocytes 4 % Myelocytes 4 % Promyelocytes 3 % Nucleated Red Blood Cells 2 /100 WBC Differential Comment FINAL DIFF MANUAL Blastocytes 1 % Toxic Granulation 1+ Dohle Bodies PRESENT Platelet Estimate LOW Platelet Morphology Comment NORMAL Basophilic Stippling MOD Ovalocytes 1+ Rouleau PRESENT Blood Urea Nitrogen 56 MG/DL Creatinine 4.80 MG/DL Random Glucose 90 MG/DL Total Protein 6.2 GM/DL Albumin 2.5 GM/DL Calcium Level 9.1 MG/DL Phosphorus Level 3.6 MG/DL Magnesium Level 2.0 MG/DL Alkaline Phosphatase 96 U/L Aspartate Amino Transf (AST/SGOT) 20 U/L Alanine Aminotransferase (ALT/SGPT) 28 U/L Total Bilirubin 0.4 MG/DL Sodium Level 141 MEQ/L Potassium Level 3.7 MEQ/L Chloride Level 99 MEQ/L Carbon Dioxide Level 32.8 MEQ/L Anion Gap 9 MEQ/L Estimat Glomerular Filtration Rate 9 ML/MIN Administered Medications Medications (Trade) Dose Ordered Sig/Woodrow Route PRN Reason Start Time Stop Time Status Last Admin Dose Admin Cyanocobalamin (Vitamin B12) 1,000 mcg DAILY PO 05/24/17 16:00 06/04/17 10:56 Pravastatin Sodium (Pravachol) 10 mg DAILY PO 05/24/17 16:00 06/04/17 10:56 Albumin Human 100 ml @ 60 mls/hr UNSCH PRN IV WITH DIALYSIS 05/24/17 16:00 05/27/17 09:18 Sodium Chloride (NS Flush) 5 ml UNSCH PRN IV FLUSH WITH DIALYSIS 05/24/17 16:00 05/31/17 01:43 Ondansetron HCl (Zofran Inj) 4 mg UNSCH PRN IV PUSH WITH DIALYSIS 05/24/17 16:00 05/28/17 06:09 Acetaminophen (Tylenol) 650 mg UNSCH PRN PO for headach, pain, temp > 101F 05/24/17 16:00 05/27/17 03:29 Diphenhydramine HCl (Benadryl) 25 mg UNSCH PRN PO for hives/itching/anaphylaxis 05/24/17 16:00 05/27/17 23:53 Epoetin Cesar (Epogen Inj) 10,000 units UNSCH PRN IV PUSH WITH DIALYSIS 05/24/17 16:00 06/03/17 10:40 Gelatin (Gelfoam 12 Mm/7 Mm Top) 1 foam UNSCH PRN TOP SEE LABEL COMMENTS 05/24/17 16:00 06/03/17 10:40 Nystatin (Mycostatin Powder) 1 applic Q12HR TOPICAL 05/24/17 21:00 06/04/17 10:57 Multivitamins (Theragran) 1 tab DAILY PO 05/27/17 09:00 06/04/17 10:56 Levothyroxine Sodium (Synthroid) 200 mcg DAILY@0600 PO 05/28/17 06:00 06/04/17 06:30 Mupirocin (Bactroban 2% Oint) 1 applic BID TOPICAL 05/30/17 09:00 06/04/17 10:57 Dextrose (D50w (Vial) Inj) 50 ml UNSCH PRN IV PUSH HYPOGLYCEMIA-SEE COMMENTS 05/30/17 17:15 06/04/17 08:46 Ceftazidime 1000 mg/Sodium Chloride 100 ml @ 200 mls/hr DAILY@2100 IV 05/30/17 21:00 06/03/17 20:16 Fluconazole/ Sodium Chloride 50 ml @ 50 mls/hr Q24H IV 05/30/17 20:00 06/03/17 20:13 Methylprednisolone Sodium Succinate (SoluMEDROL INJ) 40 mg DAILY IV PUSH 06/03/17 09:00 06/04/17 10:56 Insulin Human Regular (NovoLIN R SUPPLEMENTAL SCALE) 1 Q4H SQ 06/02/17 16:00 06/04/17 18:10 Pantoprazole Sodium (Protonix) 40 mg DAILY PO 06/04/17 09:00 06/04/17 10:56 Albuterol/ Ipratropium (Duoneb Neb) 1 ampule Q6HR WHILE AWAKE NEB NEB 06/04/17 08:00 06/04/17 14:58 Carvedilol (Coreg) 6.25 mg Q12HR PO 06/04/17 09:00 06/04/17 10:56 Amlodipine Besylate (Norvasc) 5 mg DAILY PO 06/04/17 09:00 06/04/17 10:56 Insulin Human NPH (NovoLIN N INJ) 5 units DAILY@17 SQ 06/04/17 17:00 06/04/17 18:11 Objective Remarks GENERAL: Well-nourished, well-developed patient. SKIN: Warm and dry. HEAD: Normocephalic. EYES: No scleral icterus. No injection or drainage. NECK: Supple, trachea midline. No JVD or lymphadenopathy. LYMPHATIC: No adenopathy. CARDIOVASCULAR: Regular rate and rhythm without murmurs. RESPIRATORY: Breath sounds equal bilaterally. No accessory muscle use. GASTROINTESTINAL: Abdomen soft, non-tender, nondistended. EXTREMITIES: No cyanosis, or edema. NEUROLOGICAL: Awake, alert, and oriented x3. Assessment/Plan Assessment 82-year-old female with a history of end-stage renal failure, type 2 diabetes, rheumatoid arthritis. She has been on therapy for rheumatoid arthritis with 10 mg of methotrexate once a week restarted around Nov 2016. She presented with pancytopenia. 1. 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 - continue B12 and Folic acid - prn transfusion to keep Hb> 7.[address] > 20 - continue epogen with dialysis - continue Neupogen but increase dose to 480mcg - On Abx - continue supportive care. Also on corticosteroids. 06/02/2017: She continues to improve clinically is now eating. I am concerned about her ANC being 0 persistently. 06/04/17 : Neutropenia has resolved. Off of Neutropenic precautions. Last dose of Neupogen on friday 06/02 Plat are coming up as well. continue epogen with HD. Continue folic acid for MTX toxicity. Pt needs to D/W Dr Melendez ( Custodian Manager ) for alternative Meds for RA. She should not resume MTX as she has ESRD and on HD Plan Vanessa Crockett MD Jun 04, 2017 20:22
[2017-06-04] MEDS: SODIUM CHLORIDE 0.9% IV SCH (20:40)
[2017-06-04] MEDS: FOLIC ACID IV SCH (20:40)
[2017-06-04] MEDS: FLUCONAZOLE 100 MG PREMIX BAG 50 ML IV SCH (20:40)
[2017-06-04] MEDS: cefTAZidime INJ 1,000 MG in SODIUM CHLORIDE 0.9% INJ 100 ML IV SCH (20:41)
[2017-06-04] MEDS ORDERED: FOLIC ACID 1 MG/0.2 ML INJ IV SCH (21:00)
[2017-06-05] VITALS (26 sets, daily range): BP systolic 132–190; BP diastolic 45–81; PULSE 80–98; RESP 12–26; TEMP 98.1–99.1; O2SAT 92–100
[2017-06-05] MEDS: INSULIN NovoLIN REGULAR SUPPLEMENTAL SCALE SQ SCH ×6 (03:13→21:32)
[2017-06-05] MEDS: LEVOTHYROXINE SODIUM 100 MCG TAB PO SCH (05:58)
[2017-06-05] MEDS: hydrALAZINE HCL 20 MG/ML VIAL IV PUSH PRN ×2 (06:04→16:12)
--- NOTE | 2017-06-05 06:19 | HHI.CCPN ---
Subjective Remarks/Hospital Course Patient is an 82-year-old female with past medical history of end-stage renal disease on hemodialysis, rheumatoid arthritis on methotrexate, diabetes mellitus, hypertension, hyperlipidemia. She was admitted under hospitalist service on May 24 for right-sided buccal cellulitis and pancytopenia, which was thought related to methotrexate toxicity. During her hospital course , patient developed epistaxis and was seen by ENT. Chest x-ray was performed on May 26, which showed interstitial prominence and linear scarring at the right base. She also had CT scan of the sinuses which showed evidence for chronic sinus disease. Repeat chest x-ray was performed this afternoon, which showed new parenchymal changes in the right lung base and pulmonary venous congestion. She was placed on broad-spectrum antibiotics. Patient received platelet transfusion on May 28 for a platelet count of 18,000. Patient is being considered for a bone marrow biopsy. Also she was noted to have significant mucositis with crusting and bleeding of the oral mucosa. Critical Care Medicine was consulted for critical care management. When seen, she is currently receiving hemodialysis and is on 4 L oxygen with saturation of 97%, blood pressure 132/ 57 with a pulse of 86. Patient is afebrile. Her previous blood cultures from May 26 are negative. Patient denies any shortness of breath, chest pain or any constitutional symptoms. In addition, she denies any GI symptoms. 05/31 No events overnight Patient is on 2L oxygen. Feeling better and her epistaxis is overall better. s/p HD yesterday with removal 2.5L. Afebrile. 06/01 Patient is lying in bed in NAD. Receiving HD. No recurrent epistaxis. 06/02 Patient is feeling better. PLT count 13 today receiving 1ubnit PLT. s/p HD yesterday with removal 2L. NPO 06/03 Plt count up to 41 yesterday evening after 2 unit platelet transfusion. Labs this morning pending; ANC has persistently been zero. Afebrile. Delirious overnight and was pulling off oxygen and IVs, received Haldol 2.5 mg IV and was then sleeping. Disoriented this morning. Nurse states had similar confusion early in the admission but had improved. Nurses state appetite and po intake has been good. Glucose not well controlled. 06/04: This morning, difficult to arouse. Received quetiapine 25 mg 1. No haloperidol provided. Stat CT brain pending. Hemodialysis 2500 cc yesterday. Resting comfortably and did not require any as needed antipsychotics. A.m. laboratories currently pending. CT brain yesterday revealed no acute intracranial findings except possibly polyps. Platelet count and white blood cell count slowly increasing. Subjective: 06/05: Afebrile. No hypoglycemic episodes overnight. Awake and oriented to person place and time. Hypertensive overnight. Increasing carvedilol today. Objective Vital Signs Date Time Temp Pulse Resp B/P (MAP) Pulse Ox O2 Delivery O2 Flow Rate FiO2 06/05/17 06:03 88 06/05/17 06:00 15 165/63 (97) 92 06/05/17 00:00 99.1 06/04/17 21:03 Nasal Cannula 3.00 Result Diagram: 06/04/17 1027 06/04/17 1027 Other Results Microbiology Date/Time Source Procedure Growth Status 05/26/17 17:02 Blood Peripheral Aerobic Blood Culture - Final NO GROWTH IN 5 DAYS Complete 05/26/17 17:02 Blood Peripheral Anaerobic Blood Culture - Final NO GROWTH IN 5 DAYS Complete 05/26/17 09:03 Stool Stool Stool Occult Blood (TOBY) - Final HEMOCCULT NEGATIVE Complete Imaging Last Impressions Head CT 06/03/17 0000 Signed Impressions: Service Date/Time: Saturday, June 03, 2017 08:52 - CONCLUSION: 1. No evidence of acute infarct, hemorrhage, mass or edema. 2. Small polyps versus retention cysts in the maxillary sinuses. Raudel Zamora MD Thyroid Ultrasound 06/01/17 0000 Signed Impressions: Service Date/Time: May 07:58 - CONCLUSION: The thyroid gland is diffusely heterogeneous bilaterally. The right lobe is larger than the left. The isthmus is thickened at 1 cm. No discrete nodules are demonstrated. Mina Gerard MD Chest X-Ray 05/30/17 0000 Signed Impressions: Service Date/Time: Tuesday, May 30, 2017 13:28 - CONCLUSION: 1. There are new parenchymal changes in the right lung base. 2. Pulmonary venous congestion. Mina Gerard MD Chest CT 05/30/17 0000 Signed Impressions: Service Date/Time: Tuesday, May 30, 2017 22:03 - CONCLUSION: 1. Bilateral pleural effusions, right greater than left. Associated atelectasis on the right side and patchy infiltrates in the left lung. 2. Evidence of prior surgery to the right axilla with low density mass lateral to multiple hemoclips measuring in excess of 6 cm. 3. 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 Lai Lovell MD Sinuses CT 05/28/17 0000 Signed Impressions: Service Date/Time: Sunday, May 28, 2017 12:04 - CONCLUSION: Evidence for chronic sinus disease with minimal anatomic obstruction as above. Edvin Wang MD FACR Neck CT 05/24/17 1003 Signed Impressions: Service Date/Time: Wednesday, May 24, 2017 10:39 - CONCLUSION: . 1. Nonvisualization right jugular vein with edema worse on the right side of face than the left. 2. Patent left jugular vein and superior vena cava 3. Large inhomogeneous thyroid suggesting goiter 4. Degenerative changes cervical spine. 5. Inflammatory process cannot be entirely excluded. I do not centered in space abscess 6. Patient is edentulous Edvin Wang MD FACR Objective Remarks GENERAL: 82-year-old field resting in bed in no acute distress SKIN: Warm and dry. There is left-sided tinea cruris and left wrist bullae healing HEAD: Normocephalic. EYES: He was orotracheally round and react to light 4 mm to 3 mm. No scleral icterus. No injection or drainage. NECK: No significant thyromegaly appreciated. Supple. CARDIOVASCULAR: RRR. S1, S2. No S4. 2/6 systolic murmur lower sternal border RESPIRATORY: Essentially clear to auscultation bilaterally without wheezes rales or rhonchi GASTROINTESTINAL: Abdomen soft, non-tender, nondistended. Old right upper quadrant scar. MUSCULOSKELETAL: No cyanosis. Trace pedal edema VASC: LUE fistula with +thrill. NEURO: Awake and oriented to person place and time. Moves all 4 extremities spontaneously. Normal sensation.. A/P Assessment and Plan Neuro/Psych: Agitated delirium - toxic metabolic encephalopathy secondary to underlying illness/steroids/polypharmacy Depression disorder NOS History of right cataract Discontinue all antipsychotic medications as patient is currently with altered mental status Stat CT brain now Prior to receiving quetiapine patient was awake and oriented to person place and time per RN. Acetaminophen 650 mg by mouth every 6 hours when necessary fever/pain 1-10 CT brain 06/03 revealed no acute intracranial findings. Maxillary retention cyst. Holding home medication escitalopram 10 mg by mouth daily Pulm: Chronic respiratory insufficiency - 2 L nasal cannula Epistaxis - resolved Continue with oxygen and maintain sats >92%. Incentive spirometry while awake Albuterol/ipratropium aerosols every 6 hours with albuterol aerosols every 2 hours. Dyspnea Methylprednisolone succinate 40 milligrams IV every [address] thorax: atelectasis on the right side and patchy infiltrates in the left lung. Evidence of prior surgery to the right axilla with low density mass lateral to multiple hemoclips measuring in excess of 6 cm. Substernal goiter on the right side causing very mild clinically insignificant tracheal deviation. Seen by general surgery- signed off- no surgical intervention given her pancytopenia and no involvement as this likely has been present for "years" and causing no respiratory issues Aminocaproic acid liquid 1000 mg every 6 hours when necessary for bleeding gums Oxymetazoline nasal prn epistaxis ENT evaluated for epistaxis ( improved) CV: Hyperlipidemia Hypertension Grade 1 diastolic dysfunction Mild pulmonary hypertension Currently on Cardizem 30mg Q6- Monitor HR and BP and maintain MAP> 65 mmHg. Switch to home medications carvedilol and amlodipine see orders Pravastatin 10 mg p.o. nightly/home medication for dyslipidemia 2-D echocardiogram revealed grade 1 diastolic dysfunction. Ejection fraction 55%. Mild pulmonary hypertension. Home medications are carvedilol 25 mg in the morning, 12.5 mg at night, isosorbide nitrate 30 mg daily amlodipine 10 mg by mouth daily. Aspirin 81 mg by mouth daily light of epistaxis Renal/: ESRD Renal-Dr. Bautista On HD T,H, S- -2500 cc on Monday GI: Gastroesophageal reflux disease Hypoalbuminemia On Pureed diet, no liquid restrictions per speech. Protonix 40 mg daily for acid reflux disease on omeprazole 20 mg by mouth daily at home Docusate sodium/senna 1 tablet twice a day for bowel regimen ID: Skin and soft tissue infection (groin/under breast) Immunocompromised state Abx per ID ( Ceftazidime 05/30 , fluconazole 05/30) BC 05/26 and 05/24: NGTD. Dr. Brown /infectious disease following Rheum: Rheumatoid arthritis - methotrexate on hold due to toxicity/infection Continue folic acid 0.8 mg IV daily. Patient will need to discuss with Dr. Melendez alternative medication for rheumatoid arthritis. Outpatient Heme: Leukocytosis Macrocytic anemia thrombocytopenia History of anemia of chronic kidney disease Monitor CBC - platelet infusion per Heme. Transfused 2unit PLT for PLT count 13 on 06/02 Previously on Neupogen 480 mcg daily, discontinued 06/02 by Hematology. On Epogen 10,000 units when necessary with HD, Folic acid 0.8 mg IV daily, B12 [address] Campos following Endo: Diabetes mellitus type 2 Hypothyroidism Novulin R high dose sliding scale every before meals/at bedtime in discontinue scheduled detemir with hypoglycemia at night. Currently on Novulin N 22 units in AM, 5 units @ noc 40 units sliding scale insulin past 24 hours Continue with levothyroxine 200 mcg daily. TSH: 1.44 US thyroid: The thyroid gland is diffusely heterogeneous bilaterally. The right lobe is larger than the left. No discrete nodules are demonstrated FEN: Replace electrolytes as clinically indicated MSK: Osteoarthritis/gouty arthritis? PT evaluate and treat PCM allopurinol 100 mg by mouth daily. This is on hold? Access - Utilize peripheral IV. Central line if indicated Prophylaxis - GI - pantoprazole - DVT - SCD/holding pharmacological prophylaxis in light of almost thrombocytopenia and recent epistaxis. Level I follow-up John Paul Mojica MD Jun 05, 2017 06:19
[2017-06-05] MEDS ORDERED: NITROGLYCERIN 2% OINT 1 GM PACKET TOPICAL PRN (06:30)
[2017-06-05] MEDS ORDERED: ACETAMINOPHEN 325 MG TAB PO PRN (07:00)
[2017-06-05] MEDS: RESP: ALBUTEROL 2.5 MG/IPRATROPIUM 0.5 MG NEB (SCH) NEB ×3 (07:44→19:32)
[2017-06-05] MEDS ORDERED: INSULIN HUMAN NPH 1,000 UNITS/10 ML VIAL SQ SCH ×2 (08:00)
[2017-06-05] MEDS: MULTIVITAMIN TAB PO SCH (09:00)
[2017-06-05] MEDS: CYANOCOBALAMIN 1,000 MCG TAB PO SCH (09:00)
[2017-06-05] MEDS: methylPREDNISolone SOD SUCC 40 MG/1 ML VIAL IV PUSH SCH (09:00)
[2017-06-05] MEDS: MUPIROCIN 2% OINT 22 GM TUBE TOPICAL SCH ×2 (09:00→21:27)
[2017-06-05] MEDS: amLODIPine BESYLATE 5 MG TAB PO SCH (09:00)
[2017-06-05] MEDS: NYSTATIN 100,000 U/GM PWD 15 GM BTL TOPICAL SCH ×2 (09:00→21:27)
[2017-06-05] MEDS: CARVEDILOL 6.25 MG TAB PO SCH ×2 (09:00→21:27)
[2017-06-05] MEDS: PRAVASTATIN SOD 10 MG TAB PO SCH (09:00)
[2017-06-05] MEDS: PANTOPRAZOLE SOD 40 MG DELAYED RELEASE TAB PO SCH (09:00)
--- NOTE | 2017-06-05 16:08 | HHI.NPPN ---
Subjective History of Present Illness 82-year-old female with known history of end-stage renal disease on dialysis, diabetes, hypothyroidism, breast cancer, hypertension, hyperlipidemia , and rheumatoid arthritis.Patient presented to ED for suspected buccal cellulitis. Patient was in her usual state of health until about Monday nights when she began experiencing some gradual onset of bilateral facial edema and pain. Patient found to have anemia and Hgb. drop further. Additional Remarks Patient is alert, no SOB, feeling better, started eating better, improving, not in distress. Review of Systems General Constitutional: Fatigue Ears, Nose, & Throat Ears, Nose & Throat: Sore Throat Respiratory Lungs: SOB, Cough Cardiovascular Cardiac: ANDRADE Objective Data Data Vital Signs Date Time Temp Pulse Resp B/P (MAP) Pulse Ox O2 Delivery O2 Flow Rate FiO2 06/05/17 12:01 90 06/05/17 12:01 90 26 157/77 (103) 96 06/05/17 10:00 82 06/05/17 08:00 84 06/05/17 08:00 84 16 132/49 (76) 96 06/05/17 07:46 96 Nasal Cannula 3.00 06/05/17 07:00 96 Nasal Cannula 2.00 06/05/17 06:03 88 06/05/17 06:00 90 15 165/63 (97) 92 06/05/17 05:00 88 14 174/73 (106) 96 06/05/17 04:37 80 06/05/17 04:00 86 21 158/53 (88) 95 06/05/17 03:00 86 12 173/55 (94) 96 06/05/17 02:27 91 06/05/17 02:00 94 16 150/61 (90) 96 06/05/17 00:43 98 06/05/17 00:00 99.1 80 14 154/59 (90) 97 06/04/17 23:00 86 20 141/56 (84) 96 06/04/17 22:17 86 06/04/17 22:00 84 18 156/64 (94) 96 06/04/17 21:03 95 Nasal Cannula 3.00 06/04/17 21:00 99.5 94 18 149/61 (90) 92 06/04/17 20:49 94 06/04/17 20:00 95 Nasal Cannula 2.00 06/04/17 20:00 86 17 135/60 (85) 97 06/04/17 19:00 94 19 147/56 (86) 96 06/04/17 18:00 92 06/04/17 17:00 94 16 141/57 (85) 97 -: 06/04/17 1027 06/04/17 1027 Physical Exam General Appearance: No Acute Distress, Comfortable Eyes Eye Exam: Pupils Equal Throat Throat Remarks Painful opening of mouth, with tenderness over TM joint and some swelling. Neck Neck Exam: Neck Supple Pulmonary Resp Exam: Breath Sounds Equal, No Distress, Decreased Bases Cardiology CV Exam: Regular, Normal Sinus Rhythm Gastrointestinal/Abdomen GI Exam: Soft, Non-Tender, Bowel Sounds Present Extremeties Extremities Exam: Trace Edema Neurologic Neuro Exam: Alert, Awake, Oriented Psychiatric Psych Exam: Appropriate Responses Assessment/Plan Problem List: (1) ESRD (end stage renal disease) on dialysis ICD Codes: N18.6 - End stage renal disease; Z99.2 - Dependence on renal dialysis Plan: HD TTS, 3 times a week. Anemia of chronic disease Epogen with dialysis Continue antibiotics, remain afebrile. Patient develop Pancytopenia. Seen by Hematology. Hematology follow up noted. On Neupogen, WBC and platelets improving. HD to continue TTS. (2) HTN (hypertension) ICD Codes: I10 - Essential (primary) hypertension Plan: Home medications continued (3) Soft tissue infection ICD Codes: L08.9 - Local infection of the skin and subcutaneous tissue, unspecified Status: Acute Plan: Continue antibiotics Renal dosing Priti Bautista MD Jun 05, 2017 16:08
[2017-06-05] MEDS: INSULIN HUMAN NPH 1,000 UNITS/10 ML VIAL SQ SCH (17:00)
--- NOTE | 2017-06-05 18:12 | PD.ONC.PN ---
Subjective Subjective Remarks Patient seen and examined, vital signs, labs, medications, microbiology reviewed. Subjectively; patient reports feeling better compared to 2 days ago, she is eating better though her mouth remains somewhat sore and sensitive. She tells me she was up and out of bed with the help of physical therapy, she requires a walker to ambulate. She denies difficulty breathing, she denies chest pain and she denies overt bleeding. Neupogen was discontinued after the dosing delivered on 06/03/2017. Her absolute neutrophil count is over 8. Her platelet count is over 80,000. Objective Data Date Time Temp Pulse Resp B/P (MAP) Pulse Ox O2 Delivery O2 Flow Rate FiO2 06/05/17 17:00 92 25 94 06/05/17 16:59 92 25 135/52 (79) 94 06/05/17 16:09 88 18 182/81 (114) 95 06/05/17 16:00 90 22 190/72 (111) 94 06/05/17 16:00 90 06/05/17 14:00 88 06/05/17 12:01 90 06/05/17 12:01 90 26 157/77 (103) 96 06/05/17 10:00 82 06/05/17 08:00 84 06/05/17 08:00 84 16 132/49 (76) 96 06/05/17 07:46 96 Nasal Cannula 3.00 06/05/17 07:00 96 Nasal Cannula 2.00 06/05/17 06:03 88 06/05/17 06:00 90 15 165/63 (97) 92 06/05/17 05:00 88 14 174/73 (106) 96 06/05/17 04:37 80 06/05/17 04:00 86 21 158/53 (88) 95 06/05/17 03:00 86 12 173/55 (94) 96 06/05/17 02:27 91 06/05/17 02:00 94 16 150/61 (90) 96 06/05/17 00:43 98 06/05/17 00:00 99.1 80 14 154/59 (90) 97 06/04/17 23:00 86 20 141/56 (84) 96 06/04/17 22:17 86 06/04/17 22:00 84 18 156/64 (94) 96 06/04/17 21:03 95 Nasal Cannula 3.00 06/04/17 21:00 99.5 94 18 149/61 (90) 92 06/04/17 20:49 94 06/04/17 20:00 95 Nasal Cannula 2.00 06/04/17 20:00 86 17 135/60 (85) 97 06/04/17 19:00 94 19 147/56 (86) 96 Result Diagram: 06/04/17 1027 06/04/17 1027 Administered Medications Medications (Trade) Dose Ordered Sig/Woodrow Route PRN Reason Start Time Stop Time Status Last Admin Dose Admin Cyanocobalamin (Vitamin B12) 1,000 mcg DAILY PO 05/24/17 16:00 06/05/17 09:00 Pravastatin Sodium (Pravachol) 10 mg DAILY PO 05/24/17 16:00 06/05/17 09:00 Albumin Human 100 ml @ 60 mls/hr UNSCH PRN IV WITH DIALYSIS 05/24/17 16:00 05/27/17 09:18 Sodium Chloride (NS Flush) 5 ml UNSCH PRN IV FLUSH WITH DIALYSIS 05/24/17 16:00 05/31/17 01:43 Ondansetron HCl (Zofran Inj) 4 mg UNSCH PRN IV PUSH WITH DIALYSIS 05/24/17 16:00 05/28/17 06:09 Acetaminophen (Tylenol) 650 mg UNSCH PRN PO for headach, pain, temp > 101F 05/24/17 16:00 05/27/17 03:29 Diphenhydramine HCl (Benadryl) 25 mg UNSCH PRN PO for hives/itching/anaphylaxis 05/24/17 16:00 05/27/17 23:53 Epoetin Cesar (Epogen Inj) 10,000 units UNSCH PRN IV PUSH WITH DIALYSIS 05/24/17 16:00 06/03/17 10:40 Gelatin (Gelfoam 12 Mm/7 Mm Top) 1 foam UNSCH PRN TOP SEE LABEL COMMENTS 05/24/17 16:00 06/03/17 10:40 Nystatin (Mycostatin Powder) 1 applic Q12HR TOPICAL 05/24/17 21:00 06/05/17 09:00 Multivitamins (Theragran) 1 tab DAILY PO 05/27/17 09:00 06/05/17 09:00 Levothyroxine Sodium (Synthroid) 200 mcg DAILY@0600 PO 05/28/17 06:00 06/05/17 05:58 Mupirocin (Bactroban 2% Oint) 1 applic BID TOPICAL 05/30/17 09:00 06/05/17 09:00 Dextrose (D50w (Vial) Inj) 50 ml UNSCH PRN IV PUSH HYPOGLYCEMIA-SEE COMMENTS 05/30/17 17:15 06/04/17 08:46 Ceftazidime 1000 mg/Sodium Chloride 100 ml @ 200 mls/hr DAILY@2100 IV 05/30/17 21:00 06/04/17 20:41 Fluconazole/ Sodium Chloride 50 ml @ 50 mls/hr Q24H IV 05/30/17 20:00 06/04/17 20:40 Methylprednisolone Sodium Succinate (SoluMEDROL INJ) 40 mg DAILY IV PUSH 06/03/17 09:00 06/05/17 09:00 Pantoprazole Sodium (Protonix) 40 mg DAILY PO 06/04/17 09:00 06/05/17 09:00 Albuterol/ Ipratropium (Duoneb Neb) 1 ampule Q6HR WHILE AWAKE NEB NEB 06/04/17 08:00 06/05/17 14:00 Amlodipine Besylate (Norvasc) 5 mg DAILY PO 06/04/17 09:00 06/05/17 09:00 Hydralazine HCl (Apresoline Inj) 10 mg Q1HR PRN IV PUSH SBP>160, DBP>90 06/04/17 07:15 06/05/17 16:12 Folic Acid 0.8 mg/ Sodium Chloride 50.16 ml @ 100.32 mls/ hr HS IV 06/04/17 21:00 06/04/17 20:40 Insulin Human NPH (NovoLIN N INJ) 5 units DAILY@17 SQ 06/04/17 17:00 06/05/17 17:00 Insulin Human Regular (NovoLIN R SUPPLEMENTAL SCALE) 1 ACHS AND 3AM SQ 06/05/17 08:00 06/05/17 17:00 Insulin Human NPH (NovoLIN N INJ) 22 units DAILY@08 SQ 06/05/17 08:00 06/05/17 08:00 Carvedilol (Coreg) 12.5 mg Q12HR PO 06/05/17 09:00 06/05/17 09:00 Objective Remarks GENERAL APPEARANCE: Ms. Faust is an elderly lady. She sitting up in bed, she appears to be comfortable, she is talking in full sentences. HEENT: Head is atraumatic and normocephalic. Conjunctivae are pale, sclerae anicteric. EOMI, PERRLA. Oral exam: Crusting of the lips is improved , buccal mucosa is less ulcerated and erythematous, there is some leukocyte is noted. Buccal mucosa with what appears to be mucositis. NECK: No cervical lymphadenopathy. She has tenderness along her neck and along her cheeks. RESPIRATORY: Poor inspiratory effort, decreased bibasilar breath sounds. CARDIOVASCULAR: Regular rate and rhythm, S1 and S2, no obvious murmurs, rubs or gallops. ABDOMEN: Protuberant belly, tender to light palpation, tympanic to percussion. No definite organ enlargement noted. LOWER EXTREMITIES: No pretibial edema, no calf tenderness. CENTRAL NERVOUS SYSTEM: No focal sensory or motor deficits, but she is generally weak. MUSCULOSKELETAL: She has generally atrophic muscle mass. Assessment/Plan Assessment 82-year-old female with a history of end-stage renal failure, type 2 diabetes, rheumatoid arthritis. She has been on therapy for rheumatoid arthritis with 10 mg of methotrexate once a week restarted around Nov 2016. She presented with pancytopenia. 1. 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 - continue B12 and Folic acid - prn transfusion to keep Hb> 7.[address] > 20 - continue epogen with dialysis - continue Neupogen but increase dose to 480mcg - On Abx - continue supportive care. Also on corticosteroids. 06/02/2017: She continues to improve clinically is now eating. I am concerned about her ANC being 0 persistently. 06/04/17 : Neutropenia has resolved. Off of Neutropenic precautions. Last dose of Neupogen on friday 06/02 Plat are coming up as well. continue epogen with HD. Continue folic acid for MTX toxicity. Pt needs to D/W Dr Melendez ( Credit Verification Clerk ) for alternative Meds for RA. She should not resume MTX as she has ESRD and on HD 06/05/2017: CBC reviewed; labs dated 06/04/2017 indicate the leafy count of greater than 12, absolute initial count greater than 8, platelet counts are recovering and are greater than 80,000. Patient remains anemic secondary to chronic kidney failure. Plan 1. Methotrexate associated marrow toxicity and mucositis: She is recovering well, her platelet count and WBC count has improved exponentially compared to 48 hours ago. Mucositis also continues to improve. She is no longer requiring Neupogen growth factor support and no longer requiring transfusion support. Her oral intake is improving and she has been up out of bed to ambulate. I recommend continuing folic acid and vitamin B12 supplementation. Repeat CBC has been ordered for 06/06/2017. I will contact her primary caltrans equipment operator and conveyed the events for the past 2 weeks. It would be my suggestion that the patient either not be rechallenged with methotrexate or if methotrexate continuation is an absolute medical necessity the dose be significantly reduced with close monitoring. Kai Campos MD Jun 05, 2017 18:12
[2017-06-05] MEDS: FLUCONAZOLE 100 MG PREMIX BAG 50 ML IV SCH (19:30)
--- NOTE | 2017-06-05 20:25 | HHI.IDPN ---
Subjective Subjective Remarks Doing better WBC is up No more fevers Allergies: Coded Allergies: No Known Allergies (Unverified , 05/28/17) Review of Systems Constitutional Constitutional Remarks No fevers Objective . Vital Signs Date Time Temp Pulse Resp B/P (MAP) Pulse Ox O2 Delivery O2 Flow Rate FiO2 06/05/17 19:17 97 Nasal Cannula 2.00 06/05/17 18:00 96 06/05/17 17:00 92 25 94 06/05/17 16:59 92 25 135/52 (79) 94 06/05/17 16:09 88 18 182/81 (114) 95 06/05/17 16:00 90 22 190/72 (111) 94 06/05/17 16:00 90 06/05/17 14:00 88 06/05/17 12:01 90 06/05/17 12:01 90 26 157/77 (103) 96 06/05/17 10:00 82 06/05/17 08:00 84 06/05/17 08:00 84 16 132/49 (76) 96 06/05/17 07:46 96 Nasal Cannula 3.00 06/05/17 07:00 96 Nasal Cannula 2.00 06/05/17 06:03 88 06/05/17 06:00 90 15 165/63 (97) 92 06/05/17 05:00 88 14 174/73 (106) 96 06/05/17 04:37 80 06/05/17 04:00 86 21 158/53 (88) 95 06/05/17 03:00 86 12 173/55 (94) 96 06/05/17 02:27 91 06/05/17 02:00 94 16 150/61 (90) 96 06/05/17 00:43 98 06/05/17 00:00 99.1 80 14 154/59 (90) 97 06/04/17 23:00 86 20 141/56 (84) 96 06/04/17 22:17 86 06/04/17 22:00 84 18 156/64 (94) 96 06/04/17 21:03 95 Nasal Cannula 3.00 06/04/17 21:00 99.5 94 18 149/61 (90) 92 06/04/17 20:49 94 06/05/17 06/05/17 06/06/17 15:00 23:00 07:00 Intake Total 310 ml Output Total 360 ml Balance -50 ml Intake Oral 310 ml Output Urine Total 360 ml . Laboratory Tests Test 06/04/17 10:27 White Blood Count 12.3 TH/MM3 Red Blood Count 2.65 MIL/MM3 Hemoglobin 9.2 GM/DL Hematocrit 26.9 % Mean Corpuscular Volume 101.6 FL Mean Corpuscular Hemoglobin 34.6 PG Mean Corpuscular Hemoglobin Concent 34.1 % Red Cell Distribution Width 16.1 % Platelet Count 86 TH/MM3 Mean Platelet Volume 8.1 FL Neutrophils (%) (Auto) 75.6 % Lymphocytes (%) (Auto) 16.7 % Monocytes (%) (Auto) 7.0 % Eosinophils (%) (Auto) 0.6 % Basophils (%) (Auto) 0.1 % Neutrophils # (Auto) 9.2 TH/MM3 Lymphocytes # (Auto) 2.1 TH/MM3 Monocytes # (Auto) 0.9 TH/MM3 Eosinophils # (Auto) 0.1 TH/MM3 Basophils # (Auto) 0.0 TH/MM3 CBC Comment AUTO DIFF Differential Total Cells Counted 100 Neutrophils % (Manual) 42 % Band Neutrophils % 18 % Lymphocytes % 20 % Monocytes % 6 % Eosinophils % 2 % Neutrophils # (Manual) 8.7 TH/MM3 Metamyelocytes 4 % Myelocytes 4 % Promyelocytes 3 % Nucleated Red Blood Cells 2 /100 WBC Differential Comment FINAL DIFF MANUAL Blastocytes 1 % Toxic Granulation 1+ Dohle Bodies PRESENT Platelet Estimate LOW Platelet Morphology Comment NORMAL Basophilic Stippling MOD Ovalocytes 1+ Rouleau PRESENT Laboratory Tests Test 06/04/17 10:27 Blood Urea Nitrogen 56 MG/DL Creatinine 4.80 MG/DL Random Glucose 90 MG/DL Total Protein 6.2 GM/DL Albumin 2.5 GM/DL Calcium Level 9.1 MG/DL Phosphorus Level 3.6 MG/DL Magnesium Level 2.0 MG/DL Alkaline Phosphatase 96 U/L Aspartate Amino Transf (AST/SGOT) 20 U/L Alanine Aminotransferase (ALT/SGPT) 28 U/L Total Bilirubin 0.4 MG/DL Sodium Level 141 MEQ/L Potassium Level 3.7 MEQ/L Chloride Level 99 MEQ/L Carbon Dioxide Level 32.8 MEQ/L Anion Gap 9 MEQ/L Estimat Glomerular Filtration Rate 9 ML/MIN Physical Exam GENERAL: This is a chronically ill patient who is alert, oriented x 3 SKIN: Candidiasis in groin and under breasts. HEAD: Atraumatic. Normocephalic. No temporal or scalp tenderness. EYES: Pupils equal round and reactive. Extraocular motions intact. No scleral icterus. No injection or drainage. ENT: Nose with bleeding, no purulent drainage or septal hematoma. Throat with erythema & bleeding, tonsillar hypertrophy or exudate. Uvula midline. Airway patent. NECK: Trachea midline. No JVD or lymphadenopathy. Supple, nontender, no meningeal signs. CARDIOVASCULAR: Regular rate and rhythm without murmurs, gallops, or rubs. RESPIRATORY: Clear to auscultation. Breath sounds equal bilaterally. No wheezes , rales, or rhonchi. GASTROINTESTINAL: Abdomen soft, non-tender, nondistended. No hepato-splenomegaly , or palpable masses. No guarding. MUSCULOSKELETAL: Extremities without clubbing, cyanosis, or edema. No joint tenderness, effusion, or edema noted. No calf tenderness. Negative Homans sign bilaterally. NEUROLOGICAL: Awake and alert. Cranial nerves II through XII intact. Motor and sensory grossly within normal limits. Five out of 5 muscle strength in all muscle groups. Normal speech. Assessment & Plan Diagnosis: (1) Neutropenic fever ICD Codes: D70.9 - Neutropenia, unspecified; R50.81 - Fever presenting with conditions classified elsewhere Plan: Blood cultures are negative Neutropenia has resolved - stop IV Ceftazidime (2) ESRD (end stage renal disease) on dialysis ICD Codes: N18.6 - End stage renal disease; Z99.2 - Dependence on renal dialysis (3) Soft tissue infection ICD Codes: L08.9 - Local infection of the skin and subcutaneous tissue, unspecified Status: Acute Plan: Stop Ceftazidime 1 g IV daily Continue Fluconazole 100 mg IV daily Sumi Brown MD Jun 05, 2017 20:25
[2017-06-05] MEDS: SODIUM CHLORIDE 0.9% IV SCH (21:26)
[2017-06-05] MEDS: FOLIC ACID IV SCH (21:26)
[2017-06-06] VITALS (25 sets, daily range): BP systolic 116–166; BP diastolic 44–91; PULSE 70–92; RESP 14–34; TEMP 98–98.6; O2SAT 92–98
[2017-06-06] MEDS: INSULIN NovoLIN REGULAR SUPPLEMENTAL SCALE SQ SCH ×5 (03:00→20:54)
[2017-06-06 05:12] LABS: AUTOMATED NEUTROPHIL # 12.5 TH/MM3 (1.8-7.7); BASOPHIL # 0.1 TH/MM3 (0-0.2); BASOPHIL % 0.5 % (0.0-2.0); EOSINOPHIL % 0.1 % (0.0-4.0); HEMATOCRIT 23.9 % (35.0-46.0); HEMOGLOBIN 8.3 GM/DL (11.6-15.3); LYMPH % 16.6 % (9.0-44.0); LYMPHOCYTE # 2.7 TH/MM3 (1.0-4.8); MEAN CORPUSCULAR HEMOGLOBIN 35.1 PG (27.0-34.0); MEAN CORPUSCULAR HGB CONC 34.7 % (32.0-36.0); MEAN PLATELET VOLUME 8.3 FL (7.0-11.0); MONO % 5.5 % (0.0-8.0); MONOCYTE # 0.9 TH/MM3 (0-0.9); NEUT % 77.3 % (16.0-70.0); PLATELET COUNT 108 TH/MM3 (150-450); RED BLOOD COUNT 2.36 MIL/MM3 (4.00-5.30); RED CELL DISTRIBUTION WIDTH 16.8 % (11.6-17.2); WHITE BLOOD COUNT 16.2 TH/MM3 (4.0-11.0)
[2017-06-06 05:59] LABS: BICARBONATE 30.3 MEQ/L (21.0-32.0); CALCIUM 8.4 MG/DL (8.5-10.1); CREATININE 7.1 MG/DL (0.50-1.00); MAGNESIUM 1.7 MG/DL (1.5-2.5)
[2017-06-06] MEDS: LEVOTHYROXINE SODIUM 100 MCG TAB PO SCH (06:26)
--- NOTE | 2017-06-06 07:02 | HHI.CCPN ---
Subjective Remarks/Hospital Course Patient is an 82-year-old female with past medical history of end-stage renal disease on hemodialysis, rheumatoid arthritis on methotrexate, diabetes mellitus, hypertension, hyperlipidemia. She was admitted under hospitalist service on May 24 for right-sided buccal cellulitis and pancytopenia, which was thought related to methotrexate toxicity. During her hospital course , patient developed epistaxis and was seen by ENT. Chest x-ray was performed on May 26, which showed interstitial prominence and linear scarring at the right base. She also had CT scan of the sinuses which showed evidence for chronic sinus disease. Repeat chest x-ray was performed this afternoon, which showed new parenchymal changes in the right lung base and pulmonary venous congestion. She was placed on broad-spectrum antibiotics. Patient received platelet transfusion on May 28 for a platelet count of 18,000. Patient is being considered for a bone marrow biopsy. Also she was noted to have significant mucositis with crusting and bleeding of the oral mucosa. Critical Care Medicine was consulted for critical care management. When seen, she is currently receiving hemodialysis and is on 4 L oxygen with saturation of 97%, blood pressure 132/ 57 with a pulse of 86. Patient is afebrile. Her previous blood cultures from May 26 are negative. Patient denies any shortness of breath, chest pain or any constitutional symptoms. In addition, she denies any GI symptoms. 05/31 No events overnight Patient is on 2L oxygen. Feeling better and her epistaxis is overall better. s/p HD yesterday with removal 2.5L. Afebrile. 06/01 Patient is lying in bed in NAD. Receiving HD. No recurrent epistaxis. 06/02 Patient is feeling better. PLT count 13 today receiving 1ubnit PLT. s/p HD yesterday with removal 2L. NPO 06/03 Plt count up to 41 yesterday evening after 2 unit platelet transfusion. Labs this morning pending; ANC has persistently been zero. Afebrile. Delirious overnight and was pulling off oxygen and IVs, received Haldol 2.5 mg IV and was then sleeping. Disoriented this morning. Nurse states had similar confusion early in the admission but had improved. Nurses state appetite and po intake has been good. Glucose not well controlled. 06/04: This morning, difficult to arouse. Received quetiapine 25 mg 1. No haloperidol provided. Stat CT brain pending. Hemodialysis 2500 cc yesterday. Resting comfortably and did not require any as needed antipsychotics. A.m. laboratories currently pending. CT brain yesterday revealed no acute intracranial findings except possibly polyps. Platelet count and white blood cell count slowly increasing. 06/05: Afebrile. No hypoglycemic episodes overnight. Awake and oriented to person place and time. Hypertensive overnight. Increasing carvedilol today. Subjective: 06/06: Afebrile. Blood sugars in the 70s overnight. NPH adjusted along with sliding scale to a lesser regimen see orders. Denies subjective complaint currently. Objective Vital Signs Date Time Temp Pulse Resp B/P (MAP) Pulse Ox O2 Delivery O2 Flow Rate FiO2 06/06/17 06:07 70 06/06/17 05:00 24 144/63 (90) 98 06/06/17 04:00 98.0 06/05/17 19:32 Nasal Cannula 3.00 Result Diagram: 06/06/17 0435 06/06/17 0435 Other Results Microbiology Date/Time Source Procedure Growth Status 05/26/17 17:02 Blood Peripheral Aerobic Blood Culture - Final NO GROWTH IN 5 DAYS Complete 05/26/17 17:02 Blood Peripheral Anaerobic Blood Culture - Final NO GROWTH IN 5 DAYS Complete 05/26/17 09:03 Stool Stool Stool Occult Blood (TOBY) - Final HEMOCCULT NEGATIVE Complete Imaging Last Impressions Head CT 06/03/17 0000 Signed Impressions: Service Date/Time: Saturday, June 03, 2017 08:52 - CONCLUSION: 1. No evidence of acute infarct, hemorrhage, mass or edema. 2. Small polyps versus retention cysts in the maxillary sinuses. Raudel Zamora MD Thyroid Ultrasound 06/01/17 0000 Signed Impressions: Service Date/Time: May 07:58 - CONCLUSION: The thyroid gland is diffusely heterogeneous bilaterally. The right lobe is larger than the left. The isthmus is thickened at 1 cm. No discrete nodules are demonstrated. Mina Gerard MD Chest X-Ray 05/30/17 0000 Signed Impressions: Service Date/Time: Tuesday, May 30, 2017 13:28 - CONCLUSION: 1. There are new parenchymal changes in the right lung base. 2. Pulmonary venous congestion. Mina Gerard MD Chest CT 05/30/17 0000 Signed Impressions: Service Date/Time: Tuesday, May 30, 2017 22:03 - CONCLUSION: 1. Bilateral pleural effusions, right greater than left. Associated atelectasis on the right side and patchy infiltrates in the left lung. 2. Evidence of prior surgery to the right axilla with low density mass lateral to multiple hemoclips measuring in excess of 6 cm. 3. 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 Lai Lovell MD Sinuses CT 05/28/17 0000 Signed Impressions: Service Date/Time: Sunday, May 28, 2017 12:04 - CONCLUSION: Evidence for chronic sinus disease with minimal anatomic obstruction as above. Edvin Wang MD FACR Neck CT 05/24/17 1003 Signed Impressions: Service Date/Time: Wednesday, May 24, 2017 10:39 - CONCLUSION: . 1. Nonvisualization right jugular vein with edema worse on the right side of face than the left. 2. Patent left jugular vein and superior vena cava 3. Large inhomogeneous thyroid suggesting goiter 4. Degenerative changes cervical spine. 5. Inflammatory process cannot be entirely excluded. I do not centered in space abscess 6. Patient is edentulous Edvin Wang MD FACR Objective Remarks GENERAL: 82-year-old female resting in bed in no acute distress SKIN: Warm and dry. There is left-sided tinea cruris and well-healing left wrist bullae HEAD: Normocephalic. EYES: He was orotracheally round and react to light 4 mm to 3 mm. No scleral icterus. No injection or drainage. NECK: No significant thyromegaly appreciated. Supple. CARDIOVASCULAR: RRR. S1, S2. No S4. 2/6 systolic murmur lower sternal border RESPIRATORY: Essentially clear to auscultation bilaterally without wheezes rales or rhonchi GASTROINTESTINAL: Abdomen soft, non-tender, nondistended. Old right upper quadrant scar. MUSCULOSKELETAL: Trace pedal edema VASC: LUE fistula with +thrill. NEURO: Awake and oriented to person place and time. Moves all 4 extremities spontaneously. Normal sensation.. Urinary Catheter: No Assessment to: Continue Vascular Central Line Catheter: No Assessment to: Continue A/P Assessment and Plan Neuro/Psych: Agitated delirium - toxic metabolic encephalopathy secondary to underlying illness/steroids/polypharmacy -resolved Depression disorder NOS History of right cataract Acetaminophen 650 mg by mouth every 6 hours when necessary fever/pain 1- CT brain 06/03 revealed no acute intracranial findings. Maxillary retention cyst. Holding home medication escitalopram 10 mg by mouth daily we can can resume likely in a.m. Pulm: Chronic respiratory insufficiency - 2 L nasal cannula Epistaxis - resolved Continue with oxygen and maintain sats >92%. Incentive spirometry while awake Albuterol/ipratropium aerosols every 6 hours with albuterol aerosols every 2 hours. Dyspnea Methylprednisolone succinate 40 milligrams IV every [address] thorax: atelectasis on the right side and patchy infiltrates in the left lung. Evidence of prior surgery to the right axilla with low density mass lateral to multiple hemoclips measuring in excess of 6 cm. Substernal goiter on the right side causing very mild clinically insignificant tracheal deviation. Seen by general surgery- signed off- no surgical intervention given her pancytopenia and no involvement as this likely has been present for "years" and causing no respiratory issues Aminocaproic acid liquid 1000 mg every 6 hours when necessary for bleeding gums Oxymetazoline nasal prn epistaxis ENT evaluated for epistaxis (improved) CV: Hyperlipidemia Hypertension Grade 1 diastolic dysfunction Mild pulmonary hypertension Currently on carvedilol 12.5 mg the morning, 12.5 mg at night, isosorbide nitrate 30 mg daily and amlodipine 5 mg daily. Pravastatin 10 mg p.o. nightly/home medication for dyslipidemia 2-D echocardiogram revealed grade 1 diastolic dysfunction. Ejection fraction 55%. Mild pulmonary hypertension. Home medications are carvedilol 25 mg in the morning, 12.5 mg at night, isosorbide nitrate 30 mg daily amlodipine 10 mg by mouth daily. Aspirin 81 mg by mouth daily currently been held light of epistaxis Renal/: ESRD Renal-Dr. Bautista On HD T,H, S- -2500 cc on Monday. Plan for today 06/06 GI: Gastroesophageal reflux disease Hypoalbuminemia On Pureed diet, no liquid restrictions per speech. Protonix 40 mg daily for acid reflux disease on omeprazole 20 mg by mouth daily at home Docusate sodium/senna 1 tablet twice a day for bowel regimen ID: Skin and soft tissue infection (groin/under breast) Immunocompromised state Abx per ID ( Ceftazidime 05/30-06/05 , fluconazole 05/30-present) BC 05/26 and 05/24: NGTD. Dr. Brown /infectious disease following Rheum: Rheumatoid arthritis - methotrexate on hold due to toxicity/infection Continue folic acid 0.8 mg IV daily Patient will need to discuss with Dr. Melendez alternative medication for rheumatoid arthritis. Outpatient Heme: Leukocytosis Macrocytic anemia thrombocytopenia History of anemia of chronic kidney disease Monitor CBC - platelet infusion per Heme. Transfused 2unit PLT for PLT count 13 on 06/02 Previously on Neupogen 480 mcg daily, discontinued 06/02 by Hematology. On Epogen 10,000 units when necessary with HD, Folic acid 0.8 mg IV daily, B12 [address] Campos following Endo: Diabetes mellitus type 2 Hypothyroidism Novulin R medium dose sliding scale every before meals/at bedtime in discontinue scheduled detemir with hypoglycemia at night. Currently on Novulin N 12 units in AM, 2 units @ noc 15 units sliding scale insulin past 24 hours Continue with levothyroxine 200 mcg daily. TSH: 1.44 US thyroid: The thyroid gland is diffusely heterogeneous bilaterally. The right lobe is larger than the left. No discrete nodules are demonstrated FEN: Replace electrolytes as clinically indicated 1 g mag sulfate IV 1 now. MSK: Osteoarthritis/gouty arthritis? PT evaluate and treat PCM allopurinol 100 mg by mouth daily. This is on hold? Access - Utilize peripheral IV. Central line if indicated Prophylaxis - GI - pantoprazole - DVT - SCD/holding pharmacological prophylaxis in light of almost thrombocytopenia and recent epistaxis. Level I follow-up Patient is stable from a critical care medicine standpoint. Assign care to hospitalist in a.m. 06/07/2017. John Paul Mojica MD Jun 06, 2017 07:02
[2017-06-06] MEDS ORDERED: MAGNESIUM SULFATE 1 GM PREMIX 100 ML IV ONE (07:15)
[2017-06-06] MEDS ORDERED: GLUCAGON 1 MG/ML VIAL OTHER PRN (07:15)
[2017-06-06] MEDS ORDERED: DEXTROSE 50% IN WATER 50 ML VIAL(D50) IV PUSH PRN (07:15)
[2017-06-06] MEDS: RESP: ALBUTEROL 2.5 MG/IPRATROPIUM 0.5 MG NEB (SCH) NEB ×3 (07:19→19:27)
[2017-06-06 07:44] LABS: BANDS 11 % (0-6); BLASTS 2 % (0-0); METAMYELOCYTES 4 % (0-1); MONOCYTES 8 % (0-8); MYELOCYTES 5 % (0-0); NEUTROPHIL # MANUAL DIFF 10.5 TH/MM3 (1.8-7.7); POLYS (SEG NEUTROPHILS) 45 % (16-70)
[2017-06-06 07:50] LABS: LYMPHOCYTES 25 % (9-44)
[2017-06-06 07:52] LABS: DOHLE BODIES PRESENT (NONE SEEN); TOXIC GRANULATION 2+ (NORMAL)
[2017-06-06] MEDS: GELATIN 12 MM/7 MM FOAM TOP PRN (08:46)
[2017-06-06] MEDS: EPOETIN ALFA 10,000 UNITS/ML VIAL IV PUSH PRN (08:46)
[2017-06-06] MEDS: methylPREDNISolone SOD SUCC 40 MG/1 ML VIAL IV PUSH SCH (08:51)
[2017-06-06] MEDS: INSULIN HUMAN NPH 1,000 UNITS/10 ML VIAL SQ SCH ×2 (08:51→18:23)
[2017-06-06] MEDS: MUPIROCIN 2% OINT 22 GM TUBE TOPICAL SCH ×2 (08:52→20:55)
[2017-06-06] MEDS: NYSTATIN 100,000 U/GM PWD 15 GM BTL TOPICAL SCH ×2 (08:52→20:55)
[2017-06-06] MEDS ORDERED: methylPREDNISolone SOD SUCC 40 MG/1 ML VIAL IV PUSH SCH (09:00)
[2017-06-06] MEDS: PRAVASTATIN SOD 10 MG TAB PO SCH (11:24)
[2017-06-06] MEDS: PANTOPRAZOLE SOD 40 MG DELAYED RELEASE TAB PO SCH (11:24)
[2017-06-06] MEDS: CARVEDILOL 6.25 MG TAB PO SCH ×2 (11:24→20:53)
[2017-06-06] MEDS: CYANOCOBALAMIN 1,000 MCG TAB PO SCH (11:24)
[2017-06-06] MEDS: MULTIVITAMIN TAB PO SCH (11:24)
[2017-06-06] MEDS: amLODIPine BESYLATE 5 MG TAB PO SCH (11:24)
[2017-06-06] MEDS: FOLIC ACID IV SCH (20:52)
[2017-06-06] MEDS: FLUCONAZOLE 100 MG PREMIX BAG 50 ML IV SCH (20:52)
[2017-06-06] MEDS: SODIUM CHLORIDE 0.9% IV SCH (20:52)
--- NOTE | 2017-06-06 22:09 | HHI.NPPN ---
Subjective History of Present Illness 82-year-old female with known history of end-stage renal disease on dialysis, diabetes, hypothyroidism, breast cancer, hypertension, hyperlipidemia , and rheumatoid arthritis.Patient presented to ED for suspected buccal cellulitis. Patient was in her usual state of health until about Monday nights when she began experiencing some gradual onset of bilateral facial edema and pain. Patient found to have anemia and Hgb. drop further. Additional Remarks Patient is alert, no SOB, feeling better, no complaint. Review of Systems General Constitutional: Fatigue Ears, Nose, & Throat Ears, Nose & Throat: Sore Throat Respiratory Lungs: SOB, Cough Cardiovascular Cardiac: ANDRADE Objective Data Data 06/06/17 06/07/17 19:00 07:00 Intake Total 720 ml Output Total 2300 ml Balance -1580 ml Intake Oral 720 ml Hemodialysis 2300 ml # Voids 2 # Bowel Movements 3 Vital Signs Date Time Temp Pulse Resp B/P (MAP) Pulse Ox O2 Delivery O2 Flow Rate FiO2 06/06/17 20:00 98.2 89 34 150/53 (85) 94 06/06/17 20:00 89 06/06/17 19:27 95 Nasal Cannula 2.00 06/06/17 19:00 96 Nasal Cannula 1.00 06/06/17 18:00 90 06/06/17 17:00 88 23 147/57 (87) 96 06/06/17 16:00 90 06/06/17 16:00 98.6 90 34 151/52 (85) 94 06/06/17 15:00 86 25 135/68 (90) 96 06/06/17 14:00 88 06/06/17 14:00 88 22 124/45 (71) 95 06/06/17 13:49 95 Nasal Cannula 1.00 06/06/17 12:00 74 06/06/17 12:00 98.4 92 31 144/51 (82) 94 06/06/17 10:00 88 06/06/17 10:00 84 20 116/50 (72) 96 06/06/17 09:00 88 19 136/44 (74) 96 06/06/17 08:00 80 06/06/17 08:00 80 16 166/57 (93) 98 06/06/17 07:30 96 Nasal Cannula 1.00 06/06/17 07:22 97 Nasal Cannula 2.00 06/06/17 07:00 98 Nasal Cannula 2.00 06/06/17 07:00 98.6 82 20 138/54 (82) 92 06/06/17 06:07 70 06/06/17 05:02 76 06/06/17 05:00 80 24 144/63 (90) 98 06/06/17 04:00 98.0 80 17 137/54 (81) 98 06/06/17 03:00 76 14 126/52 (76) 97 06/06/17 02:05 80 06/06/17 02:00 82 16 132/50 (77) 97 06/06/17 01:00 84 16 130/52 (78) 97 06/06/17 00:00 88 06/06/17 00:00 86 17 154/57 (89) 97 06/05/17 22:14 89 -: 06/06/17 0435 06/06/17 0435 Physical Exam General Appearance: No Acute Distress, Comfortable Eyes Eye Exam: Pupils Equal Throat Throat Remarks Painful opening of mouth, with tenderness over TM joint and some swelling. Neck Neck Exam: Neck Supple Pulmonary Resp Exam: Breath Sounds Equal, No Distress, Decreased Bases Cardiology CV Exam: Regular, Normal Sinus Rhythm Gastrointestinal/Abdomen GI Exam: Soft, Non-Tender, Bowel Sounds Present Extremeties Extremities Exam: Trace Edema Neurologic Neuro Exam: Alert, Awake, Oriented Psychiatric Psych Exam: Appropriate Responses Assessment/Plan Problem List: (1) ESRD (end stage renal disease) on dialysis ICD Codes: N18.6 - End stage renal disease; Z99.2 - Dependence on renal dialysis Plan: HD TTS, 3 times a week. Anemia of chronic disease Epogen with dialysis Continue antibiotics, remain afebrile. Patient develop Pancytopenia. Seen by Hematology. Hematology follow up noted. On Neupogen, WBC and platelets improving. HD done today, tolerated well. Platelets and WBC increasing. (2) HTN (hypertension) ICD Codes: I10 - Essential (primary) hypertension Plan: Home medications continued (3) Soft tissue infection ICD Codes: L08.9 - Local infection of the skin and subcutaneous tissue, unspecified Status: Acute Plan: Continue antibiotics Renal dosing Priti Bautista MD Jun 06, 2017 22:09
[2017-06-07] VITALS (19 sets, daily range): BP systolic 120–160; BP diastolic 45–82; PULSE 76–94; RESP 15–33; TEMP 97.4–98.9; O2SAT 91–98
[2017-06-07] MEDS: INSULIN NovoLIN REGULAR SUPPLEMENTAL SCALE SQ SCH ×5 (03:53→20:46)
[2017-06-07 05:46] LABS: AUTOMATED NEUTROPHIL # 13.8 TH/MM3 (1.8-7.7); BASOPHIL # 0.1 TH/MM3 (0-0.2); BASOPHIL % 0.4 % (0.0-2.0); EOSINOPHIL % 0.1 % (0.0-4.0); HEMOGLOBIN 8.3 GM/DL (11.6-15.3); LYMPH % 11.7 % (9.0-44.0); LYMPHOCYTE # 2.1 TH/MM3 (1.0-4.8); MEAN CELL VOLUME 101.5 FL (80.0-100.0); MEAN CORPUSCULAR HEMOGLOBIN 35.2 PG (27.0-34.0); MEAN CORPUSCULAR HGB CONC 34.7 % (32.0-36.0); MEAN PLATELET VOLUME 7.9 FL (7.0-11.0); MONO % 9.1 % (0.0-8.0); MONOCYTE # 1.6 TH/MM3 (0-0.9); NEUT % 78.7 % (16.0-70.0); PLATELET COUNT 129 TH/MM3 (150-450); RED BLOOD COUNT 2.37 MIL/MM3 (4.00-5.30); WHITE BLOOD COUNT 17.5 TH/MM3 (4.0-11.0)
[2017-06-07] MEDS: ISOSORBIDE MONONITRATE 30 MG CR TAB (IMDUR) PO SCH (05:55)
[2017-06-07] MEDS: LEVOTHYROXINE SODIUM 100 MCG TAB PO SCH (05:56)
[2017-06-07 06:01] LABS: ALBUMIN 2.4 GM/DL (3.4-5.0); BICARBONATE 31.6 MEQ/L (21.0-32.0); CALCIUM 8.3 MG/DL (8.5-10.1); CREATININE 5.1 MG/DL (0.50-1.00); PHOSPHORUS 3.4 MG/DL (2.5-4.9)
[2017-06-07] MEDS: RESP: ALBUTEROL 2.5 MG/IPRATROPIUM 0.5 MG NEB (SCH) NEB ×3 (07:24→20:01)
[2017-06-07 07:43] LABS: BANDS 16 % (0-6); LYMPHOCYTES 17 % (9-44); METAMYELOCYTES 6 % (0-1); MONOCYTES 7 % (0-8); MYELOCYTES 8 % (0-0); NEUTROPHIL # MANUAL DIFF 13.3 TH/MM3 (1.8-7.7); POLYS (SEG NEUTROPHILS) 42 % (16-70); PROMYELOCYTES 4 % (0-0)
[2017-06-07] MEDS: INSULIN HUMAN NPH 1,000 UNITS/10 ML VIAL SQ SCH ×2 (08:00→17:00)
[2017-06-07] MEDS: methylPREDNISolone SOD SUCC 40 MG/1 ML VIAL IV PUSH SCH (08:32)
[2017-06-07] MEDS: amLODIPine BESYLATE 5 MG TAB PO SCH (08:33)
[2017-06-07] MEDS: CARVEDILOL 6.25 MG TAB PO SCH ×2 (08:33→20:46)
[2017-06-07] MEDS: MULTIVITAMIN TAB PO SCH (08:33)
[2017-06-07] MEDS: PRAVASTATIN SOD 10 MG TAB PO SCH (08:33)
[2017-06-07] MEDS: PANTOPRAZOLE SOD 40 MG DELAYED RELEASE TAB PO SCH (08:33)
[2017-06-07] MEDS: CYANOCOBALAMIN 1,000 MCG TAB PO SCH (08:33)
[2017-06-07] MEDS: NYSTATIN 100,000 U/GM PWD 15 GM BTL TOPICAL SCH ×2 (08:38→20:53)
[2017-06-07] MEDS: MUPIROCIN 2% OINT 22 GM TUBE TOPICAL SCH ×2 (08:38→20:53)
--- NOTE | 2017-06-07 15:22 | HHI.PR ---
Subjective Remarks Patient has no complaints today. She is optimistic when seen. Objective Vital Signs Date Time Temp Pulse Resp B/P (MAP) Pulse Ox O2 Delivery O2 Flow Rate FiO2 06/07/17 12:00 98.6 86 23 154/82 (106) 97 06/07/17 12:00 86 06/07/17 11:00 76 16 149/61 (90) 96 06/07/17 10:00 82 19 139/50 (79) 97 06/07/17 10:00 86 06/07/17 09:00 88 19 149/61 (90) 95 06/07/17 08:00 80 06/07/17 08:00 98.6 84 33 134/54 (80) 96 06/07/17 08:00 96 Nasal Cannula 1.00 06/07/17 07:26 97 Nasal Cannula 1.00 06/07/17 07:00 86 21 160/68 (98) 96 06/07/17 06:08 78 18 147/74 (98) 96 06/07/17 06:00 78 06/07/17 05:08 78 16 158/55 (89) 97 06/07/17 04:07 97.8 90 32 159/62 (94) 98 06/07/17 04:00 84 06/07/17 03:00 86 18 153/57 (89) 98 06/07/17 02:00 90 06/07/17 02:00 76 15 159/45 (83) 98 06/07/17 01:00 88 24 149/60 (89) 97 06/07/17 00:00 82 06/07/17 00:00 98.0 80 16 120/61 (80) 98 06/06/17 23:00 90 30 139/91 (107) 98 06/06/17 22:00 90 06/06/17 20:00 98.2 89 34 150/53 (85) 94 06/06/17 20:00 89 06/06/17 19:27 95 Nasal Cannula 2.00 06/06/17 19:00 96 Nasal Cannula 1.00 06/06/17 18:00 90 06/06/17 17:00 88 23 147/57 (87) 96 06/06/17 16:00 90 06/06/17 16:00 98.6 90 34 151/52 (85) 94 I/O 06/06/17 06/06/17 06/06/17 06/07/17 06/07/17 06/07/17 07:00 15:00 23:00 07:00 15:00 23:00 Intake Total 720 ml 320 ml Output Total 2300 ml Balance -2300 ml 720 ml 320 ml Intake Oral 720 ml 320 ml Hemodialysis 2300 ml # Voids 0 2 2 # Bowel Movements 3 1 Result Diagram: 06/07/17 0530 06/07/17 0530 A/P Assessment and Plan 82-year-old female admitted secondary to facial cellulitis, she went to the ICU due to respiratory distress, now transferring out of ICU Chronic respiratory insufficiency Improved Continue oxygen as needed Incentive spirometry continue Continue as needed albuterol Continue schedule duo nebs Continue systemic steroids Hyperlipidemia Continue present treatment Follow as an outpatient Continue pravastatin Hypertension History of pulmonary hypertension Grade 1 diastolic dysfunction Continue baseline treatment Follow blood pressures Adjust treatments as needed Continue carvedilol Continue isosorbide Continue amlodipine ESRD Nephrology following Continue hemodialysis Gastroesophageal reflux disease Hypoalbuminemia Continue Protonix Skin and soft tissue infection (groin/under breast) Immunocompromised state Antibiotic treatments completed ID following Rheumatoid arthritis Methotrexate on hold Continue folic acid 0.8 mg IV daily Patient will need to discuss with Dr. Melendez alternative medication for rheumatoid arthritis. Outpatient Leukocytosis Macrocytic anemia thrombocytopenia History of anemia of chronic kidney disease Follow CBC Continue Neupogen as needed Continue folic acid Continue B12 Diabetes mellitus type 2 Follow blood sugars Insulin sliding scale Diabetic diet Continue Novolin N Hypothyroidism Continue levothyroxin DVT prophylaxis SCDs Leighton Ivey MD Jun 07, 2017 15:22
[2017-06-07] MEDS: FLUCONAZOLE 100 MG PREMIX BAG 50 ML IV SCH (20:46)
[2017-06-07] MEDS: SODIUM CHLORIDE 0.9% IV SCH (21:19)
[2017-06-07] MEDS: FOLIC ACID IV SCH (21:19)
--- NOTE | 2017-06-07 22:04 | HHI.NPPN ---
Subjective History of Present Illness 82-year-old female with known history of end-stage renal disease on dialysis, diabetes, hypothyroidism, breast cancer, hypertension, hyperlipidemia , and rheumatoid arthritis.Patient presented to ED for suspected buccal cellulitis. Patient was in her usual state of health until about Monday nights when she began experiencing some gradual onset of bilateral facial edema and pain. Patient found to have anemia and Hgb. drop further. Additional Remarks Patient is alert, no SOB, feeling better, clinically same, not in distress. Review of Systems General Constitutional: Fatigue Ears, Nose, & Throat Ears, Nose & Throat: Sore Throat Respiratory Lungs: SOB, Cough Cardiovascular Cardiac: ANDRADE Objective Data Data 06/07/17 06/08/17 19:00 07:00 Intake Total 220 ml Balance 220 ml Intake Oral 220 ml # Voids 1 Vital Signs Date Time Temp Pulse Resp B/P (MAP) Pulse Ox O2 Delivery O2 Flow Rate FiO2 06/07/17 20:00 94 Nasal Cannula 2.00 06/07/17 17:43 92 Nasal Cannula 2.00 06/07/17 17:00 98.9 93 16 142/58 (86) 92 06/07/17 14:00 92 06/07/17 12:00 98.6 86 23 154/82 (106) 97 06/07/17 12:00 86 06/07/17 11:00 76 16 149/61 (90) 96 06/07/17 10:00 82 19 139/50 (79) 97 06/07/17 10:00 86 06/07/17 09:00 88 19 149/61 (90) 95 06/07/17 08:00 80 06/07/17 08:00 98.6 84 33 134/54 (80) 96 06/07/17 08:00 96 Nasal Cannula 1.00 06/07/17 07:26 97 Nasal Cannula 1.00 06/07/17 07:00 86 21 160/68 (98) 96 06/07/17 06:08 78 18 147/74 (98) 96 06/07/17 06:00 78 06/07/17 05:08 78 16 158/55 (89) 97 06/07/17 04:07 97.8 90 32 159/62 (94) 98 06/07/17 04:00 84 06/07/17 03:00 86 18 153/57 (89) 98 06/07/17 02:00 90 06/07/17 02:00 76 15 159/45 (83) 98 06/07/17 01:00 88 24 149/60 (89) 97 06/07/17 00:00 82 06/07/17 00:00 98.0 80 16 120/61 (80) 98 06/06/17 23:00 90 30 139/91 (107) 98 -: 06/07/17 0530 06/07/17 0530 Physical Exam General Appearance: No Acute Distress, Comfortable Eyes Eye Exam: Pupils Equal Throat Throat Remarks Painful opening of mouth, with tenderness over TM joint and some swelling. Neck Neck Exam: Neck Supple Pulmonary Resp Exam: Breath Sounds Equal, No Distress, Decreased Bases Cardiology CV Exam: Regular, Normal Sinus Rhythm Gastrointestinal/Abdomen GI Exam: Soft, Non-Tender, Bowel Sounds Present Extremeties Extremities Exam: Trace Edema Neurologic Neuro Exam: Alert, Awake, Oriented Psychiatric Psych Exam: Appropriate Responses Assessment/Plan Problem List: (1) ESRD (end stage renal disease) on dialysis ICD Codes: N18.6 - End stage renal disease; Z99.2 - Dependence on renal dialysis Plan: HD TTS, 3 times a week. Anemia of chronic disease Epogen with dialysis Continue antibiotics, remain afebrile. Patient develop Pancytopenia. Seen by Hematology. Hematology follow up noted. On Neupogen, WBC and platelets improving. HD to continue TTS. BP is stable. (2) HTN (hypertension) ICD Codes: I10 - Essential (primary) hypertension Plan: Home medications continued (3) Soft tissue infection ICD Codes: L08.9 - Local infection of the skin and subcutaneous tissue, unspecified Status: Acute Plan: Continue antibiotics Renal dosing Priti Bautista MD Jun 07, 2017 22:04
[2017-06-08] VITALS (10 sets, daily range): BP systolic 131–184; BP diastolic 60–79; PULSE 80–95; RESP 20; TEMP 97.1–97.9; O2SAT 85–97
[2017-06-08] MEDS: INSULIN NovoLIN REGULAR SUPPLEMENTAL SCALE SQ SCH ×5 (02:56→21:00)
[2017-06-08] MEDS: ISOSORBIDE MONONITRATE 30 MG CR TAB (IMDUR) PO SCH (05:58)
[2017-06-08] MEDS: LEVOTHYROXINE SODIUM 100 MCG TAB PO SCH (05:58)
[2017-06-08 07:25] LABS: AUTOMATED NEUTROPHIL # 15.7 TH/MM3 (1.8-7.7); BASOPHIL % 0.2 % (0.0-2.0); HEMOGLOBIN 8.3 GM/DL (11.6-15.3); LYMPH % 11.8 % (9.0-44.0); LYMPHOCYTE # 2.3 TH/MM3 (1.0-4.8); MEAN CELL VOLUME 100.9 FL (80.0-100.0); MEAN CORPUSCULAR HEMOGLOBIN 33.5 PG (27.0-34.0); MEAN CORPUSCULAR HGB CONC 33.2 % (32.0-36.0); MEAN PLATELET VOLUME 8.4 FL (7.0-11.0); MONO % 7.9 % (0.0-8.0); MONOCYTE # 1.5 TH/MM3 (0-0.9); NEUT % 80.1 % (16.0-70.0); PLATELET COUNT 173 TH/MM3 (150-450); RED BLOOD COUNT 2.48 MIL/MM3 (4.00-5.30); WHITE BLOOD COUNT 19.5 TH/MM3 (4.0-11.0)
[2017-06-08 07:32] LABS: CHLORIDE 96 MEQ/L (98-107); SODIUM (NA) 136 MEQ/L (136-145)
[2017-06-08 07:39] LABS: ALBUMIN 2.4 GM/DL (3.4-5.0); BICARBONATE 28.7 MEQ/L (21.0-32.0); CALCIUM 8.1 MG/DL (8.5-10.1); GLUCOSE,RANDOM 141 MG/DL (74-106)
[2017-06-08] MEDS: RESP: ALBUTEROL 2.5 MG/IPRATROPIUM 0.5 MG NEB (SCH) NEB (07:43)
[2017-06-08 07:53] LABS: ALKALINE PHOSPHATASE 93 U/L (45-117); ALT (GPT) 19 U/L (10-53); AST (GOT) 21 U/L (15-37); BLOOD UREA NITROGEN 82 MG/DL (7-18); GLOMERULAR FILTRATION RATE 6 ML/MIN (>89); TOTAL BILIRUBIN ADULT 0.3 MG/DL (0.2-1.0); TOTAL PROTEIN 5.8 GM/DL (6.4-8.2)
[2017-06-08] MEDS: INSULIN HUMAN NPH 1,000 UNITS/10 ML VIAL SQ SCH ×2 (08:00→16:50)
[2017-06-08] MEDS ORDERED: cloNIDine HCL 0.1 MG TAB PO PRN (09:00)
[2017-06-08] MEDS: methylPREDNISolone SOD SUCC 40 MG/1 ML VIAL IV PUSH SCH (09:42)
[2017-06-08] MEDS: PRAVASTATIN SOD 10 MG TAB PO SCH (09:42)
[2017-06-08] MEDS: PANTOPRAZOLE SOD 40 MG DELAYED RELEASE TAB PO SCH (09:42)
[2017-06-08] MEDS: CARVEDILOL 6.25 MG TAB PO SCH ×2 (09:42→21:47)
[2017-06-08] MEDS: CYANOCOBALAMIN 1,000 MCG TAB PO SCH (09:42)
[2017-06-08] MEDS: MUPIROCIN 2% OINT 22 GM TUBE TOPICAL SCH ×2 (09:42→20:52)
[2017-06-08] MEDS: amLODIPine BESYLATE 5 MG TAB PO SCH (09:42)
[2017-06-08] MEDS: MULTIVITAMIN TAB PO SCH (09:42)
[2017-06-08] MEDS: NYSTATIN 100,000 U/GM PWD 15 GM BTL TOPICAL SCH ×2 (09:43→21:00)
[2017-06-08 10:03] LABS: BANDS 7 % (0-6); BASOPHILS 1 % (0-2); CORRECTED NUCLEATED RBC 2 /100 WBC (0-0); LYMPHOCYTES 25 % (9-44); METAMYELOCYTES 5 % (0-1); MONOCYTES 8 % (0-8); MYELOCYTES 3 % (0-0); NEUTROPHIL # MANUAL DIFF 12.9 TH/MM3 (1.8-7.7); NUCLEATED RED BLOOD CELL 2 (0-0); POLYS (SEG NEUTROPHILS) 49 % (16-70); PROMYELOCYTES 2 % (0-0)
[2017-06-08 10:09] LABS: OVALOCYTES 1+ (NORMAL)
[2017-06-08 10:10] LABS: ROULEAUX PRESENT (NORMAL)
--- NOTE | 2017-06-08 10:28 | HHI.PR ---
Subjective Remarks Feeling well. Plan for PT today. No fevers. Patient has weakness. Objective Vital Signs Date Time Temp Pulse Resp B/P (MAP) Pulse Ox O2 Delivery O2 Flow Rate FiO2 06/08/17 08:00 97.5 84 20 131/60 (83) 93 06/08/17 00:38 177/74 (108) 06/08/17 00:00 97.9 95 20 184/79 (114) 93 06/07/17 20:00 Nasal Cannula 2.00 Humidified 06/07/17 20:00 94 Nasal Cannula 2.00 06/07/17 20:00 97.4 94 20 155/69 (97) 91 06/07/17 17:43 92 Nasal Cannula 2.00 06/07/17 17:00 98.9 93 16 142/58 (86) 92 06/07/17 14:00 92 06/07/17 12:00 98.6 86 23 154/82 (106) 97 06/07/17 12:00 86 06/07/17 11:00 76 16 149/61 (90) 96 I/O 06/07/17 06/07/17 06/07/17 06/08/17 06/08/17 06/08/17 07:00 15:00 23:00 07:00 15:00 23:00 Intake Total 320 ml 220 ml 0 ml Output Total 0 ml Balance 320 ml 220 ml 0 ml Intake Oral 320 ml 220 ml 0 ml Output Urine Total 0 ml Stool Total 0 ml # Voids 2 1 0 # Bowel Movements 1 0 Result Diagram: 06/08/17 0645 06/08/17 0645 Objective Remarks GENERAL: NAD, A&Ox3 HEAD: Normocephalic. NECK: Supple, trachea midline. No lymphadenopathy. EYES: No scleral icterus. No injection or drainage. CARDIOVASCULAR: Regular rate and rhythm without murmurs, gallops, or rubs. RESPIRATORY: Breath sounds equal bilaterally. No accessory muscle use. GASTROINTESTINAL: Abdomen soft, non-tender, nondistended. MUSCULOSKELETAL: No cyanosis, or edema. SKIN: Warm and dry. NEURO: No focal neurological deficitis. A/P Problem List: (1) Neutropenic fever ICD Code: D70.9 - Neutropenia, unspecified; R50.81 - Fever presenting with conditions classified elsewhere (2) Pancytopenia ICD Code: D61.818 - Other pancytopenia (3) ESRD (end stage renal disease) on dialysis ICD Code: N18.6 - End stage renal disease; Z99.2 - Dependence on renal dialysis (4) Soft tissue infection ICD Code: L08.9 - Local infection of the skin and subcutaneous tissue, unspecified Status: Acute Assessment and Plan 82-year-old female admitted secondary to facial cellulitis, she went to the ICU due to respiratory distress, now transferring out of ICU Continue PT. Will need SNF at discharge at this point. Dialysis today. Consider discharge to SNF tomorrow. Chronic respiratory insufficiency Improved Continue oxygen as needed Incentive spirometry continue Continue as needed albuterol Continue schedule duo nebs Continue systemic steroids Hyperlipidemia Continue present treatment Follow as an outpatient Continue pravastatin Hypertension History of pulmonary hypertension Grade 1 diastolic dysfunction Continue baseline treatment Follow blood pressures Adjust treatments as needed Continue carvedilol Continue isosorbide Continue amlodipine ESRD Nephrology following Continue hemodialysis Gastroesophageal reflux disease Hypoalbuminemia Continue Protonix Skin and soft tissue infection (groin/under breast) Immunocompromised state Antibiotic treatments completed ID following Rheumatoid arthritis Methotrexate on hold Continue folic acid 0.8 mg IV daily Patient will need to discuss with Dr. Melendez alternative medication for rheumatoid arthritis. Outpatient Leukocytosis Macrocytic anemia thrombocytopenia History of anemia of chronic kidney disease Follow CBC Continue Neupogen as needed Continue folic acid Continue B12 Diabetes mellitus type 2 Follow blood sugars Insulin sliding scale Diabetic diet Continue Novolin N Hypothyroidism Continue levothyroxin DVT prophylaxis SCDs Leighton Ivey MD Jun 08, 2017 10:28
--- NOTE | 2017-06-08 13:51 | HHI.NPPN ---
Subjective History of Present Illness 82-year-old female with known history of end-stage renal disease on dialysis, diabetes, hypothyroidism, breast cancer, hypertension, hyperlipidemia , and rheumatoid arthritis.Patient presented to ED for suspected buccal cellulitis. Patient was in her usual state of health until about Monday nights when she began experiencing some gradual onset of bilateral facial edema and pain. Patient found to have anemia and Hgb. drop further. Additional Remarks Patient is alert, no SOB, eating better, no complaint. Review of Systems General Constitutional: Fatigue Ears, Nose, & Throat Ears, Nose & Throat: Sore Throat Respiratory Lungs: SOB, Cough Cardiovascular Cardiac: ANDRADE Objective Data Data 06/08/17 06/09/17 19:00 07:00 Intake Total 0 ml Output Total 0 ml Balance 0 ml Intake Oral 0 ml Output Urine Total 0 ml Stool Total 0 ml # Voids 0 # Bowel Movements 0 Vital Signs Date Time Temp Pulse Resp B/P (MAP) Pulse Ox O2 Delivery O2 Flow Rate FiO2 06/08/17 12:00 97.4 80 20 137/63 (87) 96 06/08/17 09:42 Nasal Cannula 2.00 06/08/17 08:00 97.5 84 20 131/60 (83) 93 06/08/17 00:38 177/74 (108) 06/08/17 00:00 97.9 95 20 184/79 (114) 93 06/07/17 20:00 Nasal Cannula 2.00 Humidified 06/07/17 20:00 94 Nasal Cannula 2.00 06/07/17 20:00 97.4 94 20 155/69 (97) 91 06/07/17 17:43 92 Nasal Cannula 2.00 06/07/17 17:00 98.9 93 16 142/58 (86) 92 06/07/17 14:00 92 -: 06/08/17 0645 06/08/17 0645 Physical Exam General Appearance: No Acute Distress, Comfortable Eyes Eye Exam: Pupils Equal Throat Throat Remarks Painful opening of mouth, with tenderness over TM joint and some swelling. Neck Neck Exam: Neck Supple Pulmonary Resp Exam: Breath Sounds Equal, No Distress, Decreased Bases Cardiology CV Exam: Regular, Normal Sinus Rhythm Gastrointestinal/Abdomen GI Exam: Soft, Non-Tender, Bowel Sounds Present Extremeties Extremities Exam: Trace Edema Neurologic Neuro Exam: Alert, Awake, Oriented Psychiatric Psych Exam: Appropriate Responses Assessment/Plan Problem List: (1) ESRD (end stage renal disease) on dialysis ICD Codes: N18.6 - End stage renal disease; Z99.2 - Dependence on renal dialysis Plan: HD TTS, 3 times a week. Anemia of chronic disease Epogen with dialysis Continue antibiotics, remain afebrile. Patient develop Pancytopenia. Now the WBC and platelets improving. HD to continue TTS. BP is stable. HD will be today again. (2) HTN (hypertension) ICD Codes: I10 - Essential (primary) hypertension Plan: Home medications continued (3) Soft tissue infection ICD Codes: L08.9 - Local infection of the skin and subcutaneous tissue, unspecified Status: Acute Plan: Continue antibiotics Renal dosing Priti Bautista MD Jun 08, 2017 13:51
[2017-06-08] MEDS: EPOETIN ALFA 10,000 UNITS/ML VIAL IV PUSH PRN (19:36)
[2017-06-08] MEDS: GELATIN 12 MM/7 MM FOAM TOP PRN (19:37)
[2017-06-08] MEDS: SODIUM CHLORIDE 0.9% IV SCH (21:47)
[2017-06-08] MEDS: FLUCONAZOLE 100 MG PREMIX BAG 50 ML IV SCH (21:47)
[2017-06-08] MEDS: FOLIC ACID IV SCH (21:47)
[2017-06-09] VITALS: BP 141/80; PULSE 86; RESP 18; TEMP 98.4; O2SAT 95
[2017-06-09] MEDS: INSULIN NovoLIN REGULAR SUPPLEMENTAL SCALE SQ SCH ×5 (03:00→20:29)
[2017-06-09] MEDS: ISOSORBIDE MONONITRATE 30 MG CR TAB (IMDUR) PO SCH (05:37)
[2017-06-09] MEDS: LEVOTHYROXINE SODIUM 100 MCG TAB PO SCH (05:37)
[2017-06-09 06:43] LABS: AUTOMATED NEUTROPHIL # 16.8 TH/MM3 (1.8-7.7); BASOPHIL # 0.1 TH/MM3 (0-0.2); BASOPHIL % 0.6 % (0.0-2.0); HEMATOCRIT 26.1 % (35.0-46.0); HEMOGLOBIN 8.7 GM/DL (11.6-15.3); LYMPH % 9.9 % (9.0-44.0); LYMPHOCYTE # 2.1 TH/MM3 (1.0-4.8); MEAN CORPUSCULAR HEMOGLOBIN 33.6 PG (27.0-34.0); MEAN CORPUSCULAR HGB CONC 33.3 % (32.0-36.0); MEAN PLATELET VOLUME 8.3 FL (7.0-11.0); MONO % 8.5 % (0.0-8.0); MONOCYTE # 1.8 TH/MM3 (0-0.9); PLATELET COUNT 198 TH/MM3 (150-450); RED BLOOD COUNT 2.58 MIL/MM3 (4.00-5.30); RED CELL DISTRIBUTION WIDTH 16.4 % (11.6-17.2); WHITE BLOOD COUNT 20.8 TH/MM3 (4.0-11.0)
[2017-06-09 06:56] LABS: CHLORIDE 99 MEQ/L (98-107); SODIUM (NA) 139 MEQ/L (136-145)
[2017-06-09 07:02] LABS: CALCIUM 8.3 MG/DL (8.5-10.1)
[2017-06-09 07:03] LABS: ALBUMIN 2.6 GM/DL (3.4-5.0); BICARBONATE 31.2 MEQ/L (21.0-32.0); GLUCOSE,RANDOM 193 MG/DL (74-106)
[2017-06-09 07:12] LABS: ALKALINE PHOSPHATASE 97 U/L (45-117); ALT (GPT) 23 U/L (10-53); AST (GOT) 20 U/L (15-37); BLOOD UREA NITROGEN 55 MG/DL (7-18); GLOMERULAR FILTRATION RATE 9 ML/MIN (>89); TOTAL BILIRUBIN ADULT 0.4 MG/DL (0.2-1.0); TOTAL PROTEIN 6.2 GM/DL (6.4-8.2)
[2017-06-09 07:24] LABS: BANDS 8 % (0-6); CORRECTED NUCLEATED RBC 1 /100 WBC (0-0); LYMPHOCYTES 14 % (9-44); METAMYELOCYTES 2 % (0-1); MONOCYTES 19 % (0-8); MYELOCYTES 2 % (0-0); NEUTROPHIL # MANUAL DIFF 13.9 TH/MM3 (1.8-7.7); NUCLEATED RED BLOOD CELL 1 (0-0); POLYS (SEG NEUTROPHILS) 55 % (16-70)
[2017-06-09 08:00] VITALS: BP 144/64; PULSE 59; RESP 18; TEMP 97.2; O2SAT 95
[2017-06-09] MEDS: CYANOCOBALAMIN 1,000 MCG TAB PO SCH (08:47)
[2017-06-09] MEDS: amLODIPine BESYLATE 5 MG TAB PO SCH (08:47)
[2017-06-09] MEDS: INSULIN HUMAN NPH 1,000 UNITS/10 ML VIAL SQ SCH ×2 (08:47→17:53)
[2017-06-09] MEDS: CARVEDILOL 6.25 MG TAB PO SCH ×2 (08:47→20:22)
[2017-06-09] MEDS: methylPREDNISolone SOD SUCC 40 MG/1 ML VIAL IV PUSH SCH (08:48)
[2017-06-09] MEDS: PANTOPRAZOLE SOD 40 MG DELAYED RELEASE TAB PO SCH (08:48)
[2017-06-09] MEDS: MULTIVITAMIN TAB PO SCH (08:48)
[2017-06-09] MEDS: NYSTATIN 100,000 U/GM PWD 15 GM BTL TOPICAL SCH ×2 (08:48→20:30)
[2017-06-09] MEDS: MUPIROCIN 2% OINT 22 GM TUBE TOPICAL SCH ×2 (08:48→20:30)
[2017-06-09] MEDS: PRAVASTATIN SOD 10 MG TAB PO SCH (08:48)
[2017-06-09] MEDS ORDERED: PRED10PA PO (10:31)
[2017-06-09] MEDS ORDERED: LACTTAB8 PO (10:31)
[2017-06-09] MEDS ORDERED: FLUC100T2 PO (10:31)
[2017-06-09 11:00] VITALS: O2SAT 96
[2017-06-09 12:00] VITALS: BP 158/70; PULSE 82; RESP 18; TEMP 97.3; O2SAT 97
--- NOTE | 2017-06-09 12:37 | PD.ONC.PN ---
Subjective Subjective Remarks Pt seen and examined, VS, labs, medications and notes reviewed. Subjectively; she reports feeling stronger every day, her appetite is improving as is her physical endurance. She tells me she is looking forward to being discharged home. The sores in her mouth have nearly completely resolved and she is back to eating a regular diet. The patient is now out of the intensive care unit and on the med surg unit. Objective Data Date Time Temp Pulse Resp B/P (MAP) Pulse Ox O2 Delivery O2 Flow Rate FiO2 06/09/17 08:00 97.2 59 18 144/64 (90) 95 06/09/17 00:00 98.4 86 18 141/80 (100) 95 06/08/17 22:44 Nasal Cannula 06/08/17 22:00 97 Nasal Cannula 2.00 06/08/17 20:00 97.1 85 20 151/67 (95) 95 06/08/17 16:00 97.2 80 20 164/71 (102) 95 06/08/17 16:00 97.2 80 20 164/71 (102) 95 Result Diagram: 06/09/17 0555 06/09/17 0555 Laboratory Results Laboratory Tests Test 06/09/17 05:55 White Blood Count 20.8 TH/MM3 Red Blood Count 2.58 MIL/MM3 Hemoglobin 8.7 GM/DL Hematocrit 26.1 % Mean Corpuscular Volume 101.0 FL Mean Corpuscular Hemoglobin 33.6 PG Mean Corpuscular Hemoglobin Concent 33.3 % Red Cell Distribution Width 16.4 % Platelet Count 198 TH/MM3 Mean Platelet Volume 8.3 FL Neutrophils (%) (Auto) 81.0 % Lymphocytes (%) (Auto) 9.9 % Monocytes (%) (Auto) 8.5 % Eosinophils (%) (Auto) 0.0 % Basophils (%) (Auto) 0.6 % Neutrophils # (Auto) 16.8 TH/MM3 Lymphocytes # (Auto) 2.1 TH/MM3 Monocytes # (Auto) 1.8 TH/MM3 Eosinophils # (Auto) 0.0 TH/MM3 Basophils # (Auto) 0.1 TH/MM3 CBC Comment AUTO DIFF Differential Total Cells Counted 100 Neutrophils % (Manual) 55 % Band Neutrophils % 8 % Lymphocytes % 14 % Monocytes % 19 % Neutrophils # (Manual) 13.9 TH/MM3 Metamyelocytes 2 % Myelocytes 2 % Nucleated Red Blood Cells 1 /100 WBC Differential Comment FINAL DIFF MANUAL Blood Urea Nitrogen 55 MG/DL Creatinine 4.80 MG/DL Random Glucose 193 MG/DL Total Protein 6.2 GM/DL Albumin 2.6 GM/DL Calcium Level 8.3 MG/DL Alkaline Phosphatase 97 U/L Aspartate Amino Transf (AST/SGOT) 20 U/L Alanine Aminotransferase (ALT/SGPT) 23 U/L Total Bilirubin 0.4 MG/DL Sodium Level 139 MEQ/L Potassium Level 4.8 MEQ/L Chloride Level 99 MEQ/L Carbon Dioxide Level 31.2 MEQ/L Anion Gap 9 MEQ/L Estimat Glomerular Filtration Rate 9 ML/MIN Administered Medications Medications (Trade) Dose Ordered Sig/Woodrow Route PRN Reason Start Time Stop Time Status Last Admin Dose Admin Cyanocobalamin (Vitamin B12) 1,000 mcg DAILY PO 05/24/17 16:00 06/09/17 08:47 Pravastatin Sodium (Pravachol) 10 mg DAILY PO 05/24/17 16:00 06/09/17 08:48 Albumin Human 100 ml @ 60 mls/hr UNSCH PRN IV WITH DIALYSIS 05/24/17 16:00 05/27/17 09:18 Sodium Chloride (NS Flush) 5 ml UNSCH PRN IV FLUSH WITH DIALYSIS 05/24/17 16:00 05/31/17 01:43 Ondansetron HCl (Zofran Inj) 4 mg UNSCH PRN IV PUSH WITH DIALYSIS 05/24/17 16:00 05/28/17 06:09 Acetaminophen (Tylenol) 650 mg UNSCH PRN PO for headach, pain, temp > 101F 05/24/17 16:00 05/27/17 03:29 Diphenhydramine HCl (Benadryl) 25 mg UNSCH PRN PO for hives/itching/anaphylaxis 05/24/17 16:00 05/27/17 23:53 Epoetin Cesar (Epogen Inj) 10,000 units UNSCH PRN IV PUSH WITH DIALYSIS 05/24/17 16:00 06/08/17 19:36 Gelatin (Gelfoam 12 Mm/7 Mm Top) 1 foam UNSCH PRN TOP SEE LABEL COMMENTS 05/24/17 16:00 06/08/17 19:37 Nystatin (Mycostatin Powder) 1 applic Q12HR TOPICAL 05/24/17 21:00 06/09/17 08:48 Multivitamins (Theragran) 1 tab DAILY PO 05/27/17 09:00 06/09/17 08:48 Levothyroxine Sodium (Synthroid) 200 mcg DAILY@0600 PO 05/28/17 06:00 06/09/17 05:37 Mupirocin (Bactroban 2% Oint) 1 applic BID TOPICAL 05/30/17 09:00 06/09/17 08:48 Dextrose (D50w (Vial) Inj) 50 ml UNSCH PRN IV PUSH HYPOGLYCEMIA-SEE COMMENTS 05/30/17 17:15 06/04/17 08:46 Fluconazole/ Sodium Chloride 50 ml @ 50 mls/hr Q24H IV 05/30/17 20:00 06/08/17 21:47 Pantoprazole Sodium (Protonix) 40 mg DAILY PO 06/04/17 09:00 06/09/17 08:48 Amlodipine Besylate (Norvasc) 5 mg DAILY PO 06/04/17 09:00 06/09/17 08:47 Hydralazine HCl (Apresoline Inj) 10 mg Q1HR PRN IV PUSH SBP>160, DBP>90 06/04/17 07:15 06/05/17 16:12 Folic Acid 0.8 mg/ Sodium Chloride 50.16 ml @ 100.32 mls/ hr HS IV 06/04/17 21:00 06/08/17 21:47 Carvedilol (Coreg) 12.5 mg Q12HR PO 06/05/17 09:00 06/09/17 08:47 Insulin Human NPH (NovoLIN N INJ) 12 units DAILY@08 SQ 06/06/17 08:00 06/09/17 08:47 Insulin Human NPH (NovoLIN N INJ) 2 units DAILY@17 SQ 06/06/17 17:00 06/08/17 16:50 Insulin Human Regular (NovoLIN R SUPPLEMENTAL SCALE) 1 ACHS AND 3AM SQ 06/06/17 08:00 06/09/17 08:46 Isosorbide Mononitrate (Imdur) 30 mg DAILY@07 PO 06/07/17 07:00 06/09/17 05:37 Methylprednisolone Sodium Succinate (SoluMEDROL INJ) 40 mg DAILY IV PUSH 06/06/17 09:00 06/09/17 08:48 Objective Remarks GENERAL APPEARANCE: Ms. Faust is an elderly lady. She sitting up in bed, she appears to be comfortable, she is talking in full sentences. HEENT: Head is atraumatic and normocephalic. Conjunctivae are pale, sclerae anicteric. EOMI, PERRLA. Oral exam: Lips appear normal, all ulceration and crusting has resolved., buccal mucosa with intact mucosa, decreased erythema and edema. NECK: No cervical lymphadenopathy. She has tenderness along her neck and along her cheeks. RESPIRATORY: Good inspiratory effort with bibasilar breath sounds, no wheezes, no rhonchi. CARDIOVASCULAR: Regular rate and rhythm, S1 and S2, no obvious murmurs, rubs or gallops. ABDOMEN: Protuberant belly, tender to light palpation, tympanic to percussion. No definite organ enlargement noted. LOWER EXTREMITIES: No pretibial edema, no calf tenderness. CENTRAL NERVOUS SYSTEM: No focal sensory or motor deficits, but she is generally weak. MUSCULOSKELETAL: She has generally atrophic muscle mass. Assessment/Plan Assessment 82-year-old female with a history of end-stage renal failure, type 2 diabetes, rheumatoid arthritis. She has been on therapy for rheumatoid arthritis with 10 mg of methotrexate once a week restarted around Nov 2016. She presented with pancytopenia. 1. 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 - continue B12 and Folic acid - prn transfusion to keep Hb> 7.[address] > 20 - continue epogen with dialysis - continue Neupogen but increase dose to 480mcg - On Abx - continue supportive care. Also on corticosteroids. 06/02/2017: She continues to improve clinically is now eating. I am concerned about her ANC being 0 persistently. 06/04/17 : Neutropenia has resolved. Off of Neutropenic precautions. Last dose of Neupogen on friday 06/02 Plat are coming up as well. continue epogen with HD. Continue folic acid for MTX toxicity. Pt needs to D/W Dr Melendez ( [facility] ) for alternative Meds for RA. She should not resume MTX as she has ESRD and on HD 06/05/2017: CBC reviewed; labs dated 06/04/2017 indicate the leafy count of greater than 12, absolute initial count greater than 8, platelet counts are recovering and are greater than 80,000. Patient remains anemic secondary to chronic kidney failure. Plan 1. Methotrexate associated marrow toxicity and mucositis: She is recovering well, her WBC count is elevated (likely due to corticosteroids) and platelet counts are now within normal range. Her mucositis has near completely resolved. She is no longer requiring G-CSF. I will change her folic acid from IV to by mouth. I will taper her corticosteroids. From a hematology standpoint she is cleared for discharge. Kai Campos MD Jun 09, 2017 12:37
--- NOTE | 2017-06-09 14:58 | HHI.NPPN ---
Subjective History of Present Illness 82-year-old female with known history of end-stage renal disease on dialysis, diabetes, hypothyroidism, breast cancer, hypertension, hyperlipidemia , and rheumatoid arthritis.Patient presented to ED for suspected buccal cellulitis. Patient was in her usual state of health until about Monday nights when she began experiencing some gradual onset of bilateral facial edema and pain. Patient found to have anemia and Hgb. drop further. Additional Remarks Patient is alert, no SOB, feeling better. Review of Systems General Constitutional: Fatigue Ears, Nose, & Throat Ears, Nose & Throat: Sore Throat Respiratory Lungs: SOB, Cough Cardiovascular Cardiac: ANDRADE Objective Data Data 06/09/17 06/10/17 19:00 07:00 Output Total 1 ml Balance -1 ml Stool Total 1 ml Vital Signs Date Time Temp Pulse Resp B/P (MAP) Pulse Ox O2 Delivery O2 Flow Rate FiO2 06/09/17 14:55 96 Nasal Cannula 2.00 06/09/17 12:00 97.3 82 18 158/70 (99) 97 06/09/17 08:00 97.2 59 18 144/64 (90) 95 06/09/17 00:00 98.4 86 18 141/80 (100) 95 06/08/17 22:44 Nasal Cannula 06/08/17 22:00 97 Nasal Cannula 2.00 06/08/17 20:00 97.1 85 20 151/67 (95) 95 06/08/17 16:00 97.2 80 20 164/71 (102) 95 06/08/17 16:00 97.2 80 20 164/71 (102) 95 -: 06/09/17 0555 06/09/17 0555 Physical Exam General Appearance: No Acute Distress, Comfortable Eyes Eye Exam: Pupils Equal Throat Throat Remarks Painful opening of mouth, with tenderness over TM joint and some swelling. Neck Neck Exam: Neck Supple Pulmonary Resp Exam: Breath Sounds Equal, No Distress, Decreased Bases Cardiology CV Exam: Regular, Normal Sinus Rhythm Gastrointestinal/Abdomen GI Exam: Soft, Non-Tender, Bowel Sounds Present Extremeties Extremities Exam: Trace Edema Neurologic Neuro Exam: Alert, Awake, Oriented Psychiatric Psych Exam: Appropriate Responses Assessment/Plan Problem List: (1) ESRD (end stage renal disease) on dialysis ICD Codes: N18.6 - End stage renal disease; Z99.2 - Dependence on renal dialysis Plan: HD TTS, 3 times a week. Anemia of chronic disease Epogen with dialysis Now the WBC and platelets improving. HD to continue TTS. BP is stable. HD done yesterday. Off antibiotics, on prednisone. WBC increasing due to steroid effect. HD again in AM. (2) HTN (hypertension) ICD Codes: I10 - Essential (primary) hypertension Plan: Home medications continued (3) Soft tissue infection ICD Codes: L08.9 - Local infection of the skin and subcutaneous tissue, unspecified Status: Acute Plan: Continue antibiotics Renal dosing Priti Bautista MD Jun 09, 2017 14:58
[2017-06-09 16:00] VITALS: BP 138/70; PULSE 80; RESP 18; TEMP 98; O2SAT 98
--- NOTE | 2017-06-09 17:57 | HHI.DS ---
Discharge Summary Admission Date May 24, 2017 at 11:35 Discharge Date: Jun 09, 2017 Admitting Diagnosis SOFT TISSUE INFECTION OF FACE (1) Pancytopenia ICD Code: D61.818 - Other pancytopenia Diagnosis: Principal (2) ESRD (end stage renal disease) on dialysis ICD Code: N18.6 - End stage renal disease; Z99.2 - Dependence on renal dialysis Diagnosis: Principal (3) HTN (hypertension) ICD Code: I10 - Essential (primary) hypertension Diagnosis: Principal (4) DM2 (diabetes mellitus, type 2) ICD Code: E11.9 - Type 2 diabetes mellitus without complications Diagnosis: Principal (5) Soft tissue infection ICD Code: L08.9 - Local infection of the skin and subcutaneous tissue, unspecified Diagnosis: Principal Status: Acute Procedures None Brief History - From Admission 82-year-old white female being admitted for suspected buccal cellulitis. Patient was in her usual state of health until about 2 nights ago when she began experiencing some gradual onset of bilateral facial edema and pain. She says the pain was initially fluctuating but last night it hit a 10 thus prompting her to come to emergency department. She says the pain is so strong that she does not feel like eating but she denies any jada painful chewing; thus has had decreased p.o. intake. She reports having some nausea and dry heaving. Denies any diarrhea. She denies any fevers or chills. She denies feeling any worsening shortness of breath or any choking sensation. Reports having a headache, sister reports that she has had a stuffy nose. Patient took some Tylenol at home with minimal relief. Says that the morphine given to her in the ER has provided better relief. Patient does report having a little drooling. Patient reports having had dental work done well over a year ago, namely dentures but no ENT or facial surgery or trial reconstruction otherwise. CBC/BMP: 06/09/17 0555 06/09/17 0555 Significant Findings Laboratory Tests Test 06/07/17 05:30 06/08/17 06:45 06/09/17 05:55 White Blood Count 17.5 TH/MM3 (4.0-11.0) 19.5 TH/MM3 (4.0-11.0) 20.8 TH/MM3 (4.0-11.0) Red Blood Count 2.37 MIL/MM3 (4.00-5.30) 2.48 MIL/MM3 (4.00-5.30) 2.58 MIL/MM3 (4.00-5.30) Hemoglobin 8.3 GM/DL (11.6-15.3) 8.3 GM/DL (11.6-15.3) 8.7 GM/DL (11.6-15.3) Hematocrit 24.0 % (35.0-46.0) 25.0 % (35.0-46.0) 26.1 % (35.0-46.0) Mean Corpuscular Volume 101.5 FL (80.0-100.0) 100.9 FL (80.0-100.0) 101.0 FL (80.0-100.0) Mean Corpuscular Hemoglobin 35.2 PG (27.0-34.0) Platelet Count 129 TH/MM3 (150-450) Neutrophils (%) (Auto) 78.7 % (16.0-70.0) 80.1 % (16.0-70.0) 81.0 % (16.0-70.0) Monocytes (%) (Auto) 9.1 % (0.0-8.0) 8.5 % (0.0-8.0) Neutrophils # (Auto) 13.8 TH/MM3 (1.8-7.7) 15.7 TH/MM3 (1.8-7.7) 16.8 TH/MM3 (1.8-7.7) Monocytes # (Auto) 1.6 TH/MM3 (0-0.9) 1.5 TH/MM3 (0-0.9) 1.8 TH/MM3 (0-0.9) Band Neutrophils % 16 % (0-6) 7 % (0-6) 8 % (0-6) Neutrophils # (Manual) 13.3 TH/MM3 (1.8-7.7) 12.9 TH/MM3 (1.8-7.7) 13.9 TH/MM3 (1.8-7.7) Metamyelocytes 6 % (0-1) 5 % (0-1) 2 % (0-1) Myelocytes 8 % (0-0) 3 % (0-0) 2 % (0-0) Promyelocytes 4 % (0-0) 2 % (0-0) Platelet Estimate LOW (NORMAL) Blood Urea Nitrogen 56 MG/DL (7-18) 82 MG/DL (7-18) 55 MG/DL (7-18) Creatinine 5.10 MG/DL (0.50-1.00) 6.50 MG/DL (0.50-1.00) 4.80 MG/DL (0.50-1.00) Random Glucose 145 MG/DL (74-106) 141 MG/DL (74-106) 193 MG/DL (74-106) Albumin 2.4 GM/DL (3.4-5.0) 2.4 GM/DL (3.4-5.0) 2.6 GM/DL (3.4-5.0) Calcium Level 8.3 MG/DL (8.5-10.1) 8.1 MG/DL (8.5-10.1) 8.3 MG/DL (8.5-10.1) Estimat Glomerular Filtration Rate 8 ML/MIN (>89) 6 ML/MIN (>89) 9 ML/MIN (>89) Nucleated Red Blood Cells 2 /100 WBC (0-0) 1 /100 WBC (0-0) Basophilic Stippling MOD (NORMAL) Ovalocytes 1+ (NORMAL) Rouleau PRESENT (NORMAL) Total Protein 5.8 GM/DL (6.4-8.2) 6.2 GM/DL (6.4-8.2) Chloride Level 96 MEQ/L (98-107) Monocytes % 19 % (0-8) PE at Discharge Bleeding left ear scab, Left pannicular large ulcerated lesion concerning for systemic process versus yeast infection (atypical), left elbow sloughing, right forearm erythema and tenderness, and oral ulcerations GENERAL: This is a well-nourished, well-developed patient, who appears ill with shortness of breath CARDIOVASCULAR: Regular rate and rhythm without murmurs, gallops, or rubs. RESPIRATORY: Clear to auscultation. Breath sounds equal bilaterally. No wheezes , rales, or rhonchi. GASTROINTESTINAL: Abdomen soft, non-tender, nondistended. Normal active bowel sounds MUSCULOSKELETAL: Extremities without clubbing, cyanosis, or edema. NEURO: Alert & Oriented x4 to person, place, time, situation. Moves all ext x4 Hospital Course Mrs. Faust is an 82-year-old female. She was admitted secondary to soft tissue infection in her buccal mucosa. She has end-stage renal disease and is on dialysis at baseline. This has been treated. She had respiratory distress while here and was admitted to the PCU for some time. I am taking her over after exit from ICU and she has had a good recovery since then. She will need further physical therapy. Her respiratory status has returned to baseline and infection appears to be well under control. No other complaints. Medically stable for discharge to rehabilitation with continuation of dialysis as an outpatient. Pt Condition on Discharge: Stable Discharge Disposition: Discharge to SNF Discharge Time: > 30 minutes Discharge Instructions DIET: Follow Instructions for: As Tolerated, No Restrictions Activities you can perform: Regular-No Restrictions Follow up Referrals: PCP Follow-up - 2 Weeks New Medications: Fluconazole (Fluconazole) 100 Mg Tab 100 MG PO DAILY for Infection for 7 Days, #7 TAB 0 Refills Lactobacillus Acidophilus (Lactobacillus Acidophilus) 1 Billion Cell Tab 1 TAB PO TIDAC for Nutritional Supplement, #30 TAB 0 Refills Prednisone (21) 10 mg tab Dose Pack (Prednisone (21) 10 mg tab Dose Pack) 10 Mg Pack 10 MG PO DIRECTED for Inflammation, #1 DSPK 0 Refills Continued Medications: Allopurinol (Allopurinol) 100 Mg Tab 100 MG PO DAILY for Gout, #30 TAB 0 Refills Amlodipine (Norvasc) 10 Mg Tab 10 MG PO DAILY for Blood Pressure Management, #30 TAB [address] (Aspirin 81) 81 Mg Tabdr 81 MG PO HS, TAB 0 Refills B-Complex W/ C & Folic Acid (Pita-Rosalinda Rx) 1 Tab 1 TAB PO DAILY for Nutritional Supplement, #30 TAB 0 Refills Carvedilol (Carvedilol) 12.5 Mg Tab 12.5 MG PO HS, #60 TAB 0 Refills Cholecalciferol (Vitamin D3) 1,000 Unit Cap 1000 UNITS PO DAILY for Nutritional Supplement, #1 BOTTLE 0 Refills Cyanocobalamin (Vitamin B-12) 1,000 Mcg Tab 1000 MCG PO DAILY for Nutritional Supplement, #1 BOTTLE 0 Refills Escitalopram (Escitalopram) 10 Mg Tab 10 MG PO DAILY, #30 TAB 0 Refills Folic Acid (Folic Acid) 0.8 Mg Tab 1000 MCG PO HS for Nutritional Supplement, TAB 0 Refills Isosorbide Dinitrate (Isosorbide Dinitrate) 30 Mg Tab 30 MG PO HS Levothyroxine (Levothyroxine) 200 Mcg Tab 200 MCG PO DAILY for Thyroid, #30 TAB 0 Refills Methotrexate (Methotrexate) 2.5 Mg Tab 10 MG PO Q7D, TAB 0 Refills Omeprazole Magnesium (Prilosec) 10 Mg Pow 1 TAB PO MON-SAT Pravastatin (Pravastatin) 10 Mg Tab 10 MG PO HS for Cholesterol Management, #30 TAB 0 Refills Vitamin B Cmplx/Vit C/Folic AC (Nephro-Rosalinda Rx) 1 Tab 1 TAB PO HS, TAB [Oxygen] () Discontinued Medications: Carvedilol (Carvedilol) 25 Mg Tab 25 MG PO DAILY, #60 TAB 0 Refills Leighton Ivey MD Jun 09, 2017 17:57
[2017-06-09 20:00] VITALS: BP 192/70; PULSE 82; RESP 20; TEMP 96.8; O2SAT 98
[2017-06-10] VITALS (7 sets, daily range): BP systolic 129–188; BP diastolic 61–73; PULSE 72–78; RESP 16–20; TEMP 96.4–97.4; O2SAT 93–97
[2017-06-10] MEDS: INSULIN NovoLIN REGULAR SUPPLEMENTAL SCALE SQ SCH ×3 (03:00→12:55)
[2017-06-10] MEDS: ISOSORBIDE MONONITRATE 30 MG CR TAB (IMDUR) PO SCH (05:50)
[2017-06-10] MEDS: LEVOTHYROXINE SODIUM 100 MCG TAB PO SCH (05:50)
[2017-06-10 07:28] LABS: BASOPHIL # 0.2 TH/MM3 (0-0.2); EOSINOPHIL % 0.1 % (0.0-4.0); HEMOGLOBIN 7.9 GM/DL (11.6-15.3); LYMPH % 12.8 % (9.0-44.0); MEAN CELL VOLUME 100.9 FL (80.0-100.0); MEAN CORPUSCULAR HEMOGLOBIN 33.2 PG (27.0-34.0); MEAN CORPUSCULAR HGB CONC 32.9 % (32.0-36.0); MEAN PLATELET VOLUME 8.1 FL (7.0-11.0); MONO % 8.7 % (0.0-8.0); NEUT % 77.4 % (16.0-70.0); PLATELET COUNT 231 TH/MM3 (150-450); RED BLOOD COUNT 2.38 MIL/MM3 (4.00-5.30); RED CELL DISTRIBUTION WIDTH 16.9 % (11.6-17.2); WHITE BLOOD COUNT 23.2 TH/MM3 (4.0-11.0)
[2017-06-10 07:48] LABS: CHLORIDE 97 MEQ/L (98-107); SODIUM (NA) 137 MEQ/L (136-145)
[2017-06-10 08:02] LABS: ALBUMIN 2.4 GM/DL (3.4-5.0); BICARBONATE 29.2 MEQ/L (21.0-32.0)
[2017-06-10 08:03] LABS: GLUCOSE,RANDOM 102 MG/DL (74-106)
[2017-06-10] MEDS: INSULIN HUMAN NPH 1,000 UNITS/10 ML VIAL SQ SCH (08:06)
[2017-06-10 08:09] LABS: ALKALINE PHOSPHATASE 82 U/L (45-117); ALT (GPT) 20 U/L (10-53); AST (GOT) 19 U/L (15-37); BLOOD UREA NITROGEN 78 MG/DL (7-18); GLOMERULAR FILTRATION RATE 7 ML/MIN (>89); TOTAL BILIRUBIN ADULT 0.4 MG/DL (0.2-1.0); TOTAL PROTEIN 5.6 GM/DL (6.4-8.2)
[2017-06-10 08:21] LABS: BANDS 10 % (0-6); CORRECTED NUCLEATED RBC 4 /100 WBC (0-0); LYMPHOCYTES 11 % (9-44); METAMYELOCYTES 7 % (0-1); MONOCYTES 4 % (0-8); MYELOCYTES 4 % (0-0); NEUTROPHIL # MANUAL DIFF 19.5 TH/MM3 (1.8-7.7); NUCLEATED RED BLOOD CELL 4 (0-0); POLYS (SEG NEUTROPHILS) 61 % (16-70); PROMYELOCYTES 2 % (0-0)
[2017-06-10] MEDS ORDERED: FOLIC ACID 1 MG TAB PO SCH (09:00)
[2017-06-10] MEDS ORDERED: predniSONE 20 MG TAB PO SCH (09:00)
[2017-06-10] MEDS: ALBUMIN 25% INJ 100 ML IV PRN (09:40)
--- NOTE | 2017-06-10 11:10 | HHI.PR ---
Subjective Remarks Feeling well. Discharge today after dialysis. Objective Vital Signs Date Time Temp Pulse Resp B/P (MAP) Pulse Ox O2 Delivery O2 Flow Rate FiO2 06/10/17 08:27 97.4 74 18 137/63 (87) 96 06/10/17 08:00 Nasal Cannula 2.00 21 06/10/17 07:30 93 Nasal Cannula 2.00 06/10/17 03:54 96.4 78 18 176/73 (107) 97 06/10/17 00:00 96.7 75 20 188/65 (106) 97 06/09/17 22:21 Nasal Cannula 2.00 06/09/17 20:00 98 Nasal Cannula 2.00 06/09/17 20:00 96.8 82 20 192/70 (110) 98 06/09/17 16:00 98.0 80 18 138/70 (92) 98 06/09/17 14:55 96 Nasal Cannula 2.00 06/09/17 12:00 97.3 82 18 158/70 (99) 97 I/O 06/09/17 06/09/17 06/09/17 06/10/17 06/10/17 06/10/17 06:59 14:59 22:59 06:59 14:59 22:59 Intake Total 0 ml Output Total 1 ml 50 ml Balance -1 ml -50 ml Intake Oral 0 ml Output Urine Total 50 ml Stool Total 1 ml # Voids 3 1 # Bowel Movements 1 1 Result Diagram: 06/10/17 0635 06/10/17 0635 Objective Remarks GENERAL: NAD, A&Ox3 HEAD: Normocephalic. NECK: Supple, trachea midline. No lymphadenopathy. EYES: No scleral icterus. No injection or drainage. CARDIOVASCULAR: Regular rate and rhythm without murmurs, gallops, or rubs. RESPIRATORY: Breath sounds equal bilaterally. No accessory muscle use. GASTROINTESTINAL: Abdomen soft, non-tender, nondistended. MUSCULOSKELETAL: No cyanosis, or edema. SKIN: Warm and dry. NEURO: No focal neurological deficitis. A/P Problem List: (1) Neutropenic fever ICD Code: D70.9 - Neutropenia, unspecified; R50.81 - Fever presenting with conditions classified elsewhere (2) Pancytopenia ICD Code: D61.818 - Other pancytopenia (3) ESRD (end stage renal disease) on dialysis ICD Code: N18.6 - End stage renal disease; Z99.2 - Dependence on renal dialysis (4) Soft tissue infection ICD Code: L08.9 - Local infection of the skin and subcutaneous tissue, unspecified Status: Acute Assessment and Plan 82-year-old female admitted secondary to facial cellulitis, she went to the ICU due to respiratory distress, now transferring out of ICU Plan to discharge today after dialysis. Chronic respiratory insufficiency Improved Continue oxygen as needed Incentive spirometry continue Continue as needed albuterol Continue schedule duo nebs Continue systemic steroids Hyperlipidemia Continue present treatment Follow as an outpatient Continue pravastatin Hypertension History of pulmonary hypertension Grade 1 diastolic dysfunction Continue baseline treatment Follow blood pressures Adjust treatments as needed Continue carvedilol Continue isosorbide Continue amlodipine ESRD Nephrology following Continue hemodialysis Gastroesophageal reflux disease Hypoalbuminemia Continue Protonix Skin and soft tissue infection (groin/under breast) Immunocompromised state Antibiotic treatments completed ID following Rheumatoid arthritis Methotrexate on hold Continue folic acid 0.8 mg IV daily Patient will need to discuss with Dr. Melendez alternative medication for rheumatoid arthritis. Outpatient Leukocytosis Macrocytic anemia thrombocytopenia History of anemia of chronic kidney disease Follow CBC Continue Neupogen as needed Continue folic acid Continue B12 Diabetes mellitus type 2 Follow blood sugars Insulin sliding scale Diabetic diet Continue Novolin N Hypothyroidism Continue levothyroxin DVT prophylaxis SCDs Leighton Ivey MD Jun 10, 2017 11:09
[2017-06-10] MEDS: EPOETIN ALFA 10,000 UNITS/ML VIAL IV PUSH PRN (11:20)
[2017-06-10] MEDS: PANTOPRAZOLE SOD 40 MG DELAYED RELEASE TAB PO SCH (11:32)
[2017-06-10] MEDS: CARVEDILOL 6.25 MG TAB PO SCH (11:32)
[2017-06-10] MEDS: MULTIVITAMIN TAB PO SCH (11:32)
[2017-06-10] MEDS: amLODIPine BESYLATE 5 MG TAB PO SCH (11:32)
[2017-06-10] MEDS: CYANOCOBALAMIN 1,000 MCG TAB PO SCH (11:32)
[2017-06-10] MEDS: PRAVASTATIN SOD 10 MG TAB PO SCH (11:32)
[2017-06-10] MEDS: MUPIROCIN 2% OINT 22 GM TUBE TOPICAL SCH (11:33)
[2017-06-10] MEDS: NYSTATIN 100,000 U/GM PWD 15 GM BTL TOPICAL SCH (11:33)
== END 2017-06-10 14:31 | DRG 602 ==
LOC: PHED 09:32 → PHEDA 11:35 → PH3A 14:39 → PHICU 05-28 08:36 → PH3B 06-07 16:25
PROVIDERS: ADMIT Hospitalist; ATTEND Hospitalist
PROC: 5A1D70Z Performance of Urinary Filtration, Intermittent, Less than 6 Hours Per Day (ICD-10-PCS; principal; 2017-05-25)
PROC: 6A551Z2 Pheresis of Platelets, Multiple (ICD-10-PCS; 2017-05-25)
PROC: 30233N1 Transfusion of Nonautologous Red Blood Cells into Peripheral Vein, Percutaneous Approach (ICD-10-PCS; 2017-05-25)
PROC: 0JDG3ZZ Extraction of Right Lower Arm Subcutaneous Tissue and Fascia, Percutaneous Approach (ICD-10-PCS; 2017-05-26)
PROC: 0JDH3ZZ Extraction of Left Lower Arm Subcutaneous Tissue and Fascia, Percutaneous Approach (ICD-10-PCS; 2017-05-26)
PROC: 0CJY8ZZ Inspection of Mouth and Throat, Via Natural or Artificial Opening Endoscopic (ICD-10-PCS; 2017-05-29)
DX: L03.211 Cellulitis of face (principal); N18.6 End stage renal disease; G92 Toxic encephalopathy; D61.810 Antineoplastic chemotherapy induced pancytopenia; E11.22 Type 2 diabetes mellitus with diabetic chronic kidney disease; I12.0 Hypertensive chronic kidney disease with stage 5 chronic kidney disease or end stage renal disease; R06.89 Other abnormalities of breathing; I27.20 Pulmonary hypertension, unspecified; J98.11 Atelectasis; R13.10 Dysphagia, unspecified; B35.6 Tinea cruris; D63.1 Anemia in chronic kidney disease; S51.012A Laceration without foreign body of left elbow, initial encounter; Z99.2 Dependence on renal dialysis; Z85.3 Personal history of malignant neoplasm of breast; E78.5 Hyperlipidemia, unspecified; K21.9 Gastro-esophageal reflux disease without esophagitis; Z87.891 Personal history of nicotine dependence; Z92.3 Personal history of irradiation; M06.9 Rheumatoid arthritis, unspecified; E03.9 Hypothyroidism, unspecified; M1A.9XX0 Chronic gout, unspecified, without tophus (tophi); Z80.3 Family history of malignant neoplasm of breast; E04.9 Nontoxic goiter, unspecified; T45.1X5A Adverse effect of antineoplastic and immunosuppressive drugs, initial encounter; Y92.9 Unspecified place or not applicable; R04.0 Epistaxis; K12.30 Oral mucositis (ulcerative), unspecified; F40.240 Claustrophobia; R50.81 Fever presenting with conditions classified elsewhere; Z79.899 Other long term (current) drug therapy; J39.8 Other specified diseases of upper respiratory tract; L98.499 Non-pressure chronic ulcer of skin of other sites with unspecified severity; R23.8 Other skin changes; X58.XXXA Exposure to other specified factors, initial encounter; Y93.9 Activity, unspecified; Y92.239 Unspecified place in hospital as the place of occurrence of the external cause; F32.9 Major depressive disorder, single episode, unspecified; E88.09 Other disorders of plasma-protein metabolism, not elsewhere classified; D53.9 Nutritional anemia, unspecified; R11.0 Nausea
CPT/HCPCS: 36430; 70450; 70486; 70491; 71045; 71250; 76536; 76937; 80048; 80053; 80069; 80299; 82140; 82272; 82607; 82746; 82948; 83735; 84100; 84165; 84443; 85007; 85025; 85027; 85044; 85049; 85610; 86022; 86850; 86900; 86901; 86920; 87040; 90935; 93005; 94150; 94640; 94664; 96365; 96374; 96375; C9113; J0360; J0696; J0713; J1442; J1450; J1630; J1815; J2270; J2405; J2543; J2920; J3370; J7040; J7050; J7512; P9016; P9021; P9035; P9047; Q4081; Q9967

== ENCOUNTER 2017-06-19 23:57 | Inpatient (IN) | payer MEDICARE, OTHER ==
[~2017-06-19] VITALS: Ht 167.6 cm; Wt 86.8 kg
[~2017-06-19 23:57] MED LIST changes: -CARV25TA PO; -CIPR-9 PO; +FLUC100T2 PO; +LACTTAB8 PO; -METR1TAB76 PO; +PRED10PA PO
[2017-06-20] VITALS (12 sets, daily range): BP systolic 93–153; BP diastolic 38–81; PULSE 87–110; RESP 16–28; TEMP 97.6–101.1; O2SAT 89–97
[2017-06-20] MEDS ORDERED: FUROSEMIDE 40 MG/4 ML VIAL IVP ONE (00:15)
[2017-06-20] MEDS ORDERED: ONDANSETRON ODT 4 MG TAB PO ONE (00:15)
[2017-06-20] MEDS ORDERED: SODIUM CHLORIDE 0.9% FLUSH 10 ML FLUSH IVF PRN (00:15)
--- NOTE | 2017-06-20 00:30 | RADRPT ---
EXAM DATE/TIME: 06/20/2017 00:13 [facility] COMPARISON: CHEST SINGLE AP, May 30, 2017, 13:28. INDICATIONS : Shortness of breath. MEDICAL HISTORY : Hypertension. Renal failure, chronic. Gastroesophageal reflux disease. SURGICAL HISTORY : None. ENCOUNTER: Initial ACUITY: 1 day PAIN SCORE: 0/10 LOCATION: Bilateral chest FINDINGS: A single view of the chest demonstrates bibasilar densities left lower lobe. Cardiomegaly. Lungs are hyperinflated. Osseous structures are intact. CONCLUSION: 1. Bibasilar densities greater left lower lobe could be atelectasis or infiltrates. This has improved from previous study. 2. Cardiomegaly. Max Brush MD on June 20, 2017 at 0:27 Board Certified Radiologist. This report was verified electronically.
[2017-06-20 00:41] LABS: BASOPHIL # 0.2 TH/MM3 (0-0.2); BASOPHIL % 0.7 % (0.0-2.0); EOSINOPHIL # 0.1 TH/MM3 (0-0.4); EOSINOPHIL % 0.3 % (0.0-4.0); HEMATOCRIT 25.1 % (35.0-46.0); HEMOGLOBIN 8.5 GM/DL (11.6-15.3); LYMPH % 2.5 % (9.0-44.0); LYMPHOCYTE # 0.8 TH/MM3 (1.0-4.8); MEAN CELL VOLUME 104.1 FL (80.0-100.0); MEAN CORPUSCULAR HEMOGLOBIN 35.1 PG (27.0-34.0); MEAN CORPUSCULAR HGB CONC 33.7 % (32.0-36.0); MEAN PLATELET VOLUME 7.7 FL (7.0-11.0); MONO % 1.6 % (0.0-8.0); MONOCYTE # 0.5 TH/MM3 (0-0.9); NEUT % 94.9 % (16.0-70.0); PLATELET COUNT 309 TH/MM3 (150-450); RED BLOOD COUNT 2.41 MIL/MM3 (4.00-5.30); RED CELL DISTRIBUTION WIDTH 19.9 % (11.6-17.2); WHITE BLOOD COUNT 33.6 TH/MM3 (4.0-11.0)
--- NOTE | 2017-06-20 00:42 | PD ---
HPI Chief Complaint: Respiratory Symptoms Time Seen by Provider: 00:03 Travel History International Travel<30 days: No Contact w/Intl Traveler<30days: No Traveled to known affect area: No History of Present Illness HPI This is an 82-year-old female with a history of renal failure, dialysis dependent, COPD, anxiety disorder, presents today from the [facility] with complaints of shortness of breath. There is also reports of diarrhea. The patient is unable to give significant history but reports that she has been short of breath over last several hours. There is no reported fevers, chills. There is no reported nausea or vomiting. Patient could not quantify her stool output. Patient does report that she does make urine. There are no other complaints at the time of my examination. PFSH Past Medical History Arthritis: Yes Asthma: No Autoimmune Disease: No Blood Disorders: No Anxiety: Yes Depression: Yes Heart Rhythm Problems: No Cancer: Yes ( right BREAST) Cardiovascular Problems: Yes High Cholesterol: Yes Chemotherapy: No Chest Pain: No Congestive Heart Failure: No COPD: No Cerebrovascular Accident: No Diabetes: Yes (diet ) Dialysis: Yes (on tue, thur, sat) Diminished Hearing: No Endocrine: Yes Gastrointestinal Disorders: No GERD: Yes Glaucoma: No Genitourinary: Yes (HEMODIALYSIS) Headaches: No Hepatitis: No Hiatal Hernia: No Hypertension: Yes Immune Disorder: No Implanted Vascular Access Dvce: Yes Kidney Stones: No Musculoskeletal: Yes Neurologic: No Psychiatric: No Reproductive: No Respiratory: Yes (oxygen use at home) Migraines: No Myocardial Infarction: No Radiation Therapy: No Renal Failure: Yes Seizures: No Sickle Cell Disease: No Sleep Apnea: No Thyroid Disease: Yes Ulcer: No ?: Not Menopausal: Yes Past Surgical History Abdominal Surgery: Yes (GALLBLADDER) AICD: No Appendectomy: No Arteriovenous Shunt: Yes Cardiac Surgery: Yes (angiogram) Cholecystectomy: Yes (AGE 52) Ear Surgery: No Endocrine Surgery: No Eye Surgery: Yes (right cataract) Genitourinary Surgery: No Gynecologic Surgery: No Insulin Pump: No Joint Replacement: No Oral Surgery: No Pacemaker: No Thoracic Surgery: No Tonsillectomy: Yes Other Surgery: Yes Social History Alcohol Use: No Tobacco Use: No (QUIT 15 YEARS AGO) Substance Use: No Allergies-Medications (Allergen,Severity, Reaction): Coded Allergies: No Known Allergies (Unverified , 06/20/17) Reported Meds & Prescriptions Reported Meds & Active Scripts Active Prednisone (21) 10 mg tab Dose Pack (Prednisone) 10 Mg Pack 10 Mg PO DIRECTED Fluconazole 100 Mg Tab 100 Mg PO DAILY 7 Days Lactobacillus Acidophilus 1 Billion Cell Tab 1 Tab PO TIDAC Reported Amlodipine (Amlodipine Besylate) 10 Mg Tab 10 Mg PO DAILY Allopurinol 100 Mg Tab 100 Mg PO DAILY Xanax (Alprazolam) 0.25 Mg Tab 0.25 Mg PO Q6H PRN Folic Acid 0.8 Mg Tab 1,000 Mcg PO HS Escitalopram (Escitalopram Oxalate) 10 Mg Tab 10 Mg PO DAILY Pita-Rosalinda Rx (B-Complex W/ C & Folic Acid) 1 Tab 1 Tab PO DAILY Pravastatin 10 Mg Tab 10 Mg PO HS Aspirin 81 (Aspirin) 81 Mg Tabdr 81 Mg PO HS Prilosec (Omeprazole Magnesium) 10 Mg Pow 1 Tab PO MON-SAT Vitamin B-12 (Cyanocobalamin) 1,000 Mcg Tab 1,000 Mcg PO DAILY Vitamin D3 (Cholecalciferol) 1,000 Unit Cap 1,000 Units PO DAILY [Oxygen] Carvedilol 12.5 Mg Tab 12.5 Mg PO HS Isosorbide Dinitrate 30 Mg Tab 30 Mg PO HS Levothyroxine (Levothyroxine Sodium) 200 Mcg Tab 200 Mcg PO DAILY Nephro-Rosalinda Rx (Vitamin B Cmplx/Vit C/Folic AC) 1 Tab 1 Tab PO HS Review of Systems Except as stated in HPI: all other systems reviewed are Neg HENT: No: Headaches, Lightheadedness Cardiovascular: No: Chest Pain or Discomfort, Palpitations Respiratory: Positive: Shortness of Breath, No: Cough, Wheezing Gastrointestinal: Positive: Diarrhea, No: Nausea, Vomiting, Abdominal Pain Genitourinary: No: Frequency, Dysuria Musculoskeletal: Positive: Weakness (Generalized), No: Pain Neurologic: Positive: Weakness, No: Headache, Change in Mentation Psychiatric: Positive: Anxiety Physical Exam Narrative GENERAL: Well-developed well-nourished female who is in mild to moderate respiratory discomfort. SKIN: Focused skin assessment warm/dry. HEAD: Atraumatic. Normocephalic. EYES: No scleral icterus. No injection or drainage. ENT: No nasal bleeding or discharge. Mucous membranes pink and moist. NECK: Trachea midline. Supple. CARDIOVASCULAR: Sinus tachycardia. No murmurs appreciated. RESPIRATORY: Diffuse wheezing bilaterally. No rales. GASTROINTESTINAL: Abdomen soft, non-tender, nondistended. MUSCULOSKELETAL: No obvious deformities. No clubbing. No cyanosis. Trace bilateral lower extremity edema. NEUROLOGICAL: Awake and alert. No obvious cranial nerve deficits. Motor grossly within normal limits. Normal speech. Data Data Last Documented VS Vital Signs Date Time Temp Pulse Resp B/P (MAP) Pulse Ox O2 Delivery O2 Flow Rate FiO2 06/20/17 02:40 96 Nasal Cannula 2.00 06/20/17 02:15 87 16 115/64 (81) 06/20/17 00:00 98.8 Orders Orders Complete Blood Count With Diff (06/20/17:03) Comprehensive Metabolic Panel (06/20/17:03) B-Type Natriuretic Peptide (06/20/17:03) Act Partial Throm Time (Ptt) (06/20/17 00:03) Prothrombin Time / Inr (Pt) (06/20/17:03) Ckmb (Isoenzyme) Profile (06/20/17:03) Troponin I (06/20/17 00:03) Arterial Blood Gas (Abg) (06/20/17 00:03) Urinalysis - C+S If Indicated (06/20/17 00:03) Iv Access Insert/Monitor (06/20/17:03) Ecg Monitoring (06/20/17 00:03) Oximetry (06/20/17 00:03) Oxygen Administration (06/20/17 00:03) Chest, Single Ap (06/20/17 00:03) Sodium Chloride 0.9% Flush (Ns Flush) (06/20/17 00:15) Furosemide Inj (Lasix Inj) (06/20/17 00:15) Electrocardiogram (06/20/17 00:03) Ondansetron Odt (Zofran Odt) (06/20/17 00:15) Blood Culture (06/20/17 01:11) Lactic Acid Sepsis Protocol (06/20/17 01:11) Piperacil-Tazo 4.5 Gm Premix (Zosyn 4.5 (06/20/17 01:11) Enteric Path (Stool) (06/20/17 01:53) C Diff Toxin Pcr (06/20/17 01:53) Place In Observation (06/20/17 ) Vital Signs (Adult) Q4H (06/20/17 02:12) Activity Oob With Assistance (06/20/17 02:12) Diet Heart Healthy (06/20/17 Breakfast) Sodium Chloride 0.9% Flush (Ns Flush) (06/20/17 02:15) Sodium Chloride 0.9% Flush (Ns Flush) (06/20/17 09:00) Acetaminophen (Tylenol) (06/20/17 02:15) Ondansetron Inj (Zofran Inj) (06/20/17 02:15) Basic Metabolic Panel (Bmp) (06/21/17 06:00) Complete Blood Count With Diff (06/21/17 06:00) Heparin Inj (Heparin Inj) (06/20/17 09:00) Naloxone Inj (Narcan Inj) (06/20/17 02:15) Docusate Sodium-Senna (Meche-Colace) (06/20/17 09:00) Magnesium Hydroxide Liq (Milk Of Magnesi (06/20/17 02:15) Sennosides (Senokot) (06/20/17 02:15) Bisacodyl Supp (Dulcolax Supp) (06/20/17 02:15) Lactulose Liq (Lactulose Liq) (06/20/17 02:15) Piperacil-Tazo 2.25 Gm Premix (Zosyn 2.2 (06/20/17 08:00) Vancomycin Inj (Vancomycin Inj) (06/20/17 02:15) Consult Nephrology (06/20/17 ) Albuterol-Ipratropium Neb (Duoneb Neb) (06/20/17 02:15) Resp Oxygen Chavo C Titrat 1-4 L (06/20/17 ) (Hub Use Only)Inp Phy Cons/Ref (06/20/17 ) Admit Order (Ed Use Only) (06/20/17 03:08) Labs Laboratory Tests Test 06/20/17 00:17 06/20/17 00:30 Blood Gas Puncture Site RT RADIAL Blood Gas Patient Temperature 98.6 Blood Gas HCO3 20 mmol/L Blood Gas Base Excess -4.8 mmol/L Blood Gas Oxygen Saturation 92 % Arterial Blood pH 7.37 Arterial Blood Partial Pressure CO2 35 mmHG Arterial Blood Partial Pressure O2 73 mmHG Arterial Blood Oxygen Content 10.4 Vol % Arterial Blood Carboxyhemoglobin 0.3 % Arterial Blood Methemoglobin 1.2 % Blood Gas Hemoglobin 8.0 G/DL Oxygen Delivery Device NASAL CANNULA Blood Gas Liter Flow 2 L/M White Blood Count 33.6 TH/MM3 Red Blood Count 2.41 MIL/MM3 Hemoglobin 8.5 GM/DL Hematocrit 25.1 % Mean Corpuscular Volume 104.1 FL Mean Corpuscular Hemoglobin 35.1 PG Mean Corpuscular Hemoglobin Concent 33.7 % Red Cell Distribution Width 19.9 % Platelet Count 309 TH/MM3 Mean Platelet Volume 7.7 FL Neutrophils (%) (Auto) 94.9 % Lymphocytes (%) (Auto) 2.5 % Monocytes (%) (Auto) 1.6 % Eosinophils (%) (Auto) 0.3 % Basophils (%) (Auto) 0.7 % Neutrophils # (Auto) 32.0 TH/MM3 Lymphocytes # (Auto) 0.8 TH/MM3 Monocytes # (Auto) 0.5 TH/MM3 Eosinophils # (Auto) 0.1 TH/MM3 Basophils # (Auto) 0.2 TH/MM3 CBC Comment AUTO DIFF Differential Comment AUTO DIFF CONFIRMED Platelet Estimate NORMAL Platelet Morphology Comment CLUMPED Basophilic Stippling MOD Prothrombin Time 10.3 SEC Prothromb Time International Ratio 1.0 RATIO Activated Partial Thromboplast Time 22.4 SEC Blood Urea Nitrogen 85 MG/DL Creatinine 7.40 MG/DL Random Glucose 131 MG/DL Total Protein 6.3 GM/DL Albumin 2.9 GM/DL Calcium Level 7.8 MG/DL Alkaline Phosphatase 83 U/L Aspartate Amino Transf (AST/SGOT) 8 U/L Alanine Aminotransferase (ALT/SGPT) 13 U/L Total Bilirubin 0.3 MG/DL Sodium Level 138 MEQ/L Potassium Level 5.4 MEQ/L Chloride Level 103 MEQ/L Carbon Dioxide Level 23.9 MEQ/L Anion Gap 11 MEQ/L Estimat Glomerular Filtration Rate 5 ML/MIN Lactic Acid Level 1.9 mmol/L Total Creatine Kinase 23 U/L Troponin I LESS THAN 0.02 NG/ML B-Type Natriuretic Peptide 398 PG/ML MDM Medical Decision Making Medical Screen Exam Complete: Yes Emergency Medical Condition: Yes Differential Diagnosis CHF exacerbation versus COPD versus fluid overload versus pneumonia versus metabolic derangement Narrative Course 82-year-old female with history of COPD, renal failure, hypertension, rheumatoid arthritis, [facility] of [facility]ness of [facility] and diarrhea. Patient was noted to have a white count of 33 ,000. Chest x-ray shows suggestions suggestive of a pneumonia. She has been started on Zosyn here in the emergency department. She was given nebulizer treatments prior to arrival via EMS. Stool cultures have also been sent off as have blood cultures. Urinalysis is pending at this time. Case was discussed with Dr. Pulliam, [facility] hospitalist, who will admit the patient to the hospitalist service. Working diagnosis is sepsis. Sepsis Criteria SIRS Criteria (2 or more): Heart rate over 90, RR > 20 or PaCO2 < 32, WBC > 35034, < 4000 or > 10% bands Sepsis Criteria (SIRS+source): Infect source susp/known Diagnosis Primary Impression: Sepsis Additional Impressions: Probable pneumonia Leukocytosis Renal failure, dialysis dependent Admitting Information Admitting Physician Requests: Admit Ej Meza MD Jun 20, 2017 00:42
[2017-06-20 00:48] LABS: CHLORIDE 103 MEQ/L (98-107); SODIUM (NA) 138 MEQ/L (136-145)
[2017-06-20 00:51] LABS: CALCIUM 7.8 MG/DL (8.5-10.1)
[2017-06-20 00:52] LABS: ALBUMIN 2.9 GM/DL (3.4-5.0); BICARBONATE 23.9 MEQ/L (21.0-32.0); BLOOD UREA NITROGEN 85 MG/DL (7-18); GLUCOSE,RANDOM 131 MG/DL (74-106)
[2017-06-20] MEDS ORDERED: ALPR.25 PO (00:52)
[2017-06-20 00:55] LABS: ALT (GPT) 13 U/L (10-53); AST (GOT) 8 U/L (15-37); GLOMERULAR FILTRATION RATE 5 ML/MIN (>89)
[2017-06-20] MEDS ORDERED: AMLO10TA2 PO (00:55)
[2017-06-20] MEDS ORDERED: ALLO100T PO (00:55)
[2017-06-20 00:57] LABS: TOTAL BILIRUBIN ADULT 0.3 MG/DL (0.2-1.0); TOTAL PROTEIN 6.3 GM/DL (6.4-8.2)
[2017-06-20 00:58] LABS: ALKALINE PHOSPHATASE 83 U/L (45-117)
[2017-06-20 01:00] LABS: TROPONIN I LESS THAN 0.02 NG/ML (0.02-0.05)
[2017-06-20 01:03] LABS: PROTHROMBIN TIME - PATIENT 10.3 SEC (9.8-11.6)
[2017-06-20] MEDS ORDERED: PIPERACIL-TAZO 4.5 GM PREMIX 100 ML IV STA (01:11)
[2017-06-20] MEDS ORDERED: SODIUM CHLORIDE 0.9% FLUSH 10 ML FLUSH IV FLUSH PRN ×2 (02:15→13:30)
[2017-06-20] MEDS ORDERED: ONDANSETRON HCL 4 MG/2 ML VIAL IVP PRN (02:15)
[2017-06-20] MEDS ORDERED: Vancomycin Consult Pharmacy 1 EA OTHER SCH (02:15)
[2017-06-20] MEDS ORDERED: LACTULOSE SYRUP 20 GM/30 ML CUP PO PRN (02:15)
[2017-06-20] MEDS ORDERED: SENNOSIDES 8.6 MG TAB PO PRN (02:15)
[2017-06-20] MEDS ORDERED: BISACODYL 10 MG SUPP RECTAL PRN (02:15)
[2017-06-20] MEDS ORDERED: NALOXONE HCL 0.4 MG/ML AMP IV PUSH PRN (02:15)
[2017-06-20] MEDS ORDERED: VANCOMYCIN INJ 1,000 MG in SODIUM CHLOR 0.9% 250 ML INJ 250 ML IV ONE (02:15)
[2017-06-20] MEDS ORDERED: ACETAMINOPHEN 325 MG TAB PO PRN ×2 (02:15→13:30)
[2017-06-20] MEDS ORDERED: MAGNESIUM HYDROXIDE SUSP 30 ML CUP PO PRN (02:15)
[2017-06-20] MEDS ORDERED: PIPERACIL-TAZO 2.25 GM PREMIX 50 ML IV SCH (08:00)
[2017-06-20] MEDS: HEPARIN SODIUM - SQ 10,000 UNITS/ML VIAL SQ SCH ×2 (09:38→22:05)
[2017-06-20] MEDS: SODIUM CHLORIDE 0.9% FLUSH 10 ML FLUSH IV FLUSH SCH ×2 (09:38→21:00)
[2017-06-20] MEDS: DOCUSATE SODIUM 50 MG/SENNA 8.6 MG TAB PO SCH ×2 (09:38→21:00)
[2017-06-20] MEDS ORDERED: SODIUM CHLOR 0.9% 1000 ML INJ 1,000 ML OTHER PRN ×2 (13:29)
[2017-06-20] MEDS ORDERED: SODIUM CHLOR 0.9% 1000 ML INJ 1,000 ML IV PRN (13:29)
[2017-06-20] MEDS ORDERED: NITROGLYCERIN 0.4 MG SL 25 TABS/BTL SL PRN (13:30)
[2017-06-20] MEDS ORDERED: GENTAMICIN SULFATE 20 MG/2 ML VIAL OTHER PRN (13:30)
[2017-06-20] MEDS ORDERED: MANNITOL 12.5 GM/50 ML VIAL IV PRN (13:30)
[2017-06-20] MEDS ORDERED: HEPARIN SODIUM - IV 10,000 UNITS/10 ML VIAL IV FLUSH PRN (13:30)
[2017-06-20] MEDS ORDERED: ONDANSETRON HCL 4 MG/2 ML VIAL IV PUSH PRN (13:30)
[2017-06-20] MEDS ORDERED: diphenhydrAMINE HCL 25 MG CAP PO PRN (13:30)
[2017-06-20] MEDS ORDERED: HEPARIN SODIUM - IV 10,000 UNITS/10 ML VIAL PRN (13:30)
[2017-06-20] MEDS ORDERED: cloNIDine HCL 0.1 MG TAB PO PRN (13:30)
[2017-06-20] MEDS ORDERED: VANCOMYCIN 500 MG VIAL (FOR ORAL USE ONLY) PO ONE (14:00)
--- NOTE | 2017-06-20 14:27 | HHI.HP ---
[facility] Primary Care Physician Cleo Shannon MD Admission Diagnosis sepsis, diarrhea, anemia, renal failure/dialysis, Diagnoses: Travel History International Travel<30 Days: No Contact w/Intl Traveler <30 Da: No Traveled to Known Affected Are: No History of Present Illness Mrs. Faust is an 82-year-old female. [facility] due to shortness of breath and diarrhea. Testing here shows C. difficile positivity on stool test. Imaging shows consolidation in lower lobes which is improved from previous admit, pneumonia is not suspected, antibiotics for this treatment have been discontinued. At time of admit she had some signs of sepsis, this is improved by this point that I am doing this history and physical. Patient has a degree of encephalopathy and is not able to give a clear history but she does say that she feels fatigued and tired. She was previously admitted here for a left facial infection which had complications and she was sent to rehabilitation at that time. Her friend reports that she's been doing good at rehabilitation with good physical recovery until this diarrhea and fatigue started. Review of Systems ROS Limitations: Altered Mental Status, Poor Historian Constitutional: COMPLAINS OF: Fatigue Eyes: DENIES: Diplopia, Eye inflammation, Eye pain Ears, nose, mouth, throat: DENIES: Hearing loss, Vertigo, Nasal discharge Respiratory: DENIES: Cough, Wheezing, Shortness of breath Cardiovascular: DENIES: Chest pain, Palpitations Gastrointestinal: COMPLAINS OF: Abdominal pain, Diarrhea, DENIES: Black stools , Bloody stools Musculoskeletal: DENIES: Joint pain, Muscle aches, Stiffness Integumentary: DENIES: Abnormal pigmentation, Pruritus, Rash Hematologic/lymphatic: DENIES: Bruising, Lymphadenopathy Immunologic/allergic: DENIES: Eczema, Urticaria Neurologic: DENIES: Abnormal gait, Headache, Paresthesias Psychiatric: DENIES: Anxiety, Confusion, Hallucinations Past Family Social History Past Medical History Past Medical History RAA Cancer: Yes (BREAST) Cardiovascular Problems: Yes High Cholesterol: Diabetes: Dialysis: (on mon, , sat) GERD: Hypertension Implanted Vascular Access Dvce: Yes Respiratory: Yes (oxygen use at home) Renal Failure: Yes Past Surgical History Past Surgical History Past Surgical History Abdominal Surgery: Yes (GALLBLADDER) AICD: No Appendectomy: No Arteriovenous Shunt: Yes Cardiac Surgery: Yes (angiogram) Cholecystectomy: Yes (AGE 52) Ear Surgery: No Endocrine Surgery: No Eye Surgery: Yes (right cataract) Genitourinary Surgery: No Gynecologic Surgery: No Insulin Pump: No Joint Replacement: No Oral Surgery: No Pacemaker: No Thoracic Surgery: No Tonsillectomy: Yes Other Surgery: Yes Allergies: Coded Allergies: *MDRO Multi-Drug Resistant Organism (Verified Adverse Reaction, Unknown, 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 reported) MRSA PCR negative 12/09/2014 and 12/11/2014 Cleared per infection Control for MRSA VRE screen negative 12/09/2014 and 12/11/14. Cleared per Infection Control for VRE. Reported Medications Reported Meds & Active Scripts Active Prednisone (21) 10 mg tab Dose Pack (Prednisone) 10 Mg Pack 10 Mg PO DIRECTED Fluconazole 100 Mg Tab 100 Mg PO DAILY 7 Days Lactobacillus Acidophilus 1 Billion Cell Tab 1 Tab PO TIDAC Reported Amlodipine (Amlodipine Besylate) 10 Mg Tab 10 Mg PO DAILY Allopurinol 100 Mg Tab 100 Mg PO DAILY Xanax (Alprazolam) 0.25 Mg Tab 0.25 Mg PO Q6H PRN Folic Acid 0.8 Mg Tab 1,000 Mcg PO HS Escitalopram (Escitalopram Oxalate) 10 Mg Tab 10 Mg PO DAILY Pita-Rosalinda Rx (B-Complex W/ C & Folic Acid) 1 Tab 1 Tab PO DAILY Pravastatin 10 Mg Tab 10 Mg PO HS Aspirin 81 (Aspirin) 81 Mg Tabdr 81 Mg PO HS Prilosec (Omeprazole Magnesium) 10 Mg Pow 1 Tab PO MON-SAT Vitamin B-12 (Cyanocobalamin) 1,000 Mcg Tab 1,000 Mcg PO DAILY Vitamin D3 (Cholecalciferol) 1,000 Unit Cap 1,000 Units PO DAILY [Oxygen] Carvedilol 12.5 Mg Tab 12.5 Mg PO HS Isosorbide Dinitrate 30 Mg Tab 30 Mg PO HS Levothyroxine (Levothyroxine Sodium) 200 Mcg Tab 200 Mcg PO DAILY Nephro-Rosalinda Rx (Vitamin B Cmplx/Vit C/Folic AC) 1 Tab 1 Tab PO HS Allergies: Coded Allergies: No Known Allergies (Unverified , 06/20/17) Active Ordered Medications Administered Medications Medications (Trade) Dose Ordered Sig/Woodrow Route PRN Reason Start Time Stop Time Status Last Admin Dose Admin Sodium Chloride (NS Flush) 2 ml BID IV FLUSH 06/20/17 09:00 06/20/17 09:38 Ondansetron HCl (Zofran Inj) 4 mg Q6H PRN IVP NAUSEA OR VOMITING 06/20/17 02:15 06/20/17 02:46 Heparin Sodium (Porcine) (Heparin Inj) 5,000 units Q12HR SQ 06/20/17 09:00 06/20/17 09:38 Senna/Docusate Sodium (Meche-Colace) 1 tab BID PO 06/20/17 09:00 06/20/17 09:38 Piperacillin Sod/ Tazobactam Sod 50 ml @ 200 mls/hr Q6H IV 06/20/17 08:00 06/20/17 09:38 Family History Hypertension Social History Patient smoked up to the age of 17, not currently smoking No alcohol abuse Illicit drug abuse Physical Exam Vital Signs Vital Signs Date Time Temp Pulse Resp B/P (MAP) Pulse Ox O2 Delivery O2 Flow Rate FiO2 06/20/17 08:00 101.1 101 24 101/42 (61) 93 06/20/17 08:00 93 Nasal Cannula 2.00 06/20/17 06:26 99.9 95 22 109/38 (61) 96 06/20/17 05:59 06/20/17 05:19 92 16 104/43 (63) 97 Nasal Cannula 2.00 06/20/17 03:37 87 16 113/43 (66) 97 Nasal Cannula 2.00 06/20/17 02:40 96 Nasal Cannula 2.00 06/20/17 02:15 87 16 115/64 (81) 97 Nasal Cannula 2.00 06/20/17 01:11 92 18 137/55 (82) 97 Nasal Cannula 2.00 06/20/17 00:30 24 95 Nasal Cannula 2.00 06/20/17 00:30 97 20 140/62 (88) 97 Aerosol Mask 2.00 06/20/17 00:00 98.8 108 28 153/73 (99) 89 06/20/17 00:00 95 Nasal Cannula 2.00 Physical Exam GENERAL: NAD, A&Ox1 HEAD: Normocephalic. NECK: Supple, trachea midline. No lymphadenopathy. EYES: No scleral icterus. No injection or drainage. CARDIOVASCULAR: Regular rate and rhythm without murmurs, gallops, or rubs. RESPIRATORY: Breath sounds equal bilaterally. No accessory muscle use. GASTROINTESTINAL: Abdomen soft, non-tender, nondistended. MUSCULOSKELETAL: No cyanosis, or edema. SKIN: Warm and dry. NEURO: No focal neurological deficitis. Laboratory Laboratory Tests Test 06/20/17 00:17 06/20/17 00:30 06/20/17 02:00 Blood Gas Puncture Site RT RADIAL Blood Gas Patient Temperature 98.6 Blood Gas HCO3 20 Blood Gas Base Excess -4.8 Blood Gas Oxygen Saturation 92 Arterial Blood pH 7.37 Arterial Blood Partial Pressure CO2 35 Arterial Blood Partial Pressure O2 73 Arterial Blood Oxygen Content 10.4 Arterial Blood Carboxyhemoglobin 0.3 Arterial Blood Methemoglobin 1.2 Blood Gas Hemoglobin 8.0 Oxygen Delivery Device NASAL CANNULA Blood Gas Liter Flow 2 White Blood Count 33.6 Red Blood Count 2.41 Hemoglobin 8.5 Hematocrit 25.1 Mean Corpuscular Volume 104.1 Mean Corpuscular Hemoglobin 35.1 Mean Corpuscular Hemoglobin Concent 33.7 Red Cell Distribution Width 19.9 Platelet Count 309 Mean Platelet Volume 7.7 Neutrophils (%) (Auto) 94.9 Lymphocytes (%) (Auto) 2.5 Monocytes (%) (Auto) 1.6 Eosinophils (%) (Auto) 0.3 Basophils (%) (Auto) 0.7 Neutrophils # (Auto) 32.0 Lymphocytes # (Auto) 0.8 Monocytes # (Auto) 0.5 Eosinophils # (Auto) 0.1 Basophils # (Auto) 0.2 CBC Comment AUTO DIFF Differential Comment AUTO DIFF CONFIRMED Platelet Estimate NORMAL Platelet Morphology Comment CLUMPED Basophilic Stippling MOD Prothrombin Time 10.3 Prothromb Time International Ratio 1.0 Activated Partial Thromboplast Time 22.4 Blood Urea Nitrogen 85 Creatinine 7.40 Random Glucose 131 Total Protein 6.3 Albumin 2.9 Calcium Level 7.8 Alkaline Phosphatase 83 Aspartate Amino Transf (AST/SGOT) 8 Alanine Aminotransferase (ALT/SGPT) 13 Total Bilirubin 0.3 Sodium Level 138 Potassium Level 5.4 Chloride Level 103 Carbon Dioxide Level 23.9 Anion Gap 11 Estimat Glomerular Filtration Rate 5 Lactic Acid Level 1.9 Total Creatine Kinase 23 Troponin I LESS THAN 0.02 B-Type Natriuretic Peptide 398 Stool C. difficile Toxin (PCR) POSITIVE Stl C. difficile Toxin Epiderm 027 PRESUMPTIVE POSITIVE Date/Time Source Procedure Growth Status 06/20/17 01:20 Blood Peripheral Aerobic Blood Culture Pending Received 06/20/17 01:20 Blood Peripheral Anaerobic Blood Culture Pending Received 06/20/17 02:00 Stool Stool Pending Ordered Result Diagram: 06/20/17 0030 06/20/17 0030 Imaging Last Impressions Chest X-Ray 06/20/17 0003 Signed Impressions: Service Date/Time: Tuesday, June 20, 2017 00:13 - CONCLUSION: 1. Bibasilar densities greater left lower lobe could be atelectasis or infiltrates. This has improved from previous study. 2. Cardiomegaly. MD Yousuf Foster VTE Risk Assessment Yousuf VTE Risk Assessment: No/Low Risk (score <= 1) Caprini Risk Assessment Model Point Value = 1 Point Value = 2 Point Value = 3 Point Value = 5 Age 41-60 Minor surgery BMI > 25 kg/m2 Swollen legs Varicose veins or History of unexplained or recurrent spontaneous Oral contraceptives or hormone replacement Sepsis (< 1 month) Serious lung disease, including pneumonia (< 1 month) Abnormal pulmonary function Acute myocardial infarction Congestive heart failure (< 1 month) History of inflammatory bowel disease Medical patient at bed rest Age 61-74 Arthroscopic surgery Major open surgery (> 45 min) Laparoscopic surgery (> 45 min) Malignancy Confined to bed (> 72 hours) Immobilizing plaster cast Central venous access Age >= 75 History of VTE Family history of VTE Factor V Leiden Prothrombin [id number] Lupus anticoagulant Anticardiolipin antibodies Elevated serum homocysteine Heparin-induced thrombocytopenia Other congenital or acquired thrombophilia Stroke (< 1 month) Elective arthroplasty Hip, pelvis, or leg fracture Acute spinal cord injury (< 1 month) Prophylaxis Regimen Total Risk Factor Score Risk Level Prophylaxis Regimen 0-1 Low Early ambulation 2 Moderate Order ONE of the following: *Sequential Compression Device (SCD) *Heparin 5000 units SQ BID 3-4 Higher Order ONE of the following medications: *Heparin 5000 units SQ TID *Enoxaparin/Lovenox 40 mg SQ daily (WT < 150 kg, CrCl > 30 mL/min) *Enoxaparin/Lovenox 30 mg SQ daily (WT < 150 kg, CrCl > 10-29 mL/min) *Enoxaparin/Lovenox 30 mg SQ BID (WT < 150 kg, CrCl > 30 mL/min) AND/OR *Sequential Compression Device (SCD) 5 or more Highest Order ONE of the following medications: *Heparin 5000 units SQ TID (Preferred with Epidurals) *Enoxaparin/Lovenox 40 mg SQ daily (WT < 150 kg, CrCl > 30 mL/min) *Enoxaparin/Lovenox 30 mg SQ daily (WT < 150 kg, CrCl > 10-29 mL/min) *Enoxaparin/Lovenox 30 mg SQ BID (WT < 150 kg, CrCl > 30 mL/min) AND *Sequential Compression Device (SCD) Assessment and Plan Problem List: (1) Sepsis ICD Code: A41.9 - Sepsis, unspecified organism Status: Acute (2) Leukocytosis ICD Code: D72.829 - Elevated white blood cell count, unspecified Status: Acute (3) Diarrhea in adult patient ICD Code: R19.7 - Diarrhea, unspecified Assessment and Plan 82-year-old female admitted secondary to C. difficile colitis with dyspnea Sepsis Improving Continue to monitor while signs Follow blood cultures C. difficile colitis By mouth vancomycin Follow clinically for improvement Probiotics Shortness of breath Chronic respiratory insufficiency Oxygen supplementation as needed Nebulized treatments as needed Hyperlipidemia Continue present treatment Follow as an outpatient Continue pravastatin Hypertension History of pulmonary hypertension Grade 1 diastolic dysfunction Continue baseline treatment Follow blood pressures Adjust treatments as needed Continue carvedilol Continue isosorbide Continue amlodipine ESRD Nephrology consulted Continue hemodialysis Gastroesophageal reflux disease Hypoalbuminemia Continue Protonix Rheumatoid arthritis No exacerbation Continue folic acid 0.8 mg IV daily Diabetes mellitus type 2 Follow blood sugars Insulin sliding scale Diabetic diet Continue Novolin N Hypothyroidism Continue levothyroxin DVT prophylaxis SCDs Physician Certification 2 Midnight Certification Type: Admission for Inpatient Services Order for Inpatient Services The services are ordered in accordance with Medicare regulations or non- Medicare payer requirements, as applicable. In the case of services not specified as inpatient-only, they are appropriately provided as inpatient services in accordance with the 2-midnight benchmark. Estimated LOS (days): 3 days is the estimated time the patient will need to remain in the hospital, assuming treatment plan goals are met and no additional complications. Post-Hospital Plan: Leighton Peña MD Jun 20, 2017 14:27
--- NOTE | 2017-06-20 14:33 | PD.CONS ---
[facility] Service Nephrology Consult Requested By Dr. Pulliam Reason for Consult ESRD on HD Primary Care Physician Cleo Shannon MD History of Present Illness This is an 82-year-old female with a history of ESRD on HD, COPD, anxiety disorder,diabetes, hypothyroidism, breast cancer, HTN, HLD, and rheumatoid arthritis. Patient presents from the [facility] with complaints of shortness of breath and diarrhea. The patient is unable to give significant history but has not been tolerating dialysis and has been cutting dialysis short. Patient is found to be C Diff positive. Nephrology is consulted for ESRD on HD T//MON. Orders are placed for dialysis (Cassidy Becker) Review of Systems Constitutional: COMPLAINS OF: Fatigue Respiratory: COMPLAINS OF: Shortness of breath Gastrointestinal: COMPLAINS OF: Diarrhea Psychiatric: COMPLAINS OF: Confusion (Cassidy Becker) Past Family Social History Allergies: Coded Allergies: No Known Allergies (Unverified , 06/20/17) Past Medical History Hypertension Hyperlipidemia Diabetes End-stage renal disease on dialysis Hypothyroidism Gouty arthritis Rheumatoid arthritis Past Surgical History Cholecystectomy Tonsillectomy AV fistula Pericardial fluid drainage Cataract surgery Carpal tunnel surgery Active Ordered Medications Current Medications Medications (Trade) Dose Ordered Sig/[place] Route Start Time Stop Time Status Last Admin (NS Flush) 2 ml UNSCH PRN IV FLUSH 06/20/17 02:15 (NS Flush) 2 ml BID IV FLUSH 06/20/17 09:00 06/20/17 09:38 (Tylenol) 650 mg Q4H PRN PO 06/20/17 02:15 (Zofran Inj) 4 mg Q6H PRN IVP 06/20/17 02:15 06/20/17 02:46 (Heparin Inj) 5,000 units Q12HR SQ 06/20/17 09:00 06/20/17 09:38 (Narcan Inj) 0.4 mg UNSCH PRN IV PUSH 06/20/17 02:15 (Meche-Colace) 1 tab BID PO 06/20/17 09:00 06/20/17 09:38 (Milk Of Magnesia Liq) 30 ml Q12H PRN PO 06/20/17 02:15 (Senokot) 17.2 mg Q12H PRN PO 06/20/17 02:15 (Dulcolax Supp) 10 mg DAILY PRN RECTAL 06/20/17 02:15 (Lactulose Liq) 30 ml DAILY PRN PO 06/20/17 02:15 Piperacillin Sod/ Tazobactam Sod 50 ml @ 200 mls/hr Q6H IV 06/20/17 08:00 06/20/17 09:38 (Duoneb Neb) 1 ampule Q4HR NEB PRN NEB 06/20/17 02:15 Sodium Chloride 1,000 ml @ 0 mls/hr Q0M PRN OTHER 06/20/17 13:29 (Heparin Inj) 8,000 units UNSCH PRN IV FLUSH 06/20/17 13:30 Sodium Chloride 1,000 ml @ 200 mls/hr Q5H PRN IV 06/20/17 13:29 Sodium Chloride 1,000 ml @ 0 mls/hr Q0M PRN OTHER 06/20/17 13:29 (Mannitol Inj) 12.5 gm UNSCH PRN IV 06/20/17 13:30 Albumin Human 100 ml @ 60 mls/hr UNSCH PRN IV 06/20/17 13:30 (NS Flush) 5 ml UNSCH PRN IV FLUSH 06/20/17 13:30 (Heparin Inj) UNSCH PRN .XX 06/20/17 13:30 (Gentamicin Inj) 20 mg UNSCH PRN OTHER 06/20/17 13:30 (Zofran Inj) 4 mg UNSCH PRN IV PUSH 06/20/17 13:30 (Tylenol) 650 mg UNSCH PRN PO 06/20/17 13:30 (Benadryl) 25 mg UNSCH PRN PO 06/20/17 13:30 (Nitrostat Sl) 0.4 mg UNSCH PRN SL 06/20/17 13:30 (Catapres) 0.1 mg UNSCH PRN PO 06/20/17 13:30 (Epogen Inj) 10,000 units UNSCH PRN IV PUSH 06/20/17 13:30 (Gelfoam 12 Mm/7 Mm Top) 1 foam UNSCH PRN TOP 06/20/17 13:30 (VANCOMYCIN for oral use only) 125 mg QID PO 06/20/17 18:00 (VANCOMYCIN for oral use only) 500 mg QID PO 06/20/17 18:00 UNV (VANCOMYCIN for oral use only) 500 mg NOW ONCE PO 06/20/17 14:00 06/20/17 14:01 UNV (Lactinex) 1 tab TID PO 06/20/17 18:00 Family History mother with history of breast cancer Brother on dialysis Social History Does not smoke or use ETOH. Currently residing at [facility] (Cassidy Becker [facility]) Physical Exam Vital Signs Vital Signs Date Time Temp Pulse Resp B/P (MAP) Pulse Ox O2 Delivery O2 Flow Rate FiO2 06/20/17 08:00 101.1 101 24 101/42 (61) 93 06/20/17 08:00 93 Nasal Cannula 2.00 06/20/17 06:26 99.9 95 22 109/38 (61) 96 06/20/17 05:59 06/20/17 05:19 92 16 104/43 (63) 97 Nasal Cannula 2.00 06/20/17 03:37 87 16 113/43 (66) 97 Nasal Cannula 2.00 06/20/17 02:40 96 Nasal Cannula 2.00 06/20/17 02:15 87 16 115/64 (81) 97 Nasal Cannula 2.00 06/20/17 01:11 92 18 137/55 (82) 97 Nasal Cannula 2.00 06/20/17 00:30 24 95 Nasal Cannula 2.00 06/20/17 00:30 97 20 140/62 (88) 97 Aerosol Mask 2.00 06/20/17 00:00 98.8 108 28 153/73 (99) 89 06/20/17 00:00 95 Nasal Cannula 2.00 Physical Exam GENERAL: Alert well developed SKIN: Warm and dry. HEAD: Normocephalic. EYES: No scleral icterus. No injection or drainage. NECK: Supple, trachea midline. No JVD or lymphadenopathy. CARDIOVASCULAR: Regular rate and rhythm without murmurs, gallops, or rubs. AVF in left arm. RESPIRATORY: Breath sounds equal bilaterally. No accessory muscle use. GASTROINTESTINAL: Abdomen soft, non-tender, nondistended. MUSCULOSKELETAL: No cyanosis, or edema. BACK: Nontender without obvious deformity. No CVA tenderness. Laboratory Laboratory Tests Test 06/20/17 00:17 06/20/17 00:30 06/20/17 02:00 Blood Gas Puncture Site RT RADIAL Blood Gas Patient Temperature 98.6 Blood Gas HCO3 20 Blood Gas Base Excess -4.8 Blood Gas Oxygen Saturation 92 Arterial Blood pH 7.37 Arterial Blood Partial Pressure CO2 35 Arterial Blood Partial Pressure O2 73 Arterial Blood Oxygen Content 10.4 Arterial Blood Carboxyhemoglobin 0.3 Arterial Blood Methemoglobin 1.2 Blood Gas Hemoglobin 8.0 Oxygen Delivery Device NASAL CANNULA Blood Gas Liter Flow 2 White Blood Count 33.6 Red Blood Count 2.41 Hemoglobin 8.5 Hematocrit 25.1 Mean Corpuscular Volume 104.1 Mean Corpuscular Hemoglobin 35.1 Mean Corpuscular Hemoglobin Concent 33.7 Red Cell Distribution Width 19.9 Platelet Count 309 Mean Platelet Volume 7.7 Neutrophils (%) (Auto) 94.9 Lymphocytes (%) (Auto) 2.5 Monocytes (%) (Auto) 1.6 Eosinophils (%) (Auto) 0.3 Basophils (%) (Auto) 0.7 Neutrophils # (Auto) 32.0 Lymphocytes # (Auto) 0.8 Monocytes # (Auto) 0.5 Eosinophils # (Auto) 0.1 Basophils # (Auto) 0.2 CBC Comment AUTO DIFF Differential Comment AUTO DIFF CONFIRMED Platelet Estimate NORMAL Platelet Morphology Comment CLUMPED Basophilic Stippling MOD Prothrombin Time 10.3 Prothromb Time International Ratio 1.0 Activated Partial Thromboplast Time 22.4 Blood Urea Nitrogen 85 Creatinine 7.40 Random Glucose 131 Total Protein 6.3 Albumin 2.9 Calcium Level 7.8 Alkaline Phosphatase 83 Aspartate Amino Transf (AST/SGOT) 8 Alanine Aminotransferase (ALT/SGPT) 13 Total Bilirubin 0.3 Sodium Level 138 Potassium Level 5.4 Chloride Level 103 Carbon Dioxide Level 23.9 Anion Gap 11 Estimat Glomerular Filtration Rate 5 Lactic Acid Level 1.9 Total Creatine Kinase 23 Troponin I LESS THAN 0.02 B-Type Natriuretic Peptide 398 Stool C. difficile Toxin (PCR) POSITIVE Stl C. difficile Toxin Epiderm 027 PRESUMPTIVE POSITIVE Date/Time Source Procedure Growth Status 06/20/17 01:20 Blood Peripheral Aerobic Blood Culture Pending Received 06/20/17 01:20 Blood Peripheral Anaerobic Blood Culture Pending Received 06/20/17 02:00 Stool Stool Pending Ordered (Cassidy Becker) Result Diagram: 06/20/170 06/20/17 0030 Assessment and Plan Problem List: (1) ESRD (end stage renal disease) on dialysis ICD Codes: N18.6 - End stage renal disease; Z99.2 - Dependence on renal dialysis Plan: ESRD Dialysis T/TH/Sat with left AVF Plan Epogen with dialysis Hyperkalemia at 5.4 however dialysis today HD planned for today Renal dose antibiotics. (2) C. difficile diarrhea ICD Codes: A04.72 - Enterocolitis due to Clostridium difficile, not specified as recurrent Plan: Continue PO vancomycin (3) Sepsis ICD Codes: A41.9 - Sepsis, unspecified organism Status: Acute Plan: continue antibiotics renal dosing antibiotics Chest xray with possible pneumonia BC pending. (Cassidy Becker) Problem List: (1) ESRD (end stage renal disease) on dialysis ICD Codes: N18.6 - End stage renal disease; Z99.2 - Dependence on renal dialysis Plan: ESRD Dialysis T/TH/Sat with left AVF Plan Epogen with dialysis Hyperkalemia at 5.4 however dialysis today HD planned for today Renal dose antibiotics. Patient seen and examined, agree with above. HD today, admitted with C.Difficile and high WBC. On PO Vanco. (2) C. difficile diarrhea ICD Codes: A04.72 - Enterocolitis due to Clostridium difficile, not specified as recurrent Plan: Continue PO vancomycin (3) Sepsis ICD Codes: A41.9 - Sepsis, unspecified organism Status: Acute Plan: continue antibiotics renal dosing antibiotics Chest xray with possible pneumonia BC pending. (Priti Bautista MD) Cassidy Becker Jun 20, 2017 14:33 Priti Bautista MD Jun 20, 2017 15:54
--- NOTE | 2017-06-20 15:39 | EKG ---
Date Performed: 06/20/2017 Time Performed: 00:27:32 PTAGE: 82 years EKG: SINUS TACHYCARDIA POSSIBLE LEFT ATRIAL ENLARGEMENT ABNORMAL RHYTHM ECG Since the PREVIOUS TRACING , no significant change noted PREVIOUS TRACIN06/03/2017 16.12 DOCTOR: Ceasar Gibbs Interpretating Date/Time 06/20/2017 15:37:48
[2017-06-20] MEDS ORDERED: VANCOMYCIN 500 MG VIAL (FOR ORAL USE ONLY) PO SCH (18:00)
[2017-06-20] MEDS: VANCOMYCIN 500 MG VIAL (FOR ORAL USE ONLY) PO SCH ×2 (18:00→22:05)
[2017-06-20] MEDS: LACTOBACILLUS ACIDOPHILUS TAB PO SCH (18:00)
[2017-06-20] MEDS: EPOETIN ALFA 10,000 UNITS/ML VIAL IV PUSH PRN (18:35)
[2017-06-21] VITALS (13 sets, daily range): BP systolic 93–138; BP diastolic 43–64; PULSE 90–110; RESP 16–22; TEMP 97.6–98.5; O2SAT 93–96
[2017-06-21 04:41] LABS: AUTOMATED NEUTROPHIL # 35.6 TH/MM3 (1.8-7.7); BASOPHIL # 0.9 TH/MM3 (0-0.2); BASOPHIL % 2.3 % (0.0-2.0); EOSINOPHIL # 0.2 TH/MM3 (0-0.4); EOSINOPHIL % 0.6 % (0.0-4.0); HEMATOCRIT 24.8 % (35.0-46.0); HEMOGLOBIN 8.5 GM/DL (11.6-15.3); LYMPHOCYTE # 1.2 TH/MM3 (1.0-4.8); MEAN CELL VOLUME 104.8 FL (80.0-100.0); MEAN CORPUSCULAR HEMOGLOBIN 35.8 PG (27.0-34.0); MEAN CORPUSCULAR HGB CONC 34.2 % (32.0-36.0); MEAN PLATELET VOLUME 7.7 FL (7.0-11.0); MONO % 6.1 % (0.0-8.0); MONOCYTE # 2.5 TH/MM3 (0-0.9); PLATELET COUNT 283 TH/MM3 (150-450); RED BLOOD COUNT 2.37 MIL/MM3 (4.00-5.30); RED CELL DISTRIBUTION WIDTH 20.2 % (11.6-17.2); WHITE BLOOD COUNT 40.4 TH/MM3 (4.0-11.0)
[2017-06-21 05:46] LABS: BICARBONATE 28.2 MEQ/L (21.0-32.0); CALCIUM 7.9 MG/DL (8.5-10.1); CREATININE 4.8 MG/DL (0.50-1.00); PHOSPHORUS 6.5 MG/DL (2.5-4.9)
[2017-06-21 07:50] LABS: BANDS 9 % (0-6); LYMPHOCYTES 4 % (9-44); MONOCYTES 2 % (0-8); POLYS (SEG NEUTROPHILS) 85 % (16-70)
[2017-06-21] MEDS: VANCOMYCIN 500 MG VIAL (FOR ORAL USE ONLY) PO SCH ×4 (08:56→22:06)
[2017-06-21] MEDS: LACTOBACILLUS ACIDOPHILUS TAB PO SCH ×3 (08:58→18:00)
[2017-06-21] MEDS: DOCUSATE SODIUM 50 MG/SENNA 8.6 MG TAB PO SCH ×2 (09:00→21:00)
[2017-06-21] MEDS: HEPARIN SODIUM - SQ 10,000 UNITS/ML VIAL SQ SCH ×2 (09:00→22:07)
[2017-06-21] MEDS: SODIUM CHLORIDE 0.9% FLUSH 10 ML FLUSH IV FLUSH SCH (09:00)
--- NOTE | 2017-06-21 11:17 | HHI.PR ---
Subjective Remarks Stool testing is positive for C. difficile. Patient is still not able to ambulate. She is weak. Objective Vital Signs Date Time Temp Pulse Resp B/P (MAP) Pulse Ox O2 Delivery O2 Flow Rate FiO2 06/21/17 04:00 98.4 100 18 138/61 (86) 95 06/21/17 00:00 97.6 110 16 93/64 (74) 93 06/20/17 20:00 98.4 89 16 147/81 (103) 94 06/20/17 19:40 Nasal Cannula 2.00 06/20/17 19:35 97.6 110 16 93/64 (74) 93 06/20/17 19:22 96 Nasal Cannula 2.00 06/20/17 12:00 99.8 105 20 105/52 (69) 93 I/O 06/20/17 06/20/17 06/20/17 06/21/17 06/21/17 06/21/17 07:00 15:00 23:00 07:00 15:00 23:00 Intake Total 350 ml 50 ml Output Total 1500 ml Balance 350 ml 50 ml -1500 ml Intake IV Total 350 ml 50 ml Output Hemodialysis 1500 ml # Voids 1 2 # Bowel Movements 1 2 Result Diagram: 06/21/172 06/21/17 042 Objective Remarks GENERAL: NAD, A&Ox2 HEAD: Normocephalic. NECK: Supple, trachea midline. No lymphadenopathy. EYES: No scleral icterus. No injection or drainage. CARDIOVASCULAR: Regular rate and rhythm without murmurs, gallops, or rubs. RESPIRATORY: Breath sounds equal bilaterally. No accessory muscle use. GASTROINTESTINAL: Abdomen soft, non-tender, nondistended. MUSCULOSKELETAL: No cyanosis, or edema. SKIN: Warm and dry. NEURO: No focal neurological deficitis. A/P Problem List: (1) ESRD (end stage renal disease) on dialysis ICD Code: N18.6 - End stage renal disease; Z99.2 - Dependence on renal dialysis (2) C. difficile diarrhea ICD Code: A04.72 - Enterocolitis due to Clostridium difficile, not specified as recurrent (3) Diarrhea in adult patient ICD Code: R19.7 - Diarrhea, unspecified (4) Sepsis ICD Code: A41.9 - Sepsis, unspecified organism Status: Acute (5) Leukocytosis ICD Code: D72.829 - Elevated white blood cell count, unspecified Status: Acute Assessment and Plan 82-year-old female admitted secondary to C. difficile colitis with dyspnea Sepsis Resolved C. difficile colitis Continue By mouth vancomycin Follow clinically for improvement Probiotics Shortness of breath Chronic respiratory insufficiency Oxygen supplementation as needed Nebulized treatments as needed Hyperlipidemia Continue present treatment Follow as an outpatient Continue pravastatin Hypertension History of pulmonary hypertension Grade 1 diastolic dysfunction Continue baseline treatment Follow blood pressures Adjust treatments as needed Continue carvedilol Continue isosorbide Continue amlodipine ESRD Nephrology consulted Continue hemodialysis Gastroesophageal reflux disease Hypoalbuminemia Continue Protonix Rheumatoid arthritis No exacerbation Continue folic acid 0.8 mg IV daily Diabetes mellitus type 2 Follow blood sugars Insulin sliding scale Diabetic diet Continue Novolin N Hypothyroidism Continue levothyroxine Generalized weakness Continue physical therapy DVT prophylaxis SCDs Leighton Ivey MD Jun 21, 2017 11:17
--- NOTE | 2017-06-21 16:31 | HHI.NPPN ---
Subjective History of Present Illness 82-year-old female with a history of ESRD on HD, COPD, anxiety disorder,diabetes , hypothyroidism, breast cancer, HTN, HLD, and rheumatoid arthritis. Patient presents from the [facility] with complaints of shortness of breath and diarrhea. Additional Remarks Patient has abd. pain, no nausea, no SOB. Review of Systems General Constitutional: Fatigue Cardiovascular Cardiac: ANDRADE Gastrointestinal Gastrointestinal: Abdominal Pain, Diarrhea Objective Data Data Vital Signs Date Time Temp Pulse Resp B/P (MAP) Pulse Ox O2 Delivery O2 Flow Rate FiO2 06/21/17 13:04 92 118/44 (68) 93 06/21/17 12:04 98.1 94 115/53 (73) 94 06/21/17 11:04 98 103/45 (64) 96 06/21/17 10:04 90 99/43 (61) 96 06/21/17 09:40 98.5 102 20 109/48 (68) 94 06/21/17 07:45 95 Nasal Cannula 2.00 06/21/17 07:00 95 Nasal Cannula 2.00 06/21/17 04:00 98.4 100 18 138/61 (86) 95 06/21/17 00:00 97.6 110 16 93/64 (74) 93 06/20/17 20:00 98.4 89 16 147/81 (103) 94 06/20/17 19:40 Nasal Cannula 2.00 06/20/17 19:35 97.6 110 16 93/64 (74) 93 06/20/17 19:22 96 Nasal Cannula 2.00 -: 06/21/17 0422 06/21/17 0422 Physical Exam General Appearance: Well Nourished, No Acute Distress Eyes Eye Exam: Pupils Equal Throat Throat Exam: Oral Mucosa [place] & Moist Pulmonary Resp Exam: Breath Sounds Equal, No Distress, Rhonchi, Decreased Bases Cardiology CV Exam: Regular, Normal Sinus Rhythm Gastrointestinal/Abdomen GI Exam: Soft, Non-Tender, Bowel Sounds Present Extremeties Extremities Exam: Trace Edema Neurologic Neuro Exam: Alert, Awake, Oriented Psychiatric Psych Exam: Appropriate Responses Assessment/Plan Problem List: (1) ESRD (end stage renal disease) on dialysis ICD Codes: N18.6 - End stage renal disease; Z99.2 - Dependence on renal dialysis Plan: ESRD Dialysis T/TH/Mon with left AVF Plan Epogen with dialysis Hyperkalemia at 5.4 however dialysis today HD planned for today Renal dose antibiotics. admitted with C.Difficile and high WBC. On PO Vanco. HD done yesterday. Continue antibiotics. (2) C. difficile diarrhea ICD Codes: A04.72 - Enterocolitis due to Clostridium difficile, not specified as recurrent Plan: Continue PO vancomycin (3) Sepsis ICD Codes: A41.9 - Sepsis, unspecified organism Status: Acute Plan: continue antibiotics renal dosing antibiotics Chest xray with possible pneumonia BC pending. Priti Bautista MD Jun 21, 2017 16:31
[2017-06-22] VITALS (7 sets, daily range): BP systolic 101–124; BP diastolic 36–58; PULSE 88–96; RESP 16–20; TEMP 98.6–99.1; O2SAT 94–96
[2017-06-22] MEDS: SODIUM CHLORIDE 0.9% FLUSH 10 ML FLUSH IV FLUSH SCH ×3 (00:51→20:09)
[2017-06-22 04:43] LABS: AUTOMATED NEUTROPHIL # 25.5 TH/MM3 (1.8-7.7); BASOPHIL # 0.4 TH/MM3 (0-0.2); BASOPHIL % 1.5 % (0.0-2.0); EOSINOPHIL # 0.5 TH/MM3 (0-0.4); EOSINOPHIL % 1.6 % (0.0-4.0); HEMATOCRIT 25.5 % (35.0-46.0); HEMOGLOBIN 8.4 GM/DL (11.6-15.3); LYMPH % 4.8 % (9.0-44.0); LYMPHOCYTE # 1.4 TH/MM3 (1.0-4.8); MEAN CELL VOLUME 104.8 FL (80.0-100.0); MEAN CORPUSCULAR HEMOGLOBIN 34.3 PG (27.0-34.0); MEAN CORPUSCULAR HGB CONC 32.7 % (32.0-36.0); MEAN PLATELET VOLUME 7.9 FL (7.0-11.0); MONO % 4.2 % (0.0-8.0); MONOCYTE # 1.2 TH/MM3 (0-0.9); NEUT % 87.9 % (16.0-70.0); PLATELET COUNT 267 TH/MM3 (150-450); RED BLOOD COUNT 2.44 MIL/MM3 (4.00-5.30); RED CELL DISTRIBUTION WIDTH 19.6 % (11.6-17.2)
[2017-06-22 04:57] LABS: CHLORIDE 100 MEQ/L (98-107); SODIUM (NA) 137 MEQ/L (136-145)
[2017-06-22 05:00] LABS: OVALOCYTES 1+ (NORMAL)
[2017-06-22 05:01] LABS: CALCIUM 7.8 MG/DL (8.5-10.1)
[2017-06-22 05:08] LABS: ALBUMIN 1.8 GM/DL (3.4-5.0); ALT (GPT) 11 U/L (10-53); AST (GOT) 10 U/L (15-37); BICARBONATE 25.9 MEQ/L (21.0-32.0); BLOOD UREA NITROGEN 60 MG/DL (7-18); GLOMERULAR FILTRATION RATE 6 ML/MIN (>89); GLUCOSE,RANDOM 140 MG/DL (74-106); TOTAL BILIRUBIN ADULT 0.4 MG/DL (0.2-1.0); TOTAL PROTEIN 5.2 GM/DL (6.4-8.2)
[2017-06-22 05:09] LABS: ALKALINE PHOSPHATASE 92 U/L (45-117)
[2017-06-22] MEDS: VANCOMYCIN 500 MG VIAL (FOR ORAL USE ONLY) PO SCH ×4 (09:00→20:08)
[2017-06-22] MEDS: DOCUSATE SODIUM 50 MG/SENNA 8.6 MG TAB PO SCH ×2 (09:00→20:10)
[2017-06-22] MEDS: LACTOBACILLUS ACIDOPHILUS TAB PO SCH ×3 (09:00→17:42)
[2017-06-22] MEDS: EPOETIN ALFA 10,000 UNITS/ML VIAL IV PUSH PRN (11:18)
[2017-06-22] MEDS: GELATIN 12 MM/7 MM FOAM TOP PRN (11:18)
[2017-06-22] MEDS: ALBUMIN 25% INJ 100 ML IV PRN (11:19)
--- NOTE | 2017-06-22 11:25 | HHI.NPPN ---
Subjective History of Present Illness 82-year-old female with a history of ESRD on HD, COPD, anxiety disorder,diabetes , hypothyroidism, breast cancer, HTN, HLD, and rheumatoid arthritis. Patient presents from the [facility] with complaints of shortness of breath and diarrhea. Additional Remarks Patient has abd. pain, mild nausea, seen after HD. Review of Systems General Constitutional: Fatigue Cardiovascular Cardiac: ANDRADE Gastrointestinal Gastrointestinal: Abdominal Pain, Diarrhea Objective Data Data 06/22/17 06/23/17 19:00 07:00 Output Total 1500 ml Balance -1500 ml Hemodialysis 1500 ml Vital Signs Date Time Temp Pulse Resp B/P (MAP) Pulse Ox O2 Delivery O2 Flow Rate FiO2 06/22/17 08:00 95 1.00 06/22/17 07:57 98.8 101/40 (60) 94 06/22/17 04:00 99.1 96 16 116/41 (66) 96 06/22/17 00:00 98.6 96 16 101/36 (57) 95 06/21/17 22:57 93 Nasal Cannula 2.00 06/21/17 22:04 121/53 (75) 95 06/21/17 20:04 98.0 96 22 118/57 (77) 96 06/21/17 20:00 95 Nasal Cannula 2.00 06/21/17 19:04 20 96/43 (60) 94 06/21/17 16:04 92 111/49 (69) 94 06/21/17 13:04 92 118/44 (68) 93 06/21/17 12:04 98.1 94 115/53 (73) 94 -: 06/22/17 0430 06/22/17 0430 Microbiology 06/22/17 , Iqra Batch Pending Physical Exam General Appearance: Well Nourished, No Acute Distress Eyes Eye Exam: Pupils Equal Throat Throat Exam: Oral Mucosa [place] & Moist Pulmonary Resp Exam: Breath Sounds Equal, No Distress, Rhonchi, Decreased Bases Cardiology CV Exam: Regular, Normal Sinus Rhythm Gastrointestinal/Abdomen GI Exam: Soft, Non-Tender, Bowel Sounds Present Extremeties Extremities Exam: Trace Edema Neurologic Neuro Exam: Alert, Awake, Oriented Psychiatric Psych Exam: Appropriate Responses Assessment/Plan Problem List: (1) ESRD (end stage renal disease) on dialysis ICD Codes: N18.6 - End stage renal disease; Z99.2 - Dependence on renal dialysis Plan: ESRD Dialysis T/TH/Sat with left AVF Plan Epogen with dialysis Renal dose antibiotics. admitted with C.Difficile and high WBC. On PO Vanco. HD done and 1.5 liters removed. BP is now stable. WBC started to decrease. (2) C. difficile diarrhea ICD Codes: A04.72 - Enterocolitis due to Clostridium difficile, not specified as recurrent Plan: Continue PO vancomycin (3) Sepsis ICD Codes: A41.9 - Sepsis, unspecified organism Status: Acute Plan: continue antibiotics renal dosing antibiotics Chest xray with possible pneumonia BC pending. Priti Bautista MD Jun 22, 2017 11:25
--- NOTE | 2017-06-22 11:37 | HHI.PR ---
Subjective Remarks Weakness remains. Patient had dialysis today. She has no new complaints. Diarrhea is still present. Objective Vital Signs Date Time Temp Pulse Resp B/P (MAP) Pulse Ox O2 Delivery O2 Flow Rate FiO2 06/22/17 08:00 95 1.00 06/22/17 07:57 98.8 101/40 (60) 94 06/22/17 04:00 99.1 96 16 116/41 (66) 96 06/22/17 00:00 98.6 96 16 101/36 (57) 95 06/21/17 22:57 93 Nasal Cannula 2.00 06/21/17 22:04 121/53 (75) 95 06/21/17 20:04 98.0 96 22 118/57 (77) 96 06/21/17 20:00 95 Nasal Cannula 2.00 06/21/17 19:04 20 96/43 (60) 94 06/21/17 16:04 92 111/49 (69) 94 06/21/17 13:04 92 118/44 (68) 93 06/21/17 12:04 98.1 94 115/53 (73) 94 I/O 06/21/17 06/21/17 06/21/17 06/22/17 06/22/17 06/22/17 07:00 15:00 23:00 07:00 15:00 23:00 Intake Total 350 ml 120 ml Output Total 50 ml 100 ml 1500 ml Balance 300 ml 20 ml -1500 ml Intake Oral 350 ml 120 ml Output Urine Total 50 ml 0 ml Stool Total 100 ml Hemodialysis 1500 ml # Voids 2 # Bowel Movements 2 4 Result Diagram: 06/22/1742906/22/17 0430 Objective Remarks GENERAL: NAD, A&Ox2 HEAD: Normocephalic. NECK: Supple, trachea midline. No lymphadenopathy. EYES: No scleral icterus. No injection or drainage. CARDIOVASCULAR: Regular rate and rhythm without murmurs, gallops, or rubs. RESPIRATORY: Breath sounds equal bilaterally. No accessory muscle use. GASTROINTESTINAL: Abdomen soft, non-tender, nondistended. MUSCULOSKELETAL: No cyanosis, or edema. SKIN: Warm and dry. NEURO: No focal neurological deficitis. A/P Problem List: (1) ESRD (end stage renal disease) on dialysis ICD Code: N18.6 - End stage renal disease; Z99.2 - Dependence on renal dialysis (2) C. difficile diarrhea ICD Code: A04.72 - Enterocolitis due to Clostridium difficile, not specified as recurrent (3) Diarrhea in adult patient ICD Code: R19.7 - Diarrhea, unspecified (4) Sepsis ICD Code: A41.9 - Sepsis, unspecified organism Status: Acute (5) Leukocytosis ICD Code: D72.829 - Elevated white blood cell count, unspecified Status: Acute Assessment and Plan 82-year-old female admitted secondary to C. difficile colitis with dyspnea Diarrhea is persisting. Labs reviewed. No electrolyte disturbance. Continue to monitor labs. Labs ordered for further monitoring. Continue to monitor for potential for sodium or potassium disturbance. Sepsis Resolved C. difficile colitis Continue By mouth vancomycin Follow clinically for improvement Probiotics Shortness of breath Chronic respiratory insufficiency Oxygen supplementation as needed Nebulized treatments as needed Hyperlipidemia Continue present treatment Follow as an outpatient Continue pravastatin Hypertension History of pulmonary hypertension Grade 1 diastolic dysfunction Continue baseline treatment Follow blood pressures Adjust treatments as needed Continue carvedilol Continue isosorbide Continue amlodipine ESRD Nephrology consulted Continue hemodialysis Gastroesophageal reflux disease Hypoalbuminemia Continue Protonix Rheumatoid arthritis No exacerbation Continue folic acid 0.8 mg IV daily Diabetes mellitus type 2 Follow blood sugars Insulin sliding scale Diabetic diet Continue Novolin N Hypothyroidism Continue levothyroxine Generalized weakness Continue physical therapy DVT prophylaxis SCDs Leighton Ivey MD Jun 22, 2017 11:37
[2017-06-22] MEDS: HEPARIN SODIUM - SQ 10,000 UNITS/ML VIAL SQ SCH ×2 (11:52→20:09)
[2017-06-23] VITALS (10 sets, daily range): BP systolic 93–138; BP diastolic 46–91; PULSE 74–98; RESP 18–22; TEMP 97.6–99; O2SAT 95–98
[2017-06-23 05:04] LABS: AUTOMATED NEUTROPHIL # 14.9 TH/MM3 (1.8-7.7); BASOPHIL # 0.6 TH/MM3 (0-0.2); BASOPHIL % 3.1 % (0.0-2.0); EOSINOPHIL # 0.5 TH/MM3 (0-0.4); EOSINOPHIL % 2.5 % (0.0-4.0); HEMATOCRIT 23.6 % (35.0-46.0); HEMOGLOBIN 7.8 GM/DL (11.6-15.3); LYMPH % 6.6 % (9.0-44.0); LYMPHOCYTE # 1.2 TH/MM3 (1.0-4.8); MEAN CELL VOLUME 104.4 FL (80.0-100.0); MEAN CORPUSCULAR HEMOGLOBIN 34.5 PG (27.0-34.0); MEAN CORPUSCULAR HGB CONC 33.1 % (32.0-36.0); MEAN PLATELET VOLUME 8.1 FL (7.0-11.0); MONO % 4.6 % (0.0-8.0); MONOCYTE # 0.8 TH/MM3 (0-0.9); NEUT % 83.2 % (16.0-70.0); PLATELET COUNT 160 TH/MM3 (150-450); RED BLOOD COUNT 2.26 MIL/MM3 (4.00-5.30)
[2017-06-23 05:21] LABS: OVALOCYTES 1+ (NORMAL); TEARDROP RBCS 1+ (NORMAL)
[2017-06-23 05:23] LABS: ALBUMIN 2.2 GM/DL (3.4-5.0); ALKALINE PHOSPHATASE 76 U/L (45-117); ALT (GPT) 8 U/L (10-53); AST (GOT) 9 U/L (15-37); BICARBONATE 30.1 MEQ/L (21.0-32.0); BLOOD UREA NITROGEN 36 MG/DL (7-18); CALCIUM 7.8 MG/DL (8.5-10.1); CHLORIDE 103 MEQ/L (98-107); GLOMERULAR FILTRATION RATE 9 ML/MIN (>89); GLUCOSE,RANDOM 102 MG/DL (74-106); SODIUM (NA) 140 MEQ/L (136-145); TOTAL BILIRUBIN ADULT 0.5 MG/DL (0.2-1.0); TOTAL PROTEIN 5.2 GM/DL (6.4-8.2)
[2017-06-23] MEDS ORDERED: POTASSIUM CHLORIDE 20 MEQ PWD PACKET PO ONE ×2 (09:00→14:00)
[2017-06-23] MEDS: DOCUSATE SODIUM 50 MG/SENNA 8.6 MG TAB PO SCH ×2 (09:00→20:34)
[2017-06-23] MEDS: LACTOBACILLUS ACIDOPHILUS TAB PO SCH ×3 (10:19→18:00)
[2017-06-23] MEDS: VANCOMYCIN 500 MG VIAL (FOR ORAL USE ONLY) PO SCH ×4 (10:19→20:34)
[2017-06-23] MEDS: HEPARIN SODIUM - SQ 10,000 UNITS/ML VIAL SQ SCH ×2 (10:19→20:34)
[2017-06-23] MEDS: SODIUM CHLORIDE 0.9% FLUSH 10 ML FLUSH IV FLUSH SCH ×2 (10:20→20:35)
--- NOTE | 2017-06-23 10:32 | HHI.PR ---
Subjective Remarks Some improvement in patient's energy state, alertness, and slight decrease in diarrhea volume today. Objective Vital Signs Date Time Temp Pulse Resp B/P (MAP) Pulse Ox O2 Delivery O2 Flow Rate FiO2 06/23/17 08:31 97 Nasal Cannula 2.00 06/23/17 08:00 99.0 74 135/59 (84) 06/23/17 04:00 99.0 89 20 110/54 (72) 96 06/23/17 00:00 98.3 76 22 132/48 (76) 95 06/22/17 20:02 99.1 88 20 118/54 (75) 95 06/22/17 19:50 Nasal Cannula 2.00 06/22/17 19:00 95 Nasal Cannula 2.00 06/22/17 15:00 99.1 124/58 (80) 95 06/22/17 11:42 98.9 114/51 (72) 95 I/O 06/22/17 06/22/17 06/22/17 06/23/17 06/23/17 06/23/17 07:00 15:00 23:00 07:00 15:00 23:00 Intake Total 120 ml 240 ml Output Total 100 ml 1500 ml 0 ml Balance 20 ml -1500 ml 240 ml Intake Oral 120 ml 240 ml Output Urine Total 0 ml 0 ml Stool Total 100 ml Hemodialysis 1500 ml # Bowel Movements 3 Result Diagram: 06/23/1744206/23/17 0443 Objective Remarks GENERAL: NAD, A&Ox2 HEAD: Normocephalic. NECK: Supple, trachea midline. No lymphadenopathy. EYES: No scleral icterus. No injection or drainage. CARDIOVASCULAR: Regular rate and rhythm without murmurs, gallops, or rubs. RESPIRATORY: Breath sounds equal bilaterally. No accessory muscle use. GASTROINTESTINAL: Abdomen soft, non-tender, nondistended. MUSCULOSKELETAL: No cyanosis, or edema. SKIN: Warm and dry. NEURO: No focal neurological deficitis. A/P Problem List: (1) ESRD (end stage renal disease) on dialysis ICD Code: N18.6 - End stage renal disease; Z99.2 - Dependence on renal dialysis (2) C. difficile diarrhea ICD Code: A04.72 - Enterocolitis due to Clostridium difficile, not specified as recurrent (3) Diarrhea in adult patient ICD Code: R19.7 - Diarrhea, unspecified (4) Sepsis ICD Code: A41.9 - Sepsis, unspecified organism Status: Acute (5) Leukocytosis ICD Code: D72.829 - Elevated white blood cell count, unspecified Status: Acute Assessment and Plan 82-year-old female admitted secondary to C. difficile colitis with dyspnea Diarrhea shows signs of improvement today. Continue physical therapy. Continue antibiotics. Labs reviewed. Potassium is low. Continue to monitor labs. Labs ordered for further monitoring. Potassium is low secondary to diarrhea. Continue to monitor potassium levels and replace as needed. Hypokalemia Continue monitoring potassium levels Replace potassium as needed Sepsis Resolved C. difficile colitis Continue By mouth vancomycin Follow clinically for improvement Probiotics Shortness of breath Chronic respiratory insufficiency Oxygen supplementation as needed Nebulized treatments as needed Hyperlipidemia Continue present treatment Follow as an outpatient Continue pravastatin Hypertension History of pulmonary hypertension Grade 1 diastolic dysfunction Continue baseline treatment Follow blood pressures Adjust treatments as needed Continue carvedilol Continue isosorbide Continue amlodipine ESRD Nephrology consulted Continue hemodialysis Gastroesophageal reflux disease Hypoalbuminemia Continue Protonix Rheumatoid arthritis No exacerbation Continue folic acid 0.8 mg IV daily Diabetes mellitus type 2 Follow blood sugars Insulin sliding scale Diabetic diet Continue Novolin N Hypothyroidism Continue levothyroxine Generalized weakness Continue physical therapy DVT prophylaxis SCDs Leighton Ivey MD Jun 23, 2017 10:32
--- NOTE | 2017-06-23 10:36 | HHI.NPPN ---
Subjective History of Present Illness 82-year-old female with a history of ESRD on HD, COPD, anxiety disorder,diabetes , hypothyroidism, breast cancer, HTN, HLD, and rheumatoid arthritis. Patient presents from the [facility] with complaints of shortness of breath and diarrhea. Additional Remarks Patient is alert, feeling better, abd. pain and appetite improving. Review of Systems General Constitutional: Fatigue Cardiovascular Cardiac: ANDRADE Gastrointestinal Gastrointestinal: Abdominal Pain, Diarrhea Objective Data Data Vital Signs Date Time Temp Pulse Resp B/P (MAP) Pulse Ox O2 Delivery O2 Flow Rate FiO2 06/23/17 08:31 97 Nasal Cannula 2.00 06/23/17 08:00 99.0 74 135/59 (84) 06/23/17 04:00 99.0 89 20 110/54 (72) 96 06/23/17 00:00 98.3 76 22 132/48 (76) 95 06/22/17 20:02 99.1 88 20 118/54 (75) 95 06/22/17 19:50 Nasal Cannula 2.00 06/22/17 19:00 95 Nasal Cannula 2.00 06/22/17 15:00 99.1 124/58 (80) 95 06/22/17 11:42 98.9 114/51 (72) 95 -: 06/23/17 0443 06/23/17 0443 Microbiology 06/23/17 , Iqra Batch Pending Physical Exam General Appearance: Well Nourished, No Acute Distress Eyes Eye Exam: Pupils Equal Throat Throat Exam: Oral Mucosa [place] & Moist Pulmonary Resp Exam: Breath Sounds Equal, No Distress, Rhonchi, Decreased Bases Cardiology CV Exam: Regular, Normal Sinus Rhythm Gastrointestinal/Abdomen GI Exam: Soft, Non-Tender, Bowel Sounds Present Extremeties Extremities Exam: Trace Edema Neurologic Neuro Exam: Alert, Awake, Oriented Psychiatric Psych Exam: Appropriate Responses Assessment/Plan Problem List: (1) ESRD (end stage renal disease) on dialysis ICD Codes: N18.6 - End stage renal disease; Z99.2 - Dependence on renal dialysis Plan: ESRD Dialysis T/TH/Sat with left AVF Plan Epogen with dialysis Renal dose antibiotics. admitted with C.Difficile and high WBC. On PO Vanco. HD done yesterday. BP is now stable. WBC improving, BP is stable. Continue antibiotics. HD will be in AM. (2) C. difficile diarrhea ICD Codes: A04.72 - Enterocolitis due to Clostridium difficile, not specified as recurrent Plan: Continue PO vancomycin (3) Sepsis ICD Codes: A41.9 - Sepsis, unspecified organism Status: Acute Plan: continue antibiotics renal dosing antibiotics Chest xray with possible pneumonia BC pending. Priti Bautista MD Jun 23, 2017 10:36
[2017-06-23] MEDS: RESP: ALBUTEROL 2.5 MG/IPRATROPIUM 0.5 MG NEB (PRN) NEB (12:51)
--- NOTE | 2017-06-23 14:04 | RADRPT ---
EXAM DATE/TIME: 06/23/2017 13:45 [facility] COMPARISON: CHEST SINGLE AP, June 20, 2017, 0:13. INDICATIONS : Short of breath. MEDICAL HISTORY : Hypertension. Renal failure, chronic. Gastro esophageal reflux disease SURGICAL HISTORY : None. ENCOUNTER: Subsequent ACUITY: 2 days PAIN SCORE: 0/10 LOCATION: Bilateral chest FINDINGS: A single AP erect portable view the chest was obtained and again demonstrates mild streaky opacity at the lung bases without significant change. The left costophrenic angle remains blunted. The heart si ze is mildly enlarged. Tracheal calcifications are present. Overlying oxygen tubing is noted. There a re no new confluent infiltrates. CONCLUSION: 1. Stable appearance with patchy bibasilar opacities. 2. Left costophrenic angle remains blunted. Koko Nunez MD on June 23, 2017 at 14:00 Board Certified Radiologist. This report was verified electronically.
[2017-06-24 01:12] VITALS: BP 134/53; PULSE 76; RESP 20; TEMP 98.9; O2SAT 97
[2017-06-24 05:38] VITALS: BP 133/51; PULSE 80; TEMP 98.3; O2SAT 97
[2017-06-24 05:57] LABS: HEMATOCRIT 26.4 % (35.0-46.0); HEMOGLOBIN 8.7 GM/DL (11.6-15.3); MEAN CELL VOLUME 103.2 FL (80.0-100.0); MEAN PLATELET VOLUME 7.9 FL (7.0-11.0); PLATELET COUNT 199 TH/MM3 (150-450); RED BLOOD COUNT 2.56 MIL/MM3 (4.00-5.30); RED CELL DISTRIBUTION WIDTH 18.4 % (11.6-17.2); WHITE BLOOD COUNT 12.8 TH/MM3 (4.0-11.0)
[2017-06-24 06:07] LABS: CHLORIDE 103 MEQ/L (98-107); SODIUM (NA) 139 MEQ/L (136-145)
[2017-06-24 06:10] LABS: BICARBONATE 27.4 MEQ/L (21.0-32.0); BLOOD UREA NITROGEN 46 MG/DL (7-18); CALCIUM 7.6 MG/DL (8.5-10.1); GLUCOSE,RANDOM 123 MG/DL (74-106)
[2017-06-24 06:12] LABS: BANDS 2 % (0-6); BASOPHILS 1 % (0-2); CORRECTED NUCLEATED RBC 1 /100 WBC (0-0); LYMPHOCYTES 15 % (9-44); MONOCYTES 8 % (0-8); NEUTROPHIL # MANUAL DIFF 9.1 TH/MM3 (1.8-7.7); NUCLEATED RED BLOOD CELL 1 (0-0); POLYS (SEG NEUTROPHILS) 69 % (16-70)
[2017-06-24 06:13] LABS: ALT (GPT) 9 U/L (10-53); AST (GOT) 7 U/L (15-37); OVALOCYTES 1+ (NORMAL)
[2017-06-24 06:15] LABS: GLOMERULAR FILTRATION RATE 6 ML/MIN (>89); TOTAL BILIRUBIN ADULT 0.4 MG/DL (0.2-1.0); TOTAL PROTEIN 5.2 GM/DL (6.4-8.2)
[2017-06-24 06:20] LABS: ALKALINE PHOSPHATASE 74 U/L (45-117)
[2017-06-24] MEDS: RESP: ALBUTEROL 2.5 MG/IPRATROPIUM 0.5 MG NEB (PRN) NEB (07:45)
[2017-06-24 08:00] VITALS: BP 117/56; PULSE 105; TEMP 98.1; O2SAT 96
[2017-06-24 08:12] VITALS: O2SAT 97
[2017-06-24] MEDS ORDERED: LORazepam 1 MG TAB PO ONE (08:15)
[2017-06-24] MEDS: ALBUMIN 25% INJ 100 ML IV PRN (08:15)
[2017-06-24] MEDS: DOCUSATE SODIUM 50 MG/SENNA 8.6 MG TAB PO SCH (09:00)
[2017-06-24] MEDS: LACTOBACILLUS ACIDOPHILUS TAB PO SCH ×3 (09:00→19:01)
[2017-06-24] MEDS: VANCOMYCIN 500 MG VIAL (FOR ORAL USE ONLY) PO SCH ×4 (09:00→20:45)
[2017-06-24] MEDS: SODIUM CHLORIDE 0.9% FLUSH 10 ML FLUSH IV FLUSH SCH ×2 (09:00→20:45)
[2017-06-24] MEDS: HEPARIN SODIUM - SQ 10,000 UNITS/ML VIAL SQ SCH ×2 (09:07→20:45)
--- NOTE | 2017-06-24 10:06 | HHI.PR ---
Subjective Remarks Nursing reports that the patient got a little dyspneic twice since last night and attributed to anxiety since the patient saturations are doing well. Chest x -ray was recently obtained yesterday did not show any new findings. Patient denies having any new pain. She is doing well on 1 L. Undergoing dialysis in her room at this time. Objective Vital Signs Date Time Temp Pulse Resp B/P (MAP) Pulse Ox O2 Delivery O2 Flow Rate FiO2 06/24/17 08:12 97 Nasal Cannula 3.00 06/24/17 08:00 98.1 105 117/56 (76) 96 06/24/17 05:38 98.3 80 133/51 (78) 97 06/24/17 01:12 98.9 76 20 134/53 (80) 97 06/23/17 20:20 98 Nasal Cannula 2.00 06/23/17 20:00 98.2 86 20 93/46 (62) 97 06/23/17 20:00 98 Nasal Cannula 2.00 06/23/17 16:01 98.7 123/47 (72) 96 06/23/17 12:44 98.8 98 18 118/77 (91) 06/23/17 12:42 118/49 (72) 96 06/23/17 12:00 94 Nasal Cannula 2.00 I/O 06/23/17 06/23/17 06/23/17 06/24/17 06/24/17 06/24/17 07:00 15:00 23:00 07:00 15:00 23:00 Intake Total 240 ml 240 ml Output Total 0 ml 500 ml 200 ml Balance 240 ml -500 ml 40 ml Intake Oral 240 ml 240 ml Output Urine Total 0 ml Stool Total 500 ml 200 ml # Voids 1 Result Diagram: 06/24/17 0548 06/24/17 0548 Objective Remarks Lying in bed, no acute distress, dozing off but easily awoken Lungs are clear bilaterally, unlabored breathing There is soft, nontender, nondistended A/P Assessment and Plan Assessment and Plan 82-year-old female admitted secondary to C. difficile colitis with dyspnea Diarrhea shows signs of improvement today. Continue physical therapy. Continue antibiotics. Labs reviewed. Potassium is low. Continue to monitor labs. Labs ordered for further monitoring. Potassium is low secondary to diarrhea. Continue to monitor potassium levels and replace as needed. Hypokalemia Continue monitoring potassium levels Replace potassium as needed C. difficile colitis Continue By mouth vancomycin Follow clinically for improvement Probiotics RN to chart daily output, still persistent, if no improvement by lisset contacting ID Chronic respiratory insufficiency back to baseline Hyperlipidemia Continue present treatment Follow as an outpatient Continue pravastatin Hypertension History of pulmonary hypertension Grade 1 diastolic dysfunction Continue baseline treatment Follow blood pressures Adjust treatments as needed Continue carvedilol Continue isosorbide Continue amlodipine ESRD Nephrology consulted Continue hemodialysis Gastroesophageal reflux disease Hypoalbuminemia Continue Protonix Rheumatoid arthritis No exacerbation Continue folic acid 0.8 mg IV daily Diabetes mellitus type 2 Follow blood sugars Insulin sliding scale Diabetic diet Continue Novolin N Hypothyroidism Continue levothyroxine Generalized weakness Continue physical therapy DVT prophylaxis SCDs Celestine Lemus MD Jun 24, 2017 10:06
[2017-06-24] MEDS: EPOETIN ALFA 10,000 UNITS/ML VIAL IV PUSH PRN (11:05)
[2017-06-24] MEDS: GELATIN 12 MM/7 MM FOAM TOP PRN (11:05)
[2017-06-24 11:56] VITALS: BP 130/60; TEMP 98.5; O2SAT 95
[2017-06-24 15:48] VITALS: BP 119/74; TEMP 98.7; O2SAT 94
--- NOTE | 2017-06-24 22:37 | HHI.NPPN ---
Subjective History of Present Illness 82-year-old female with a history of ESRD on HD, COPD, anxiety disorder,diabetes , hypothyroidism, breast cancer, HTN, HLD, and rheumatoid arthritis. Patient presents from the [facility] with complaints of shortness of breath and diarrhea. Additional Remarks Patient is alert, seen in the afternoon,after HD. Review of Systems General Constitutional: Fatigue Cardiovascular Cardiac: ANDRADE Gastrointestinal Gastrointestinal: Abdominal Pain, Diarrhea Objective Data Data 06/24/17 06/25/17 19:00 07:00 Intake Total 720 ml Output Total 1500 ml 200 ml Balance -780 ml -200 ml Intake Oral 720 ml Stool Total 200 ml Hemodialysis 1500 ml Vital Signs Date Time Temp Pulse Resp B/P (MAP) Pulse Ox O2 Delivery O2 Flow Rate FiO2 06/24/17 20:53 06/24/17 15:48 98.7 119/74 (89) 94 06/24/17 11:56 98.5 130/60 (83) 95 06/24/17 08:12 97 Nasal Cannula 3.00 06/24/17 08:00 98.1 105 117/56 (76) 96 06/24/17 07:00 93 Nasal Cannula 1.00 06/24/17 05:38 98.3 80 133/51 (78) 97 06/24/17 01:12 98.9 76 20 134/53 (80) 97 -: 06/24/17 0548 06/24/17 0548 Physical Exam General Appearance: Well Nourished, No Acute Distress Eyes Eye Exam: Pupils Equal Throat Throat Exam: Oral Mucosa [place] & Moist Pulmonary Resp Exam: Breath Sounds Equal, No Distress, Rhonchi, Decreased Bases Cardiology CV Exam: Regular, Normal Sinus Rhythm Gastrointestinal/Abdomen GI Exam: Soft, Non-Tender, Bowel Sounds Present Extremeties Extremities Exam: Trace Edema Neurologic Neuro Exam: Alert, Awake, Oriented Psychiatric Psych Exam: Appropriate Responses Assessment/Plan Problem List: (1) ESRD (end stage renal disease) on dialysis ICD Codes: N18.6 - End stage renal disease; Z99.2 - Dependence on renal dialysis Plan: ESRD Dialysis T/TH/Sat with left AVF Plan Epogen with dialysis Renal dose antibiotics. admitted with C.Difficile and high WBC. On PO Vanco. HD done yesterday. BP is now stable. WBC continue to be improving, BP is stable. Continue antibiotics. HD done and tolerated well. (2) C. difficile diarrhea ICD Codes: A04.72 - Enterocolitis due to Clostridium difficile, not specified as recurrent Plan: Continue PO vancomycin (3) Sepsis ICD Codes: A41.9 - Sepsis, unspecified organism Status: Acute Plan: continue antibiotics renal dosing antibiotics Chest xray with possible pneumonia BC pending. Priti Bautista MD Jun 24, 2017 22:37
[2017-06-25 00:31] VITALS: BP 105/55; PULSE 98; RESP 18; TEMP 98.8; O2SAT 96
[2017-06-25 08:00] VITALS: BP 120/53; PULSE 96; RESP 18; TEMP 98.1; O2SAT 94
[2017-06-25] MEDS: HEPARIN SODIUM - SQ 10,000 UNITS/ML VIAL SQ SCH ×2 (08:38→20:26)
[2017-06-25] MEDS: LACTOBACILLUS ACIDOPHILUS TAB PO SCH ×3 (08:38→16:35)
[2017-06-25] MEDS: SODIUM CHLORIDE 0.9% FLUSH 10 ML FLUSH IV FLUSH SCH ×2 (08:38→20:26)
[2017-06-25] MEDS: VANCOMYCIN 500 MG VIAL (FOR ORAL USE ONLY) PO SCH ×4 (08:38→20:26)
--- NOTE | 2017-06-25 11:53 | HHI.NPPN ---
Subjective History of Present Illness 82-year-old female with a history of ESRD on HD, COPD, anxiety disorder,diabetes , hypothyroidism, breast cancer, HTN, HLD, and rheumatoid arthritis. Patient presents from the [facility] with complaints of shortness of breath and diarrhea. Additional Remarks Patient is alert, started eating better, still has loose BM, and abd. pain is better. Review of Systems General Constitutional: Fatigue Cardiovascular Cardiac: ANDRADE Gastrointestinal Gastrointestinal: Abdominal Pain, Diarrhea Objective Data Data Vital Signs Date Time Temp Pulse Resp B/P (MAP) Pulse Ox O2 Delivery O2 Flow Rate FiO2 06/25/17 08:00 98.1 96 18 120/53 (75) 94 06/25/17 04:22 06/25/17 00:31 98.8 98 18 105/55 (72) 96 06/24/17 20:53 06/24/17 20:00 Nasal Cannula 1.00 06/24/17 15:48 98.7 119/74 (89) 94 06/24/17 11:56 98.5 130/60 (83) 95 -: 06/24/17 0548 06/24/17 0548 Physical Exam General Appearance: Well Nourished, No Acute Distress Eyes Eye Exam: Pupils Equal Throat Throat Exam: Oral Mucosa [place] & Moist Pulmonary Resp Exam: Breath Sounds Equal, No Distress, Rhonchi, Decreased Bases Cardiology CV Exam: Regular, Normal Sinus Rhythm Gastrointestinal/Abdomen GI Exam: Soft, Non-Tender, Bowel Sounds Present Extremeties Extremities Exam: Trace Edema Neurologic Neuro Exam: Alert, Awake, Oriented Psychiatric Psych Exam: Appropriate Responses Assessment/Plan Problem List: (1) ESRD (end stage renal disease) on dialysis ICD Codes: N18.6 - End stage renal disease; Z99.2 - Dependence on renal dialysis Plan: ESRD Dialysis T//Mon with left AVF Plan Epogen with dialysis Renal dose antibiotics. admitted with C.Difficile and high WBC. On PO Vanco. HD done yesterday. BP is now stable. WBC continue to be improving, BP is stable. Continue antibiotics. Planning for D/C back to Rehab , may be tomorrow. (2) C. difficile diarrhea ICD Codes: A04.72 - Enterocolitis due to Clostridium difficile, not specified as recurrent Plan: Continue PO vancomycin (3) Sepsis ICD Codes: A41.9 - Sepsis, unspecified organism Status: Acute Plan: continue antibiotics renal dosing antibiotics Chest xray with possible pneumonia BC pending. Priti Bautista MD Jun 25, 2017 11:53
[2017-06-25 12:00] VITALS: BP 132/54; PULSE 102; RESP 20; TEMP 97.4; O2SAT 97
--- NOTE | 2017-06-25 13:39 | HHI.PR ---
Subjective Remarks Nursing denies any major deterioration since last night. Patient herself says she is more short of breath today than yesterday. Her sister at the bedside does affirm this. Patient also reports having some abdominal pain but specifically occurs when she eats. Objective Vital Signs Date Time Temp Pulse Resp B/P (MAP) Pulse Ox O2 Delivery O2 Flow Rate FiO2 06/25/17 08:00 98.1 96 18 120/53 (75) 94 06/25/17 04:22 06/25/17 00:31 98.8 98 18 105/55 (72) 96 06/24/17 20:53 06/24/17 20:00 Nasal Cannula 1.00 06/24/17 15:48 98.7 119/74 (89) 94 I/O 06/24/17 06/24/17 06/24/17 06/25/17 06/25/17 06/25/17 07:00 15:00 23:00 07:00 15:00 23:00 Intake Total 240 ml 720 ml Output Total 200 ml 1500 ml 200 ml Balance 40 ml -1500 ml 520 ml Intake Oral 240 ml 720 ml Stool Total 200 ml 200 ml Hemodialysis 1500 ml # Voids 0 Result Diagram: 06/24/17 0548 06/24/17 0548 Objective Remarks Sitting up in chair, has very minimal conversive dyspnea, otherwise appear to be slightly labored, on nasal cannula, no cyanosis Abdomen is obese A/P Assessment and Plan Assessment and Plan 82-year-old female admitted secondary to C. difficile colitis with dyspnea dyspepsia -We will start Protonix/Mylanta acute on chronic respiratory insufficiency -acutely worsening -will obtain a repeat chest x-ray, scheduled duo nebs to be every 6 while awake and albuterol every 2 hours -Starting Symbicort C. difficile colitis Continue By mouth vancomycin Probiotics I will discontinue rectal tube so RN can better track for improvements since stool output quantities are not being consistently counted Hyperlipidemia Continue present treatment Follow as an outpatient Continue pravastatin Hypertension History of pulmonary hypertension Grade 1 diastolic dysfunction Continue baseline treatment Follow blood pressures Adjust treatments as needed Continue carvedilol Continue isosorbide Continue amlodipine ESRD Nephrology consulted Continue hemodialysis Hypokalemia Continue monitoring potassium levels Replace potassium as needed Gastroesophageal reflux disease Hypoalbuminemia Continue Protonix Rheumatoid arthritis No exacerbation Continue folic acid 0.8 mg IV daily Diabetes mellitus type 2 Follow blood sugars Insulin sliding scale Diabetic diet Continue Novolin N Hypothyroidism Continue levothyroxine Generalized weakness Continue physical therapy DVT prophylaxis SCDs Celestine Lemus MD Jun 25, 2017 13:39
[2017-06-25] MEDS ORDERED: ALUMINUM/MAGNESIUM/SIMETH 30 ML CUP PO PRN (13:45)
[2017-06-25] MEDS ORDERED: RESP: ALBUTEROL 2.5 MG/IPRATROPIUM 0.5 MG NEB (PRN) NEB (13:45)
[2017-06-25] MEDS ORDERED: PANTOPRAZOLE SOD 40 MG DELAYED RELEASE TAB PO ONE (14:00)
[2017-06-25] MEDS ORDERED: BUDESONIDE-FORMOTEROL 80/4.5 MCG INHALER INH ONE (14:00)
[2017-06-25] MEDS ORDERED: LIDOCAINE VISCOUS 2% SOLN 15 ML UDC SWISH-SWAL ONE (14:00)
[2017-06-25] MEDS: RESP: ALBUTEROL 2.5 MG/IPRATROPIUM 0.5 MG NEB (SCH) NEB ×2 (15:16→19:55)
[2017-06-25 16:00] VITALS: BP 142/64; PULSE 106; RESP 22; TEMP 97.9; O2SAT 96
--- NOTE | 2017-06-25 18:00 | RADRPT ---
EXAM DATE/TIME: 06/25/2017 14:11 [facility] COMPARISON: CHEST PA & LAT, December 12, 2014, 19:14. INDICATIONS : Dyspnea. MEDICAL HISTORY : Hypercholesterolemia. Hypothyroidism. Carcinoma, breast. Hypertension. Renal failure, chronic. Ga stroesophageal reflux disease. Diabetes. SURGICAL HISTORY : Cholecystectomy. Cardiac catheterization. ENCOUNTER: Subsequent ACUITY: 2 months PAIN SCORE: 0/10 LOCATION: Bilateral chest FINDINGS: There is cardiomegaly, small left pleural effusion and patchy basilar air space disease. Diffuse inte rstitial prominence. Degenerative changes of the spine. CONCLUSION: Interstitial edema, left effusion and left basilar airspace disease suspected. Deepak Bui MD on June 25, 2017 at 17:58 Board Certified Radiologist. This report was verified electronically.
[2017-06-25 19:55] VITALS: O2SAT 97
[2017-06-25 20:00] VITALS: BP 110/52; PULSE 100; RESP 16; TEMP 97.7; O2SAT 94
[2017-06-25] MEDS: BUDESONIDE-FORMOTEROL 80/4.5 MCG INHALER INH SCH (20:25)
[2017-06-26] VITALS (7 sets, daily range): BP systolic 100–142; BP diastolic 42–62; PULSE 53–112; RESP 14–18; TEMP 96.3–98.3; O2SAT 94–95
[2017-06-26] MEDS: RESP: ALBUTEROL 2.5 MG/IPRATROPIUM 0.5 MG NEB (SCH) NEB ×3 (07:12→19:17)
[2017-06-26 09:48] LABS: CALCIUM 8.3 MG/DL (8.5-10.1)
[2017-06-26 09:52] LABS: CREATININE 5.9 MG/DL (0.50-1.00)
[2017-06-26] MEDS: VANCOMYCIN 500 MG VIAL (FOR ORAL USE ONLY) PO SCH ×4 (09:53→20:37)
[2017-06-26] MEDS: LACTOBACILLUS ACIDOPHILUS TAB PO SCH ×3 (09:54→17:59)
[2017-06-26] MEDS: PANTOPRAZOLE SOD 40 MG DELAYED RELEASE TAB PO SCH (09:54)
[2017-06-26] MEDS: HEPARIN SODIUM - SQ 10,000 UNITS/ML VIAL SQ SCH ×2 (09:55→20:37)
[2017-06-26] MEDS: BUDESONIDE-FORMOTEROL 80/4.5 MCG INHALER INH SCH ×2 (09:56→20:36)
[2017-06-26] MEDS: SODIUM CHLORIDE 0.9% FLUSH 10 ML FLUSH IV FLUSH SCH ×2 (09:56→20:37)
--- NOTE | 2017-06-26 14:05 | HHI.DCPOC ---
Discharge Care Plan Diagnosis: (1) C. difficile diarrhea Goals to Promote Your Health * To prevent worsening of your condition and complications * To maintain your health at the optimal level Directions to Meet Your Goals Take your medications as prescribed Follow your dietary instruction Follow activity as directed Keep your appointments as scheduled Take your immunizations and boosters as scheduled If your symptoms worsen call your PCP, if no PCP go to Urgent Care Center or Emergency Room Smoking is Dangerous to Your Health. Avoid second hand smoke Call the 24-hour hour crisis hotline for domestic abuse at Celestine Lemus MD Jun 26, 2017 14:05 Maya Morris Jun 27, 2017 11:16
[2017-06-26] MEDS ORDERED: ALPR.25 PO (14:09)
[2017-06-26] MEDS ORDERED: Budeson-Formot 80-4.5 Mcg Inh INH (14:09)
[2017-06-26] MEDS ORDERED: Albuterol-Ipratropium Neb NEB ×2 (14:09)
[2017-06-26] MEDS ORDERED: VANC125C3 PO (14:18)
--- NOTE | 2017-06-26 14:23 | HHI.DS ---
Discharge Summary Admission Date Jun 20, 2017 at 15:58 Discharge Date: Jun 27, 2017 Admitting Diagnosis sepsis, diarrhea, anemia, renal failure/dialysis, (1) Sepsis ICD Code: A41.9 - Sepsis, unspecified organism Status: Acute (2) Leukocytosis ICD Code: D72.829 - Elevated white blood cell count, unspecified Status: Acute (3) Diarrhea in adult patient ICD Code: R19.7 - Diarrhea, unspecified Procedures Please see below. Brief History - From Admission Mrs. Faust is an 82-year-old female. She was sent here from her senior living facility due to shortness of breath and diarrhea. Testing here shows C. difficile positivity on stool test. Imaging shows consolidation in lower lobes which is improved from previous admit, pneumonia is not suspected, antibiotics for this treatment have been discontinued. At time of admit she had some signs of sepsis, this is improved by this point that I am doing this history and physical. Patient has a degree of encephalopathy and is not able to give a clear history but she does say that she feels fatigued and tired. She was previously admitted here for a left facial infection which had complications and she was sent to rehabilitation at that time. Her friend reports that she's been doing good at rehabilitation with good physical recovery until this diarrhea and fatigue started. CBC/BMP: 06/24/17 0548 06/26/17 0830 Significant Findings Laboratory Tests Test 06/24/17 05:48 06/26/17 08:30 White Blood Count 12.8 TH/MM3 (4.0-11.0) Red Blood Count 2.56 MIL/MM3 (4.00-5.30) Hemoglobin 8.7 GM/DL (11.6-15.3) Hematocrit 26.4 % (35.0-46.0) Mean Corpuscular Volume 103.2 FL (80.0-100.0) Red Cell Distribution Width 18.4 % (11.6-17.2) Eosinophils % 5 % (0-4) Neutrophils # (Manual) 9.1 TH/MM3 (1.8-7.7) Nucleated Red Blood Cells 1 /100 WBC (0-0) Ovalocytes 1+ (NORMAL) Blood Urea Nitrogen 46 MG/DL (7-18) 45 MG/DL (7-18) Creatinine 6.20 MG/DL (0.50-1.00) 5.90 MG/DL (0.50-1.00) Random Glucose 123 MG/DL (74-106) 172 MG/DL (74-106) Total Protein 5.2 GM/DL (6.4-8.2) Albumin 2.0 GM/DL (3.4-5.0) Calcium Level 7.6 MG/DL (8.5-10.1) 8.3 MG/DL (8.5-10.1) Aspartate Amino Transf (AST/SGOT) 7 U/L (15-37) Alanine Aminotransferase (ALT/SGPT) 9 U/L (10-53) Potassium Level 3.4 MEQ/L (3.5-5.1) 3.4 MEQ/L (3.5-5.1) Estimat Glomerular Filtration Rate 6 ML/MIN (>89) 7 ML/MIN (>89) Imaging Last Impressions Chest X-Ray 06/25/17 0000 Signed Impressions: Service Date/Time: Sunday, June 25, 2017 14:11 - CONCLUSION: Interstitial edema, left effusion and left basilar airspace disease suspected. Deepak Bui MD Hospital Course Patient was admitted, started on high-dose p.o. vancomycin. Nephrology had been consulted for dialysis. Patient's respiratory status had stabilized and was eventually back down to her 1-2 L of oxygen. Her diarrhea had eventually improved and patient's abdominal pain showed significant improvement. Patient was tolerating p.o. intake well. Pt Condition on Discharge: Stable Discharge Disposition: Discharge to SNF Discharge Time: <= 30 minutes Discharge Instructions DIET: Follow Instructions for: Renal Failure Diet Activities you can perform: Regular-No Restrictions, See Additionl Instruction Other Activity Instructions: per PT/OT recs Follow up Referrals: Nephrology with Priti Bautista MD PCP Follow-up - 1 Week New Medications: Vancomycin (Vancomycin) 125 Mg Cap 125 MG PO QID for Infection, #24 CAP 0 Refills Pantoprazole (Pantoprazole) 40 Mg Tab 40 MG PO DAILY for heartburn, #30 TAB [Albuterol-Ipratropium Neb] () 1 AMPULE NEBU 1 AMPULE NEB Q2HR NEB PRN for sob, #30 AMPULE [Albuterol-Ipratropium Neb] () 1 AMPULE NEBU 1 AMPULE NEB Q6HR WHILE AWAKE NEB, #120 AMPULE [Budeson-Formot 80-4.5 Mcg Inh] () 60 PUFF AERO 2 PUFF INH Q12HR, #120 INH Continued Medications: Allopurinol (Allopurinol) 100 Mg Tab 100 MG PO DAILY for Gout, #30 TAB 0 Refills Alprazolam (Xanax) 0.25 Mg Tab 0.25 MG PO Q6H PRN for ANXIETY, #120 TAB 0 Refills (This prescription has been renewed) Aspirin DR (Aspirin 81) 81 Mg Tabdr 81 MG PO HS, TAB 0 Refills B-Complex W/ C & Folic Acid ([facility] Rx) 1 Tab 1 TAB PO DAILY for Nutritional Supplement, #30 TAB 0 Refills Cholecalciferol (Vitamin D3) 1,000 Unit Cap 1000 UNITS PO DAILY for Nutritional Supplement, #1 BOTTLE 0 Refills Cyanocobalamin (Vitamin B-12) 1,000 Mcg Tab 1000 MCG PO DAILY for Nutritional Supplement, #1 BOTTLE 0 Refills Escitalopram (Escitalopram) 10 Mg Tab 10 MG PO DAILY, #30 TAB 0 Refills Fluconazole (Fluconazole) 100 Mg Tab 100 MG PO DAILY for Infection for 7 Days, #7 TAB 0 Refills Folic Acid (Folic Acid) 0.8 Mg Tab 1000 MCG PO HS for Nutritional Supplement, TAB 0 Refills Isosorbide Dinitrate (Isosorbide Dinitrate) 30 Mg Tab 30 MG PO HS Lactobacillus Acidophilus (Lactobacillus Acidophilus) 1 Billion Cell Tab 1 TAB PO TIDAC for Nutritional Supplement, #30 TAB 0 Refills Levothyroxine (Levothyroxine) 200 Mcg Tab 200 MCG PO DAILY for Thyroid, #30 TAB 0 Refills Omeprazole Magnesium (Prilosec) 10 Mg Pow 1 TAB PO MON-SAT Pravastatin (Pravastatin) 10 Mg Tab 10 MG PO HS for Cholesterol Management, #30 TAB 0 Refills Vitamin B Cmplx/Vit C/Folic AC (Nephro-Rosalinda Rx) 1 Tab 1 TAB PO HS, TAB Discontinued Medications: Prednisone (21) 10 mg tab Dose Pack (Prednisone (21) 10 mg tab Dose Pack) 10 Mg Pack 10 MG PO DIRECTED for Inflammation, #1 DSPK 0 Refills Celestine Lemus MD Jun 26, 2017 14:23 Maya Morris Jun 27, 2017 11:16
[2017-06-26] MEDS ORDERED: PANT40TA3 PO (14:24)
--- NOTE | 2017-06-26 14:32 | HHI.NPPN ---
Subjective History of Present Illness 82-year-old female with a history of ESRD on HD, COPD, anxiety disorder,diabetes , hypothyroidism, breast cancer, HTN, HLD, and rheumatoid arthritis. Patient presents from the [facility] with complaints of shortness of breath and diarrhea. Additional Remarks Patient is alert, still feeling weak and tired, loose BM is improving, no vomiting. Review of Systems General Constitutional: Fatigue Cardiovascular Cardiac: ANDRADE Gastrointestinal Gastrointestinal: Abdominal Pain, Diarrhea Objective Data Data Vital Signs Date Time Temp Pulse Resp B/P (MAP) Pulse Ox O2 Delivery O2 Flow Rate FiO2 06/26/17 08:00 97.3 103 18 114/49 (70) 95 06/26/17 08:00 97.3 112 18 105/49 (67) 95 06/26/17 07:12 94 Nasal Cannula 2.00 06/26/17 00:00 97.8 99 16 142/62 (88) 95 06/25/17 20:00 97.7 100 16 110/52 (71) 94 06/25/17 20:00 97 Nasal Cannula 2.00 06/25/17 19:55 97 Nasal Cannula 2.00 06/25/17 16:00 97.9 106 22 142/64 (90) 96 -: 06/24/17 0548 06/26/17 0830 Physical Exam General Appearance: Well Nourished, No Acute Distress Eyes Eye Exam: Pupils Equal Throat Throat Exam: Oral Mucosa [place] & Moist Pulmonary Resp Exam: Breath Sounds Equal, No Distress, Rhonchi, Decreased Bases Cardiology CV Exam: Regular, Normal Sinus Rhythm Gastrointestinal/Abdomen GI Exam: Soft, Non-Tender, Bowel Sounds Present Extremeties Extremities Exam: Trace Edema Neurologic Neuro Exam: Alert, Awake, Oriented Psychiatric Psych Exam: Appropriate Responses Assessment/Plan Problem List: (1) ESRD (end stage renal disease) on dialysis ICD Codes: N18.6 - End stage renal disease; Z99.2 - Dependence on renal dialysis Plan: ESRD Dialysis T//Mon with left AVF Plan Epogen with dialysis Renal dose antibiotics. admitted with C.Difficile and high WBC. On PO Vanco. BP is now stable. WBC continue to be improving, BP is stable. Continue antibiotics. HD to continue TTS. Possible D/C back to SNF in AM. (2) C. difficile diarrhea ICD Codes: A04.72 - Enterocolitis due to Clostridium difficile, not specified as recurrent Plan: Continue PO vancomycin (3) Sepsis ICD Codes: A41.9 - Sepsis, unspecified organism Status: Acute Plan: continue antibiotics renal dosing antibiotics Chest xray with possible pneumonia BC pending. Priti Bautista MD Jun 26, 2017 14:32
--- NOTE | 2017-06-26 16:28 | HHI.PR ---
Subjective Remarks Nursing denies any major deterioration since last night. Patient says that she feels better in terms of her breathing since yesterday. Nursing reports to play movements since yesterday evening. environmental test technician later told me that she did have 2 bowel movements on the day shift , first one was pasty, second was more watery. Objective Vital Signs Date Time Temp Pulse Resp B/P (MAP) Pulse Ox O2 Delivery O2 Flow Rate FiO2 06/26/17 12:00 97.3 103 18 114/57 (76) 95 06/26/17 08:00 97.3 103 18 114/49 (70) 95 06/26/17 08:00 95 Room Air 2.00 06/26/17 08:00 97.3 112 18 105/49 (67) 95 06/26/17 07:12 94 Nasal Cannula 2.00 06/26/17 00:00 97.8 99 16 142/62 (88) 95 06/25/17 20:00 97.7 100 16 110/52 (71) 94 06/25/17 20:00 97 Nasal Cannula 2.00 06/25/17 19:55 97 Nasal Cannula 2.00 I/O 06/25/17 06/25/17 06/25/17 06/26/17 06/26/17 06/26/17 06:59 14:59 22:59 06:59 14:59 22:59 Intake Total 650 ml Balance 650 ml Intake Oral 650 ml # Voids 0 0 2 # Bowel Movements 1 2 Result Diagram: 06/24/17 0548 06/26/17 0830 Objective Remarks Lying down in bed, clear lungs bilaterally, minimally labored breathing which is at her baseline A/P Assessment and Plan Assessment and Plan 82-year-old female admitted secondary to C. difficile colitis with dyspnea dyspepsia - Protonix/Mylanta acute on chronic respiratory insufficiency -stabilized, continue Symbicort, repeat chest x-ray on my independent review shows no new infiltrates, stable since prior study, afebrile, I do not suspect any infectious respiratory process at this time C. difficile colitis Continue By mouth vancomycin Probiotics Improved since admission overall , but discussed with case management who confirmed with care home and outpatient dialysis center that the patient must be able to hold her own bowel urges since there is no nursing program manager available to clean her up should she defecated on herself during dialysis. Hyperlipidemia Continue present treatment Follow as an outpatient Continue pravastatin Hypertension History of pulmonary hypertension Grade 1 diastolic dysfunction Continue baseline treatment Follow blood pressures Adjust treatments as needed Continue carvedilol Continue isosorbide Continue amlodipine ESRD Nephrology consulted Continue hemodialysis Hypokalemia Continue monitoring potassium levels Replace potassium as needed Gastroesophageal reflux disease Hypoalbuminemia Continue Protonix Rheumatoid arthritis No exacerbation Continue folic acid 0.8 mg IV daily Diabetes mellitus type 2 Follow blood sugars Insulin sliding scale Diabetic diet Continue Novolin N Hypothyroidism Continue levothyroxine Generalized weakness Continue physical therapy DVT prophylaxis SCDs Discharge Planning when pt is able to hold her urges to defecate and stools are more formed she can than be discharged to SNF Celestine Lemus MD Jun 26, 2017 16:28
[2017-06-27] VITALS: BP 108/46; PULSE 109; RESP 14; TEMP 98.2; O2SAT 97
[2017-06-27] MEDS: RESP: ALBUTEROL 2.5 MG/IPRATROPIUM 0.5 MG NEB (SCH) NEB ×2 (07:16→14:00)
[2017-06-27 07:18] VITALS: O2SAT 94
[2017-06-27 08:00] VITALS: BP 111/50; PULSE 106; RESP 22; TEMP 97.4; O2SAT 95
[2017-06-27] MEDS ORDERED: ALPRAZolam 0.25 MG TAB PO ONE (08:00)
[2017-06-27] MEDS: ALBUMIN 25% INJ 100 ML IV PRN (08:09)
[2017-06-27] MEDS: VANCOMYCIN 500 MG VIAL (FOR ORAL USE ONLY) PO SCH ×3 (09:00→12:26)
[2017-06-27] MEDS: LACTOBACILLUS ACIDOPHILUS TAB PO SCH ×4 (09:00→12:38)
[2017-06-27] MEDS: EPOETIN ALFA 10,000 UNITS/ML VIAL IV PUSH PRN (10:34)
[2017-06-27] MEDS: GELATIN 12 MM/7 MM FOAM TOP PRN (10:41)
--- NOTE | 2017-06-27 11:14 | HHI.PR ---
Subjective Remarks Follow-up C. difficile. Patient seen and examined status post dialysis, tolerated well. Feeling much improved. Denies any bowel movement today. No uncontrolled bowel movements overnight. Vital signs are stable. Afebrile. Will discharge today. Objective Vitals Vital Signs Date Time Temp Pulse Resp B/P (MAP) Pulse Ox O2 Delivery O2 Flow Rate FiO2 06/27/17 08:00 97.4 106 22 111/50 (70) 95 06/27/17 07:18 94 Nasal Cannula 2.00 06/27/17 00:00 98.2 109 14 108/46 (66) 97 06/26/17 20:00 96.3 53 14 100/42 (61) 95 06/26/17 19:17 95 Nasal Cannula 2.00 06/26/17 16:00 98.3 100 18 110/58 (75) 94 06/26/17 12:00 97.3 103 18 114/57 (76) 95 I/O 06/26/17 06/26/17 06/26/17 06/27/17 06/27/17 06/27/17 06:59 14:59 22:59 06:59 14:59 22:59 Intake Total 120 ml 100 ml Output Total 2 ml 1500 ml Balance 118 ml -1400 ml Intake Oral 120 ml IV Total 100 ml Stool Total 2 ml Hemodialysis 1500 ml # Voids 2 3 # Bowel Movements 2 Result Diagram: 06/24/17 0548 06/26/17 0830 Imaging Last Impressions Chest X-Ray 06/25/17 0000 Signed Impressions: Service Date/Time: Sunday, June 25, 2017 14:11 - CONCLUSION: Interstitial edema, left effusion and left basilar airspace disease suspected. Deepak Bui MD Objective Remarks GENERAL: Well-developed, well-nourished patient in [facility]. SKIN: Warm and dry. No rash. HEAD: Normocephalic. Atraumatic. EYES: Pupils equal and round. No scleral icterus. No injection or drainage. ENT: No nasal bleeding or discharge. Mucous membranes pink and moist. NECK: Supple. Trachea midline. CARDIOVASCULAR: Regular rate and rhythm. S1, S2 noted. No murmur appreciated. RESPIRATORY: No accessory muscle use. Clear to auscultation. Breath sounds equal bilaterally. GASTROINTESTINAL: Abdomen soft, non-tender, nondistended. Normoactive bowel sounds x4. MUSCULOSKELETAL: No obvious deformities. Extremities without clubbing, cyanosis , or edema. NEUROLOGICAL: Awake and alert. No obvious cranial nerve deficits. Motor grossly within normal limits. 5/5 muscle strength in bilateral upper and lower extremities. Normal speech. PSYCHIATRIC: Appropriate mood and affect; insight and judgment normal. A/P Problem List: (1) Sepsis ICD Code: A41.9 - Sepsis, unspecified organism Status: Acute (2) Leukocytosis ICD Code: D72.829 - Elevated white blood cell count, unspecified Status: Acute (3) Diarrhea in adult patient ICD Code: R19.7 - Diarrhea, unspecified Assessment and Plan This is an 82-year-old female admitted secondary to C. difficile colitis with dyspnea. Acute on chronic respiratory insufficiency - Stabilized, continue Symbicort - Repeat chest x-ray showing no new infiltrates, stable since prior study. - Has been afebrile. C. difficile colitis - Continue By mouth vancomycin and probiotics. - Improved since admission overall. Will DC to SNF today. BMs are now formed and controlled. Case management assisting. Hyperlipidemia - Follow as an outpatient - Continue pravastatin Hypertension History of pulmonary hypertension - Grade 1 diastolic dysfunction -Follow blood pressures - Continue carvedilol, isosorbide and amlodipine ESRD - Nephrology consulted and following patient, appreciate input and recommendations. - Continue hemodialysis Hypokalemia - Continue monitoring potassium levels - Replace potassium as needed Rheumatoid arthritis - No exacerbation. Continue folic acid 0.8 mg IV daily Diabetes mellitus type 2, chronic: Follow BS trends. ACCU checks ACHS, sliding scale insulin. Cover as needed. Diabetic diet. Hypothyroidism: Continue levothyroxine Dyspepsia: Continue Protonix/Mylanta DVT prophylaxis: SCDs. Discharge Planning Will discharge to [facility] today. Case management assisting. Maya Morris Jun 27, 2017 11:14
[2017-06-27] MEDS: SODIUM CHLORIDE 0.9% FLUSH 10 ML FLUSH IV FLUSH SCH (11:59)
[2017-06-27 12:00] VITALS: BP 115/55; PULSE 108; RESP 20; TEMP 97.6; O2SAT 96
[2017-06-27] MEDS: PANTOPRAZOLE SOD 40 MG DELAYED RELEASE TAB PO SCH (12:12)
[2017-06-27] MEDS: HEPARIN SODIUM - SQ 10,000 UNITS/ML VIAL SQ SCH (12:12)
[2017-06-27] MEDS: BUDESONIDE-FORMOTEROL 80/4.5 MCG INHALER INH SCH (12:13)
[2017-06-27 12:23] LABS: AUTOMATED NEUTROPHIL # 9.2 TH/MM3 (1.8-7.7); BASOPHIL # 0.1 TH/MM3 (0-0.2); BASOPHIL % 0.5 % (0.0-2.0); EOSINOPHIL # 0.3 TH/MM3 (0-0.4); EOSINOPHIL % 2.4 % (0.0-4.0); HEMATOCRIT 24.8 % (35.0-46.0); MEAN CELL VOLUME 104.8 FL (80.0-100.0); MEAN CORPUSCULAR HEMOGLOBIN 33.7 PG (27.0-34.0); MEAN CORPUSCULAR HGB CONC 32.2 % (32.0-36.0); MEAN PLATELET VOLUME 7.9 FL (7.0-11.0); MONO % 4.6 % (0.0-8.0); MONOCYTE # 0.5 TH/MM3 (0-0.9); NEUT % 83.5 % (16.0-70.0); PLATELET COUNT 205 TH/MM3 (150-450); RED BLOOD COUNT 2.36 MIL/MM3 (4.00-5.30); RED CELL DISTRIBUTION WIDTH 19.9 % (11.6-17.2); WHITE BLOOD COUNT 11.1 TH/MM3 (4.0-11.0)
[2017-06-27 12:37] LABS: CALCIUM 8.3 MG/DL (8.5-10.1)
[2017-06-27 12:38] LABS: BICARBONATE 28.7 MEQ/L (21.0-32.0)
[2017-06-27 12:45] LABS: CREATININE 4.2 MG/DL (0.50-1.00)
--- NOTE | 2017-06-27 19:14 | HHI.NPPN ---
Subjective History of Present Illness 82-year-old female with a history of ESRD on HD, COPD, anxiety disorder,diabetes , hypothyroidism, breast cancer, HTN, HLD, and rheumatoid arthritis. Patient presents from the [facility] with complaints of shortness of breath and diarrhea. Additional Remarks Patient is alert, loose BM is improving, no vomiting, seen in AM after the HD. Review of Systems General Constitutional: Fatigue Cardiovascular Cardiac: ANDRADE Gastrointestinal Gastrointestinal: Abdominal Pain, Diarrhea Objective Data Data 06/27/17 06/28/17 19:00 07:00 Intake Total 625 ml Output Total 1500 ml Balance -875 ml Intake Oral 525 ml IV Total 100 ml Hemodialysis 1500 ml # Voids 0 # Bowel Movements 0 Vital Signs Date Time Temp Pulse Resp B/P (MAP) Pulse Ox O2 Delivery O2 Flow Rate FiO2 06/27/17 12:00 97.6 108 20 115/55 (75) 96 06/27/17 09:00 96 Nasal Cannula 2.00 06/27/17 08:00 97.4 106 22 111/50 (70) 95 06/27/17 07:18 94 Nasal Cannula 2.00 06/27/17 00:00 98.2 109 14 108/46 (66) 97 06/26/17 20:00 96.3 53 14 100/42 (61) 95 06/26/17 19:17 95 Nasal Cannula 2.00 -: 06/27/17 1150 06/27/17 1150 Physical Exam General Appearance: Well Nourished, No Acute Distress Eyes Eye Exam: Pupils Equal Throat Throat Exam: Oral Mucosa Colburn & Moist Pulmonary Resp Exam: Breath Sounds Equal, No Distress, Rhonchi, Decreased Bases Cardiology CV Exam: Regular, Normal Sinus Rhythm Gastrointestinal/Abdomen GI Exam: Soft, Non-Tender, Bowel Sounds Present Extremeties Extremities Exam: Trace Edema Neurologic Neuro Exam: Alert, Awake, Oriented Psychiatric Psych Exam: Appropriate Responses Assessment/Plan Problem List: (1) ESRD (end stage renal disease) on dialysis ICD Codes: N18.6 - End stage renal disease; Z99.2 - Dependence on renal dialysis Plan: ESRD Dialysis T/TH/Mon with left AVF Plan Epogen with dialysis Renal dose antibiotics. admitted with C.Difficile and high WBC. On PO Vanco. BP is now stable. WBC continue to be improving, BP is stable. Continue antibiotics. HD to continue TTS. HD done , tolerated well, for discharge home. (2) C. difficile diarrhea ICD Codes: A04.72 - Enterocolitis due to Clostridium difficile, not specified as recurrent Plan: Continue PO vancomycin (3) Sepsis ICD Codes: A41.9 - Sepsis, unspecified organism Status: Acute Plan: continue antibiotics renal dosing antibiotics Chest xray with possible pneumonia BC pending. Priti Bautista MD Jun 27, 2017 19:14
== END 2017-06-27 15:45 | DRG 871 ==
LOC: PHED 23:57 → PHEDA 06-20 03:10 → PHICU 06-20 05:40 → OBSVTOIN 06-20 15:58 → PH3A 06-24 19:51
PROVIDERS: ADMIT Hospitalist; ATTEND Hospitalist
DX: A41.9 Sepsis, unspecified organism (principal); G93.40 Encephalopathy, unspecified; N18.6 End stage renal disease; A04.72 Enterocolitis due to Clostridium difficile, not specified as recurrent; R06.89 Other abnormalities of breathing; I12.0 Hypertensive chronic kidney disease with stage 5 chronic kidney disease or end stage renal disease; R19.7 Diarrhea, unspecified; E11.22 Type 2 diabetes mellitus with diabetic chronic kidney disease; E78.5 Hyperlipidemia, unspecified; M06.9 Rheumatoid arthritis, unspecified; E87.5 Hyperkalemia; D64.9 Anemia, unspecified; J44.9 Chronic obstructive pulmonary disease, unspecified; E87.6 Hypokalemia; E03.9 Hypothyroidism, unspecified; F41.9 Anxiety disorder, unspecified; M10.9 Gout, unspecified; K21.9 Gastro-esophageal reflux disease without esophagitis; Z87.891 Personal history of nicotine dependence; Z99.2 Dependence on renal dialysis; Z79.82 Long term (current) use of aspirin
CPT/HCPCS: 36600; 71045; 71046; 80048; 80053; 82550; 82607; 82805; 83605; 83880; 84100; 84132; 84484; 85007; 85025; 85027; 85610; 85730; 87040; 87493; 87506; 90935; 93005; 94640; 94664; 96374; 96375; J1644; J1940; J2405; J2543; J3370; J7050; P9047; Q4081

== ENCOUNTER 2017-07-19 05:18 | Emergency (ER) | payer MEDICARE, OTHER ==
[~2017-07-19] VITALS: Ht 172.7 cm; Wt 100.0 kg
[~2017-07-19 05:18] MED LIST changes: +ALPR.25 PO; -AMLO10 PO; +AMLO10TA2 PO; +Albuterol-Ipratropium Neb NEB; +Budeson-Formot 80-4.5 Mcg Inh INH; -METH2.5T PO; +PANT40TA3 PO; -PRED10PA PO; +VANC125C3 PO
[2017-07-19] MEDS ORDERED: EPINEPHrine HCL (1:10,000) 1 MG/10 ML SYRINGE IV ONE (05:19)
[2017-07-19] MEDS ORDERED: DOPamine 800 MG/500 ML INJ 500 ML IV ONE (05:19)
[2017-07-19] MEDS ORDERED: SODIUM BICARBONATE 8.4% INJ 50 MEQ/50 ML SYR IV ONE (05:19)
[2017-07-19] MEDS ORDERED: CALCIUM CHLORIDE 10% SOLN 1 GRAM/10 ML SYR IV ONE (05:19)
[2017-07-19 05:21] VITALS: BP 126/53; PULSE 133; RESP 14
[2017-07-19 05:27] VITALS: O2SAT 99
[2017-07-19] MEDS ORDERED: ASPIRIN 300 MG SUPP RECTAL ONE (05:30)
[2017-07-19] MEDS ORDERED: SODIUM CHLOR 0.9% 250 ML INJ 250 ML IV ONE (05:30)
--- NOTE | 2017-07-19 05:33 | PD ---
HPI Chief Complaint: STEMI Alert Time Seen by Provider: 05:21 Travel History International Travel<30 days: No Contact w/Intl Traveler<30days: No Traveled to known affect area: No History of Present Illness HPI The patient is an 82 year old female who presents to the [facility] emergency department with a history of being brought in by ambulance services post cardiac arrest with return of spontaneous circulation. The patient is a resident at the [facility]. The patient was reportedly last seen in her normal state of health at 3 AM. When they went to check on her again, the patient was noted to be pulseless and apneic. Upon ambulance services arrival she was confirmed to be pulseless and apneic with asystole on their monitor. ACLS protocol was started and the patient was given epinephrine in 4 separate doses, along with 1 amp of bicarb. After the fourth dose of epinephrine, the patient had a return of spontaneous circulation. The patient was noted to be in a sinus tachycardia, rate in the 120s-130s. The patient's blood pressure was initially adequate, however it began to drop shortly before arrival down to 80/52. The patient was started on a dopamine drip by ambulance services. The patient's blood sugar was noted to be 179 prior to arrival. The patient was intubated by ambulance services with a 7'0 endotracheal tube. The patient was noted to have scattered rhonchi. The patient had an EKG done by ambulance services that revealed ST segment elevation in the inferior leads. A STEMI alert was called prior to arrival. The patient's history was noted to be significant for being a chronic renal failure patient according to the record on dialysis on Monday, , and Monday. The patient on arrival has a GCS of 3. PFSH Past Medical History Narrative Medical The patient's past medical history is significant for according to the record, chronic renal failure on hemodialysis on Monday, , and Monday, history of breast cancer, hyperlipidemia, diabetes mellitus, acid reflux, hypertension, rheumatoid arthritis. Arthritis: Yes Asthma: No Autoimmune Disease: No Blood Disorders: No Anxiety: Yes Depression: Yes Heart Rhythm Problems: No Cancer: Yes ( right BREAST) Cardiovascular Problems: Yes High Cholesterol: Yes Chemotherapy: No Chest Pain: No Congestive Heart Failure: No COPD: No Cerebrovascular Accident: No Diabetes: Yes (diet ) Patient Takes Glucophage: No Dialysis: Yes (on , mon) Diminished Hearing: No Endocrine: Yes Gastrointestinal Disorders: Yes GERD: Yes Glaucoma: No Genitourinary: Yes (HEMODIALYSIS , MON) Headaches: No Hepatitis: No Hiatal Hernia: No Hypertension: Yes Immune Disorder: No Implanted Vascular Access Dvce: Yes Kidney Stones: No Medical other: No Musculoskeletal: Yes Neurologic: No Psychiatric: No Reproductive: No Respiratory: Yes (oxygen use at home) Migraines: No Myocardial Infarction: No Radiation Therapy: No Renal Failure: Yes Seizures: No Sickle Cell Disease: No Sleep Apnea: No Thyroid Disease: Yes Ulcer: No Menopausal: Yes Past Surgical History Narrative Surgical The patient's past surgical history is significant for cholecystectomy, AV fistula placement in the left upper extremity, right cataract surgery, history of tonsillectomy Abdominal Surgery: Yes (GALLBLADDER) AICD: No Appendectomy: No Arteriovenous Shunt: Yes (L ARM) Cardiac Surgery: Yes (angiogram) Cholecystectomy: Yes (AGE 52) Ear Surgery: No Endocrine Surgery: No Eye Surgery: Yes (right cataract) Genitourinary Surgery: No Gynecologic Surgery: No Insulin Pump: No Joint Replacement: No Oral Surgery: No Pacemaker: No Thoracic Surgery: No Tonsillectomy: Yes Other Surgery: Yes Social History Alcohol Use: No Tobacco Use: No (QUIT 15 YEARS AGO) Substance Use: No Allergies-Medications (Allergen,Severity, Reaction): Coded Allergies: No Known Allergies (Unverified , 07/17/17) Reported Meds & Prescriptions Reported Meds & Active Scripts Active Pantoprazole (Pantoprazole Sodium) 40 Mg Tab 40 Mg PO DAILY Xanax (Alprazolam) 0.25 Mg Tab 0.25 Mg PO Q6H PRN Fluconazole 100 Mg Tab 100 Mg PO DAILY 7 Days Lactobacillus Acidophilus 1 Billion Cell Tab 1 Tab PO TIDAC Reported Duoneb (Ipratropium-Albuterol Neb) 0.5-2.5 Mg/3 Ml Neb 1 Nebule INH Q6HR NEB Breo Ellipta Inh (Fluticasone/Vilanterol) 100-25 Mcg/Act Inh 1 Puff INH DAILY Use daily at the same time. Midodrine 10 Mg Tab 10 Mg PO BID Vancomycin (Vancomycin HCl) 125 Mg Cap 125 Mg PO TID Allopurinol 100 Mg Tab 100 Mg PO DAILY Folic Acid 0.8 Mg Tab 1,000 Mcg PO HS Escitalopram (Escitalopram Oxalate) 10 Mg Tab 10 Mg PO DAILY Pita-Rosalinda Rx (B-Complex W/ C & Folic Acid) 1 Tab 1 Tab PO DAILY Pravastatin 10 Mg Tab 10 Mg PO HS Aspirin 81 (Aspirin) 81 Mg Tabdr 81 Mg PO HS Prilosec (Omeprazole Magnesium) 10 Mg Pow 1 Tab PO MON-SAT Vitamin B-12 (Cyanocobalamin) 1,000 Mcg Tab 1,000 Mcg PO DAILY Vitamin D3 (Cholecalciferol) 1,000 Unit Cap 1,000 Units PO DAILY Carvedilol 12.5 Mg Tab 12.5 Mg PO HS Levothyroxine (Levothyroxine Sodium) 200 Mcg Tab 200 Mcg PO DAILY Review of Systems ROS Limitations: Intubated Physical Exam Narrative General: The patient is a well-developed well-nourished female, pale appearing on arrival with a GCS of 3. Head and Neck exam: Head is normocephalic atraumatic. Eyes: extraocular motion testing is unable to be accomplished as the patient arrives unresponsive, pupils are fixed and dilated. Nose: Midline septum with pink mucous membranes Mouth: Dentition unremarkable. Moist mucus membranes. Posterior oropharynx was initially not able to be visualized as she has a 7 size endotracheal tube in place, however later the patient was noted to have a suspected air leak related to the tube. An attempt was made to change the tube out over a tube changer, however this was not successful. The patient's tube was removed and I intubated the patient with an 8 size endotracheal tube. During intubation the posterior oropharynx was visualized and the patient was noted to have a yellow drainage in the posterior oropharynx. Uvula was midline. Neck: No palpable lymphadenopathy. No nuchal rigidity. No thyromegaly. Cardiovascular: Sinus tachycardia with a rate in the 120s-130s, no murmurs, gallops, or rubs. No pulse deficits to the extremities on simultaneous auscultation and palpation of her radial artery Lungs: Equal breath sounds bilaterally being assisted with bag valve endotracheal tube. The patient had scattered rhonchi audible. Decreased breath sounds in bilateral lung bases. No spontaneous respiratory effort noted. Abdomen: Soft, distended with central obesity, no bruising or erythema noted. Decreased bowel sounds are audible. Extremities: No clubbing, cyanosis, or edema. The patient is noted to have a left AV fistula with a positive thrill. The patient arrived with an intraosseous access in place right tibia. Neurologic Exam: The patient arrives with a GCS of 3. Eyes 1. Motor 1. Verbal- 1. Skin Exam: No rash noted. Intact skin that is warm and dry. Data Data Last Documented VS Vital Signs Date Time Temp Pulse Resp B/P (MAP) Pulse Ox O2 Delivery O2 Flow Rate FiO2 07/19/17 05:27 99 100 07/19/17 05:21 133 14 126/53 (77) Orders Orders Troponin I (07/19/17 05:21) Ckmb (Isoenzyme) Profile (07/19/17 05:21) Complete Blood Count With Diff (07/19/17 05:21) I-Stat Profile (07/19/17 05:21) I-Stat Creatinine (07/19/17 05:21) Calcium (07/19/17 05:21) Magnesium (Mg) (07/19/17 05:21) Prothrombin Time / Inr (Pt) (07/19/17 05:21) Act Partial Throm Time (Ptt) (07/19/17 05:21) B-Type Natriuretic Peptide (07/19/17 05:21) Electrocardiogram (07/19/17 05:21) Oxygen Administration (07/19/17 05:21) Iv Access Insert/Monitor (07/19/17 05:21) Oximetry (07/19/17 05:21) Aspirin Supp (Aspirin Supp) (07/19/17 05:30) Sodium Chlor 0.9% 250 Ml Inj (Ns 250 Ml (07/19/17 05:30) CKMB (07/19/17 05:25) CKMB% (07/19/17 05:25) Labs Laboratory Tests Test 07/19/17 05:25 Bedside Hemoglobin 8.2 G/DL Bedside Hematocrit 24.0 % Bedside Sodium 136 MMOL/L Bedside Potassium 4.0 MMOL/L Bedside Chloride 103 MMOL/L Bedside Blood Urea Nitrogen 68 MG/DL Bedside Creatinine 7.9 MG/DL Bedside Glucose 168 MG/DL Calcium Level 8.5 MG/DL Magnesium Level 2.6 MG/DL Total Creatine Kinase 226 U/L Creatine Kinase MB 4.6 NG/ML Creatine Kinase MB % 2.0 % Troponin I 0.25 NG/ML MDM Medical Decision Making Medical Screen Exam Complete: Yes Emergency Medical Condition: Yes Medical Record Reviewed: Yes Differential Diagnosis Cardiac arrhythmia from STEMI causing cardiac arrest, versus hyperkalemia, versus pulmonary embolism Narrative Course During the course of the patient's emergency department visit, the patient was placed on a ekg monitor with oximetry and frequent blood pressure monitoring. The patient had IV access obtained and blood work sent for analysis. An i-STAT with creatinine was ordered. The patient's [place] [facility] record was reviewed and the patient was recently noted to be with a hemoglobin of 7. The patient was typed and crossmatched for blood. A call was placed out to the STEMI alert Doctor, Dr. Victoria. I spoke to him regarding this patient' s case at 5:25 AM. Given the patient's GCS of 3, fixed and dilated pupils, prolonged downtime during code, he felt that there would be little benefit to cardiac catheterization at this time. He requested that the patient's case be discussed further with the patient's family. A call was placed out to the patient's sister, however she did not answer the phone, a voicemail was left. According to the [facility] record the patient's next of kin is her sister. An OG tube was placed to low intermittent suction. The patient was initially continued on dopamine. The patient had written to be administered aspirin 300 mg per rectum. The patient's laboratory studies were reviewed and remarkable for hemoglobin on i-STAT that was 8.2. Sodium was 136, BUN 68, creatinine 7.9, glucose 168, potassium 4.0, chloride 103. Magnesium was 2.6, CPK 226, MB percent 2, troponin I 0.25. Respiratory therapy became concerned that there was an air leak with endotracheal tube. The tube was only a 7'0, therefore a plan was made to change the tube out over a tube changer. Unfortunately, the tube changer would not advance, therefore the endotracheal tube was removed and the patient was intubated by me with an 8 size endotracheal tube. The endotracheal tube was placed on first pass. The patient required no sedation for intubation. At 5:41 AM, the patient had a loss of pulse. The patient continued to have cardiac activity on the monitor. The patient was found to be in PEA. ACLS protocol was again followed. The patient had no return of spontaneous circulation during resuscitation. The patient's time of was called at 5: 51 AM. The patient's sister arrived at the hospital and was notified by me and the charge nurse regarding patient's . Critical Care Narrative Aggregate critical care time was 32 minutes. Time to perform other separately billable procedures was not included in the critical care time. My time did not include minutes spent treating any other patients simultaneously or on activities that did not directly contribute to the patient's treatment. The services I provided to this patient were to treat and/or prevent clinically significant deterioration that could result in: Cardiac arrhythmia, versus fluid overload from resuscitation I provided critical care services requiring my management, as noted below: Chart data review, documentation time, medication orders and management, vital sign assessments/reviewing monitor data, ordering and reviewing lab tests, ordering and interpreting/reviewing x-rays and diagnostic studies, care of the patient and discussion of the patient with the admitting physicians. Procedures Procedure Narrative The patient was put in optimal position for the procedure. A size 4 Woods blade was used for evaluation of the patient's airway. The patient's cords were easily visualized. The patient was intubated with a 8 cuffed endotracheal tube. Tube placement was confirmed by visualization of the tube and balloon passing through the cords, capnometry and subsequent chest x-ray. Breath sounds were equal and well aerated bilaterally postintubation. No breath sounds over stomach. Patient tolerated procedure well. A bedside ultrasound confirmed no cardiac activity prior to resuscitative efforts being stopped. Diagnosis Primary Impression: Cardiopulmonary arrest Disposition: 20 Condition: Jackie Freed MD Jul 19, 2017 05:33
[2017-07-19] MEDS ORDERED: IPRASOL INH (05:41)
[2017-07-19] MEDS ORDERED: VANC125C3 PO (05:41)
[2017-07-19] MEDS ORDERED: FLUT1INH INH (05:41)
[2017-07-19] MEDS ORDERED: MIDO10TA PO (05:41)
[2017-07-19 05:58] LABS: CALCIUM 8.5 MG/DL (8.5-10.1); MAGNESIUM 2.6 MG/DL (1.5-2.5)
[2017-07-19 06:01] LABS: TROPONIN I 0.25 NG/ML (0.02-0.05)
--- NOTE | 2017-07-19 08:47 | EKG ---
Date Performed: 07/19/2017 Time Performed: 05:20:55 PTAGE: 82 years EKG: ATRIAL FLUTTER/TACHYCARDIA WITH RAPID VENTRICULAR RESPONSE POSSIBLE RIGHT VENTRICULAR HYPER TROPHY POSSIBLE ANTERIOR MYOCARDIAL INFARCTION ST DEPRESSION, CONSIDER SUBENDOCARDIAL INJURY ABNORMAL ECG PREVIOUS TRACING : 06/20/2017 00.27 DOCTOR: Rolando Mathews Interpretating Date/Time 07/19/2017 08:45:48
== END 2017-07-19 09:43 | disposition expired ==
LOC: NEPE 05:18 → NEPI 09:43
DX: I46.9 Cardiac arrest, cause unspecified (principal); R94.31 Abnormal electrocardiogram [ECG] [EKG]
CPT/HCPCS: 80048; 82310; 82550; 82552; 83735; 84484; 93005; J0171; J1265